=== PATIENT | male | born 1945 | race Caucasian/White ===

== ENCOUNTER 2017-01-13 21:48 | Inpatient (IN) | payer OTHER ==
[~2017-01-13] VITALS: Ht 165.1 cm; Wt 82.0 kg
[~2017-01-13 21:48] MED LIST: ACET325T33 PO; ATOR10TA65 PO; DOCU-144 PO; ERTA1VIA IV; HYDR-3671 PO; LORA1TAB PO; METO-429 PO; SERT100T PO; TAMS0.4C2 PO; TRAZ100T15 PO; UDMOM PO; ZOLP10TA5 PO
[2017-01-13] MEDS ORDERED: LEVOFLOXACIN 500MG/D5W (PMX) 100 ML IVPB STA (22:25)
[2017-01-13] MEDS ORDERED: metroNIDAZOLE 500 MG/NS (PMX) 100 ML IVPB STA (22:25)
[2017-01-13] MEDS ORDERED: SODIUM CHLORIDE 0.9% 1L BAG IV* STA (22:25)
[2017-01-13] MEDS ORDERED: ONDANSETRON 4 MG INJ IV STA (22:33)
[2017-01-13] MEDS ORDERED: HYDROmorphONE 0.5 MG/0.5 ML SYG IV STA (22:33)
[2017-01-13 22:57] LABS: BASOPHILS % 0.2 % (0.0-2.0); EOSINOPHILS # 0.1 10^3/ul (0.0-0.5); EOSINOPHILS % 1.2 % (0.0-7.0); HEMATOCRIT 43.4 % (42.0-52.0); HEMOGLOBIN 14.6 g/dl (14.0-18.0); LYMPHOCYTES # 0.9 10^3/ul (0.8-2.9); LYMPHOCYTES % 8.2 % (15.0-51.0); MEAN CORPUSCULAR HEMOGLOBIN 29.4 pg (29.0-33.0); MEAN CORPUSCULAR HGB CONC 33.6 g/dl (32.0-37.0); MEAN CORPUSCULAR VOLUME 87.3 fl (82.0-101.0); MEAN PLATELET VOLUME 10.5 fl (7.4-10.4); MONOCYTE # 0.4 10^3/ul (0.3-0.9); MONOCYTES % 3.4 % (0.0-11.0); NEUTROPHIL # 9.3 10^3/ul (1.6-7.5); NEUTROPHILS % 86.6 % (39.0-77.0); PLATELET COUNT 197 10^3/UL (140-415); RED BLOOD COUNT 4.97 10^6/ul (4.70-6.10); RED CELL DISTRIBUTION WIDTH 15.1 % (11.5-14.5); WHITE BLOOD COUNT 10.7 10^3/ul (4.8-10.8)
[2017-01-13 23:12] LABS: INR 0.96; PROTIME 12.8 Sec (12.2-14.2)
[2017-01-13 23:13] LABS: PARTIAL THROMBOPLASTIN TIME 26.9 Sec (25.0-35.0)
[2017-01-13 23:16] LABS: ALANINE AMINOTRANSFERASE 26 IU/L (13-69); ALBUMIN 4.1 g/dl (3.3-4.9); ALBUMIN/GLOBULIN RATIO 1.32; ALKALINE PHOSPHATASE 149 IU/L (42-121); ANION GAP 13 (8-16); ASPARTATE AMINO TRANSFERASE 23 IU/L (15-46); BILIRUBIN,INDIRECT 0.3 mg/dl (0-1.1); BILIRUBIN,TOTAL 0.3 mg/dl (0.2-1.3); BLOOD UREA NITROGEN 24 mg/dl (7-20); CALCIUM 8.9 mg/dl (8.4-10.2); CARBON DIOXIDE 33 mmol/L (21-31); CHLORIDE 98 mmol/L (97-110); CREATININE 1.33 mg/dl (0.61-1.24); GLUCOSE 115 mg/dl (70-220); SODIUM 141 mmol/L (135-144); TOTAL PROTEIN 7.2 g/dl (6.1-8.1)
--- NOTE | 2017-01-13 23:35 | RADRPT ---
PROCEDURE: CT abdomen and pelvis without intravenous contrast. CLINICAL INDICATION: Pain. TECHNIQUE: CT of the abdomen/pelvis was performed utilizing axial images with reconstructions in s agittal and coronal planes. The administered radiation dose is CTDI 12.4 mGy, DLP 734 mGy-cm. One or more of the following dose reduction techniques were used: automated exposure control, adjustment o f the mA and/or kV according to patient size and/or use of iterative reconstruction technique. COMPARISON: No pertinent prior examinations were submitted for comparison. FINDINGS: Visualized Chest: There is mild atelectasis at the lung bases. There is mild cardiomegaly. Abdomen: The liver, spleen, pancreas, gallbladder,and adrenal glands are unremarkable. The kidneys are without hydronephrosis. No definite urinary calculi are seen. A cyst is noted along the anterior aspect of the left kidney. There is no evidence of bowel obstruction. The appendix is normal. No intra-abdominal free air is seen. There is no evidence of intra-abdominal adenopathy or free fluid. Pelvis: The prostate is enlarged and lobulated with some nodularity protruding into the bladder. The prostat e measures up to 6.2 cm in transverse dimension. There is concentric thickening of the bladder nava along with a small diverticulum of the bladder on the right. There is no pelvic adenopathy or free fluid. Small bilateral fat containing inguinal hernias are noted. Osseous structures: Unremarkable. IMPRESSION: Enlarged and nodular prostate. Urologic follow-up is recommended. Thickened bladder nava presumably due to chronic urinary outlet obstruction. Please correlate with urinalysis to exclude infection. Small bilateral fat containing inguinal hernias. RPTAT: HIKT .Chuy Fontanez MD, Date Time Electronically viewed and signed by .Chuy Fontanez MD, on 01/13/2017 23:35 .T/
[2017-01-13 23:42] LABS: POTASSIUM 2.9 mmol/L (3.5-5.1); TROPONIN-I < 0.012 ng/ml (0.00-0.12)
[2017-01-14] VITALS (13 sets, daily range): BP systolic 132–173; BP diastolic 62–80; PULSE 59–90; RESP 18–20; TEMP 99.3; Ht 165.1 cm; Wt 82.0 kg
[2017-01-14] MEDS ORDERED: POTASSIUM CHLORIDE (SR) 20 MEQ TAB PO STA (00:05)
--- NOTE | 2017-01-14 00:29 | ERD ---
ER Documentation Chief Complaint Chief Complaint fever/chills x 5 days. also c/o vomiting/abd/chest pain HPI 71-year-old male with a history of CAD, hypertension, BPH presenting with complaints of abdominal pain for about 1 week that is diffuse, constant, aching , 10 out of 10. He is also had about 4-5 days of fevers and chills. He has associated nausea, nonbloody and nonbilious vomiting, and constipation for the past week as well. He denies any dysuria or hematuria. He also complains of constant left-sided chest pain radiating to his left arm. He denies any associated shortness of breath. The pain is constant, not exacerbated or alleviated by anything. ROS All systems reviewed and are negative except as per history of present illness. Medications Home Meds Active Scripts Ertapenem Sodium (Invanz) 1 Gm Vial.port, 1 GM IV DAILY for 14 Days Prov:JARROD CHUNG 12/04/15 Magnesium Hydroxide* (Rojo' MOM*) 30 Ml Susp, 30 ML PO DAILY Y for CONSTIPATION for 30 Days Prov:JARROD CHUNG 12/04/15 Docusate Sodium* (Colace*) 100 Mg Capsule, 100 MG PO Q12H Y for CONSTIPATION for 30 Days, CAP Prov:JARROD CHUNG 12/04/15 Acetaminophen* (Tylenol*) 325 Mg Tablet, 650 MG PO Q6H Y for PAIN LEVEL 1-3 OR FEVER for 30 Days, TAB Prov:JARROD CHUNG 12/04/15 Reported Medications Tamsulosin Hcl* (Tamsulosin Hcl*) 0.4 Mg Cap.er.24h, 0.4 MG PO BID, CAP 11/30/15 Hydralazine Hcl* (Hydralazine Hcl*) 25 Mg Tab, 25 MG PO TID Y for ANXIETY, #60 TAB 11/30/15 Trazodone Hcl* (Trazodone Hcl*) 100 Mg Tablet, 100 MG PO BID, #60 TAB 11/30/15 Sertraline Hcl* (Zoloft*) 100 Mg Tablet, 200 MG PO DAILY, #60 TAB 11/30/15 Zolpidem Tartrate* (Zolpidem Tartrate*) 10 Mg Tablet, 10 MG PO QHS Y for INSOMNIA, #30 TAB 11/30/15 Lorazepam* (Lorazepam*) 1 Mg Tablet, 1 MG PO BID Y for ANXIETY, #30 TAB 11/30/15 Atorvastatin Calcium (Atorvastatin Calcium) 10 Mg Tablet, 10 MG PO QHS, #30 TAB 11/30/15 Metoprolol Tartrate* (Lopressor*) 50 Mg Tab, 50 MG PO BID, #60 TAB 11/30/15 Allergies Allergies: Coded Allergies: Penicillins (Verified Allergy, Unknown, rash, 01/13/17) PMhx/Soc Medical and Surgical Hx: pt denies Surgical Hx History of Surgery: No Anesthesia Reaction: No Hx Neurological Disorder: No Hx Respiratory Disorders: No Hx Cardiac Disorders: Yes (HYPERTENSION) Hx Psychiatric Problems: Yes (ANXIETY) Hx Miscellaneous Medical Probl: No Hx Alcohol Use: No Hx Substance Use: No Hx Tobacco Use: No Smoking Status: Never smoker FmHx Family History: No coronary disease Physical Exam Vitals Vital Signs Date Time Temp Pulse Resp B/P Pulse Ox O2 Delivery O2 Flow Rate FiO2 01/14/17 01:37 99.3 90 18 130/82 95 Room Air 01/14/17 01:08 99.3 01/13/17 22:10 101.1 105 21 171/94 96 Room Air 01/13/17 22:10 Nasal Cannula 3 01/13/17 21:51 101.1 103 20 212/130 97 Physical Exam Const: Well-appearing, nontoxic, no apparent distress Head: Atraumatic Eyes: Normal Conjunctiva ENT: Dry mucous membranes, posterior oropharynx normal Neck: Full range of motion..~ No meningismus. No JVD Resp: Clear to auscultation bilaterally Cardio: Regular rate and rhythm, no murmurs. 2+ distal pulses. Abd: Soft, mildly distended, diffuse mild tenderness, no rebound or guarding. Hypoactive bowel sounds Skin: No petechiae or rashes Back: No midline or flank tenderness Ext: No cyanosis, or edema Neur: Awake and alert Psych: Normal Mood and Affect Result Diagram: 01/13/17222901/13/172229 Results 24 hrs Laboratory Tests Test 01/13/17 22:30 01/14/17 00:30 White Blood Count 10.710^3/ul Red Blood Count 4.9710^6/ul Hemoglobin 14.6g/dl Hematocrit 43.4% Mean Corpuscular Volume 87.3fl Mean Corpuscular Hemoglobin 29.4pg Mean Corpuscular Hemoglobin Concent 33.6g/dl Red Cell Distribution Width 15.1% Platelet Count 71998^3/UL Mean Platelet Volume 10.5fl Neutrophils % 86.6% Lymphocytes % 8.2% Monocytes % 3.4% Eosinophils % 1.2% Basophils % 0.2% Nucleated Red Blood Cells % 0.0/100WBC Neutrophils # 9.310^3/ul Lymphocytes # 0.910^3/ul Monocytes # 0.410^3/ul Eosinophils # 0.110^3/ul Basophils # 0.010^3/ul Nucleated Red Blood Cells # 0.010^3/ul Prothrombin Time 12.8Sec Prothrombin Time Ratio 1.0 INR International Normalized Ratio 0.96 Activated Partial Thromboplast Time 26.9Sec Sodium Level 141mmol/L Potassium Level 2.9mmol/L Chloride Level 98mmol/L Carbon Dioxide Level 33mmol/L Anion Gap 13 Blood Urea Nitrogen 24mg/dl Creatinine 1.33mg/dl Glucose Level 115mg/dl Lactic Acid Level 2.4mmol/L Calcium Level 8.9mg/dl Total Bilirubin 0.3mg/dl Direct Bilirubin 0.00mg/dl Indirect Bilirubin 0.3mg/dl Aspartate Amino Transf (AST/SGOT) 23IU/L Alanine Aminotransferase (ALT/SGPT) 26IU/L Alkaline Phosphatase 149IU/L Troponin I < 0.012ng/ml Total Protein 7.2g/dl Albumin 4.1g/dl Globulin 3.10g/dl Albumin/Globulin Ratio 1.32 Lipase 97U/L Urine Color COLORLESS Urine Clarity CLEAR Urine pH 8.0 Urine Specific [place] 1.006 Urine Ketones NEGATIVEmg/dL Urine Nitrite NEGATIVEmg/dL Urine Bilirubin NEGATIVEmg/dL Urine Urobilinogen NEGATIVEmg/dL Urine Leukocyte Esterase NEGATIVELeu/ul Urine Hemoglobin NEGATIVEmg/dL Urine Glucose NEGATIVEmg/dL Urine Total Protein NEGATIVEmg/dl Current Medications Medications (Trade) Dose Ordered Sig/Sandi Route PRN Reason Start Time Stop Time Status Last Admin Dose Admin Sodium Chloride 2540 ml 2,540 ml BOLUS OVER 2 HOURS STAT IV* 01/13/17 22:25 01/13/17 22:34 DC 01/13/17 23:17 Metronidazole 100 ml @ 100 mls/hr ONCE STAT IVPB 01/13/17 22:25 01/13/17 23:24 DC 01/13/17 22:25 Levofloxacin/ Dextrose (Levaquin 500mg/ D5W 100 ml (Pmx)) 100 ml @ 100 mls/hr ONCE STAT IVPB 01/13/17 22:25 01/13/17 23:24 DC 01/13/17 23:17 Hydromorphone HCl (Dilaudid) 0.5 mg ONCE STAT IV 01/13/17 22:33 01/13/17 22:34 DC 01/13/17 23:18 Ondansetron HCl (Zofran Inj) 4 mg ONCE STAT IV 01/13/17 22:33 01/13/17 22:34 DC 01/13/17 23:17 Potassium Chloride 40 meq 40 meq ONCE STAT PO 01/14/17 00:05 01/14/17 00:07 DC 01/14/17 00:05 Magnesium Sulfate (Magnesium Sulfate 2 Gm/50 ml) 50 ml @ 25 mls/hr ONCE ONCE IVPB 01/14/17 00:30 01/14/17 02:29 DC 01/14/17 01:30 Ondansetron HCl (Zofran Inj) 4 mg BRIDGE ORDER PRN IV NAUSEA AND/OR VOMITING 01/14/17 01:30 01/15/17 01:29 Acetaminophen 650 mg 650 mg ER BRIDGE PRN PO MILD PAIN/FEVER 01/14/17 01:30 01/15/17 01:29 Potassium Chloride/Dextrose/ Sod Cl (D5-1/2ns + KCl 20 Meq) 1,000 ml @ 125 mls/hr Q8H ONCE IV 01/14/17 02:25 01/14/17 10:24 Procedures/MDM EMERGENT LABS AND DIAGNOSTIC STUDIES: Lab Results above were reviewed and interpreted by me. CBC: No leukocytosis, increased neutrophil % CMP: Hypokalemia Lipase: no evidence of pancreatitis Troponin within normal limits Lactate elevated UA: no evidence of infection 12-lead EKG #1 was interpreted by Angela Guallpa MD: Sinus tachycardia at 104 beats per minute Normal axis Normal intervals Nonspecific ST and T-wave abnormalities No evidence of STEMI. 12-lead EKG #2 was interpreted by Angela Guallpa MD: SR at 97 beats per minute with first-degree AV block Normal axis Normal intervals Nonspecific ST and T-wave abnormalities No evidence of STEMI. Radiology Results as interpreted by Radiology below were reviewed by Ramonita Guallpa MD: Chest x-ray FINDINGS: There is mild cardiomegaly. The lungs are clear. The osseous structures are unremarkable. IMPRESSION: No acute findings. .Chuy Fontanez MD, Date Time Electronically viewed and signed by .Chuy Fontanez MD, on 01/14/2017 00:44 CT abdomen and pelvis without contrast: IMPRESSION: Enlarged and nodular prostate. Urologic follow-up is recommended. Thickened bladder nava presumably due to chronic urinary outlet obstruction. Please correlate with urinalysis to exclude infection. Small bilateral fat containing inguinal hernias. .Chuy Fontanez MD, Date Time Electronically viewed and signed by .Chuy Fontanez MD, on 01/13/2017 23:35 Initial Nursing notes reviewed. Previous Medical Records requested via the Electronic Health Record. EMERGENCY DEPARTMENT COURSE / MEDICAL DECISION MAKING: Patient is presenting with fever, tachycardia, hypertension, and abdominal pain. His presentation is consistent with sepsis with unclear source at this time. Urinalysis did not show evidence of infection but his CT scan showed evidence of bladder wall thickening, concerning for cystitis and also showed an enlarged prostate. Otherwise the CT was normal. Labs were notable for hypokalemia and acute renal failure. He received 40 M EQ potassium orally and started on IV fluids with potassium supplementation. Magnesium was also given IV. Patient's vitals have improved but patient's infectious symptoms have not stabilized and the patient is at risk of rapid decompensation. The etiology of his abdominal pain is unclear at this time, however I do not suspect ischemic bowel,per viscus or aortic dissection. The patient will be admitted for careful hydration, antibiotic therapy, and infectious source control. Severe Sepsis Assessment: Infectious Source: Intra-abdominal End organ damage indicated by: Lactate > 2.0 mmol/L Severe Sepsis Managment: Blood Cultures X 2 before broad spectrum antibiotics initiated within 3 hours of recognition. 30 ml/kg NS bolus Completed Initial Lactate: 2.4 Repeat Lactate pending Critical Care: Time: 35 minutes Treatments/Evaluations: Emergent fluid management, while maintaining close respiratory support. Immediate broad spectrum antibiotic therapy. Simultaneous assessment for possible sources in order to direct therapy. Consideration for invasive and chemical support to prevent respiratory or cardiac collapse. Septic Shock Assessment (1 hour post 30 ml/kg fluid bolus): Hypotension (SBP < 90 or 40 mmHg drop, MAP < 65): No Lactic acid > 4.0 No Accepting Care Team: Current data and ongoing care discussed. Time: Time of admission Primary Provider: Tho Walsh Diagnosis: Primary Impression: Sepsis Sepsis type: sepsis due to unspecified organism Qualified Code: A41.9 - Sepsis, due to unspecified organism Additional Impressions: Acute kidney injury Hypokalemia Abdominal pain Abdominal location: generalized Qualified Code: R10.84 - Generalized abdominal pain Condition: Serious MAURY GUALLPA MD Jan 14, 2017 00:29
[2017-01-14] MEDS ORDERED: MAGNESIUM SULFATE 2 GM/50 ML 50 ML IVPB ONE (00:30)
--- NOTE | 2017-01-14 00:45 | RADRPT ---
PROCEDURE: XR Chest. CLINICAL INDICATION: Shortness of breath. TECHNIQUE: AP Portable chest. COMPARISON: 12/04/2015 FINDINGS: There is mild cardiomegaly. The lungs are clear. The osseous structures are unremarkable. IMPRESSION: No acute findings. RPTAT: HIKT .Chuy Fontanez MD, Date Time Electronically viewed and signed by .Chuy Fontanez MD, on 01/14/2017 00:44 .T/
[2017-01-14 01:00] LABS: ADD UMIC NO; UR ASCORBIC ACID NEGATIVE (NEGATIVE); UR BILIRUBIN (Dip) NEGATIVE (NEGATIVE); UR BLOOD (Dip) NEGATIVE (NEGATIVE); UR CLARITY CLEAR (CLEAR); UR COLOR COLORLESS (YELLOW); UR GLUCOSE (Dip) NEGATIVE (NEGATIVE); UR KETONES (Dip) NEGATIVE (NEGATIVE); UR LEUKOCYTE ESTERASE (Dip) NEGATIVE Leu/ul (NEGATIVE); UR NITRITE (Dip) NEGATIVE (NEGATIVE); UR SPECIFIC GRAVITY (Dip) 1.006 (1.003-1.030); UR TOTAL PROTEIN (Dip) NEGATIVE (NEGATIVE); UR UROBILINOGEN (Dip) NEGATIVE (NEGATIVE)
[2017-01-14] MEDS ORDERED: ACETAMINOPHEN 325 MG TAB PO PRN ×2 (01:30→06:30)
[2017-01-14] MEDS ORDERED: ONDANSETRON 4 MG INJ IV PRN (01:30)
[2017-01-14] MEDS ORDERED: D5W-0.45 NACL + KCL 20 MEQ 1,000 ML IV ONE (02:25)
[2017-01-14] MEDS ORDERED: SOD CHLORIDE 0.9% 1,000 ML IV SCH (06:09)
[2017-01-14] MEDS: LORAZEPAM 1 MG TAB PO PRN ×2 (06:28→15:48)
[2017-01-14] MEDS ORDERED: LEVOFLOXACIN 500MG/D5W (PMX) 100 ML IVPB SCH (06:30)
[2017-01-14] MEDS ORDERED: NACL 0.9% 3 ML SYG IV SCH (06:30)
[2017-01-14] MEDS ORDERED: DOCUSATE SODIUM 100 MG CAP PO PRN (06:30)
[2017-01-14 07:11] LABS: ABNORMAL IP MESSAGE 1; BASOPHIL # 0.1 10^3/ul (0.0-0.1); BASOPHILS % 0.3 % (0.0-2.0); EOSINOPHILS % 0.1 % (0.0-7.0); HEMATOCRIT 38.8 % (42.0-52.0); HEMOGLOBIN 12.7 g/dl (14.0-18.0); LYMPHOCYTES # 1.4 10^3/ul (0.8-2.9); MEAN CORPUSCULAR HEMOGLOBIN 29.3 pg (29.0-33.0); MEAN CORPUSCULAR HGB CONC 32.7 g/dl (32.0-37.0); MEAN CORPUSCULAR VOLUME 89.4 fl (82.0-101.0); MEAN PLATELET VOLUME 11.2 fl (7.4-10.4); MONOCYTE # 1.6 10^3/ul (0.3-0.9); MONOCYTES % 6.9 % (0.0-11.0); NEUTROPHIL # 19.5 10^3/ul (1.6-7.5); NEUTROPHILS % 86.1 % (39.0-77.0); PLATELET COUNT 202 10^3/UL (140-415); POSITIVE DIFF @See below; RED BLOOD COUNT 4.34 10^6/ul (4.70-6.10); RED CELL DISTRIBUTION WIDTH 15.4 % (11.5-14.5); WHITE BLOOD COUNT 22.6 10^3/ul (4.8-10.8)
[2017-01-14 07:19] LABS: ALBUMIN 3.1 g/dl (3.3-4.9); ALBUMIN/GLOBULIN RATIO 1.1; BILIRUBIN,INDIRECT 0.3 mg/dl (0-1.1); BILIRUBIN,TOTAL 0.3 mg/dl (0.2-1.3); CALCIUM 8.2 mg/dl (8.4-10.2); CHOL/HDL RATIO 4.3 RATIO; CREATININE 1.37 mg/dl (0.61-1.24); MAGNESIUM 2.4 mg/dl (1.7-2.5); POTASSIUM 3.3 mmol/L (3.5-5.1); TOTAL PROTEIN 5.9 g/dl (6.1-8.1)
[2017-01-14] MEDS: ACETAMINOPHEN 325 MG TAB PO PRN ×2 (07:48→21:38)
[2017-01-14 07:50] LABS: PROSTATE SPECIFIC ANTIGEN 2.3 ng/ml (0.0-4.0); THYROID STIMULATING HORMONE 1.01 MIU/L (0.465-4.680)
[2017-01-14] MEDS: TAMSULOSIN (SR) 0.4 MG CAP PO SCH ×2 (09:21→21:30)
[2017-01-14] MEDS: traZODone 100 MG TAB PO SCH ×2 (09:21→21:30)
[2017-01-14] MEDS: SERTRALINE 100 MG TAB PO SCH (09:21)
--- NOTE | 2017-01-14 10:00 | HP ---
Date/Time of Note Date/Time of Note DATE: 01/14/17 TIME: 10:00 Assessment/Plan VTE Prophylaxis VTE Prophylaxis Intervention: heparin Lines/Catheters IV [facility]from [facility] Assessment/Plan Chief Complaint/Hosp Course 1. Systemic inflammatory response syndrome with febrile illness, leukocytosis, and tachycardia. Etiology unclear. The patient's urinalysis is negative. The patient's CT scan of the abdomen and pelvis negative for any acute intra- abdominal findings other than the enlarged prostate gland and concentric thickening of the urinary bladder wall. The patient will be maintained on empiric antibiotics. Pancultures will be obtained. The patient has no evidence of any septic shock. Infectious diseases will be involved in the patient's case since the patient has prior history of E. coli ESBL bacteremia and E. coli ESBL UTI. 2. Nonspecific left chest wall pain with associated left arm pain. Etiology unclear. The patient will be ruled out for any underlying acute coronary syndrome, for the patient's risk factors for ACS include dyslipidemia and essential hypertension. Serial troponins will be obtained. A 2D echocardiogram will be obtained. Cardiology consult will be obtained. 3. Acute kidney injury. Etiology unclear. The patient was noticed to have evidence of chronic urinary outlet obstruction. This could be the reason for the patient's worsening renal failure. The patient's renal function was within normal limits on his previous visit to [facility] in November 2015. Nephrology consult will be obtained. 4. Prostatomegaly with CT evidence of enlarged prostate measuring up to 6.2 cm in transverse diameter. The patient will be continued on tamsulosin. The patient's PSA is not elevated. Urology consult will be obtained. 5. Abdominal pain with associated nausea and vomiting. Etiology unclear. Not CT evidence of any acute intra-abdominal findings. Will obtain a gastroenterology consult. The patient will be started on a bowel regimen. 6. Essential hypertension. The patient will be maintained on antihypertensives. 7. Dyslipidemia. The patient will be continued on statins. The patient's fasting lipid panel is satisfactory. Plan: The patient will be admitted to inpatient telemetry floor. The patient will be started on a low-cholesterol diet. The patient will be started on DVT prophylaxis. The patient will remain a full code. Activities will be as tolerated. The rest of the patient's management will be based on the clinical course, inputs from consultants, and the results of diagnostic studies. Based on the patient's clinical presentation, he most probably requires at least 2 midnights' stay for further management and evaluation of his clinical presentation. The case and management of this patient was fully discussed with Dr. Prakash. Problems: HPI/ROS Admit Date/Time Admit Date/Time Jan 14, 2017 at 01:22 Hx of Present Illness Reason for admission: Fevers, chills 5 days. Abdominal pain, left sided chest wall pain, and left arm pain. Consultants 1. Yovany Daniel MD, Cardiology. 2. Jasiel Mosher MD, Infectious Diseases. 3. Dustin Conley MD, Urology. 4. Sav Keen DO, Nephrology. 5. Aniyah Chan, Gastroenterology. This is a 71-year-old male with past medical history essential hypertension, dyslipidemia, and benign prostatic hypertrophy who came to the emergency room with chief complaint of abdominal pain with episodes of nausea and vomiting that has been going on for the past 5 days. The patient also verbalized fevers and chills. He has been complaining of some throat pain. He has been complaining of constipation for the past few days. The patient denied any dysuria or hematuria, but did complain of urinary frequency. The patient was complaining of headache as well as left arm pain with left chest wall pain. The patient's complaints were very nonspecific. The patient denied any recent travels. Of note, the patient has history of E. coli ESBL bacteremia and E. coli ESBL urinary tract infection in November 2015. In the emergency room, the patient was noticed to have acute kidney injury along with the hypokalemia. Although the patient's initial WBC was within normal limits, the patient's repeat WBC was 22.6. The patient's urinalysis was negative. The patient was also febrile. The patient's CT scan of the abdomen and pelvis showed enlarged nodular prostate with thickened bladder nava presumably due to chronic urinary outlet obstruction. The CT also revealed small bilateral fat-containing inguinal hernias. The patient was treated with IV Levaquin and IV Flagyl in the emergency room along with potassium supplements and IV analgesics. ROS Constitutional: chills, febrile, poor po Eyes: no complaints ENT: no complaints Respiratory: no complaints Cardiovascular: chest pain Gastrointestinal: constipation, decreased appetite, nausea, vomiting Genitourinary: no complaints Musculoskeletal: bone/joint pain (Left shoulder) Skin: no complaints Neurologic: headache Endocrine: polyuria Lymphatic: no complaints Psychological: no complaints Immunologic: no complaints PMH/Family/Social Past Medical History Medical History: high cholesterol, hypertension, other (Benign prostatic hypertrophy) Past Surgical History Past Surgical Hx: no surgical history Social History Alcohol Use: none Smoking Status: Never smoker Drug Use: none Exam/Review of Systems Vital Signs Vitals Vital Signs Date Time Temp Pulse Resp B/P Pulse Ox O2 Delivery O2 Flow Rate FiO2 01/14/17 08:53 98.0 73 18 154/72 98 01/14/17 01:37 Room Air 01/13/17 22:10 3 Intake and Output 01/13/17 01/13/17 01/14/17 15:00 23:00 07:00 Intake Total 575 ml Balance 575 ml Exam Exam General: Obese 71 year-old male lying in bed in no apparent distress. HEENT: Normocephalic, atraumatic. Eyes: Anicteric sclerae, conjunctivae clear. ENT: Nasal septum midline, oral mucosa moist. Neck supple, no JVD noticed. Oropharynx clear without any exudate. Respiratory: Bilaterally diminished breath sounds. No use of accessory muscles of respiration. No adventitious breath sounds. Cardiovascular: S1, S2 heard. Regular rate and rhythm. Abdomen: Soft and nondistended. Bowel sounds positive in all 4 quadrants. Suprapubic tenderness. Genitourinary: Deferred. Extremities: No cyanosis, no clubbing, no edema. Peripheral pulses palpable. Neurologic: Cranial nerves II through XII grossly intact. The patient is awake, alert, and oriented. Skin: Normal skin turgor. No skin rashes. Labs Result Diagram: 01/14/1754101/14/17541 Medications Medications Current Medications Potassium Chloride/Dextrose/ Sod Cl (D5-1/2ns + KCl 20 Meq) 1,000 ml @ 125 mls/ hr Q8H ONCE IV Last administered on 01/14/17 03:29; Admin Dose 125 MLS/HR; Start 01/14/17 at 02:25; Stop 01/14/17 at 10:24 Acetaminophen (Tylenol Tab) 650 mg Q6H PRN PO PAIN LEVEL 1-3 OR FEVER Last administered on 01/14/17 07:48; Admin Dose 650 MG; Start 01/14/17 at 06:30 Atorvastatin Calcium (Lipitor) 10 mg QHS PO ; Start 01/14/17 at 21:00 Docusate Sodium (Colace) 100 mg Q12H PRN PO CONSTIPATION; Start 01/14/17 at 06: 30 Lorazepam (Ativan) 1 mg BID PRN PO ANXIETY Last administered on 01/14/17 06:28 ; Admin Dose 1 MG; Start 01/14/17 at 06:30 Sertraline HCl (Zoloft) 200 mg DAILY PO Last administered on 01/14/17 09:21; Admin Dose 200 MG; Start 01/14/17 at 09:00 Trazodone HCl (Desyrel) 100 mg BID PO Last administered on 01/14/17 09:21; Admin Dose 100 MG; Start 01/14/17 at 09:00 Ondansetron HCl (Zofran Inj) 4 mg Q6H PRN IV NAUSEA AND/OR VOMITING; Start 01/14/17 at 06:30 Acetaminophen 650 mg 650 mg Q6H PRN PO PAIN LEVEL 1-3 OR FEVER; Start 01/14/17 at 06:30 Levofloxacin/ Dextrose (Levaquin 500mg/ D5W 100 ml (Pmx)) 100 ml @ 100 mls/hr Q24H IVPB Last administered on 01/14/17 06:28; Admin Dose 100 MLS/HR; Start 01/14/17 at 06:30 Hydralazine HCl (Apresoline) 25 mg TID PRN PO ELEVATED BLOOD PRESSURE; Start 01/14/17 at 06:30 Tamsulosin HCl (Flomax) 0.4 mg BID PO Last administered on 01/14/17 09:21; Admin Dose 0.4 MG; Start 01/14/17 at 09:00 Procedures Procedures Twelve-Lead EKG First-degree AV block. CT Abdomen and Pelvis IMPRESSION: Enlarged and nodular prostate. Urologic follow-up is recommended. Thickened bladder nava presumably due to chronic urinary outlet obstruction. Please correlate with urinalysis to exclude infection. Small bilateral fat containing inguinal hernias. CXR IMPRESSION: No acute findings. RICHARDSON GODOY VICE PROVOST Jan 14, 2017 10:00
[2017-01-14] MEDS: SOD CHLORIDE 0.9% 1,000 ML IV SCH (11:14)
[2017-01-14 11:37] LABS: TROPONIN-I 0.018 ng/ml (0.00-0.12)
[2017-01-14 11:40] LABS: CK-MB 0.64 ng/ml (0.0-2.4)
[2017-01-14 14:37] LABS: ADD UMIC YES; UR ASCORBIC ACID NEGATIVE (NEGATIVE); UR BACTERIA FEW /HPF (NONE SEEN); UR BILIRUBIN (Dip) NEGATIVE (NEGATIVE); UR BLOOD (Dip) 1+ mg/dL (NEGATIVE); UR CLARITY CLEAR (CLEAR); UR COLOR STRAW (YELLOW); UR GLUCOSE (Dip) NEGATIVE (NEGATIVE); UR KETONES (Dip) NEGATIVE (NEGATIVE); UR LEUKOCYTE ESTERASE (Dip) NEGATIVE Leu/ul (NEGATIVE); UR NITRITE (Dip) NEGATIVE (NEGATIVE); UR RBC 0 /HPF (0-5); UR SPECIFIC GRAVITY (Dip) 1.004 (1.003-1.030); UR TOTAL PROTEIN (Dip) NEGATIVE (NEGATIVE); UR UROBILINOGEN (Dip) NEGATIVE (NEGATIVE)
--- NOTE | 2017-01-14 14:37 | RADRPT ---
PROCEDURE: CT Brain without contrast. CLINICAL INDICATION: Headache 1 week TECHNIQUE: A CT of the brain without contrast was performed utilizing axial sections from the skul l base through the vertex. The patient was scanned without intravenous contrast enhancement. [place] l and coronal reformatted images were obtained using the data from the axial images. Total exam DLP is 720.23 mGy-cm. CTDIvol is 43.68 mGy. One or more of the following dose reduction techniques we re used: Automated exposure control, adjustment of the mA and/or kV according to patient size, use o f iterative reconstruction technique. COMPARISON: None available FINDINGS: There is normal mcgowan-white matter differentiation. There is mild enlargement of the ventricles and subarachnoid spaces consistent with atrophy. There is no intracranial hemorrhage or space-occupying lesion. There is no skull fracture or lytic lesion. IMPRESSION: 1. Mild atrophy. 2. No intracranial hemorrhage. 3. Otherwise normal noncontrast CT scan of the brain. RPTAT: QQ .Tee Hill MD, MD Date Time Electronically viewed and signed by .Tee Hill MD, on 01/14/2017 14:37 .R/
--- NOTE | 2017-01-14 14:47 | CONS ---
DATE OF ADMISSION: 01/14/2017 DATE OF CONSULTATION: 01/14/2017 TYPE OF CONSULTATION: Nephrology. REASON FOR CONSULTATION: Acute kidney injury. PHYSICIAN REQUESTING CONSULTATION: Dr. Gong. HISTORY OF PRESENT ILLNESS: This is a 71-year-old male with a past medical history of coronary roly ry disease, hypertension, BPH, who presents to [facility] with complaints of abdom inal pain for 1 week. The patient states his pain was 10/10, associated with fevers. No nausea, no vomiting. The patient denied also any hemoptysis, hematemesis, hematochezia. Upon arrival to the emergency room, the patient had a CT scan of the abdomen and pelvis which showed findings of enlarge d prostate, thickened bladder and inguinal hernia, kidneys did not show any hydronephrosis. The [facility] ie also had a chest x-ray that shows no acute findings. In the emergency room, the patient was gi preet IV antibiotics. He had laboratory data drawn as well which showed findings of a sodium 141, pot assium 2.9, BUN 24, creatinine 1.33. The patient was also given potassium chloride supplementation. In terms of the patient's renal history, the patient had previous normal baseline creatinines of 0.8 to 0.9 mg/dL. These were from laboratory data from 2016. The patient himself denies any hemoptysi s, hematemesis, hematochezia. Denies any frothy urine. Denies any previous history of renal failur e or chronic kidney disease. PAST MEDICAL HISTORY: History of depression, history of BPH, history of anxiety disorder, history o f dyslipidemia, history of hypertension. PAST SURGICAL HISTORY: None. ALLERGIES: PATIENT IS ALLERGIC TO PENICILLIN. FAMILY HISTORY: Noncontributory. SOCIAL HISTORY: Does not drink, smoke or do drugs. MEDICATIONS: The patient's medications have been reviewed. REVIEW OF SYSTEMS: A 14-point review of systems was conducted. Pertinent positives as stated in HP I, otherwise negative. PHYSICAL EXAMINATION: VITAL SIGNS: Blood pressure is 154/72, respirations 18, pulse 73, temperature 98.0. HEENT: Head is normocephalic. NECK: Supple. HEART: Regular rate. LUNGS: Show diminished breath sounds at base. ABDOMEN: Soft, nontender to palpation. No rebound or guarding. EXTREMITIES: Negative for clubbing, cyanosis, no edema. DERMATOLOGIC: No rashes. MUSCULOSKELETAL: No joint effusions. NEUROLOGIC: No focal deficits. LABORATORY DATA: Shows sodium 144, potassium 3.3, BUN 21, creatinine 1.37. White count 22.6, hemog lobin 12.7, hematocrit 38.8, platelet count is 202. Imaging studies as stated in HPI. ASSESSMENT AND PLAN: This is a 71-year-old male who presents with problem: 1. Nonoliguric acute kidney injury with a previous creatinine of 0.8 mg/dL in 2016. Etiology of cu rrent acute kidney injury may be unclear, possibly due to sepsis, hemodynamics. The patient's urina lysis is bland, no evidence of proteinuria. Plan at this point is to repeat UA with microanalysis. Will calculate a FENa, fractional excretion of urea. Will check a renal ultrasound to evaluate juan c al parenchyma. Would recommend to continue current treatment plan. Continue IV hydration. Continu e IV antibiotics, continue supportive care, renally dose all meds, avoid nephrotoxins. 2. Hyperkalemia. Etiology may be secondary to gastrointestinal loss. The patient is receiving pot assium chloride supplementation. Potassium levels have been improving. Continue to monitor. 3. Mineral bone disorder. Will monitor calcium and phosphorus levels. Check a PTH, vitamin D25 le driss. 4. Anemia. Monitor hemoglobin and hematocrit levels. 5. Systemic inflammatory response syndrome (SIRS), possible sepsis. The patient has an elevated wh ite count, elevated lactic acid. Underlying source may be urinary, abdominal. Continue IV fluids, IV antibiotic, monitor closely and follow up cultures. 6. History of benign prostatic hypertrophy. Continue medical management. 7. Hypertension. Continue current blood pressure regimen. 8. Depression. Continue Zoloft. Thank you, Dr. Gong, for this interesting consult. It will be a pleasure to follow the patient w aníbal wells throughout the hospital course. Dictated By: CAMDEN JOSÉ/JORDAN Conf#: [id number] DID#: [id number]
--- NOTE | 2017-01-14 15:25 | RADRPT ---
PROCEDURE: Renal US. CLINICAL INDICATION: Acute kidney injury. TECHNIQUE: Multiple sonographic images of the kidneys and urinary bladder were obtained. The imag es were reviewed on a PACS workstation. COMPARISON: No prior studies are available for comparison. FINDINGS: The right kidney measures 11.7 cm. The left kidney measures 11.2 cm. There is no renal mass. There is no hydronephrosis. There is no renal calculus. Renal parenchymal thickness is normal bilaterally. Both kidneys are hyperechoic consistent with medical renal disease. The perirenal regions are normal with no fluid collection or mass. The prostate is enlarged measuring approximately 99 cc in volume. There is a possible hyperechoic ma ss posteriorly in the bladder measuring 4.3 x 3.3 x 2.4 cm. The urinary bladder is unremarkable. IMPRESSION: 1. Enlarged prostate. 2. Possible bladder mass or prostate invagination into the bladder base. 3. Bilateral hyperechoic kidneys consistent with medical renal disease. 4. No hydronephrosis. 5. Otherwise unremarkable renal ultrasound. RPTAT: QQ .Tee Hill MD, Date Time Electronically viewed and signed by .Tee Hill MD, on 01/14/2017 15:24 .R/
[2017-01-14] MEDS: HEPARIN 5,000 UNIT/0.5 ML VIAL SC SCH ×2 (15:28→21:31)
[2017-01-14 16:54] LABS: TROPONIN-I 0.064 ng/ml (0.00-0.12)
[2017-01-14 17:05] LABS: CK-MB 1.76 ng/ml (0.0-2.4)
[2017-01-14] MEDS: MEROPENEM 500MG/50 ML (PMX) 50 ML IVPB SCH ×2 (17:12→21:30)
[2017-01-14] MEDS ORDERED: BISACODYL (EC) 5 MG TAB PO PRN (17:30)
--- NOTE | 2017-01-14 17:50 | CONS ---
DATE OF ADMISSION: 01/14/2017 DATE OF CONSULTATION: 01/14/2017 HISTORY OF PRESENT ILLNESS: The patient is a 71-year-old gentleman who comes in with abdominal pain and chest pain localized to substernal area, located left side of the chest and radiating to the left upper extremity and the left side of the neck, associated with mild shortness of breath and dizziness. No syncope or palpitation, no orthopnea, PND. He does complain of headache and blurry vision and also complains of nausea and vomiting. No fever, chills or rigors. PAST MEDICAL HISTORY: Significant for: 1. Anxiety. 2. Depression. 3. Hypertension. 4. Obesity 5. Dyslipidemia SOCIAL HISTORY: No smoking, alcohol, or recreational drugs. ALLERGIES: PENICILLIN. CURRENT MEDICATIONS: 1. Trazodone: 2. Zoloft. 3. Levofloxacin. 4. Heparin. 5. Lipitor. REVIEW OF SYSTEMS: Unremarkable except that mentioned in the HPI. PHYSICAL EXAMINATION: VITAL SIGNS: Temperature is 98, heart rate of 73, blood pressure 154/72 mmHg, breathing at 18 and saturating 98% on room air. GENERAL: Patient awake, alert and oriented, in no apparent distress. NECK: No JVD or carotid bruit. CARDIOVASCULAR: Regular rate and rhythm. No murmur, rub or gallop. CHEST: Clear to auscultation. ABDOMEN: Soft. Bowel sounds are present. There is no organomegaly. EXTREMITIES: No pedal edema. Review of 12-lead EKG shows sinus rhythm with a ventricular rate of 97 beats per minute with prolonged VT interval with ____ milliseconds with normal QRS and normal QT intervals with nonspecific ST-T wave changes. Chest x-ray shows cardiomegaly with no congestion. Abdominal x-ray shows enlarged prostate. LABORATORY DATA: WBC 22.6, hemoglobin 12.7, hematocrit 38.8, platelets 202. Sodium 144, potassium 3.3, chloride 102, CO2 of 33, BUN 21, creatinine 1.37, magnesium 2.4, total cholesterol 160, LDL 104, HDL 37, triglycerides 94. TSH 1.01. Troponin x2 is negative. ASSESSMENT AND PLAN: A 71-year-old gentleman with: 1. Atypical chest pain. 2. Hypertension. 3. Dyslipidemia. 4. Obesity. 5. Anxiety. 6. Depression. Review of 12-lead EKG shows normal sinus rhythm with first degree AV block with nonspecific ST-T wave changes. He has been ruled out for acute coronary syndrome with serial negative troponins. Clinically not in heart failure. RECOMMENDATIONS: 1. Started on metoprolol 25 mg p.o. b.i.d. 2. Continue Lipitor. 3. Echocardiogram to assess for systolic function and to rule out for pulmonary hypertension and pericardial disease. 4. Continue empiric antibiotics. 5. Recommend a urology consultation. Dictated By: GHASSAN LIN MD SR/JORDAN Conf#: [id number] DID#: [id number] MTDD
[2017-01-14] MEDS: DOCUSATE SODIUM 100 MG CAP PO SCH (17:57)
--- NOTE | 2017-01-14 18:22 | CONS ---
Date/Time of Note Date/Time of Note DATE: 01/14/17 TIME: 18:04 Assessment/Plan Assessment/Plan Chief Complaint/Hosp Course 71-year-old male admitted with chills abdominal pain left shoulder pain chest pain nausea vomiting and had a CT scan of the abdomen and pelvis which showed enlarged and nodular prostate protruding into the bladder base. The patient does have history of recurrent urinary tract infections and obstructive lower urinary tract symptoms. At the present he is covered was antibiotic and he is on tamsulosin. He is not in urinary retention. Will continue the tamsulosin and antibiotic and in the future he may need a transurethral resection of the prostate. Also we will check his PSA when the infection has cleared as it may be elevated now because of the infection Problems: Consultation Date/Type/Reason Admit Date/Time Jan 14, 2017 at 01:22 Date of Consultation: Jan 14, 2017 Type of Consultation: Urology Reason for Consultation Nodular prostate and recurrent urinary tract infections Referring Provider: MARTHA SOLIS of Present Illness This is a 71-year-old male with past medical history of hypertension, dyslipidemia, benign prostatic hypertrophy and urinary tract infection came to the emergency room with the chief complaint of abdominal pain, episodes of nausea and vomiting for the past 5 days. The patient also had fevers and chills. He has been complaining of some throat pain and constipation for the past 5 days. The patient is complaining of headache as well as left arm pain with left chest wall pain. Prior to his admission usually he does have nocturia about 5-6 times a night and during the day he voids every 10-15 minutes and he has had this problem for over 3 years. he states he has not been taking any medication for his prostate, he complains also of terminal dysuria, he denies any gross hematuria, he has a slow urinary stream, postvoid dribbling and he feels he does not empty his bladder well. He also complains of urgency and urgency incontinence. He states he has been having recurrent urinary tract infection and he was admitted to the hospital here 1 year ago for the same Constitutional: chills (On admission) Eyes: no complaints ENT: no complaints Respiratory: no complaints Cardiovascular: chest pain, No palpitations Gastrointestinal: constipation, decreased appetite, nausea, pain (Abdominal), vomiting Genitourinary: no complaints, other (Terminal dysuria, slow urinary stream, postvoid dribbling ,urgency, urgency incontinence, frequency and nocturia) Musculoskeletal: bone/joint pain (Left shoulder) Skin: no complaints Neurologic: headache Endocrine: polyuria Lymphatic: no complaints Psychological: no complaints Immunologic: no complaints Past Medical History Medical History: high cholesterol, hypertension, other (Benign prostatic hypertrophy) Past Surgical History Past Surgical Hx: other (Right hydrocelectomy) Family History Significant Family History: no pertinent family hx Social History Alcohol Use: none Smoking Status: Former smoker (He used to smoke 5-6 cigarettes per day for about 10 years and he quit 1 year ago) Drug Use: none Exam/Review of Systems Vital Signs Vitals Vital Signs Date Time Temp Pulse Resp B/P Pulse Ox O2 Delivery O2 Flow Rate FiO2 01/14/17 17:11 98.0 65 18 173/80 98 01/14/17 01:37 Room Air 01/13/17 22:10 3 Intake and Output 01/13/17 01/13/17 01/14/17 15:00 23:00 07:00 Intake Total 575 ml Balance 575 ml Exam Constitutional: alert, oriented Psych: no complaints Head: normocephalic Eyes: nl conjunctiva ENMT: nl external ears & nose Neck: supple Cardiovascular: No edema Gastrointestinal: mass (Below the umbilicus and a little bit toward the right) , non-tender, soft Genitourinary - Male: nl penis, nl scrotum, other (Prostate is large and soft) Extremities: No calf tenderness, No edema Skin: nl turgor Lymph: nl lymph nodes Results Result Diagram: 01/14/17 0542 01/14/17 0542 Results 24 hrs Laboratory Tests Test 01/13/17 22:30 01/14/17 00:30 01/14/17 02:40 01/14/17 05:42 White Blood Count 10.7 # 22.6 #H Red Blood Count 4.97 4.34 L Hemoglobin 14.6 # 12.7 L Hematocrit 43.4 38.8 L Mean Corpuscular Volume 87.3 89.4 Mean Corpuscular Hemoglobin 29.4 29.3 Mean Corpuscular Hemoglobin Concent 33.6 32.7 Red Cell Distribution Width 15.1 H 15.4 H Platelet Count 197 202 Mean Platelet Volume 10.5 H 11.2 H Neutrophils % 86.6 H 86.1 H Lymphocytes % 8.2 L 6.0 L Monocytes % 3.4 6.9 Eosinophils % 1.2 0.1 Basophils % 0.2 0.3 Nucleated Red Blood Cells % 0.0 0.0 Neutrophils # 9.3 H 19.5 H Lymphocytes # 0.9 1.4 Monocytes # 0.4 1.6 H Eosinophils # 0.1 0.0 Basophils # 0.0 0.1 Nucleated Red Blood Cells # 0.0 0.0 Prothrombin Time 12.8 Prothrombin Time Ratio 1.0 INR International Normalized Ratio 0.96 Activated Partial Thromboplast Time 26.9 Sodium Level 141 144 Potassium Level 2.9 *L 3.3 L Chloride Level 98 102 Carbon Dioxide Level 33 H 33 H Anion Gap 13 12 Blood Urea Nitrogen 24 H 21 H Creatinine 1.33 H 1.37 H Glucose Level 115 106 Lactic Acid Level 2.4 *H 0.8 1.8 Calcium Level 8.9 8.2 L Total Bilirubin 0.3 0.3 Direct Bilirubin 0.00 0.00 Indirect Bilirubin 0.3 0.3 Aspartate Amino Transf (AST/SGOT) 23 17 Alanine Aminotransferase (ALT/SGPT) 26 25 Alkaline Phosphatase 149 H 97 Troponin I < 0.012 0.018 Total Protein 7.2 5.9 #L Albumin 4.1 3.1 #L Globulin 3.10 2.80 Albumin/Globulin Ratio 1.32 1.10 Lipase 97 Urine Color COLORLESS Urine Clarity CLEAR Urine pH 8.0 Urine Specific [place] 1.006 Urine Ketones NEGATIVE Urine Nitrite NEGATIVE Urine Bilirubin NEGATIVE Urine Urobilinogen NEGATIVE Urine Leukocyte Esterase NEGATIVE Urine Hemoglobin NEGATIVE Urine Glucose NEGATIVE Urine Total Protein NEGATIVE Hemoglobin A1c 5.6 Magnesium Level 2.4 Creatine Kinase 67 Creatine Kinase Index 1.0 Creatinine Kinase MB (Mass) 0.64 Triglycerides Level 94 Cholesterol Level 160 LDL Cholesterol, Calculated 104 HDL Cholesterol 37 Cholesterol/HDL Ratio 4.3 Prostate Specific Antigen 2.3 Thyroid Stimulating Hormone (TSH) 1.010 Test 01/14/17 14:00 01/14/17 16:02 Urine Color STRAW Urine Clarity CLEAR Urine pH 7.0 Urine Specific [place] 1.004 Urine Ketones NEGATIVE Urine Nitrite NEGATIVE Urine Bilirubin NEGATIVE Urine Urobilinogen NEGATIVE Urine Leukocyte Esterase NEGATIVE Urine Microscopic RBC 0 Urine Microscopic WBC 1 Urine Bacteria FEW A Urine Hemoglobin 1+ H Urine Random Creatinine 35.90 Urine Random Sodium < 13 L Urine Glucose NEGATIVE Urine Total Protein 31.0 H Creatine Kinase 81 Creatine Kinase Index 2.2 Creatinine Kinase MB (Mass) 1.76 Troponin I 0.064 Imaging Free Text/Dictation CT scan of the abdomen and pelvis: The prostate is enlarged and lobulated with some nodularity protruding into the bladder. The prostate measures up to 6.2 cm in transverse dimension. There is concentric thickening of the bladder nava along with a small diverticulum of the bladder on the right. There is no pelvic adenopathy or free fluid. Small bilateral fat containing inguinal hernias are noted. Osseous structures: Unremarkable. Enlarged and nodular prostate. Thickened bladder nava presumably due to chronic urinary outlet obstruction. Please correlate with urinalysis to exclude infection. Small bilateral fat containing inguinal hernia Medications Medications Current Medications Acetaminophen (Tylenol Tab) 650 mg Q6H PRN PO PAIN LEVEL 1-3 OR FEVER Last administered on 01/14/17 07:48; Admin Dose 650 MG; Start 01/14/17 at 06:30 Atorvastatin Calcium (Lipitor) 10 mg QHS PO ; Start 01/14/17 at 21:00 Lorazepam (Ativan) 1 mg BID PRN PO ANXIETY Last administered on 01/14/17 15:48 ; Admin Dose 1 MG; Start 01/14/17 at 06:30 Sertraline HCl (Zoloft) 200 mg DAILY PO Last administered on 01/14/17 09:21; Admin Dose 200 MG; Start 01/14/17 at 09:00 Trazodone HCl (Desyrel) 100 mg BID PO Last administered on 01/14/17 09:21; Admin Dose 100 MG; Start 01/14/17 at 09:00 Ondansetron HCl (Zofran Inj) 4 mg Q6H PRN IV NAUSEA AND/OR VOMITING; Start 01/14/17 at 06:30 Acetaminophen (Tylenol Tab) 650 mg Q6H PRN PO PAIN LEVEL 1-3 OR FEVER; Start 01/14/17 at 06:30 Hydralazine HCl (Apresoline) 25 mg TID PRN PO ELEVATED BLOOD PRESSURE; Start 01/14/17 at 06:30 Tamsulosin HCl 0.4 mg 0.4 mg BID PO Last administered on 01/14/17 09:21; Admin Dose 0.4 MG; Start 01/14/17 at 09:00 Sodium Chloride (NS) 1,000 ml @ 75 mls/hr [id number] IV Last administered on 01/14 11:14; Admin Dose 75 MLS/HR; Start 01/14/17 at 11:00 Heparin Sodium (Porcine) 5000 unit 5,000 unit Q8 SC Last administered on 15:28; Admin Dose 5,000 UNIT; Start 01/14/17 at 14:00 Meropenem/Sodium Chloride (Merrem 500mg/50 ml(Pmx)) 50 ml @ 200 mls/hr Q8 IVPB Last administered on 01/14/17 17:12; Admin Dose 200 MLS/HR; Start 01/14/17 at 16:00 Docusate Sodium (Colace) 100 mg Q12H PO Last administered on 01/14/17 17:57; Admin Dose 100 MG; Start 01/14/17 at 18:30 Bisacodyl (Dulcolax) 10 mg DAILY PRN PO CONSTIPATION Last administered on 17:17; Admin Dose 10 MG; Start 01/14/17 at 17:30 Polyethylene Glycol (Miralax) 17 gm BID PO ; Start 01/14/17 at 21:00 Morphine Sulfate (morphine) 2 mg Q4H PRN IV PAIN; Start 01/14/17 at 17:30 DUC SMITH MD Jan 14, 2017 18:14
[2017-01-14] MEDS: ATORVASTATIN 10 MG TAB PO SCH (21:30)
[2017-01-14] MEDS: POLYETHYLENE GLYCOL 17 GM PACKET PO SCH (21:30)
[2017-01-15] VITALS (13 sets, daily range): BP systolic 148–221; BP diastolic 79–101; PULSE 63–95; RESP 14–21
[2017-01-15] MEDS: SOD CHLORIDE 0.9% 1,000 ML IV SCH ×3 (00:20→19:30)
[2017-01-15] MEDS: DOCUSATE SODIUM 100 MG CAP PO SCH ×2 (05:43→22:00)
[2017-01-15] MEDS: HEPARIN 5,000 UNIT/0.5 ML VIAL SC SCH ×3 (05:44→22:00)
[2017-01-15] MEDS: LORAZEPAM 1 MG TAB PO PRN ×2 (05:48→16:22)
[2017-01-15] MEDS: MEROPENEM 500MG/50 ML (PMX) 50 ML IVPB SCH (05:48)
[2017-01-15] MEDS: ACETAMINOPHEN 325 MG TAB PO PRN ×2 (05:55→14:08)
[2017-01-15] MEDS ORDERED: hydrALAzine 20 MG INJ IV ONE (07:00)
--- NOTE | 2017-01-15 07:52 | CONS ---
DATE OF ADMISSION: 01/14/2017 DATE OF CONSULTATION: 01/14/2017 TYPE OF CONSULTATION: Infectious Disease. REASON FOR CONSULTATION: Antibiotic management. HISTORY OF PRESENT ILLNESS: Kris Saleem is a 71-year-old male with numerous problems wh o comes in with sepsis and is being seen for antibiotic management. His past problems include: 1. Essential hypertension. 2. Dyslipidemia. 3. Benign prostatic hypertrophy. Acutely he comes in the emergency room with a chief complaint of abdominal pain with nausea and vomi ting over the last 5 days. He also had fever and chills. The patient has some throat pain in addit ion. The patient has a history of Escherichia coli extended-spectrum beta-lactamase bacteremia and Escherichia coli extended-spectrum beta-lactamase urinary tract infection in 11/2015. In the emerge ncy room, his white count was 22.6, H and H 12.7 and 38.8, platelet count 202,000. BUN and creatini ne 21/1.37 and his random glucose is 106. A CT scan of the abdomen and pelvis showed enlarged nodul ar prostate with thickened bladder nava, presumably due to chronic urinary outlet obstruction. It also showed small bilateral fat containing inguinal hernias. The patient was started on Levaquin an d Flagyl in the emergency room. HOSPITAL COURSE: He was also seen in consultation by Dr. Keen who noted that the patient is VLAD RGIC TO PENICILLIN, and also has a history of depression and anxiety disorder in addition to the oth er aforementioned problems. His BUN and creatinine are 24/1.33. His previous creatinine was 0.8 in 2016. Today, his white count is 22.6. His urine is negative for leukocyte esterase and for nitrit es. A chest x-ray was also negative. A CT scan of the brain shows mild atrophy. No intracranial h emorrhage, otherwise normal. PAST MEDICAL HISTORY: Operations as outlined. FAMILY HISTORY: Noncontributory. SOCIAL HISTORY: He does not smoke, drink or abuse drugs. ALLERGIES: NONE TO (04:53), SULFA OR FOODS. MEDICATIONS: Per chart. REVIEW OF SYSTEMS: Noncontributory. PHYSICAL EXAMINATION: GENERAL: The patient is a 71-year-old male who is obese, lying in bed in no acute distress. VITAL SIGNS: Stable. He is afebrile. SKIN: Without generalized rash. HEENT: Within normal limits. NECK: Supple. LYMPH NODES: None palpable. CHEST: Decreased breath sounds at the bases. HEART: Without murmur or gallop. ABDOMEN: Soft, nontender, without organosplenomegaly or masses. EXTREMITIES: He has some suprapubic tenderness. Extremities without clubbing, cyanosis, or edema. RECTAL AND GENITAL: Exams deferred. NEUROLOGIC: No focal neurological abnormalities. IMPRESSION AND PLAN: The patient has white count of 22.6, the etiology of which is not clear. He i s currently on Levaquin. His chest x-ray is benign. His CT scan of the abdomen does not show any f ocus of infection. He has blood cultures pending and urine cultures pending. Influenza A and B pen ding, MRSA screen. At this point it is quite unclear as to what is going on with him. He is ALLERG IC TO PENICILLIN, I think he develops a rash. I am going to switch him to imipenem or ertapenem. I will dictate my findings to the hospitalist. Dictated By: LAKEISHA CAIN MD, JD/JORDAN Conf#: [id number] DID#: [id number]
[2017-01-15] MEDS: traZODone 100 MG TAB PO SCH ×2 (08:31→21:58)
[2017-01-15] MEDS: TAMSULOSIN (SR) 0.4 MG CAP PO SCH ×2 (08:31→21:58)
[2017-01-15] MEDS: SERTRALINE 100 MG TAB PO SCH (08:31)
[2017-01-15] MEDS: POLYETHYLENE GLYCOL 17 GM PACKET PO SCH ×2 (08:32→21:00)
--- NOTE | 2017-01-15 08:36 | PN ---
DATE: 01/15/2017 SUBJECTIVE: The patient is stable, no acute events overnight. No hemoptysis, hematemesis or hemato chezia. OBJECTIVE: VITAL SIGNS: Blood pressure 170/85, respiration 18, pulse 64, temperature 97.6. HEENT: Head is normocephalic. NECK: Supple. HEART: Regular rate. LUNGS: Show diminished breath sounds at the base. ABDOMEN: Soft, mild tenderness to palpation. EXTREMITIES: Negative for clubbing, cyanosis. No edema. DERMATOLOGIC: No rashes. MUSCULOSKELETAL: No joint effusions. NEUROLOGIC: No change in exam. MEDICATIONS: The patient's medications have been reviewed. LABORATORY DATA: For 01/15/2017 is pending. Urinalysis from 01/14/2017 shows less than 1%. ASSESSMENT AND PLAN: 1. Nonoliguric acute kidney injury with previous baseline creatinine 0.8 mg/dL. Etiology is likely multifactorial secondary to decreased effective arterial volume from volume depletion and possible sepsis. The patient's less than 1% consistent with hyperperfusion of kidneys. The patient is currently on IV fluids and IV antibiotics, tolerating well. We will follow up a renal panel. Othe rwise, continue current treatment plan, supportive care, renally dose all medicines. 2. Hyperkalemia. Etiology was secondary to gastrointestinal losses. The patient is status post po tassium chloride. Follow up renal panel. 3. Mineral bone disorder. Monitor calcium and phosphorus levels. 4. Anemia. Monitor hemoglobin and hematocrit levels. 5. SIRS. Possible sepsis. Continue current treatment plan. Continue antibiotic therapy. Patient 's cultures have been negative to date. Continue gentle hydration. 6. Hypertension, etiology may be secondary to pain, possible IV fluids and monitor closely. Consid er deescalating fluids if blood pressures do not improve. 7. Benign prostatic hypertrophy. Continue medical management and follow up with urology. 8. Depression. Continue Zoloft. Dictated By: CAMDEN JOSÉ/JORDAN Conf#: [id number] DID#: [id number]
[2017-01-15 08:46] LABS: BASOPHILS % 0.3 % (0.0-2.0); EOSINOPHILS # 0.1 10^3/ul (0.0-0.5); EOSINOPHILS % 0.9 % (0.0-7.0); HEMATOCRIT 39.8 % (42.0-52.0); HEMOGLOBIN 13.1 g/dl (14.0-18.0); LYMPHOCYTES # 1.5 10^3/ul (0.8-2.9); LYMPHOCYTES % 12.8 % (15.0-51.0); MEAN CORPUSCULAR HEMOGLOBIN 29.2 pg (29.0-33.0); MEAN CORPUSCULAR HGB CONC 32.9 g/dl (32.0-37.0); MEAN CORPUSCULAR VOLUME 88.6 fl (82.0-101.0); MEAN PLATELET VOLUME 11.1 fl (7.4-10.4); NEUTROPHIL # 9.1 10^3/ul (1.6-7.5); NEUTROPHILS % 77.2 % (39.0-77.0); PLATELET COUNT 188 10^3/UL (140-415); RED BLOOD COUNT 4.49 10^6/ul (4.70-6.10); RED CELL DISTRIBUTION WIDTH 15.6 % (11.5-14.5); WHITE BLOOD COUNT 11.8 10^3/ul (4.8-10.8)
[2017-01-15 09:17] LABS: CALCIUM 8.1 mg/dl (8.4-10.2); CREATININE 1.07 mg/dl (0.61-1.24); POTASSIUM 3.2 mmol/L (3.5-5.1)
[2017-01-15 09:27] LABS: MAGNESIUM 2.2 mg/dl (1.7-2.5); PHOSPHORUS 2.3 mg/dl (2.5-4.9)
[2017-01-15 09:39] LABS: TROPONIN-I 0.058 ng/ml (0.00-0.12)
[2017-01-15 09:41] LABS: CK-MB 1.64 ng/ml (0.0-2.4)
[2017-01-15] MEDS: morphine 2 MG INJ IV PRN (12:20)
[2017-01-15] MEDS ORDERED: POTASSIUM CHLORIDE (SR) 20 MEQ TAB PO STA (12:29)
[2017-01-15] MEDS: NITROGLYCERIN (SL) 0.4 MG TAB SL PRN (12:40)
[2017-01-15] MEDS: hydrALAzine 20 MG INJ IV PRN (12:41)
[2017-01-15] MEDS: ONDANSETRON 4 MG INJ IV PRN (14:06)
[2017-01-15] MEDS: ERTAPENEM SODIUM 1 GM in SOD CHLORIDE 0.9% 100 ML IVPB SCH (14:48)
--- NOTE | 2017-01-15 15:22 | PN ---
DATE: 01/15/2017 SUBJECTIVE: No acute changes. Patient is alert, looks comfortable, no fevers overnight. WBC today 11.8, H and H 13.1 and 39.8, platelets 188, neutrophils 77.2, no bands. BUN 12, creatinin e 1.07. MICROBIOLOGY: Blood cultures negative. Urine culture consistent with contaminant. Nares swab posi tive for MRSA. Urinalysis negative. DIAGNOSTICS: CT of the abdomen on admission revealed enlarged nodular prostate, thickened bladder w all, presumably due to chronic urine outlet obstruction. Renal ultrasound revealed enlarged prostat e, possible bladder mass or prostate invagination into the bladder bases bilaterally hyperechoic kid neys consistent with medical renal disease, no hydronephrosis. Brain CT revealed no intracranial he morrhage, mild atrophy. ANTIMICROBIALS: The patient is on meropenem. PHYSICAL EXAMINATION: GENERAL: An obese, well-developed, elderly man who is awake, in no distress. HEENT: Head atraumatic, normocephalic. Sclerae anicteric. Buccal mucosa dry. NECK: Supple. CHEST: Rise symmetrical. Breath sounds diminished to bases. HEART: S1, S2. ABDOMEN: Soft. Some tenderness with palpation over suprapubic region. Bowel tones present. EXTREMITIES: Without cyanosis. ASSESSMENT: 1. Systemic inflammatory response syndrome with fevers, chills and leukocytosis, likely secondary t o urinary tract infection. 2. Enlarged prostate, possible bladder outlet obstruction. 3. Recurrent bouts of urinary tract infection. 4. Acute kidney injury. 5. Hypertension. PLAN: We are going to repeat urine culture as the specimen apparently is contaminated. Change bertrand marrufo to Invanz. Follow urology recommendations. Dictated By: DIANA FUNK STRING TOP SEALER for LAKEISHA GARZA/JORDAN Conf#: [id number] DID#: [id number]
--- NOTE | 2017-01-15 15:36 | RADRPT ---
Echocardiogram Report Patient Name: IMELDA BOOTHE Gender: Male Date: 1945 Study Date: 15-Jan-2017 General Maintenance Mechanic: Rory Gaitan [facility] Location: [id number] Ref. Physician: RICHARDSON GODOY Quality: Good Procedures: Transthoracic echocardiogram with complete 2D, M-Mode, and doppler examination. Indications: Chest Pain. 2D/M Mode Doppler Measurement Value Normal Ranges Measurement Value Normal Ranges LVIDd 2D 5.4 3.5 - 5.6 cm AV Peak Sebastián 1.3 m/sec LVIDs 2D 3.2 2.1 - 4.1 cm AV Peak PG 6.8 mmHg LVPWd 2D 1.2 0.6 - 1.1 cm LVOT Peak Sebastián 0.9 m/sec IVSd 2D 1.0 0.6 - 1.1 cm LVOT Peak PG 2.9 mmHg AoR Diam 2D 3.0 2.0 - 3.7 cm MV E Peak Sebastián 0.5 m/sec EDV 2D 142.8 cm3 MV A Peak Sebastián 0.8 m/sec ESV 2D 31.8 cm3 MV E/A 0.6 LA Dimen 2D 3.6 2.3 - 4.0 cm MV Decel Time 220 msec MV Decel Jasper 2 MV E/A 0.6 Findings Left Ventricle: Normal left ventricular systolic function. Normal left ventricular cavity size. Mild concentric left ventricular hypertrophy. Ejection fraction is visually estimated at 55 %. Tissue Doppler/Mitral Doppler indices are consistent with impaired relaxation (Stage I diastolic dysfunction). Right Ventricle: Normal right ventricular size. Normal right ventricular systolic function. Left Atrium: The left atrium is normal in size. Right Atrium: The right atrium is normal in size. Mitral Valve: Normal appearance of the mitral valve. Mild mitral annular calcification. Trace mitral regurgitation. Aortic Valve: Normal appearance of the aortic valve. No significant aortic stenosis or insufficiency. Tricuspid Valve: Normal appearance of the tricuspid valve. Unable to obtain RVSP due to minimal presence of tricuspid regurgitation. Pulmonic Valve: Pulmonic valve not well visualized. Pericardium: Normal pericardium with no significant pericardial effusion. Aorta: Normal aortic root. IVC: Normal size and normal respiratory collapse consistent with normal right atrial pressure. Conclusions 1.Normal left ventricular systolic function. Normal left ventricular cavity size. Mild concentric left ventricular hypertrophy. Ejection fraction is visually estimated at 55 %. Tissue Doppler/Mitral Doppler indices are consistent with impaired relaxation (Stage I diastolic dysfunction). 2.Normal right ventricular size. Normal right ventricular systolic function. 3.Normal appearance of the mitral valve. Mild mitral annular calcification. Trace mitral regurgitation. 4.Normal appearance of the aortic valve. No significant aortic stenosis or insufficiency. 5.Normal appearance of the tricuspid valve. Unable to obtain RVSP due to minimal presence of tricuspid regurgitation. 6.Normal pericardium with no significant pericardial effusion. Electronically Signed By: Yovany Daniel 15-Jan-2017 15:36:00 -0800 Patient Name: IMELDA BOOTHE Study Date: 15-Jan-2017 [id number]
--- NOTE | 2017-01-15 16:38 | PN ---
Date/Time of Note Date/Time of Note DATE: 01/15/17 TIME: 16:29 Assessment/Plan VTE Prophylaxis VTE Prophylaxis Intervention: SCD's Lines/Catheters IV [facility]ter Type (from [facility] Peripheral IV Urinary Cath still in place: No Assessment/Plan Chief Complaint/Hosp Course Assessment and plan 1. SIRS. Etiology unknown. Urinalysis inconclusive. Leukocytosis downward trending. ID consult following. cotninue on abx. 2. Chest pain. Etiology unknown. Echocardiogram pending. Cattle Knocker to follow. Troponins negative so far. Follow-up with optical glass inspector or conditions. 3. Acute kidney injury. Avoid nephrotoxic medications. Monitor renal panel. Continue IV hydration. 4. Prostatomegaly. Neurologist was consulted. Will follow up. 5. Essential hypertension. Continue antihypertensives and adjust as needed. 6. Dyspnea. Continue statin medication. Disposition plan: Still noted chest pain. Follow-up with optical glass inspector. Monitor on telemetry. Nitro added as needed for chest pain. Repeat EKG done today with no ST or T-wave abnormalities. We will follow-up Discussed plan of care with Dr. Velasco Problems: Subjective 24 Hr Interval Summary Free Text/Dictation Reports of chest pain still. Exam/Review of Systems Vital Signs Vitals Vital Signs Date Time Temp Pulse Resp B/P Pulse Ox O2 Delivery O2 Flow Rate FiO2 01/15/17 16:19 77 01/15/17 12:49 148/79 01/15/17 12:30 Nasal Cannula 2.0 01/15/17 12:03 98.0 20 98 Intake and Output 01/14/17 01/14/17 01/15/17 15:00 23:00 07:00 Intake Total 1000 ml 1980 ml 336 ml Output Total 1550 ml 600 ml Balance 1000 ml 430 ml -264 ml Exam Constitutional: alert, oriented Psych: anxiety Head: normocephalic Respiratory: diminished breath sounds Cardiovascular: other (REGULAR RATE) Gastrointestinal: non-tender, soft Musculoskeletal: nl extremities to inspection Neurological: APPLIANCE FIXER II-XII intact, nl mental status, nl speech Skin: nl turgor Results Result Diagram: 01/15/1718 01/15/17 0717 Results 24 hrs Laboratory Tests Test 01/15/17 07:17 01/15/17 07:18 01/15/17 12:46 Sodium Level 144 Potassium Level 3.2 L Chloride Level 107 Carbon Dioxide Level 29 Anion Gap 11 Blood Urea Nitrogen 12 # Creatinine 1.07 Glucose Level 84 Calcium Level 8.1 L Phosphorus Level 2.3 L Magnesium Level 2.2 Creatine Kinase 89 Creatine Kinase Index 1.8 Creatinine Kinase MB (Mass) 1.64 Troponin I 0.058 0.037 White Blood Count 11.8 #H Red Blood Count 4.49 L Hemoglobin 13.1 L Hematocrit 39.8 L Mean Corpuscular Volume 88.6 Mean Corpuscular Hemoglobin 29.2 Mean Corpuscular Hemoglobin Concent 32.9 Red Cell Distribution Width 15.6 H Platelet Count 188 Mean Platelet Volume 11.1 H Neutrophils % 77.2 H Lymphocytes % 12.8 L Monocytes % 8.0 Eosinophils % 0.9 Basophils % 0.3 Nucleated Red Blood Cells % 0.0 Neutrophils # 9.1 H Lymphocytes # 1.5 Monocytes # 1.0 H Eosinophils # 0.1 Basophils # 0.0 Nucleated Red Blood Cells # 0.0 Medications Medications Current Medications Acetaminophen (Tylenol Tab) 650 mg Q6H PRN PO PAIN LEVEL 1-3 OR FEVER Last administered on 01/15/17 14:08; Admin Dose 650 MG; Start 01/14/17 at 06:30 Atorvastatin Calcium (Lipitor) 10 mg QHS PO Last administered on 01/14/17 21: 30; Admin Dose 10 MG; Start 01/14/17 at 21:00 Lorazepam (Ativan) 1 mg BID PRN PO ANXIETY Last administered on 01/15/17 16:22 ; Admin Dose 1 MG; Start 01/14/17 at 06:30 Sertraline HCl (Zoloft) 200 mg DAILY PO Last administered on 01/15/17 08:31; Admin Dose 200 MG; Start 01/14/17 at 09:00 Trazodone HCl (Desyrel) 100 mg BID PO Last administered on 01/15/17 08:31; Admin Dose 100 MG; Start 01/14/17 at 09:00 Ondansetron HCl (Zofran Inj) 4 mg Q6H PRN IV NAUSEA AND/OR VOMITING Last administered on 01/15/17 14:06; Admin Dose 4 MG; Start 01/14/17 at 06:30 Acetaminophen (Tylenol Tab) 650 mg Q6H PRN PO PAIN LEVEL 1-3 OR FEVER; Start 01/14/17 at 06:30 Hydralazine HCl (Apresoline) 25 mg TID PRN PO ELEVATED BLOOD PRESSURE Last administered on 01/15/17 16:23; Admin Dose 25 MG; Start 01/14/17 at 06:30 Tamsulosin HCl 0.4 mg 0.4 mg BID PO Last administered on 01/15/17 08:31; Admin Dose 0.4 MG; Start 01/14/17 at 09:00 Sodium Chloride (NS) 1,000 ml @ 40 mls/hr Q24H IV Last administered on 03:26; Admin Dose 75 MLS/HR; Start 01/14/17 at 11:00 Heparin Sodium (Porcine) (Heparin (5000 Units/0.5 ml)) 5,000 unit Q8 SC Last administered on 01/15/17 14:45; Admin Dose 5,000 UNIT; Start 01/14/17 at 14:00 Docusate Sodium (Colace) 100 mg Q12H PO Last administered on 01/15/17 05:43; Admin Dose 100 MG; Start 01/14/17 at 18:30 Bisacodyl (Dulcolax) 10 mg DAILY PRN PO CONSTIPATION Last administered on 17:17; Admin Dose 10 MG; Start 01/14/17 at 17:30 Polyethylene Glycol (Miralax) 17 gm BID PO Last administered on 01/15/17 08:32 ; Admin Dose 17 GM; Start 01/14/17 at 21:00 Morphine Sulfate (morphine) 2 mg Q4H PRN IV PAIN Last administered on 12:20; Admin Dose 2 MG; Start 01/14/17 at 17:30 Nitroglycerin (Nitroglycerin (Sl Tab) 0.4 Mg) 1 tab Q5M PRN SL CHEST PAIN Last administered on 01/15/17 12:40; Admin Dose 1 TAB; Start 01/15/17 at 12:30 Hydralazine HCl 10 mg 10 mg Q4H PRN IV sbp>160 Last administered on 01/15/17 12:41; Admin Dose 10 MG; Start 01/15/17 at 12:30 Ertapenem/Sodium Chloride (Invanz/NS) 100 ml @ 200 mls/hr Q24H IVPB Last administered on 01/15/17t 14:48; Admin Dose 200 MLS/HR; Start 01/15/17 at 14:30 Mupirocin (Bactroban) 1 applic BID TOP ; Start 01/15/17 at 21:00 REJI STOCK Jan 15, 2017 16:38
[2017-01-15] MEDS ORDERED: AMLODIPINE 10 MG TAB PO ONE (17:00)
[2017-01-15] MEDS ORDERED: METOCLOPRAMIDE 10 MG INJ IV SCH (19:30)
[2017-01-15] MEDS: AMLODIPINE 5 MG TAB PO SCH (21:59)
[2017-01-15] MEDS: ATORVASTATIN 10 MG TAB PO SCH (21:59)
[2017-01-15] MEDS: MUPIROCIN 2% 22 GM OINT TOP SCH (21:59)
--- NOTE | 2017-01-15 23:37 | CONS ---
Date/Time of Note Date/Time of Note DATE: 01/15/17 TIME: 23:30 Assessment/Plan Assessment/Plan Chief Complaint/Hosp Course ASSESSMENT AND PLAN: A 71-year-old gentleman with: 1. Chest pain-negative trop x 3/NL EF by echo 2. Hypertension-uncontrolled 3. Dyslipidemia. 4. Obesity. 5. Anxiety. 6. Depression. 7. UTI/prostatitis Recc: -Continue norvasc and add additional anti-hypertensives to improve BP control and thus start BB/nitrates given chest pain -am lexiscan -Continue statin -Continue abx's and f/u cx data Problems: Consultation Date/Type/Reason Admit Date/Time Jan 14, 2017 at 09:38 Initial Consult Date 01/14/17 Type of Consultation: cardiology Reason for Consultation chest pain Referring Provider: MARTHA SOLIS Exam/Review of Systems Vital Signs Vitals Vital Signs Date Time Temp Pulse Resp B/P Pulse Ox O2 Delivery O2 Flow Rate FiO2 01/15/17 23:14 98.6 93 21 174/93 96 01/15/17 12:30 Nasal Cannula 2.0 Intake and Output 01/14/17 01/14/17 01/15/17 15:00 23:00 07:00 Intake Total 1000 ml 1980 ml 336 ml Output Total 1550 ml 600 ml Balance 1000 ml 430 ml -264 ml Exam Review of Systems: CONSTITUTIONAL: No fevers, chills. PULMONARY: No sob CARDIOVASCULAR: No chest pain/palpitations GASTROINTESTINAL: No nausea/vomiting. GENITOURINARY: No hematuria/dysuria. MUSCULOSKELETAL: No myagias/arthalgias. PSYCHIATRIC: The patient denies depression. NEUROLOGIC: No weakness Constitutional: alert Psych: no complaints Head: normocephalic ENMT: mucosa pink and moist Neck: jvd (8 cm water), supple Respiratory: clear to auscultation Cardiovascular: regular rate and rhythm Gastrointestinal: non-tender, soft Musculoskeletal: muscle tone (normal) Extremities: edema (none) Neurological: other (No focal deficits) Results Result Diagram: 01/15/1718 01/15/1717 Results 24 hrs Laboratory Tests Test 01/15/17 07:17 01/15/17 07:18 01/15/17 12:46 Sodium Level 144 Potassium Level 3.2 L Chloride Level 107 Carbon Dioxide Level 29 Anion Gap 11 Blood Urea Nitrogen 12 # Creatinine 1.07 Glucose Level 84 Calcium Level 8.1 L Phosphorus Level 2.3 L Magnesium Level 2.2 Creatine Kinase 89 Creatine Kinase Index 1.8 Creatinine Kinase MB (Mass) 1.64 Troponin I 0.058 0.037 White Blood Count 11.8 #H Red Blood Count 4.49 L Hemoglobin 13.1 L Hematocrit 39.8 L Mean Corpuscular Volume 88.6 Mean Corpuscular Hemoglobin 29.2 Mean Corpuscular Hemoglobin Concent 32.9 Red Cell Distribution Width 15.6 H Platelet Count 188 Mean Platelet Volume 11.1 H Neutrophils % 77.2 H Lymphocytes % 12.8 L Monocytes % 8.0 Eosinophils % 0.9 Basophils % 0.3 Nucleated Red Blood Cells % 0.0 Neutrophils # 9.1 H Lymphocytes # 1.5 Monocytes # 1.0 H Eosinophils # 0.1 Basophils # 0.0 Nucleated Red Blood Cells # 0.0 Medications Medications Current Medications Acetaminophen (Tylenol Tab) 650 mg Q6H PRN PO PAIN LEVEL 1-3 OR FEVER Last administered on 01/15/17 14:08; Admin Dose 650 MG; Start 01/14/17 at 06:30 Atorvastatin Calcium (Lipitor) 10 mg QHS PO Last administered on 01/15/17 21: 59; Admin Dose 10 MG; Start 01/14/17 at 21:00 Lorazepam (Ativan) 1 mg BID PRN PO ANXIETY Last administered on 01/15/17 16:22 ; Admin Dose 1 MG; Start 01/14/17 at 06:30 Sertraline HCl (Zoloft) 200 mg DAILY PO Last administered on 01/15/17 08:31; Admin Dose 200 MG; Start 01/14/17 at 09:00 Trazodone HCl (Desyrel) 100 mg BID PO Last administered on 01/15/17 21:58; Admin Dose 100 MG; Start 01/14/17 at 09:00 Ondansetron HCl (Zofran Inj) 4 mg Q6H PRN IV NAUSEA AND/OR VOMITING Last administered on 01/15/17 14:06; Admin Dose 4 MG; Start 01/14/17 at 06:30 Acetaminophen (Tylenol Tab) 650 mg Q6H PRN PO PAIN LEVEL 1-3 OR FEVER; Start 01/14/17 at 06:30 Hydralazine HCl (Apresoline) 25 mg TID PRN PO ELEVATED BLOOD PRESSURE Last administered on 01/15/17 16:23; Admin Dose 25 MG; Start 01/14/17 at 06:30 Tamsulosin HCl 0.4 mg 0.4 mg BID PO Last administered on 01/15/17 21:58; Admin Dose 0.4 MG; Start 01/14/17 at 09:00 Sodium Chloride (NS) 1,000 ml @ 40 mls/hr Q24H IV Last administered on 19:30; Admin Dose 40 MLS/HR; Start 01/14/17 at 11:00 Heparin Sodium (Porcine) (Heparin (5000 Units/0.5 ml)) 5,000 unit Q8 SC Last administered on 01/15/17 14:45; Admin Dose 5,000 UNIT; Start 01/14/17 at 14:00 Docusate Sodium (Colace) 100 mg Q12H PO Last administered on 01/15/17 05:43; Admin Dose 100 MG; Start 01/14/17 at 18:30 Bisacodyl (Dulcolax) 10 mg DAILY PRN PO CONSTIPATION Last administered on 17:17; Admin Dose 10 MG; Start 01/14/17 at 17:30 Polyethylene Glycol (Miralax) 17 gm BID PO Last administered on 01/15/17 08:32 ; Admin Dose 17 GM; Start 01/14/17 at 21:00 Morphine Sulfate (morphine) 2 mg Q4H PRN IV PAIN Last administered on 12:20; Admin Dose 2 MG; Start 01/14/17 at 17:30 Nitroglycerin (Nitroglycerin (Sl Tab) 0.4 Mg) 1 tab Q5M PRN SL CHEST PAIN Last administered on 01/15/17 12:40; Admin Dose 1 TAB; Start 01/15/17 at 12:30 Hydralazine HCl 10 mg 10 mg Q4H PRN IV sbp>160 Last administered on 01/15/17 12:41; Admin Dose 10 MG; Start 01/15/17 at 12:30 Ertapenem/Sodium Chloride (Invanz/NS) 100 ml @ 200 mls/hr Q24H IVPB Last administered on 11/6/17at 14:48; Admin Dose 200 MLS/HR; Start 01/15/17 at 14:30 Mupirocin (Bactroban) 1 applic BID TOP Last administered on 01/15/17 21:59; Admin Dose 1 APPLIC; Start 01/15/17 at 21:00 Amlodipine Besylate (Norvasc) 5 mg BID PO Last administered on 01/15/17 21:59 ; Admin Dose 5 MG; Start 01/15/17 at 21:00 Clonidine (Catapres) 0.1 mg Q4H PRN PO SBP>160; Start 01/15/17 at 17:00 YESSY CANALES Jan 15, 2017 23:37
[2017-01-16] VITALS (12 sets, daily range): BP systolic 129–179; BP diastolic 63–84; PULSE 60–80; RESP 18–20
[2017-01-16] MEDS: hydrALAzine 20 MG INJ IV PRN (00:16)
[2017-01-16] MEDS: DOCUSATE SODIUM 100 MG CAP PO SCH ×2 (05:31→17:37)
[2017-01-16] MEDS: HEPARIN 5,000 UNIT/0.5 ML VIAL SC SCH ×3 (05:45→21:02)
[2017-01-16] MEDS ORDERED: LEVOFLOXACIN 500MG/D5W (PMX) 100 ML IVPB SCH (06:00)
[2017-01-16 08:22] LABS: BASOPHILS % 0.3 % (0.0-2.0); EOSINOPHILS % 0.2 % (0.0-7.0); HEMATOCRIT 40.6 % (42.0-52.0); HEMOGLOBIN 13.5 g/dl (14.0-18.0); LYMPHOCYTES # 1.5 10^3/ul (0.8-2.9); LYMPHOCYTES % 15.7 % (15.0-51.0); MEAN CORPUSCULAR HGB CONC 33.3 g/dl (32.0-37.0); MEAN CORPUSCULAR VOLUME 87.3 fl (82.0-101.0); MEAN PLATELET VOLUME 11.3 fl (7.4-10.4); MONOCYTE # 0.8 10^3/ul (0.3-0.9); MONOCYTES % 8.6 % (0.0-11.0); NEUTROPHIL # 7.1 10^3/ul (1.6-7.5); NEUTROPHILS % 74.4 % (39.0-77.0); PLATELET COUNT 196 10^3/UL (140-415); RED BLOOD COUNT 4.65 10^6/ul (4.70-6.10); RED CELL DISTRIBUTION WIDTH 15.6 % (11.5-14.5); WHITE BLOOD COUNT 9.6 10^3/ul (4.8-10.8)
--- NOTE | 2017-01-16 08:38 | PN ---
DATE: 01/16/2017 SUBJECTIVE: The patient is scheduled for a stress test this morning. No other events noted. OBJECTIVE: VITAL SIGNS: Blood pressure 129/63, temperature 98, pulse 94, respirations 20. HEENT: Head is normocephalic. NECK: Supple. HEART: Regular rate. LUNGS: Show diminished breath sounds at base. ABDOMEN: Soft, nontender to palpation. No rebound or guarding. EXTREMITIES: Negative for clubbing, cyanosis, no edema. DERMATOLOGIC: No rashes. MUSCULOSKELETAL: No joint effusions. NEUROLOGIC: No change in exam. MEDICATIONS: The patient's medications have been reviewed. LABORATORY DATA: From 01/15/2017 was reviewed. Laboratory data from 01/16/2017 is pending. ASSESSMENT AND PLAN: 1. Nonoliguric acute kidney injury with previous baseline creatinine 0.8 mg/dL. Etiology of acute kidney injury is secondary to hemodynamics. Renal function has improved with IV fluids. Plan at th is point is to discontinue IV hydration, but otherwise continue current treatment plan, supportive c are, renally dose all meds. 2. Hypokalemia, resolved. Continue to monitor. 3. Mineral bone disorder, monitor calcium and phosphorus levels. 4. Anemia. Monitor hemoglobin and hematocrit levels. 5. SIRS, possible sepsis. The patient is on antibiotics, will continue. 6. Hypertension. Continue current blood pressure regimen. 7. Benign prostatic hypertrophy Follow up with urology. 8. Depression. Continue Zoloft. 9. Chest pain. The patient is undergoing medical management, pending stress test. Follow up with cardiology. Dictated By: CAMDEN JOSÉ/JORDAN Conf#: [id number] DID#: [id number]
[2017-01-16] MEDS: SERTRALINE 100 MG TAB PO SCH (08:45)
[2017-01-16] MEDS: ISOSORBIDE MONONITRATE(SR)30 MG TAB PO SCH (08:45)
[2017-01-16 08:46] LABS: CALCIUM 8.1 mg/dl (8.4-10.2); CREATININE 0.96 mg/dl (0.61-1.24)
[2017-01-16] MEDS: TAMSULOSIN (SR) 0.4 MG CAP PO SCH ×2 (08:46→20:52)
[2017-01-16] MEDS: METOPROLOL 50 MG TAB PO SCH ×2 (08:46→20:53)
[2017-01-16] MEDS: traZODone 100 MG TAB PO SCH ×2 (08:46→20:52)
[2017-01-16] MEDS: POLYETHYLENE GLYCOL 17 GM PACKET PO SCH ×2 (08:47→20:52)
[2017-01-16] MEDS: AMLODIPINE 5 MG TAB PO SCH ×2 (08:47→20:52)
[2017-01-16] MEDS: ONDANSETRON 4 MG INJ IV PRN (08:47)
[2017-01-16] MEDS: MUPIROCIN 2% 22 GM OINT TOP SCH ×2 (08:47→20:52)
[2017-01-16 08:55] LABS: POTASSIUM 2.8 mmol/L (3.5-5.1)
[2017-01-16] MEDS: LORAZEPAM 1 MG TAB PO PRN ×2 (09:00→18:06)
[2017-01-16] MEDS: ACETAMINOPHEN 325 MG TAB PO PRN (09:05)
[2017-01-16] MEDS ORDERED: POTASSIUM CHLORIDE (SR) 20 MEQ TAB PO STA (09:09)
[2017-01-16] MEDS: POTASSIUM CHLORIDE 250 ML IVPB SCH ×2 (09:22→15:40)
--- NOTE | 2017-01-16 09:35 | CONS ---
Date/Time of Note Date/Time of Note DATE: 01/16/17 TIME: 09:32 Assessment/Plan Assessment/Plan Additional Assessment/Plan 1. Chest pain-negative trop x 3/NL EF by echo - now with significant nausea and vomiting, low K + - will replace K+/Rx Nausea and vomiting - will reschedule stress test to tomorrow (hope pt feels better and K+ replaced) 2. Hypertension- beter now, not able to tolerate all meds with N & V 3. Dyslipidemia. 4. Obesity. 5. Anxiety. 6. Depression. 7. UTI/prostatitis - on anti_bx now 8. Low K+ - replace aggressively now Consultation Date/Type/Reason Admit Date/Time Jan 14, 2017 at 09:38 Initial Consult Date 01/14/17 Type of Consultation: cardiology Referring Provider: MARTHA SOLIS 24 HR Interval Summary Free Text/Dictation now with significant nausea and vomiting, low K + - will replace K+/Rx Nausea and vomiting - will reschedule stress test to tomorrow (hope pt feels better and K+ replaced) ROS: No fever, no chills, + nausea, + vomiting, no diarrhea/constipation No recent weight changes No chest pain, no PND, no orthopnea No dizziness, blurred vision No thirst, no heat or cold intolerance Exam/Review of Systems Vital Signs Vitals Vital Signs Date Time Temp Pulse Resp B/P Pulse Ox O2 Delivery O2 Flow Rate FiO2 01/16/17 08:00 79 01/16/17 07:37 98.0 20 129/63 97 01/15/17 20:00 Nasal Cannula 2.0 Intake and Output 01/15/17 01/15/17 01/16/17 15:00 23:00 07:00 Intake Total 480 ml 120 ml Output Total 575 ml 1380 ml 650 ml Balance -575 ml -900 ml -530 ml Exam General: WN/WD/NAD, AOx 3 HEENT: Unicetric/atraumatic/EOMI ( follow commands) NECK: JVD elevated, no thyromegaly Lymph: no lymphadenopathy HEART: regular with no S3, II/ systolic murmur at apex LUNGS: Coarse sounds ABD: soft, NT, ND, +BS : Intact Neuro: non focal SKIN: chronic changes EXT: trace edema Results Result Diagram: 01/16/17 0710 01/16/17 0710 Results 24 hrs Laboratory Tests Test 01/15/17 12:46 01/16/17 07:10 Troponin I 0.037 White Blood Count 9.6 Red Blood Count 4.65 L Hemoglobin 13.5 L Hematocrit 40.6 L Mean Corpuscular Volume 87.3 Mean Corpuscular Hemoglobin 29.0 Mean Corpuscular Hemoglobin Concent 33.3 Red Cell Distribution Width 15.6 H Platelet Count 196 Mean Platelet Volume 11.3 H Neutrophils % 74.4 Lymphocytes % 15.7 Monocytes % 8.6 Eosinophils % 0.2 Basophils % 0.3 Nucleated Red Blood Cells % 0.0 Neutrophils # 7.1 Lymphocytes # 1.5 Monocytes # 0.8 Eosinophils # 0.0 Basophils # 0.0 Nucleated Red Blood Cells # 0.0 Sodium Level 143 Potassium Level 2.8 *L Chloride Level 106 Carbon Dioxide Level 27 Anion Gap 13 Blood Urea Nitrogen 10 Creatinine 0.96 Glucose Level 97 Calcium Level 8.1 L Medications Medications Current Medications Acetaminophen (Tylenol Tab) 650 mg Q6H PRN PO PAIN LEVEL 1-3 OR FEVER Last administered on 01/16/17 09:05; Admin Dose 650 MG; Start 01/14/17 at 06:30 Atorvastatin Calcium (Lipitor) 10 mg QHS PO Last administered on 01/15/17 21: 59; Admin Dose 10 MG; Start 01/14/17 at 21:00 Lorazepam (Ativan) 1 mg BID PRN PO ANXIETY Last administered on 01/16/17 09:00 ; Admin Dose 1 MG; Start 01/14/17 at 06:30 Sertraline HCl (Zoloft) 200 mg DAILY PO Last administered on 01/16/17 08:45; Admin Dose 200 MG; Start 01/14/17 at 09:00 Trazodone HCl (Desyrel) 100 mg BID PO Last administered on 01/16/17 08:46; Admin Dose 100 MG; Start 01/14/17 at 09:00 Ondansetron HCl (Zofran Inj) 4 mg Q6H PRN IV NAUSEA AND/OR VOMITING Last administered on 01/16/17 08:47; Admin Dose 4 MG; Start 01/14/17 at 06:30 Acetaminophen (Tylenol Tab) 650 mg Q6H PRN PO PAIN LEVEL 1-3 OR FEVER; Start 01/14/17 at 06:30 Hydralazine HCl (Apresoline) 25 mg TID PRN PO ELEVATED BLOOD PRESSURE Last administered on 01/15/17 16:23; Admin Dose 25 MG; Start 01/14/17 at 06:30 Tamsulosin HCl (Flomax) 0.4 mg BID PO Last administered on 01/16/17 08:46; Admin Dose 0.4 MG; Start 01/14/17 at 09:00 Heparin Sodium (Porcine) (Heparin (5000 Units/0.5 ml)) 5,000 unit Q8 SC Last administered on 01/16/17 05:45; Admin Dose 5,000 UNIT; Start 01/14/17 at 14:00 Docusate Sodium (Colace) 100 mg Q12H PO Last administered on 01/15/17 05:43; Admin Dose 100 MG; Start 01/14/17 at 18:30 Bisacodyl (Dulcolax) 10 mg DAILY PRN PO CONSTIPATION Last administered on 17:17; Admin Dose 10 MG; Start 01/14/17 at 17:30 Polyethylene Glycol (Miralax) 17 gm BID PO Last administered on 01/16/17 08:47 ; Admin Dose 17 GM; Start 01/14/17 at 21:00 Morphine Sulfate (morphine) 2 mg Q4H PRN IV PAIN Last administered on 12:20; Admin Dose 2 MG; Start 01/14/17 at 17:30 Nitroglycerin (Nitroglycerin (Sl Tab) 0.4 Mg) 1 tab Q5M PRN SL CHEST PAIN Last administered on 01/15/17 12:40; Admin Dose 1 TAB; Start 01/15/17 at 12:30 Hydralazine HCl 10 mg 10 mg Q4H PRN IV sbp>160 Last administered on 01/16/17 00:16; Admin Dose 10 MG; Start 01/15/17 at 12:30 Ertapenem/Sodium Chloride (Invanz/NS) 100 ml @ 200 mls/hr Q24H IVPB Last administered on 01/15/17 14:48; Admin Dose 200 MLS/HR; Start 01/15/17 at 14:30 Mupirocin (Bactroban) 1 applic BID TOP Last administered on 01/16/17 08:47; Admin Dose 1 APPLIC; Start 01/15/17 at 21:00 Amlodipine Besylate (Norvasc) 5 mg BID PO Last administered on 01/16/17 08:47 ; Admin Dose 5 MG; Start 01/15/17 at 21:00 Clonidine (Catapres) 0.1 mg Q4H PRN PO SBP>160; Start 01/15/17 at 17:00 Metoprolol Tartrate (Lopressor) 50 mg BID PO Last administered on 01/16/17 08: 46; Admin Dose 50 MG; Start 01/16/17 at 09:00 Isosorbide Mononitrate 30 mg 30 mg DAILY PO Last administered on 01/16/17 08: 45; Admin Dose 30 MG; Start 01/16/17 at 09:00 Potassium Chloride (KCl 40 MEQ/250 ML NS) 250 ml @ 62.5 mls/hr Q6H IVPB Last administered on 01/16/17 09:22; Admin Dose 62.5 MLS/HR; Start 01/16/17 at 09:30 ; Stop 01/16/17 at 19:29 LISA RAMÍREZ MD Jan 16, 2017 09:35
--- NOTE | 2017-01-16 11:20 | PN ---
Date/Time of Note Date/Time of Note DATE: 01/16/17 TIME: :17 Assessment/Plan VTE Prophylaxis VTE Prophylaxis Intervention: SCD's Lines/Catheters IV C[facility]ter Type (from [facility] Peripheral IV Urinary Cath still in place: No Assessment/Plan Chief Complaint/Hosp Course Assessment and plan 1. SIRS. Etiology unknown. Urinalysis inconclusive. Leukocytosis downward trending. ID consult following. cotninue on abx. 2. Chest pain. Etiology unknown. Echocardiogram with EF at 55% with stage 1 diastolic dysfunction. tentative plan for stress test. Troponins negative so far. 3. Acute kidney injury. Avoid nephrotoxic medications. Monitor renal panel. Continue IV hydration. 4. Prostatomegaly. urologist was consulted. Will follow up. 5. Essential hypertension. Continue antihypertensives and adjust as needed. 6. Dyspnea. Continue statin medication. 7. intractable nausea/vomiting. GI following. continue with antiemetics around the clock Disposition plan: with intractable nausea/vomiting. will start antiemetics around the clock. follow up for possible stress test Discussed plan of care with Dr. Velasco Problems: Subjective 24 Hr Interval Summary Free Text/Dictation noted with plenty nausea/vomiting Exam/Review of Systems Vital Signs Vitals Vital Signs Date Time Temp Pulse Resp B/P Pulse Ox O2 Delivery O2 Flow Rate FiO2 01/16/17 08:00 79 01/16/17 07:37 98.0 20 129/63 97 01/15/17 20:00 Nasal Cannula 2.0 Intake and Output 01/15/17 01/15/17 01/16/17 15:00 23:00 07:00 Intake Total 480 ml 120 ml Output Total 575 ml 1380 ml 650 ml Balance -575 ml -900 ml -530 ml Exam Constitutional: alert, oriented, nauseous Psych: anxiety Head: normocephalic Respiratory: diminished breath sounds Cardiovascular: other (REGULAR RATE) Gastrointestinal: non-tender, soft Musculoskeletal: nl extremities to inspection Neurological: CLOTHING MAN II-XII intact, nl mental status, nl speech Skin: nl turgor Results Result Diagram: 01/16/17 0710 01/16/17 0710 Results 24 hrs Laboratory Tests Test 01/15/17 12:46 01/16/17 07:10 Troponin I 0.037 White Blood Count 9.6 Red Blood Count 4.65 L Hemoglobin 13.5 L Hematocrit 40.6 L Mean Corpuscular Volume 87.3 Mean Corpuscular Hemoglobin 29.0 Mean Corpuscular Hemoglobin Concent 33.3 Red Cell Distribution Width 15.6 H Platelet Count 196 Mean Platelet Volume 11.3 H Neutrophils % 74.4 Lymphocytes % 15.7 Monocytes % 8.6 Eosinophils % 0.2 Basophils % 0.3 Nucleated Red Blood Cells % 0.0 Neutrophils # 7.1 Lymphocytes # 1.5 Monocytes # 0.8 Eosinophils # 0.0 Basophils # 0.0 Nucleated Red Blood Cells # 0.0 Sodium Level 143 Potassium Level 2.8 *L Chloride Level 106 Carbon Dioxide Level 27 Anion Gap 13 Blood Urea Nitrogen 10 Creatinine 0.96 Glucose Level 97 Calcium Level 8.1 L Medications Medications Current Medications Acetaminophen (Tylenol Tab) 650 mg Q6H PRN PO PAIN LEVEL 1-3 OR FEVER Last administered on 01/16/17 09:05; Admin Dose 650 MG; Start 01/14/17 at 06:30 Atorvastatin Calcium (Lipitor) 10 mg QHS PO Last administered on 01/15/17 21: 59; Admin Dose 10 MG; Start 01/14/17 at 21:00 Lorazepam (Ativan) 1 mg BID PRN PO ANXIETY Last administered on 01/16/17 09:00 ; Admin Dose 1 MG; Start 01/14/17 at 06:30 Sertraline HCl (Zoloft) 200 mg DAILY PO Last administered on 01/16/17 08:45; Admin Dose 200 MG; Start 01/14/17 at 09:00 Trazodone HCl (Desyrel) 100 mg BID PO Last administered on 01/16/17 08:46; Admin Dose 100 MG; Start 01/14/17 at 09:00 Ondansetron HCl (Zofran Inj) 4 mg Q6H PRN IV NAUSEA AND/OR VOMITING Last administered on 01/16/17 08:47; Admin Dose 4 MG; Start 01/14/17 at 06:30 Acetaminophen (Tylenol Tab) 650 mg Q6H PRN PO PAIN LEVEL 1-3 OR FEVER; Start 01/14/17 at 06:30 Hydralazine HCl (Apresoline) 25 mg TID PRN PO ELEVATED BLOOD PRESSURE Last administered on 01/15/17 16:23; Admin Dose 25 MG; Start 01/14/17 at 06:30 Tamsulosin HCl (Flomax) 0.4 mg BID PO Last administered on 01/16/17 08:46; Admin Dose 0.4 MG; Start 01/14/17 at 09:00 Heparin Sodium (Porcine) (Heparin (5000 Units/0.5 ml)) 5,000 unit Q8 SC Last administered on 01/16/17 05:45; Admin Dose 5,000 UNIT; Start 01/14/17 at 14:00 Docusate Sodium (Colace) 100 mg Q12H PO Last administered on 01/15/17 05:43; Admin Dose 100 MG; Start 01/14/17 at 18:30 Bisacodyl (Dulcolax) 10 mg DAILY PRN PO CONSTIPATION Last administered on 17:17; Admin Dose 10 MG; Start 01/14/17 at 17:30 Polyethylene Glycol (Miralax) 17 gm BID PO Last administered on 01/16/17 08:47 ; Admin Dose 17 GM; Start 01/14/17 at 21:00 Morphine Sulfate (morphine) 2 mg Q4H PRN IV PAIN Last administered on 12:20; Admin Dose 2 MG; Start 01/14/17 at 17:30 Nitroglycerin (Nitroglycerin (Sl Tab) 0.4 Mg) 1 tab Q5M PRN SL CHEST PAIN Last administered on 01/15/17 12:40; Admin Dose 1 TAB; Start 01/15/17 at 12:30 Hydralazine HCl 10 mg 10 mg Q4H PRN IV sbp>160 Last administered on 01/16/17 00:16; Admin Dose 10 MG; Start 01/15/17 at 12:30 Ertapenem/Sodium Chloride (Invanz/NS) 100 ml @ 200 mls/hr Q24H IVPB Last administered on 01/15/17 14:48; Admin Dose 200 MLS/HR; Start 01/15/17 at 14:30 Mupirocin (Bactroban) 1 applic BID TOP Last administered on 01/16/17 08:47; Admin Dose 1 APPLIC; Start 01/15/17 at 21:00 Amlodipine Besylate (Norvasc) 5 mg BID PO Last administered on 01/16/17 08:47 ; Admin Dose 5 MG; Start 01/15/17 at 21:00 Clonidine (Catapres) 0.1 mg Q4H PRN PO SBP>160; Start 01/15/17 at 17:00 Metoprolol Tartrate (Lopressor) 50 mg BID PO Last administered on 01/16/17 08: 46; Admin Dose 50 MG; Start 01/16/17 at 09:00 Isosorbide Mononitrate 30 mg 30 mg DAILY PO Last administered on 01/16/17 08: 45; Admin Dose 30 MG; Start 01/16/17 at 09:00 Potassium Chloride (KCl 40 MEQ/250 ML NS) 250 ml @ 62.5 mls/hr Q6H IVPB Last administered on 01/16/17 09:22; Admin Dose 62.5 MLS/HR; Start 01/16/17 at 09:30 ; Stop 01/16/17 at 19:29 REJI STOCK Jan 16, 2017 11:20
[2017-01-16] MEDS: ONDANSETRON 4 MG INJ IV SCH ×3 (12:17→20:52)
--- NOTE | 2017-01-16 13:34 | CONS ---
Date/Time of Note Date/Time of Note DATE: 01/16/17 TIME: 13:10 Assessment/Plan Assessment/Plan Chief Complaint/Hosp Course Summary Assessment and Plan: Assessment: CP with associated left arm pain Lower abdominal pain- unclear underlying etiology Epigastric pain with associated nausea/vomiting R/o PUD vs anxiety vs gastritis vs cardiac related HARSH-possibly related to chronic urinary outlet obstruction BPH Dyslipidemia HTN Plan: Stress test tomorrow-will provide further recommendations based on results of stress test Patient may need EGD/colonoscopy in near future Stool for OB Start PPI therapy Patient seen in collaboration with Chief Complaint/Reason for Visit: Lower abdominal pain Epigastric pain Nausea/vomiting Chest pain with associated left arm pain History of Present Illness: This is a 71-year-old [place]vian-speaking male (an management trainer was used) with multiple comorbidities who came to the ER for abdominal pain with episodes of nausea and vomiting. His abd pain more specifically localized to the epigastric area as well as lower abdominal during examination, pain has been nonprogressive for the past 15-20 days described as sharp and cramping, he denies any aggravating or relieving factors. Patient states bowel movements have been normal, although he did have one episode of black stool about 1 week ago no further episodes noted. Hemoglobin and hematocrit are stable, lipase is within normal limits, and transaminases are also within normal limits. Noncontrast CT of abdomen pelvis shows enlarged and nodular prostate, thickened bladder nava presumably due to chronic urinary outlet obstruction, and small bilateral fat containing inguinal hernias. He denies hematemesis, hematochezia , unintentional weight loss, constipation, diarrhea. He does complain of acid reflux and a poor appetite since admission. He has never had an EGD or colonoscopy, he denies family history of colon cancer. He additionally c/o chest pain with associated left arm pain. Cardiac evaluation is in progress, troponin's have been negative thus far and is scheduled to have a stress test tomorrow. Will order stool for OB rule out GI bleed, continue antiemetic therapy, new PPI therapy. Cardiac evaluation must be completed before possible GI intervention can occur. Past Medical History: Hypertension BPH Dyslipidemia Panic attacks with associated vomiting Bacteremia E. coli ESBL UTI Allergies: Penicillin PHYSICAL EXAMINATION: GENERAL: Well developed, well nourished, alert & oriented x 3, in no acute distress SKIN: No lesions, no stigmata chronic liver disease, no evidence of bleeding diathesis LYMPHATIC: No palpable lymphadenopathy. HEAD: Normocephalic, atraumatic, no tenderness. EYES: Pupils equal reactive to light and accommodation, full extraocular movements, sclera clear, non-icteric, no discharge. EARS/NOSE AND THROAT: Ears normal, nose normal, oropharynx normal, oral membranes well hydrated without lesions. NECK: Supple, no masses, thyroid normal, JVP within normal limits, carotids normal without bruits. CHEST: Inspection within normal limits. CARDIOVASCULAR: Heart: Regular rate and rhythm, no murmurs, gallops or rubs. RESPIRATORY: Lungs clear to auscultation and percussion, no wheezing, no rubs GASTROINTESTINAL AND LIVER: Abdomen: Soft, tenderness lower abd and epigastric, non-distended, no hernias, no masses, no organomegaly, no ascites, no guarding, no rebound tenderness, normoactive bowel sounds. Rectal: Deferred. GENITOURINARY: Male genitalia within normal limits. EXTREMITIES: No cyanosis, clubbing or edema. Problems: Consultation Date/Type/Reason Admit Date/Time Jan 14, 2017 at 09:38 Date of Consultation: Jan 16, 2017 Type of Consultation: GI Reason for Consultation Abdominal pain Nausea/vomiting Constitutional: chills (On admission) Eyes: no complaints ENT: no complaints Respiratory: no complaints Cardiovascular: chest pain Gastrointestinal: constipation, decreased appetite, nausea, vomiting Genitourinary: no complaints Musculoskeletal: bone/joint pain (Left shoulder) Skin: no complaints Neurologic: headache Endocrine: polyuria Lymphatic: no complaints Psychological: no complaints Immunologic: no complaints Past Medical History Medical History: high cholesterol, hypertension, other (Benign prostatic hypertrophy) Past Surgical History Past Surgical Hx: other (Right hydrocelectomy) Family History Significant Family History: no pertinent family hx Social History Alcohol Use: none Smoking Status: Former smoker (He used to smoke 5-6 cigarettes per day for about 10 years and he quit 1 year ago) Drug Use: none Exam/Review of Systems Vital Signs Vitals Vital Signs Date Time Temp Pulse Resp B/P Pulse Ox O2 Delivery O2 Flow Rate FiO2 01/16/17 12:05 97.9 63 20 150/73 97 01/15/17 20:00 Nasal Cannula 2.0 Intake and Output 01/15/17 01/15/17 01/16/17 15:00 23:00 07:00 Intake Total 480 ml 120 ml Output Total 575 ml 1380 ml 650 ml Balance -575 ml -900 ml -530 ml Results Result Diagram: 01/16/1770901/16/1710 Results 24 hrs Laboratory Tests Test 01/16/17 07:10 White Blood Count 9.6 Red Blood Count 4.65 L Hemoglobin 13.5 L Hematocrit 40.6 L Mean Corpuscular Volume 87.3 Mean Corpuscular Hemoglobin 29.0 Mean Corpuscular Hemoglobin Concent 33.3 Red Cell Distribution Width 15.6 H Platelet Count 196 Mean Platelet Volume 11.3 H Neutrophils % 74.4 Lymphocytes % 15.7 Monocytes % 8.6 Eosinophils % 0.2 Basophils % 0.3 Nucleated Red Blood Cells % 0.0 Neutrophils # 7.1 Lymphocytes # 1.5 Monocytes # 0.8 Eosinophils # 0.0 Basophils # 0.0 Nucleated Red Blood Cells # 0.0 Sodium Level 143 Potassium Level 2.8 *L Chloride Level 106 Carbon Dioxide Level 27 Anion Gap 13 Blood Urea Nitrogen 10 Creatinine 0.96 Glucose Level 97 Calcium Level 8.1 L Magnesium Level 2.0 Medications Medications Current Medications Acetaminophen (Tylenol Tab) 650 mg Q6H PRN PO PAIN LEVEL 1-3 OR FEVER Last administered on 01/16/17 09:05; Admin Dose 650 MG; Start 01/14/17 at 06:30 Atorvastatin Calcium (Lipitor) 10 mg QHS PO Last administered on 01/15/17 21: 59; Admin Dose 10 MG; Start 01/14/17 at 21:00 Lorazepam (Ativan) 1 mg BID PRN PO ANXIETY Last administered on 01/16/17 09:00 ; Admin Dose 1 MG; Start 01/14/17 at 06:30 Sertraline HCl (Zoloft) 200 mg DAILY PO Last administered on 01/16/17 08:45; Admin Dose 200 MG; Start 01/14/17 at 09:00 Trazodone HCl (Desyrel) 100 mg BID PO Last administered on 01/16/17 08:46; Admin Dose 100 MG; Start 01/14/17 at 09:00 Acetaminophen (Tylenol Tab) 650 mg Q6H PRN PO PAIN LEVEL 1-3 OR FEVER; Start 01/14/17 at 06:30 Hydralazine HCl (Apresoline) 25 mg TID PRN PO ELEVATED BLOOD PRESSURE Last administered on 01/15/17 16:23; Admin Dose 25 MG; Start 01/14/17 at 06:30 Tamsulosin HCl (Flomax) 0.4 mg BID PO Last administered on 01/16/17 08:46; Admin Dose 0.4 MG; Start 01/14/17 at 09:00 Heparin Sodium (Porcine) (Heparin (5000 Units/0.5 ml)) 5,000 unit Q8 SC Last administered on 01/16/17 05:45; Admin Dose 5,000 UNIT; Start 01/14/17 at 14:00 Docusate Sodium (Colace) 100 mg Q12H PO Last administered on 01/15/17 05:43; Admin Dose 100 MG; Start 01/14/17 at 18:30 Bisacodyl (Dulcolax) 10 mg DAILY PRN PO CONSTIPATION Last administered on 17:17; Admin Dose 10 MG; Start 01/14/17 at 17:30 Polyethylene Glycol (Miralax) 17 gm BID PO Last administered on 01/16/17 08:47 ; Admin Dose 17 GM; Start 01/14/17 at 21:00 Morphine Sulfate (morphine) 2 mg Q4H PRN IV PAIN Last administered on 12:20; Admin Dose 2 MG; Start 01/14/17 at 17:30 Nitroglycerin (Nitroglycerin (Sl Tab) 0.4 Mg) 1 tab Q5M PRN SL CHEST PAIN Last administered on 01/15/17 12:40; Admin Dose 1 TAB; Start 01/15/17 at 12:30 Hydralazine HCl 10 mg 10 mg Q4H PRN IV sbp>160 Last administered on 01/16/17 00:16; Admin Dose 10 MG; Start 01/15/17 at 12:30 Ertapenem/Sodium Chloride (Invanz/NS) 100 ml @ 200 mls/hr Q24H IVPB Last administered on 01/15/17 14:48; Admin Dose 200 MLS/HR; Start 01/15/17 at 14:30 Mupirocin (Bactroban) 1 applic BID TOP Last administered on 01/16/17 08:47; Admin Dose 1 APPLIC; Start 01/15/17 at 21:00 Amlodipine Besylate (Norvasc) 5 mg BID PO Last administered on 01/16/17 08:47 ; Admin Dose 5 MG; Start 01/15/17 at 21:00 Clonidine (Catapres) 0.1 mg Q4H PRN PO SBP>160; Start 01/15/17 at 17:00 Metoprolol Tartrate (Lopressor) 50 mg BID PO Last administered on 01/16/17 08: 46; Admin Dose 50 MG; Start 01/16/17 at 09:00 Isosorbide Mononitrate 30 mg 30 mg DAILY PO Last administered on 01/16/17 08: 45; Admin Dose 30 MG; Start 01/16/17 at 09:00 Potassium Chloride (KCl 40 MEQ/250 ML NS) 250 ml @ 62.5 mls/hr Q6H IVPB Last administered on 01/16/17 09:22; Admin Dose 62.5 MLS/HR; Start 01/16/17 at 09:30 ; Stop 01/16/17 at 19:29 Ondansetron HCl (Zofran Inj) 4 mg Q4 IV Last administered on 01/16/17 12:17; Admin Dose 4 MG; Start 01/16/17 at 13:00 PACO LAI Jan 16, 2017 13:23
--- NOTE | 2017-01-16 13:37 | PN ---
DATE: 01/16/2017 INFECTIOUS DISEASE PROGRESS NOTE SUBJECTIVE: No events overnight. The patient is alert, complaining of left shoulder, chest and arm pain. No fevers. LABORATORY: WBC today 9.6, no shift, no bands. BUN 10, creatinine 0.96. MICROBIOLOGY: Blood culture had been negative since admission. Nares swab positive for MRSA. Urin e culture revealed mixed gram-negative and positive organisms consistent with contaminant. ANTIMICROBIALS: The patient remains on Invanz. PHYSICAL EXAMINATION: GENERAL: Obese, well-developed elderly man who is awake, in no distress. HEENT: Head atraumatic, normocephalic. Sclerae anicteric. Buccal mucosa dry. NECK: Supple. CHEST: Rise symmetrical. Breath sounds clear. HEART: S1, S2. ABDOMEN: Soft, bowel tones present. EXTREMITIES: Without cyanosis. ASSESSMENT: 1. Systemic inflammatory response syndrome with fevers, chills and leukocytosis on admission, likel y secondary to urinary tract infection. 2. Prostatomegaly, possible bladder outlet obstruction. 3. History of recurrent bouts of urinary tract infection. 4. Hypertension. 5. Acute kidney injury. 6. Chest pain and left shoulder pain with negative troponins, cardiology on case. PLAN: The patient remains stable. We are going to x-ray his left shoulder, continue him on current antibiotics for now. Await for repeat urine cultures. Dictated By: DIANA FUNK DRAW FIRE OPERATOR for LAKEISHA GARZA/JORDAN Conf#: [id number] DID#: [id number]
[2017-01-16] MEDS: ERTAPENEM SODIUM 1 GM in SOD CHLORIDE 0.9% 100 ML IVPB SCH (13:52)
[2017-01-16 15:31] LABS: MICROALBUMIN 3.1 mg/dL
--- NOTE | 2017-01-16 15:53 | RADRPT ---
PROCEDURE: XR Left Shoulder. CLINICAL INDICATION: Left shoulder pain TECHNIQUE: 4 views of the left shoulder are available for review. COMPARISON: None available FINDINGS: There is no acute fracture. Alignment is normal. There is moderate acromioclavicular osteoarthrosis with inferior osteophyte formation and there are mild enthesopathic changes at the greater tuberosity. The visualized left lung is clear. IMPRESSION: 1. No radiographic evidence of acute osseous abnormality. 2. Moderate acromioclavicular osteoarthrosis and enthesopathic changes at the greater tuberosity. RPTAT: [facility]U .John Alegre MD, MD Date Time Electronically viewed and signed by .John Alegre MD, MD on 01/16/2017 15:52 .K/
[2017-01-16] MEDS: ATORVASTATIN 10 MG TAB PO SCH (20:52)
[2017-01-17] VITALS (13 sets, daily range): BP systolic 141–190; BP diastolic 71–95; PULSE 52–74; RESP 18–20
[2017-01-17] MEDS: ONDANSETRON 4 MG INJ IV SCH ×6 (00:34→21:50)
[2017-01-17] MEDS: PANTOPRAZOLE (EC) 40 MG TAB PO SCH (05:57)
[2017-01-17] MEDS: HEPARIN 5,000 UNIT/0.5 ML VIAL SC SCH ×3 (06:01→22:11)
[2017-01-17] MEDS: DOCUSATE SODIUM 100 MG CAP PO SCH ×2 (06:01→17:19)
[2017-01-17] MEDS: LORAZEPAM 1 MG TAB PO PRN ×3 (06:07→21:50)
[2017-01-17 08:21] LABS: RED BLOOD COUNT 4.48 10^6/ul (4.70-6.10); WHITE BLOOD COUNT 8.8 10^3/ul (4.8-10.8)
[2017-01-17 08:22] LABS: BASOPHILS % 0.3 % (0.0-2.0); EOSINOPHILS # 0.1 10^3/ul (0.0-0.5); EOSINOPHILS % 1.4 % (0.0-7.0); HEMATOCRIT 39.5 % (42.0-52.0); HEMOGLOBIN 12.6 g/dl (14.0-18.0); LYMPHOCYTES # 1.9 10^3/ul (0.8-2.9); LYMPHOCYTES % 21.8 % (15.0-51.0); MEAN CORPUSCULAR HEMOGLOBIN 28.1 pg (29.0-33.0); MEAN CORPUSCULAR HGB CONC 31.9 g/dl (32.0-37.0); MEAN CORPUSCULAR VOLUME 88.2 fl (82.0-101.0); MEAN PLATELET VOLUME 10.9 fl (7.4-10.4); MONOCYTE # 0.8 10^3/ul (0.3-0.9); MONOCYTES % 9.4 % (0.0-11.0); NEUTROPHIL # 5.8 10^3/ul (1.6-7.5); NEUTROPHILS % 66.4 % (39.0-77.0); PLATELET COUNT 200 10^3/UL (140-415); RED CELL DISTRIBUTION WIDTH 16.3 % (11.5-14.5)
--- NOTE | 2017-01-17 08:45 | PN ---
DATE: 01/17/2017 SUBJECTIVE: The patient is stable. No events overnight. No fevers, chills, nausea, vomiting. The patient is pending stress test today, patient is having multiple bowel movements. OBJECTIVE: VITAL SIGNS: Blood pressure is 160/85, temperature 98.6, pulse 74, respirations 20. HEENT: Head is normocephalic. NECK: Supple. HEART: Regular rate. LUNGS: Show diminished breath sounds at base. ABDOMEN: Soft, nontender to palpation. No rebound or guarding. EXTREMITIES: Negative for clubbing, cyanosis, no edema. DERMATOLOGIC: No rashes. MUSCULOSKELETAL: No joint effusions. NEUROLOGIC: No change in exam. MEDICATIONS: The patient's medications have been reviewed. LABORATORY DATA: From 01/16/2017 showed a potassium of 2.8, BUN and creatinine within normal limits . ASSESSMENT AND PLAN: 1. Nonoliguric acute kidney injury with previous baseline creatinine of 0.8 mg/dL. Etiology of acu te kidney injury is secondary to hemodynamics. Renal functions improved. Continue to monitor. 2. Hypokalemia secondary to gastrointestinal losses. Continue to monitor and replete. 3. Mineral bone disorder, monitor calcium and phosphorus levels. 4. Anemia. Monitor hemoglobin and hematocrit. 5. Chest pain. The patient is pending stress test. 6. Constipation, improved. Continue current bowel regimen. 7. Hypertension. Continue current blood pressure regimen. 8. Benign prostatic hypertrophy. Continue current medical management. 9. Systemic inflammatory response syndrome, possible sepsis. Patient is completing antibiotic cour se. Dictated By: CAMDEN JOSÉ/JORDAN Conf#: [id number] DID#: [id number]
[2017-01-17 08:53] LABS: ALBUMIN/GLOBULIN RATIO 1.06
[2017-01-17 08:54] LABS: ALBUMIN 3.5 g/dl (3.3-4.9); BILIRUBIN,INDIRECT 0.3 mg/dl (0-1.1); BILIRUBIN,TOTAL 0.3 mg/dl (0.2-1.3); CALCIUM 8.9 mg/dl (8.4-10.2); CREATININE 1.07 mg/dl (0.61-1.24); TOTAL PROTEIN 6.8 g/dl (6.1-8.1)
[2017-01-17] MEDS: TAMSULOSIN (SR) 0.4 MG CAP PO SCH ×2 (08:57→21:45)
[2017-01-17] MEDS: ISOSORBIDE MONONITRATE(SR)30 MG TAB PO SCH (08:57)
[2017-01-17] MEDS: AMLODIPINE 5 MG TAB PO SCH ×2 (08:58→21:49)
[2017-01-17] MEDS: traZODone 100 MG TAB PO SCH ×2 (08:58→21:46)
[2017-01-17] MEDS: METOPROLOL 50 MG TAB PO SCH ×2 (08:59→21:49)
[2017-01-17] MEDS: SERTRALINE 100 MG TAB PO SCH (08:59)
[2017-01-17] MEDS: POLYETHYLENE GLYCOL 17 GM PACKET PO SCH ×2 (09:00→21:00)
[2017-01-17] MEDS: MUPIROCIN 2% 22 GM OINT TOP SCH ×2 (09:01→21:56)
[2017-01-17] MEDS ORDERED: REGADENOSON 0.4 MG/5 ML SYG ONE (10:26)
--- NOTE | 2017-01-17 10:33 | PN ---
Date/Time of Note Date/Time of Note DATE: 01/17/17 TIME: 10:29 Assessment/Plan VTE Prophylaxis VTE Prophylaxis Intervention: SCD's Lines/Catheters [facility] Peripheral IV Urinary Cath still in place: No Assessment/Plan Chief Complaint/Hosp Course Summary Assessment and Plan: Assessment: CP with associated left arm pain Lower abdominal pain- unclear underlying etiology Epigastric pain with associated nausea/vomiting R/o PUD vs anxiety vs gastritis vs cardiac related HARSH-possibly related to chronic urinary outlet obstruction BPH Dyslipidemia HTN Plan: Stress test today Patient may need EGD/colonoscopy in near future Stool for OB-negative Continue PPI therapy Patient seen in collaboration with Subjective: Course reviewed with nursing staff Patient interviewed and examined All labs, imaging and other results reviewed The patient is currently in nuclear medicine for stress test will assess patient tomorrow. Stool for OB is negative, minimal decrease in H/H, however remained stable 12.6/ 39.5 PHYSICAL EXAMINATION: GENERAL: Well developed, well nourished, alert & oriented x 3, in no acute distress SKIN: No lesions, no stigmata chronic liver disease, no evidence of bleeding diathesis LYMPHATIC: No palpable lymphadenopathy. HEAD: Normocephalic, atraumatic, no tenderness. EYES: Pupils equal reactive to light and accommodation, full extraocular movements, sclera clear, non-icteric, no discharge. EARS/NOSE AND THROAT: Ears normal, nose normal, oropharynx normal, oral membranes well hydrated without lesions. NECK: Supple, no masses, thyroid normal, JVP within normal limits, carotids normal without bruits. CHEST: Inspection within normal limits. CARDIOVASCULAR: Heart: Regular rate and rhythm, no murmurs, gallops or rubs. RESPIRATORY: Lungs clear to auscultation and percussion, no wheezing, no rubs GASTROINTESTINAL AND LIVER: Abdomen: Soft, tenderness lower abd and epigastric, non-distended, no hernias, no masses, no organomegaly, no ascites, no guarding, no rebound tenderness, normoactive bowel sounds. Rectal: Deferred. GENITOURINARY: Male genitalia within normal limits. EXTREMITIES: No cyanosis, clubbing or edema. Problems: Exam/Review of Systems Vital Signs Vitals Vital Signs Date Time Temp Pulse Resp B/P Pulse Ox O2 Delivery O2 Flow Rate FiO2 01/17/17 08:58 52 01/17/17 07:24 98.6 20 164/85 96 01/16/17 20:00 Room Air 01/15/17 20:00 2.0 Intake and Output 01/16/17 01/16/17 01/17/17 14:59 22:59 06:59 Intake Total 350 ml 1000 ml 120 ml Output Total 450 ml Balance 350 ml 1000 ml -330 ml Results Result Diagram: 01/17/17 0748 01/17/17 0748 Results 24 hrs Laboratory Tests Test 01/17/17 06:10 01/17/17 07:48 Stool Occult Blood NEGATIVE White Blood Count 8.8 Red Blood Count 4.48 L Hemoglobin 12.6 L Hematocrit 39.5 L Mean Corpuscular Volume 88.2 Mean Corpuscular Hemoglobin 28.1 L Mean Corpuscular Hemoglobin Concent 31.9 L Red Cell Distribution Width 16.3 H Platelet Count 200 Mean Platelet Volume 10.9 H Neutrophils % 66.4 Lymphocytes % 21.8 Monocytes % 9.4 Eosinophils % 1.4 Basophils % 0.3 Nucleated Red Blood Cells % 0.0 Neutrophils # 5.8 Lymphocytes # 1.9 Monocytes # 0.8 Eosinophils # 0.1 Basophils # 0.0 Nucleated Red Blood Cells # 0.0 Sodium Level 143 Potassium Level 4.0 Chloride Level 109 Carbon Dioxide Level 27 Anion Gap 11 Blood Urea Nitrogen 15 Creatinine 1.07 Glucose Level 93 Calcium Level 8.9 Total Bilirubin 0.3 Direct Bilirubin 0.00 Indirect Bilirubin 0.3 Aspartate Amino Transf (AST/SGOT) 29 Alanine Aminotransferase (ALT/SGPT) 29 Alkaline Phosphatase 107 Total Protein 6.8 Albumin 3.5 Globulin 3.30 H Albumin/Globulin Ratio 1.06 Medications Medications Current Medications Acetaminophen (Tylenol Tab) 650 mg Q6H PRN PO PAIN LEVEL 1-3 OR FEVER Last administered on 01/16/17 09:05; Admin Dose 650 MG; Start 01/14/17 at 06:30 Atorvastatin Calcium (Lipitor) 10 mg QHS PO Last administered on 01/16/17 20: 52; Admin Dose 10 MG; Start 01/14/17 at 21:00 Lorazepam (Ativan) 1 mg BID PRN PO ANXIETY Last administered on 01/17/17 06:07 ; Admin Dose 1 MG; Start 01/14/17 at 06:30 Sertraline HCl (Zoloft) 200 mg DAILY PO Last administered on 01/17/17 08:59; Admin Dose 200 MG; Start 01/14/17 at 09:00 Trazodone HCl (Desyrel) 100 mg BID PO Last administered on 01/17/17 08:58; Admin Dose 100 MG; Start 01/14/17 at 09:00 Acetaminophen (Tylenol Tab) 650 mg Q6H PRN PO PAIN LEVEL 1-3 OR FEVER; Start 01/14/17 at 06:30 Hydralazine HCl (Apresoline) 25 mg TID PRN PO ELEVATED BLOOD PRESSURE Last administered on 01/15/17 16:23; Admin Dose 25 MG; Start 01/14/17 at 06:30 Tamsulosin HCl (Flomax) 0.4 mg BID PO Last administered on 01/17/17 08:57; Admin Dose 0.4 MG; Start 01/14/17 at 09:00 Heparin Sodium (Porcine) (Heparin (5000 Units/0.5 ml)) 5,000 unit Q8 SC Last administered on 01/17/17 06:01; Admin Dose 5,000 UNIT; Start 01/14/17 at 14:00 Docusate Sodium (Colace) 100 mg Q12H PO Last administered on 01/16/17 17:37; Admin Dose 100 MG; Start 01/14/17 at 18:30 Bisacodyl (Dulcolax) 10 mg DAILY PRN PO CONSTIPATION Last administered on 17:17; Admin Dose 10 MG; Start 01/14/17 at 17:30 Polyethylene Glycol (Miralax) 17 gm BID PO Last administered on 01/16/17 20:52 ; Admin Dose 17 GM; Start 01/14/17 at 21:00 Morphine Sulfate (morphine) 2 mg Q4H PRN IV PAIN Last administered on 12:20; Admin Dose 2 MG; Start 01/14/17 at 17:30 Nitroglycerin (Nitroglycerin (Sl Tab) 0.4 Mg) 1 tab Q5M PRN SL CHEST PAIN Last administered on 01/15/17 12:40; Admin Dose 1 TAB; Start 01/15/17 at 12:30 Hydralazine HCl 10 mg 10 mg Q4H PRN IV sbp>160 Last administered on 01/16/17 00:16; Admin Dose 10 MG; Start 01/15/17 at 12:30 Ertapenem/Sodium Chloride (Invanz/NS) 100 ml @ 200 mls/hr Q24H IVPB Last administered on 01/16/17 13:52; Admin Dose 200 MLS/HR; Start 01/15/17 at 14:30 Mupirocin (Bactroban) 1 applic BID TOP Last administered on 01/17/17 09:01; Admin Dose 1 APPLIC; Start 01/15/17 at 21:00 Amlodipine Besylate (Norvasc) 5 mg BID PO Last administered on 01/17/17 08:58 ; Admin Dose 5 MG; Start 01/15/17 at 21:00 Clonidine (Catapres) 0.1 mg Q4H PRN PO SBP>160 Last administered on 01/16/17 21:11; Admin Dose 0.1 MG; Start 01/15/17 at 17:00 Metoprolol Tartrate (Lopressor) 50 mg BID PO Last administered on 01/17/17 08: 59; Admin Dose 50 MG; Start 01/16/17 at 09:00 Isosorbide Mononitrate (Imdur) 30 mg DAILY PO Last administered on 01/17/17 08 :57; Admin Dose 30 MG; Start 01/16/17 at 09:00 Ondansetron HCl (Zofran Inj) 4 mg Q4 IV Last administered on 01/17/17 05:57; Admin Dose 4 MG; Start 01/16/17 at 13:00 Pantoprazole (Protonix Tab) 40 mg DAILY@06 PO Last administered on 01/17/17 05 :57; Admin Dose 40 MG; Start 01/17/17 at 06:00 PACO LAI Jan 17, 2017 10:33
--- NOTE | 2017-01-17 11:57 | CONS ---
Date/Time of Note Date/Time of Note DATE: 01/17/17 TIME: 11:54 Assessment/Plan Assessment/Plan Chief Complaint/Hosp Course ASSESSMENT AND PLAN: A 71-year-old gentleman with: 1. Chest pain-negative trop x 3/NL EF by echo 2. Hypertension-uncontrolled 3. Dyslipidemia. 4. Obesity. 5. Anxiety. 6. Depression. 7. UTI/prostatitis Recc: -Continue norvasc/oral nitrates/BB and f/u BP after receiving -Continue statin -Continue abx's and f/u cx data -Lexiscan rescheduled to today due to patient condition yesterday Problems: Consultation Date/Type/Reason Admit Date/Time Jan 14, 2017 at 09:38 Initial Consult Date 01/14/17 Type of Consultation: cardiology Reason for Consultation chest pain Referring Provider: MARTHA SOLIS Exam/Review of Systems Vital Signs Vitals Vital Signs Date Time Temp Pulse Resp B/P Pulse Ox O2 Delivery O2 Flow Rate FiO2 01/17/17 08:58 52 01/17/17 07:24 98.6 20 164/85 96 01/16/17 20:00 Room Air 01/15/17 20:00 2.0 Intake and Output 01/16/17 01/16/17 01/17/17 15:00 23:00 07:00 Intake Total 350 ml 1000 ml 120 ml Output Total 450 ml Balance 350 ml 1000 ml -330 ml Exam Review of Systems: CONSTITUTIONAL: No fevers, chills. PULMONARY: No sob CARDIOVASCULAR: No chest pain/palpitations GASTROINTESTINAL: No nausea/vomiting. GENITOURINARY: No hematuria/dysuria. MUSCULOSKELETAL: No myagias/arthalgias. PSYCHIATRIC: The patient denies depression. NEUROLOGIC: No weakness Constitutional: alert Psych: no complaints Head: normocephalic ENMT: mucosa pink and moist Respiratory: diminished breath sounds (at bases/B) Cardiovascular: regular rate and rhythm Gastrointestinal: non-tender, soft Musculoskeletal: muscle tone (normal) Extremities: other (No focal deficits) Results Result Diagram: 01/17/17 0748 01/17/17 0748 Results 24 hrs Laboratory Tests Test 01/17/17 06:10 01/17/17 07:48 Stool Occult Blood NEGATIVE White Blood Count 8.8 Red Blood Count 4.48 L Hemoglobin 12.6 L Hematocrit 39.5 L Mean Corpuscular Volume 88.2 Mean Corpuscular Hemoglobin 28.1 L Mean Corpuscular Hemoglobin Concent 31.9 L Red Cell Distribution Width 16.3 H Platelet Count 200 Mean Platelet Volume 10.9 H Neutrophils % 66.4 Lymphocytes % 21.8 Monocytes % 9.4 Eosinophils % 1.4 Basophils % 0.3 Nucleated Red Blood Cells % 0.0 Neutrophils # 5.8 Lymphocytes # 1.9 Monocytes # 0.8 Eosinophils # 0.1 Basophils # 0.0 Nucleated Red Blood Cells # 0.0 Sodium Level 143 Potassium Level 4.0 Chloride Level 109 Carbon Dioxide Level 27 Anion Gap 11 Blood Urea Nitrogen 15 Creatinine 1.07 Glucose Level 93 Calcium Level 8.9 Total Bilirubin 0.3 Direct Bilirubin 0.00 Indirect Bilirubin 0.3 Aspartate Amino Transf (AST/SGOT) 29 Alanine Aminotransferase (ALT/SGPT) 29 Alkaline Phosphatase 107 Total Protein 6.8 Albumin 3.5 Globulin 3.30 H Albumin/Globulin Ratio 1.06 Medications Medications Current Medications Acetaminophen (Tylenol Tab) 650 mg Q6H PRN PO PAIN LEVEL 1-3 OR FEVER Last administered on 01/16/17 09:05; Admin Dose 650 MG; Start 01/14/17 at 06:30 Atorvastatin Calcium (Lipitor) 10 mg QHS PO Last administered on 01/16/17 20: 52; Admin Dose 10 MG; Start 01/14/17 at 21:00 Lorazepam (Ativan) 1 mg BID PRN PO ANXIETY Last administered on 01/17/17 06:07 ; Admin Dose 1 MG; Start 01/14/17 at 06:30 Sertraline HCl (Zoloft) 200 mg DAILY PO Last administered on 01/17/17 08:59; Admin Dose 200 MG; Start 01/14/17 at 09:00 Trazodone HCl (Desyrel) 100 mg BID PO Last administered on 01/17/17 08:58; Admin Dose 100 MG; Start 01/14/17 at 09:00 Acetaminophen (Tylenol Tab) 650 mg Q6H PRN PO PAIN LEVEL 1-3 OR FEVER; Start 01/14/17 at 06:30 Hydralazine HCl (Apresoline) 25 mg TID PRN PO ELEVATED BLOOD PRESSURE Last administered on 01/15/17 16:23; Admin Dose 25 MG; Start 01/14/17 at 06:30 Tamsulosin HCl (Flomax) 0.4 mg BID PO Last administered on 01/17/17 08:57; Admin Dose 0.4 MG; Start 01/14/17 at 09:00 Heparin Sodium (Porcine) (Heparin (5000 Units/0.5 ml)) 5,000 unit Q8 SC Last administered on 01/17/17 06:01; Admin Dose 5,000 UNIT; Start 01/14/17 at 14:00 Docusate Sodium (Colace) 100 mg Q12H PO Last administered on 01/16/17 17:37; Admin Dose 100 MG; Start 01/14/17 at 18:30 Bisacodyl (Dulcolax) 10 mg DAILY PRN PO CONSTIPATION Last administered on 17:17; Admin Dose 10 MG; Start 01/14/17 at 17:30 Polyethylene Glycol (Miralax) 17 gm BID PO Last administered on 01/16/17 20:52 ; Admin Dose 17 GM; Start 01/14/17 at 21:00 Morphine Sulfate (morphine) 2 mg Q4H PRN IV PAIN Last administered on 12:20; Admin Dose 2 MG; Start 01/14/17 at 17:30 Nitroglycerin (Nitroglycerin (Sl Tab) 0.4 Mg) 1 tab Q5M PRN SL CHEST PAIN Last administered on 01/15/17 12:40; Admin Dose 1 TAB; Start 01/15/17 at 12:30 Hydralazine HCl 10 mg 10 mg Q4H PRN IV sbp>160 Last administered on 01/16/17 00:16; Admin Dose 10 MG; Start 01/15/17 at 12:30 Ertapenem/Sodium Chloride (Invanz/NS) 100 ml @ 200 mls/hr Q24H IVPB Last administered on 01/16/17 13:52; Admin Dose 200 MLS/HR; Start 01/15/17 at 14:30 Mupirocin (Bactroban) 1 applic BID TOP Last administered on 01/17/17 09:01; Admin Dose 1 APPLIC; Start 01/15/17 at 21:00 Amlodipine Besylate (Norvasc) 5 mg BID PO Last administered on 01/17/17 08:58 ; Admin Dose 5 MG; Start 01/15/17 at 21:00 Clonidine (Catapres) 0.1 mg Q4H PRN PO SBP>160 Last administered on 01/16/17 21:11; Admin Dose 0.1 MG; Start 01/15/17 at 17:00 Metoprolol Tartrate (Lopressor) 50 mg BID PO Last administered on 01/17/17 08: 59; Admin Dose 50 MG; Start 01/16/17 at 09:00 Isosorbide Mononitrate (Imdur) 30 mg DAILY PO Last administered on 01/17/17 08 :57; Admin Dose 30 MG; Start 01/16/17 at 09:00 Ondansetron HCl (Zofran Inj) 4 mg Q4 IV Last administered on 01/17/17 05:57; Admin Dose 4 MG; Start 01/16/17 at 13:00 Pantoprazole (Protonix Tab) 40 mg DAILY@06 PO Last administered on 01/17/17 05 :57; Admin Dose 40 MG; Start 01/17/17 at 06:00 YESSY CANALES Jan 17, 2017 11:57
--- NOTE | 2017-01-17 13:04 | RADRPT ---
PROCEDURE: Lexiscan myocardial perfusion study CLINICAL INDICATION: 71 -year-old patient complaining of chest pain. TECHNIQUE: Lexiscan 0.4 mg intravenously separate acquisition gated myocardial perfusion SPECT usi ng Tc 99m Myoview 29.0 mCi intravenously at stress and Tc-99m Myoview, 10.0 mCi intravenously at res t was performed using the rest/stress sequence. Poststress Myoview SPECT images were obtained in th e supine position. COMPARISON: No prior studies. FINDINGS: Perfusion images reveal no evidence of perfusion defects. Lexiscan post stress gated SPECT images demonstrate no wall motion abnormalities. IMPRESSION: 1. No evidence of perfusion defects. 2. No wall motion abnormalities. 3. The left ventricle ejection fraction at stress is 52%. Call report was made to Dr. Meyer at 01:00 p.m. on January 17, 2017. RPTAT: HH .Stefania Canales MD, Date Time Electronically viewed and signed by .Stefania Canales MD, on 01/17/2017 13:04 .L/
--- NOTE | 2017-01-17 14:21 | PN ---
Date/Time of Note Date/Time of Note DATE: 01/17/17 TIME: 14:19 Assessment/Plan VTE Prophylaxis VTE Prophylaxis Intervention: SCD's Lines/Catheters IV [facility]ter Type (from [email or web address] Peripheral IV Urinary Cath still in place: No Assessment/Plan Chief Complaint/Hosp Course Assessment and plan 1. SIRS. Etiology unknown. Urinalysis inconclusive. Leukocytosis downward trending. ID consult following. cotninue on abx. 2. Chest pain. Etiology unknown. Echocardiogram with EF at 55% with stage 1 diastolic dysfunction. tentative plan for stress test. Troponins negative so far. 3. Acute kidney injury. Avoid nephrotoxic medications. Monitor renal panel. Continue IV hydration. 4. Prostatomegaly. urologist was consulted. Will follow up. 5. Essential hypertension. Continue antihypertensives and adjust as needed. 6. Dyspnea. Continue statin medication. 7. intractable nausea/vomiting. GI following. continue with antiemetics around the clock Disposition plan: continue with antiemetics a needed. plan for stress test today. will follow up results Discussed plan of care with Dr. Velasco Problems: Subjective 24 Hr Interval Summary Free Text/Dictation with some nausea Exam/Review of Systems Vital Signs Vitals Vital Signs Date Time Temp Pulse Resp B/P Pulse Ox O2 Delivery O2 Flow Rate FiO2 01/17/17 13:36 57 01/17/17 13:18 97.8 20 173/81 96 01/16/17 20:00 Room Air 01/15/17 20:00 2.0 Intake and Output 01/16/17 01/16/17 01/17/17 15:00 23:00 07:00 Intake Total 350 ml 1000 ml 120 ml Output Total 450 ml Balance 350 ml 1000 ml -330 ml Exam Constitutional: alert, oriented Psych: no anxiety today Head: normocephalic Respiratory: diminished breath sounds Cardiovascular: other (REGULAR RATE) Gastrointestinal: non-tender, soft Musculoskeletal: nl extremities to inspection Neurological: ASSORTER LAUNDRY II-XII intact, nl mental status, nl speech Skin: nl turgor Results Result Diagram: 01/17/1748 01/17/17 0748 Results 24 hrs Laboratory Tests Test 01/17/17 06:10 01/17/17 07:48 Stool Occult Blood NEGATIVE White Blood Count 8.8 Red Blood Count 4.48 L Hemoglobin 12.6 L Hematocrit 39.5 L Mean Corpuscular Volume 88.2 Mean Corpuscular Hemoglobin 28.1 L Mean Corpuscular Hemoglobin Concent 31.9 L Red Cell Distribution Width 16.3 H Platelet Count 200 Mean Platelet Volume 10.9 H Neutrophils % 66.4 Lymphocytes % 21.8 Monocytes % 9.4 Eosinophils % 1.4 Basophils % 0.3 Nucleated Red Blood Cells % 0.0 Neutrophils # 5.8 Lymphocytes # 1.9 Monocytes # 0.8 Eosinophils # 0.1 Basophils # 0.0 Nucleated Red Blood Cells # 0.0 Sodium Level 143 Potassium Level 4.0 Chloride Level 109 Carbon Dioxide Level 27 Anion Gap 11 Blood Urea Nitrogen 15 Creatinine 1.07 Glucose Level 93 Calcium Level 8.9 Total Bilirubin 0.3 Direct Bilirubin 0.00 Indirect Bilirubin 0.3 Aspartate Amino Transf (AST/SGOT) 29 Alanine Aminotransferase (ALT/SGPT) 29 Alkaline Phosphatase 107 Total Protein 6.8 Albumin 3.5 Globulin 3.30 H Albumin/Globulin Ratio 1.06 Medications Medications Current Medications Acetaminophen (Tylenol Tab) 650 mg Q6H PRN PO PAIN LEVEL 1-3 OR FEVER Last administered on 01/16/17 09:05; Admin Dose 650 MG; Start 01/14/17 at 06:30 Atorvastatin Calcium (Lipitor) 10 mg QHS PO Last administered on 01/16/17 20: 52; Admin Dose 10 MG; Start 01/14/17 at 21:00 Lorazepam (Ativan) 1 mg BID PRN PO ANXIETY Last administered on 01/17/17 06:07 ; Admin Dose 1 MG; Start 01/14/17 at 06:30 Sertraline HCl (Zoloft) 200 mg DAILY PO Last administered on 01/17/17 08:59; Admin Dose 200 MG; Start 01/14/17 at 09:00 Trazodone HCl (Desyrel) 100 mg BID PO Last administered on 01/17/17 08:58; Admin Dose 100 MG; Start 01/14/17 at 09:00 Acetaminophen (Tylenol Tab) 650 mg Q6H PRN PO PAIN LEVEL 1-3 OR FEVER; Start 01/14/17 at 06:30 Hydralazine HCl (Apresoline) 25 mg TID PRN PO ELEVATED BLOOD PRESSURE Last administered on 01/15/17 16:23; Admin Dose 25 MG; Start 01/14/17 at 06:30 Tamsulosin HCl (Flomax) 0.4 mg BID PO Last administered on 01/17/17 08:57; Admin Dose 0.4 MG; Start 01/14/17 at 09:00 Heparin Sodium (Porcine) (Heparin (5000 Units/0.5 ml)) 5,000 unit Q8 SC Last administered on 01/17/17 13:19; Admin Dose 5,000 UNIT; Start 01/14/17 at 14:00 Docusate Sodium (Colace) 100 mg Q12H PO Last administered on 01/16/17 17:37; Admin Dose 100 MG; Start 01/14/17 at 18:30 Bisacodyl (Dulcolax) 10 mg DAILY PRN PO CONSTIPATION Last administered on 17:17; Admin Dose 10 MG; Start 01/14/17 at 17:30 Polyethylene Glycol (Miralax) 17 gm BID PO Last administered on 01/16/17 20:52 ; Admin Dose 17 GM; Start 01/14/17 at 21:00 Morphine Sulfate (morphine) 2 mg Q4H PRN IV PAIN Last administered on 12:20; Admin Dose 2 MG; Start 01/14/17 at 17:30 Nitroglycerin (Nitroglycerin (Sl Tab) 0.4 Mg) 1 tab Q5M PRN SL CHEST PAIN Last administered on 01/15/17 12:40; Admin Dose 1 TAB; Start 01/15/17 at 12:30 Hydralazine HCl 10 mg 10 mg Q4H PRN IV sbp>160 Last administered on 01/16/17 00:16; Admin Dose 10 MG; Start 01/15/17 at 12:30 Ertapenem/Sodium Chloride (Invanz/NS) 100 ml @ 200 mls/hr Q24H IVPB Last administered on 01/16/17 13:52; Admin Dose 200 MLS/HR; Start 01/15/17 at 14:30 Mupirocin (Bactroban) 1 applic BID TOP Last administered on 01/17/17 09:01; Admin Dose 1 APPLIC; Start 01/15/17 at 21:00 Amlodipine Besylate (Norvasc) 5 mg BID PO Last administered on 01/17/17 08:58 ; Admin Dose 5 MG; Start 01/15/17 at 21:00 Clonidine (Catapres) 0.1 mg Q4H PRN PO SBP>160 Last administered on 01/16/17 21:11; Admin Dose 0.1 MG; Start 01/15/17 at 17:00 Metoprolol Tartrate (Lopressor) 50 mg BID PO Last administered on 01/17/17 08: 59; Admin Dose 50 MG; Start 01/16/17 at 09:00 Isosorbide Mononitrate (Imdur) 30 mg DAILY PO Last administered on 01/17/17 08 :57; Admin Dose 30 MG; Start 01/16/17 at 09:00 Ondansetron HCl (Zofran Inj) 4 mg Q4 IV Last administered on 01/17/17 12:59; Admin Dose 4 MG; Start 01/16/17 at 13:00 Pantoprazole (Protonix Tab) 40 mg DAILY@06 PO Last administered on 01/17/17 05 :57; Admin Dose 40 MG; Start 01/17/17 at 06:00 REJI STOCK Jan 17, 2017 14:21
--- NOTE | 2017-01-17 14:28 | CARRPT ---
DATE OF PROCEDURE: 01/17/2017 TYPE OF PROCEDURE: Lexiscan Cardiolite stress test, electrocardiogram portion. INDICATION: Chest pain, assess for ischemia. BASELINE VITAL SIGNS AND ELECTROCARDIOGRAM: Pulse 56, blood pressure 177/90. Electrocardiogram reveals sinus bradycardia, rate 56, normal axis, normal intervals, with inferior T-wave inversions. PROCEDURE: The patient underwent standard Lexiscan infusion protocol over 10 seconds followed by radiolabeled tracer. The patient's test was stopped due to completion of protocol. Maximal achieved blood pressure during the test 140/ 65. Maximum heart rate during the test 82. ELECTROCARDIOGRAM FINDINGS: During Lexiscan infusion, the patient developed biphasic T-wave abnormalities. Throughout his leads which returned to normal during recovery. SYMPTOMS: The patient had no complaints of chest pain, mild stomach ache and flushing and hot feeling which dissipates in recovery. IMPRESSION: 1. Lexiscan induced changes suggestive but nondiagnostic cardiac ischemia. 2. No complaints of chest pain or shortness of breath during stress testing. 3. No documented premature ventricular contractions during stress test. 4. Report of nuclear images to follow in separate dictation. Dictated By: YESSY SCHULER/JORDAN Conf#: [id number] DID#: [id number] CC: MARTHA SOLIS MD;*JanCC* MTDNathaniel
[2017-01-17] MEDS: ERTAPENEM SODIUM 1 GM in SOD CHLORIDE 0.9% 100 ML IVPB SCH (15:04)
--- NOTE | 2017-01-17 15:40 | RADRPT ---
Vent Rate: 74 bpm RR Interval: 0 msec MI Interval: 190 msec QRS Duration: 106 msec QT Interval: 460 msec QTC Interval: 510 msec P-R-T [place]: 41 - -2 - 6 degrees Normal sinus rhythm Septal infarct , age undetermined Prolonged QT Abnormal ECG Electronically Signed By: Ramsey Lobo [id number]
--- NOTE | 2017-01-17 19:03 | CONS ---
Date/Time of Note Date/Time of Note DATE: 01/17/17 TIME: 18:58 Consult Date/Type/Reason Admit Date/Time Jan 14, 2017 at 09:38 Initial Consult Date 01/16/17 Type of Consultation: ID Ordering Provider: MARTHA SOLIS Objective Vital Signs Date Time Temp Pulse Resp B/P Pulse Ox O2 Delivery O2 Flow Rate FiO2 01/17/17 16:28 74 01/17/17 16:01 98.4 20 141/71 98 01/16/17 20:00 Room Air 01/15/17 20:00 2.0 Intake and Output 01/16/17 01/16/17 01/17/17 15:00 23:00 07:00 Intake Total 350 ml 1000 ml 120 ml Output Total 450 ml Balance 350 ml 1000 ml -330 ml Results/Medications Result Diagram: 01/17/17 0748 01/17/1748 Results 24 hrs Laboratory Tests Test 01/17/17 06:10 01/17/17 07:48 Stool Occult Blood NEGATIVE White Blood Count 8.8 Red Blood Count 4.48 L Hemoglobin 12.6 L Hematocrit 39.5 L Mean Corpuscular Volume 88.2 Mean Corpuscular Hemoglobin 28.1 L Mean Corpuscular Hemoglobin Concent 31.9 L Red Cell Distribution Width 16.3 H Platelet Count 200 Mean Platelet Volume 10.9 H Neutrophils % 66.4 Lymphocytes % 21.8 Monocytes % 9.4 Eosinophils % 1.4 Basophils % 0.3 Nucleated Red Blood Cells % 0.0 Neutrophils # 5.8 Lymphocytes # 1.9 Monocytes # 0.8 Eosinophils # 0.1 Basophils # 0.0 Nucleated Red Blood Cells # 0.0 Sodium Level 143 Potassium Level 4.0 Chloride Level 109 Carbon Dioxide Level 27 Anion Gap 11 Blood Urea Nitrogen 15 Creatinine 1.07 Glucose Level 93 Calcium Level 8.9 Total Bilirubin 0.3 Direct Bilirubin 0.00 Indirect Bilirubin 0.3 Aspartate Amino Transf (AST/SGOT) 29 Alanine Aminotransferase (ALT/SGPT) 29 Alkaline Phosphatase 107 Total Protein 6.8 Albumin 3.5 Globulin 3.30 H Albumin/Globulin Ratio 1.06 Medications Current Medications Acetaminophen (Tylenol Tab) 650 mg Q6H PRN PO PAIN LEVEL 1-3 OR FEVER Last administered on 01/16/17t 09:05; Admin Dose 650 MG; Start 01/14/17 at 06:30 Atorvastatin Calcium (Lipitor) 10 mg QHS PO Last administered on 01/16/17 20: 52; Admin Dose 10 MG; Start 01/14/17 at 21:00 Lorazepam (Ativan) 1 mg BID PRN PO ANXIETY Last administered on 01/17/17 17:20 ; Admin Dose 1 MG; Start 01/14/17 at 06:30 Sertraline HCl (Zoloft) 200 mg DAILY PO Last administered on 01/17/17 08:59; Admin Dose 200 MG; Start 01/14/17 at 09:00 Trazodone HCl (Desyrel) 100 mg BID PO Last administered on 01/17/17 08:58; Admin Dose 100 MG; Start 01/14/17 at 09:00 Acetaminophen (Tylenol Tab) 650 mg Q6H PRN PO PAIN LEVEL 1-3 OR FEVER; Start 01/14/17 at 06:30 Hydralazine HCl (Apresoline) 25 mg TID PRN PO ELEVATED BLOOD PRESSURE Last administered on 01/15/17 16:23; Admin Dose 25 MG; Start 01/14/17 at 06:30 Tamsulosin HCl (Flomax) 0.4 mg BID PO Last administered on 01/17/17 08:57; Admin Dose 0.4 MG; Start 01/14/17 at 09:00 Heparin Sodium (Porcine) (Heparin (5000 Units/0.5 ml)) 5,000 unit Q8 SC Last administered on 01/17/17 13:19; Admin Dose 5,000 UNIT; Start 01/14/17 at 14:00 Docusate Sodium (Colace) 100 mg Q12H PO Last administered on 01/17/17 17:19; Admin Dose 100 MG; Start 01/14/17 at 18:30 Bisacodyl (Dulcolax) 10 mg DAILY PRN PO CONSTIPATION Last administered on 17:17; Admin Dose 10 MG; Start 01/14/17 at 17:30 Polyethylene Glycol (Miralax) 17 gm BID PO Last administered on 01/16/17 20:52 ; Admin Dose 17 GM; Start 01/14/17 at 21:00 Morphine Sulfate (morphine) 2 mg Q4H PRN IV PAIN Last administered on 12:20; Admin Dose 2 MG; Start 01/14/17 at 17:30 Nitroglycerin (Nitroglycerin (Sl Tab) 0.4 Mg) 1 tab Q5M PRN SL CHEST PAIN Last administered on 01/15/17 12:40; Admin Dose 1 TAB; Start 01/15/17 at 12:30 Hydralazine HCl 10 mg 10 mg Q4H PRN IV sbp>160 Last administered on 01/16/17 00:16; Admin Dose 10 MG; Start 01/15/17 at 12:30 Ertapenem/Sodium Chloride (Invanz/NS) 100 ml @ 200 mls/hr Q24H IVPB Last administered on 01/17/17 15:04; Admin Dose 200 MLS/HR; Start 01/15/17 at 14:30 Mupirocin (Bactroban) 1 applic BID TOP Last administered on 01/17/17 09:01; Admin Dose 1 APPLIC; Start 01/15/17 at 21:00 Amlodipine Besylate (Norvasc) 5 mg BID PO Last administered on 01/17/17 08:58 ; Admin Dose 5 MG; Start 01/15/17 at 21:00 Clonidine (Catapres) 0.1 mg Q4H PRN PO SBP>160 Last administered on 01/16/17 21:11; Admin Dose 0.1 MG; Start 01/15/17 at 17:00 Metoprolol Tartrate (Lopressor) 50 mg BID PO Last administered on 01/17/17 08: 59; Admin Dose 50 MG; Start 01/16/17 at 09:00 Isosorbide Mononitrate (Imdur) 30 mg DAILY PO Last administered on 01/17/17 08 :57; Admin Dose 30 MG; Start 01/16/17 at 09:00 Ondansetron HCl (Zofran Inj) 4 mg Q4 IV Last administered on 01/17/17 17:20; Admin Dose 4 MG; Start 01/16/17 at 13:00 Pantoprazole (Protonix Tab) 40 mg DAILY@06 PO Last administered on 01/17/17 05 :57; Admin Dose 40 MG; Start 01/17/17 at 06:00 Assessment/Plan Chief Complaint/Hosp Course SUBJECTIVE: No events overnight. Looks comfortable. No fevers. MICROBIOLOGY: Blood culture + GPR. Nares swab positive for MRSA. Urine culture revealed mixed gram-negative and positive organisms consistent with contaminant. ANTIMICROBIALS: Invanz. PHYSICAL EXAMINATION: GENERAL: Obese, well-developed elderly man who is awake, in no distress. HEENT: Head atraumatic, normocephalic. Sclerae anicteric. Buccal mucosa dry. NECK: Supple. CHEST: Rise symmetrical. Breath sounds clear. HEART: S1, S2. ABDOMEN: Soft, bowel tones present. EXTREMITIES: Without cyanosis. ASSESSMENT: 1. Systemic inflammatory response syndrome with fevers, chills and leukocytosis on admission, likely secondary to urinary tract infection. 2. Prostatomegaly, possible bladder outlet obstruction. 3. History of recurrent bouts of urinary tract infection. 4. Hypertension. 5. Acute kidney injury. 6. Chest pain and left shoulder pain with negative troponin==> Xray neg 7. GPR bacteremia==> cw contaminant PLAN: The patient remains stable. Will dc abx in am, and reculture prn, f/u cardiology rec-s/Laura BLACK staff Problems: DIANA FUNK NP Jan 17, 2017 19:03
[2017-01-17] MEDS: ATORVASTATIN 10 MG TAB PO SCH (21:45)
[2017-01-18] VITALS (10 sets, daily range): BP systolic 123–170; BP diastolic 62–93; PULSE 54–66; RESP 17–22
[2017-01-18] MEDS: ONDANSETRON 4 MG INJ IV SCH ×6 (01:00→21:35)
[2017-01-18] MEDS: PANTOPRAZOLE (EC) 40 MG TAB PO SCH (05:20)
[2017-01-18] MEDS: HEPARIN 5,000 UNIT/0.5 ML VIAL SC SCH ×3 (06:03→21:44)
[2017-01-18] MEDS: DOCUSATE SODIUM 100 MG CAP PO SCH ×2 (06:30→18:30)
[2017-01-18 08:25] LABS: BASOPHILS % 0.5 % (0.0-2.0); EOSINOPHILS # 0.3 10^3/ul (0.0-0.5); EOSINOPHILS % 3.4 % (0.0-7.0); HEMATOCRIT 39.2 % (42.0-52.0); LYMPHOCYTES % 24.8 % (15.0-51.0); MEAN CORPUSCULAR HGB CONC 33.2 g/dl (32.0-37.0); MEAN CORPUSCULAR VOLUME 87.5 fl (82.0-101.0); MONOCYTE # 0.8 10^3/ul (0.3-0.9); MONOCYTES % 9.8 % (0.0-11.0); NEUTROPHIL # 4.8 10^3/ul (1.6-7.5); NEUTROPHILS % 60.9 % (39.0-77.0); PLATELET COUNT 214 10^3/UL (140-415); RED BLOOD COUNT 4.48 10^6/ul (4.70-6.10); RED CELL DISTRIBUTION WIDTH 15.8 % (11.5-14.5); WHITE BLOOD COUNT 7.9 10^3/ul (4.8-10.8)
[2017-01-18 08:42] LABS: PHOSPHORUS 3.2 mg/dl (2.5-4.9)
[2017-01-18] MEDS: ISOSORBIDE MONONITRATE(SR)30 MG TAB PO SCH (08:42)
[2017-01-18] MEDS: LORAZEPAM 1 MG TAB PO PRN ×2 (08:42→21:47)
[2017-01-18] MEDS: SERTRALINE 100 MG TAB PO SCH (08:43)
[2017-01-18] MEDS: METOPROLOL 50 MG TAB PO SCH ×2 (08:43→21:34)
[2017-01-18] MEDS: traZODone 100 MG TAB PO SCH ×2 (08:44→21:32)
[2017-01-18] MEDS: TAMSULOSIN (SR) 0.4 MG CAP PO SCH ×2 (08:44→21:33)
[2017-01-18] MEDS: AMLODIPINE 5 MG TAB PO SCH ×2 (08:44→21:33)
[2017-01-18] MEDS: POLYETHYLENE GLYCOL 17 GM PACKET PO SCH ×2 (08:44→21:34)
[2017-01-18] MEDS: MUPIROCIN 2% 22 GM OINT TOP SCH ×2 (08:48→21:35)
[2017-01-18 08:50] LABS: CALCIUM 8.5 mg/dl (8.4-10.2); CREATININE 1.11 mg/dl (0.61-1.24); POTASSIUM 3.4 mmol/L (3.5-5.1)
--- NOTE | 2017-01-18 10:54 | PN ---
Date/Time of Note Date/Time of Note DATE: 01/18/17 TIME: 10:52 Assessment/Plan VTE Prophylaxis VTE Prophylaxis Intervention: SCD's Lines/Catheters [facility] Peripheral IV Urinary Cath still in place: No Assessment/Plan Chief Complaint/Hosp Course Summary Assessment and Plan: Assessment: CP with associated left arm pain Lower abdominal pain- unclear underlying etiology Epigastric pain with associated nausea/vomiting R/o PUD vs anxiety vs gastritis vs cardiac related HARSH-possibly related to chronic urinary outlet obstruction BPH Dyslipidemia HTN Plan: Stress test- negative Stool for OB-negative Continue PPI therapy Ct abd/pelvis with Iv contrast Patient seen in collaboration with Subjective: Course reviewed with nursing staff Patient interviewed and examined All labs, imaging and other results reviewed Patient is feeling much better, has any further episodes of nausea or vomiting, stool for OB negative. Movements are normal, abdominal pain has improved by at least 80% since admission. Colonoscopy is clinically not warranted at this time, however, patient continues to c/o abnormal sensation in abd for the last [address] abdomen pelvis with IV and p.o. contrast PHYSICAL EXAMINATION: GENERAL: Well developed, well nourished, alert & oriented x 3, in no acute distress SKIN: No lesions, no stigmata chronic liver disease, no evidence of bleeding diathesis LYMPHATIC: No palpable lymphadenopathy. HEAD: Normocephalic, atraumatic, no tenderness. EYES: Pupils equal reactive to light and accommodation, full extraocular movements, sclera clear, non-icteric, no discharge. EARS/NOSE AND THROAT: Ears normal, nose normal, oropharynx normal, oral membranes well hydrated without lesions. NECK: Supple, no masses, thyroid normal, JVP within normal limits, carotids normal without bruits. CHEST: Inspection within normal limits. CARDIOVASCULAR: Heart: Regular rate and rhythm, no murmurs, gallops or rubs. RESPIRATORY: Lungs clear to auscultation and percussion, no wheezing, no rubs GASTROINTESTINAL AND LIVER: Abdomen: Soft, tenderness lower abd and epigastric, non-distended, no hernias, no masses, no organomegaly, no ascites, no guarding, no rebound tenderness, normoactive bowel sounds. Rectal: Deferred. GENITOURINARY: Male genitalia within normal limits. EXTREMITIES: No cyanosis, clubbing or edema. Problems: Exam/Review of Systems Vital Signs Vitals Vital Signs Date Time Temp Pulse Resp B/P Pulse Ox O2 Delivery O2 Flow Rate FiO2 01/18/17 08:15 66 01/18/17 07:29 97.9 20 161/88 95 01/17/17 21:30 Room Air 01/15/17 20:00 2.0 Intake and Output 01/17/17 01/17/17 01/18/17 15:00 23:00 07:00 Intake Total 700 ml 500 ml Output Total 800 ml 900 ml Balance -100 ml -400 ml Results Result Diagram: 01/18/1773701/18/17737 Results 24 hrs Laboratory Tests Test 01/18/17 07:38 White Blood Count 7.9 Red Blood Count 4.48 L Hemoglobin 13.0 L Hematocrit 39.2 L Mean Corpuscular Volume 87.5 Mean Corpuscular Hemoglobin 29.0 Mean Corpuscular Hemoglobin Concent 33.2 Red Cell Distribution Width 15.8 H Platelet Count 214 Mean Platelet Volume 11.0 H Neutrophils % 60.9 Lymphocytes % 24.8 Monocytes % 9.8 Eosinophils % 3.4 Basophils % 0.5 Nucleated Red Blood Cells % 0.0 Neutrophils # 4.8 Lymphocytes # 2.0 Monocytes # 0.8 Eosinophils # 0.3 Basophils # 0.0 Nucleated Red Blood Cells # 0.0 Sodium Level 143 Potassium Level 3.4 L Chloride Level 107 Carbon Dioxide Level 29 Anion Gap 10 Blood Urea Nitrogen 17 Creatinine 1.11 Glucose Level 97 Calcium Level 8.5 Phosphorus Level 3.2 Magnesium Level 2.0 Medications Medications Current Medications Acetaminophen (Tylenol Tab) 650 mg Q6H PRN PO PAIN LEVEL 1-3 OR FEVER Last administered on 01/16/17 09:05; Admin Dose 650 MG; Start 01/14/17 at 06:30 Atorvastatin Calcium (Lipitor) 10 mg QHS PO Last administered on 01/17/17 21: 45; Admin Dose 10 MG; Start 01/14/17 at 21:00 Lorazepam (Ativan) 1 mg BID PRN PO ANXIETY Last administered on 01/18/17 08:42 ; Admin Dose 1 MG; Start 01/14/17 at 06:30 Sertraline HCl (Zoloft) 200 mg DAILY PO Last administered on 01/18/17 08:43; Admin Dose 200 MG; Start 01/14/17 at 09:00 Trazodone HCl (Desyrel) 100 mg BID PO Last administered on 01/18/17 08:44; Admin Dose 100 MG; Start 01/14/17 at 09:00 Acetaminophen (Tylenol Tab) 650 mg Q6H PRN PO PAIN LEVEL 1-3 OR FEVER; Start 01/14/17 at 06:30 Hydralazine HCl (Apresoline) 25 mg TID PRN PO ELEVATED BLOOD PRESSURE Last administered on 01/15/17 16:23; Admin Dose 25 MG; Start 01/14/17 at 06:30 Tamsulosin HCl (Flomax) 0.4 mg BID PO Last administered on 01/18/17 08:44; Admin Dose 0.4 MG; Start 01/14/17 at 09:00 Heparin Sodium (Porcine) (Heparin (5000 Units/0.5 ml)) 5,000 unit Q8 SC Last administered on 01/18/17 06:03; Admin Dose 5,000 UNIT; Start 01/14/17 at 14:00 Docusate Sodium (Colace) 100 mg Q12H PO Last administered on 01/17/17 17:19; Admin Dose 100 MG; Start 01/14/17 at 18:30 Bisacodyl (Dulcolax) 10 mg DAILY PRN PO CONSTIPATION Last administered on 17:17; Admin Dose 10 MG; Start 01/14/17 at 17:30 Polyethylene Glycol (Miralax) 17 gm BID PO Last administered on 01/18/17 08:44 ; Admin Dose 17 GM; Start 01/14/17 at 21:00 Morphine Sulfate (morphine) 2 mg Q4H PRN IV PAIN Last administered on 12:20; Admin Dose 2 MG; Start 01/14/17 at 17:30 Nitroglycerin (Nitroglycerin (Sl Tab) 0.4 Mg) 1 tab Q5M PRN SL CHEST PAIN Last administered on 01/15/17 12:40; Admin Dose 1 TAB; Start 01/15/17 at 12:30 Hydralazine HCl (Apresoline) 10 mg Q4H PRN IV sbp>160 Last administered on 01/16 00:16; Admin Dose 10 MG; Start 01/15/17 at 12:30 Mupirocin (Bactroban) 1 applic BID TOP Last administered on 01/18/17 08:48; Admin Dose 1 APPLIC; Start 01/15/17 at 21:00 Amlodipine Besylate (Norvasc) 5 mg BID PO Last administered on 01/18/17 08:44 ; Admin Dose 5 MG; Start 01/15/17 at 21:00 Clonidine (Catapres) 0.1 mg Q4H PRN PO SBP>160 Last administered on 01/16/17 21:11; Admin Dose 0.1 MG; Start 01/15/17 at 17:00 Metoprolol Tartrate (Lopressor) 50 mg BID PO Last administered on 01/18/17 08: 43; Admin Dose 50 MG; Start 01/16/17 at 09:00 Isosorbide Mononitrate (Imdur) 30 mg DAILY PO Last administered on 01/18/17 08 :42; Admin Dose 30 MG; Start 01/16/17 at 09:00 Ondansetron HCl (Zofran Inj) 4 mg Q4 IV Last administered on 01/18/17 08:42; Admin Dose 4 MG; Start 01/16/17 at 13:00 Pantoprazole (Protonix Tab) 40 mg DAILY@06 PO Last administered on 01/18/17 05 :20; Admin Dose 40 MG; Start 01/17/17 at 06:00 PACO LAI Jan 18, 2017 10:54
[2017-01-18] MEDS ORDERED: BARIUM SULF 2% 450 ML BTL (BERRY SMOOTHIE) PO ONE (11:00)
--- NOTE | 2017-01-18 12:10 | PN ---
Date/Time of Note Date/Time of Note DATE: 01/18/17 TIME: 12:08 Assessment/Plan VTE Prophylaxis VTE Prophylaxis Intervention: SCD's Lines/Catheters [facility] Peripheral IV Urinary Cath still in place: No Assessment/Plan Chief Complaint/Hosp Course Assessment and plan 1. SIRS. Etiology unknown. Urinalysis inconclusive. Leukocytosis downward trending. ID consult following. cotninue on abx. 2. Chest pain. Etiology unknown. Echocardiogram with EF at 55% with stage 1 diastolic dysfunction. Stress test noted with no evidence of perfusion defect and EF at stress at 52%.. Troponins negative so far. 3. Acute kidney injury. Avoid nephrotoxic medications. Monitor renal panel. Continue IV hydration. 4. Prostatomegaly. urologist was consulted. Will follow up. 5. Essential hypertension. Continue antihypertensives and adjust as needed. 6. Dyspnea. Continue statin medication. 7. intractable nausea/vomiting. GI following. Improving continue with antiemetic Disposition plan: Plan for follow-up imaging of abdomen. Follow up with GI if need for possible EGD/colonoscopy. Discussed plan of care with Dr. Velasco Problems: Subjective 24 Hr Interval Summary Free Text/Dictation No reported nausea at this time. Denies any chest pain currently Exam/Review of Systems Vital Signs Vitals Vital Signs Date Time Temp Pulse Resp B/P Pulse Ox O2 Delivery O2 Flow Rate FiO2 01/18/17 11:13 98.1 64 17 123/62 94 01/17/17 21:30 Room Air 01/15/17 20:00 2.0 Intake and Output 01/17/17 01/17/17 01/18/17 15:00 23:00 07:00 Intake Total 700 ml 500 ml Output Total 800 ml 900 ml Balance -100 ml -400 ml Exam Constitutional: alert, oriented Psych: no anxiety today Head: normocephalic Respiratory: diminished breath sounds Cardiovascular: other (REGULAR RATE) Gastrointestinal: non-tender, soft Musculoskeletal: nl extremities to inspection 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, nl mental status, nl speech Skin: nl turgor Results Result Diagram: 01/18/17 0738 01/18/17 0738 Results 24 hrs Laboratory Tests Test 01/18/17 07:38 White Blood Count 7.9 Red Blood Count 4.48 L Hemoglobin 13.0 L Hematocrit 39.2 L Mean Corpuscular Volume 87.5 Mean Corpuscular Hemoglobin 29.0 Mean Corpuscular Hemoglobin Concent 33.2 Red Cell Distribution Width 15.8 H Platelet Count 214 Mean Platelet Volume 11.0 H Neutrophils % 60.9 Lymphocytes % 24.8 Monocytes % 9.8 Eosinophils % 3.4 Basophils % 0.5 Nucleated Red Blood Cells % 0.0 Neutrophils # 4.8 Lymphocytes # 2.0 Monocytes # 0.8 Eosinophils # 0.3 Basophils # 0.0 Nucleated Red Blood Cells # 0.0 Sodium Level 143 Potassium Level 3.4 L Chloride Level 107 Carbon Dioxide Level 29 Anion Gap 10 Blood Urea Nitrogen 17 Creatinine 1.11 Glucose Level 97 Calcium Level 8.5 Phosphorus Level 3.2 Magnesium Level 2.0 Medications Medications Current Medications Acetaminophen (Tylenol Tab) 650 mg Q6H PRN PO PAIN LEVEL 1-3 OR FEVER Last administered on 01/16/17 09:05; Admin Dose 650 MG; Start 01/14/17 at 06:30 Atorvastatin Calcium (Lipitor) 10 mg QHS PO Last administered on 01/17/17 21: 45; Admin Dose 10 MG; Start 01/14/17 at 21:00 Lorazepam (Ativan) 1 mg BID PRN PO ANXIETY Last administered on 01/18/17 08:42 ; Admin Dose 1 MG; Start 01/14/17 at 06:30 Sertraline HCl (Zoloft) 200 mg DAILY PO Last administered on 01/18/17 08:43; Admin Dose 200 MG; Start 01/14/17 at 09:00 Trazodone HCl (Desyrel) 100 mg BID PO Last administered on 01/18/17 08:44; Admin Dose 100 MG; Start 01/14/17 at 09:00 Acetaminophen (Tylenol Tab) 650 mg Q6H PRN PO PAIN LEVEL 1-3 OR FEVER; Start 01/14/17 at 06:30 Hydralazine HCl (Apresoline) 25 mg TID PRN PO ELEVATED BLOOD PRESSURE Last administered on 01/15/17 16:23; Admin Dose 25 MG; Start 01/14/17 at 06:30 Tamsulosin HCl (Flomax) 0.4 mg BID PO Last administered on 01/18/17 08:44; Admin Dose 0.4 MG; Start 01/14/17 at 09:00 Heparin Sodium (Porcine) (Heparin (5000 Units/0.5 ml)) 5,000 unit Q8 SC Last administered on 01/18/17 06:03; Admin Dose 5,000 UNIT; Start 01/14/17 at 14:00 Docusate Sodium (Colace) 100 mg Q12H PO Last administered on 01/17/17 17:19; Admin Dose 100 MG; Start 01/14/17 at 18:30 Bisacodyl (Dulcolax) 10 mg DAILY PRN PO CONSTIPATION Last administered on 17:17; Admin Dose 10 MG; Start 01/14/17 at 17:30 Polyethylene Glycol (Miralax) 17 gm BID PO Last administered on 01/18/17 08:44 ; Admin Dose 17 GM; Start 01/14/17 at 21:00 Morphine Sulfate (morphine) 2 mg Q4H PRN IV PAIN Last administered on 12:20; Admin Dose 2 MG; Start 01/14/17 at 17:30 Nitroglycerin (Nitroglycerin (Sl Tab) 0.4 Mg) 1 tab Q5M PRN SL CHEST PAIN Last administered on 01/15/17 12:40; Admin Dose 1 TAB; Start 01/15/17 at 12:30 Hydralazine HCl (Apresoline) 10 mg Q4H PRN IV sbp>160 Last administered on 01/16 00:16; Admin Dose 10 MG; Start 01/15/17 at 12:30 Mupirocin (Bactroban) 1 applic BID TOP Last administered on 01/18/17 08:48; Admin Dose 1 APPLIC; Start 01/15/17 at 21:00 Amlodipine Besylate (Norvasc) 5 mg BID PO Last administered on 01/18/17 08:44 ; Admin Dose 5 MG; Start 01/15/17 at 21:00 Clonidine (Catapres) 0.1 mg Q4H PRN PO SBP>160 Last administered on 01/16/17 21:11; Admin Dose 0.1 MG; Start 01/15/17 at 17:00 Metoprolol Tartrate (Lopressor) 50 mg BID PO Last administered on 01/18/17 08: 43; Admin Dose 50 MG; Start 01/16/17 at 09:00 Isosorbide Mononitrate (Imdur) 30 mg DAILY PO Last administered on 01/18/17 08 :42; Admin Dose 30 MG; Start 01/16/17 at 09:00 Ondansetron HCl (Zofran Inj) 4 mg Q4 IV Last administered on 01/18/17 08:42; Admin Dose 4 MG; Start 01/16/17 at 13:00 Pantoprazole (Protonix Tab) 40 mg DAILY@06 PO Last administered on 01/18/17 05 :20; Admin Dose 40 MG; Start 01/17/17 at 06:00 REJI STOCK Jan 18, 2017 12:10
--- NOTE | 2017-01-18 14:09 | PN ---
DATE: 01/18/2017 SUBJECTIVE: No acute changes. No fevers. The patient is lying comfortably in bed. LABORATORIES: WBC today 7.9, no shift, no bands. BUN 17, creatinine 1.11. MICROBIOLOGY: Blood cultures since admission grew Propionibacterium acnes. Nares swab came back po sitive for MRSA. ANTIMICROBIALS: The patient is off antibiotics. DIAGNOSTICS: 2D echo on admission revealed no vegetation, ejection fraction of 55%, normal right ve ntricular systolic function. PHYSICAL EXAMINATION: GENERAL: Obese, well-developed elderly man who is awake, in no distress. HEENT: Head atraumatic, normocephalic. Sclerae anicteric. Buccal mucosa pink. NECK: Supple. CHEST: Rise symmetrical. Breath sounds diminished to bases. HEART: S1, S2. ABDOMEN: Soft, bowel tones present. EXTREMITIES: Without cyanosis. ASSESSMENT: 1. Systemic inflammatory response syndrome on admission with fevers, chills and leukocytosis. 2. Propionibacterium acnes bacteremia. 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 4. Prostatomegaly. 5. Hypertension. 6. Chest pain with left ____ pain, troponins have been negative and a Lexiscan revealed no evidence of acute abnormalities of ischemia. PLAN: We are going to treat patient for bacteremia with Invanz. We are going to repeat blood cultu res today. We will continue him on Bactroban to nares and follow recommendations of specialists. Dictated By: DIANA FUNK HEALTH EDUCATION DIRECTOR for LAKEISHA GARZA/JORDAN Conf#: [id number] DID#: [id number]
[2017-01-18] MEDS: ERTAPENEM SODIUM 1 GM in SOD CHLORIDE 0.9% 100 ML IVPB SCH (15:55)
--- NOTE | 2017-01-18 18:42 | CONS ---
Date/Time of Note Date/Time of Note DATE: 01/18/17 TIME: 18:38 Assessment/Plan Assessment/Plan Chief Complaint/Hosp Course ASSESSMENT AND PLAN: A 71-year-old gentleman with: 1. Chest pain-negative trop x 3/NL EF by echo. No ischemia by lexiscan with NL EF 2. Hypertension-uncontrolled 3. Dyslipidemia. 4. Obesity. 5. Anxiety. 6. Depression. 7. UTI/prostatitis Recc: -Continue norvasc/oral nitrates/BB with currently well controlled BP -Continue statin -Continue abx's and f/u cx data Problems: Consultation Date/Type/Reason Admit Date/Time Jan 14, 2017 at 09:38 Initial Consult Date 01/14/17 Type of Consultation: cardiology Reason for Consultation chest pain Referring Provider: MARTHA SOLIS Exam/Review of Systems Vital Signs Vitals Vital Signs Date Time Temp Pulse Resp B/P Pulse Ox O2 Delivery O2 Flow Rate FiO2 01/18/17 16:34 61 01/18/17 11:13 98.1 17 123/62 94 01/17/17 21:30 Room Air 01/15/17 20:00 2.0 Intake and Output 01/17/17 01/17/17 01/18/17 14:59 22:59 06:59 Intake Total 700 ml 500 ml Output Total 800 ml 900 ml Balance -100 ml -400 ml Exam Review of Systems: CONSTITUTIONAL: No fevers, chills. PULMONARY: No sob CARDIOVASCULAR: No chest pain/palpitations GASTROINTESTINAL: No nausea/vomiting. GENITOURINARY: No hematuria/dysuria. MUSCULOSKELETAL: No myagias/arthalgias. PSYCHIATRIC: The patient denies depression. NEUROLOGIC: No weakness Constitutional: alert Psych: no complaints Head: normocephalic ENMT: mucosa pink and moist Neck: jvd (9 cm water), supple Respiratory: diminished breath sounds (at bases/B) Cardiovascular: regular rate and rhythm Gastrointestinal: non-tender, soft Musculoskeletal: muscle tone (normal) Extremities: edema (none) Neurological: other (No focal deficits) Results Result Diagram: 01/18/17 0738 01/18/17 0738 Results 24 hrs Laboratory Tests Test 01/18/17 07:38 White Blood Count 7.9 Red Blood Count 4.48 L Hemoglobin 13.0 L Hematocrit 39.2 L Mean Corpuscular Volume 87.5 Mean Corpuscular Hemoglobin 29.0 Mean Corpuscular Hemoglobin Concent 33.2 Red Cell Distribution Width 15.8 H Platelet Count 214 Mean Platelet Volume 11.0 H Neutrophils % 60.9 Lymphocytes % 24.8 Monocytes % 9.8 Eosinophils % 3.4 Basophils % 0.5 Nucleated Red Blood Cells % 0.0 Neutrophils # 4.8 Lymphocytes # 2.0 Monocytes # 0.8 Eosinophils # 0.3 Basophils # 0.0 Nucleated Red Blood Cells # 0.0 Sodium Level 143 Potassium Level 3.4 L Chloride Level 107 Carbon Dioxide Level 29 Anion Gap 10 Blood Urea Nitrogen 17 Creatinine 1.11 Glucose Level 97 Calcium Level 8.5 Phosphorus Level 3.2 Magnesium Level 2.0 Medications Medications Current Medications Acetaminophen (Tylenol Tab) 650 mg Q6H PRN PO PAIN LEVEL 1-3 OR FEVER Last administered on 01/16/17 09:05; Admin Dose 650 MG; Start 01/14/17 at 06:30 Atorvastatin Calcium (Lipitor) 10 mg QHS PO Last administered on 01/17/17 21: 45; Admin Dose 10 MG; Start 01/14/17 at 21:00 Lorazepam (Ativan) 1 mg BID PRN PO ANXIETY Last administered on 01/18/17 08:42 ; Admin Dose 1 MG; Start 01/14/17 at 06:30 Sertraline HCl (Zoloft) 200 mg DAILY PO Last administered on 01/18/17 08:43; Admin Dose 200 MG; Start 01/14/17 at 09:00 Trazodone HCl (Desyrel) 100 mg BID PO Last administered on 01/18/17 08:44; Admin Dose 100 MG; Start 01/14/17 at 09:00 Acetaminophen (Tylenol Tab) 650 mg Q6H PRN PO PAIN LEVEL 1-3 OR FEVER; Start 01/14/17 at 06:30 Hydralazine HCl (Apresoline) 25 mg TID PRN PO ELEVATED BLOOD PRESSURE Last administered on 01/15/17 16:23; Admin Dose 25 MG; Start 01/14/17 at 06:30 Tamsulosin HCl (Flomax) 0.4 mg BID PO Last administered on 01/18/17 08:44; Admin Dose 0.4 MG; Start 01/14/17 at 09:00 Heparin Sodium (Porcine) (Heparin (5000 Units/0.5 ml)) 5,000 unit Q8 SC Last administered on 01/18/17 14:38; Admin Dose 5,000 UNIT; Start 01/14/17 at 14:00 Docusate Sodium (Colace) 100 mg Q12H PO Last administered on 01/17/17 17:19; Admin Dose 100 MG; Start 01/14/17 at 18:30 Bisacodyl (Dulcolax) 10 mg DAILY PRN PO CONSTIPATION Last administered on 17:17; Admin Dose 10 MG; Start 01/14/17 at 17:30 Polyethylene Glycol (Miralax) 17 gm BID PO Last administered on 01/18/17 08:44 ; Admin Dose 17 GM; Start 01/14/17 at 21:00 Morphine Sulfate (morphine) 2 mg Q4H PRN IV PAIN Last administered on 12:20; Admin Dose 2 MG; Start 01/14/17 at 17:30 Nitroglycerin (Nitroglycerin (Sl Tab) 0.4 Mg) 1 tab Q5M PRN SL CHEST PAIN Last administered on 01/15/17 12:40; Admin Dose 1 TAB; Start 01/15/17 at 12:30 Hydralazine HCl (Apresoline) 10 mg Q4H PRN IV sbp>160 Last administered on 01/16 00:16; Admin Dose 10 MG; Start 01/15/17 at 12:30 Mupirocin (Bactroban) 1 applic BID TOP Last administered on 01/18/17 08:48; Admin Dose 1 APPLIC; Start 01/15/17 at 21:00 Amlodipine Besylate (Norvasc) 5 mg BID PO Last administered on 01/18/17 08:44 ; Admin Dose 5 MG; Start 01/15/17 at 21:00 Clonidine (Catapres) 0.1 mg Q4H PRN PO SBP>160 Last administered on 01/16/17 21:11; Admin Dose 0.1 MG; Start 01/15/17 at 17:00 Metoprolol Tartrate (Lopressor) 50 mg BID PO Last administered on 01/18/17 08: 43; Admin Dose 50 MG; Start 01/16/17 at 09:00 Isosorbide Mononitrate (Imdur) 30 mg DAILY PO Last administered on 01/18/17 08 :42; Admin Dose 30 MG; Start 01/16/17 at 09:00 Ondansetron HCl (Zofran Inj) 4 mg Q4 IV Last administered on 01/18/17 08:42; Admin Dose 4 MG; Start 01/16/17 at 13:00 Pantoprazole 40 mg 40 mg DAILY@06 PO Last administered on 01/18/17 05:20; Admin Dose 40 MG; Start 01/17/17 at 06:00 Ertapenem/Sodium Chloride (Invanz/NS) 100 ml @ 200 mls/hr Q24H IVPB Last administered on 01/18/17 15:55; Admin Dose 200 MLS/HR; Start 01/18/17 at 14:30 YESSY CANALES Jan 18, 2017 18:42
[2017-01-18] MEDS: ACETAMINOPHEN 325 MG TAB PO PRN (19:29)
[2017-01-18] MEDS: ATORVASTATIN 10 MG TAB PO SCH (21:32)
[2017-01-19] VITALS (13 sets, daily range): BP systolic 137–170; BP diastolic 65–88; PULSE 44–81; RESP 18–19
[2017-01-19] MEDS: ONDANSETRON 4 MG INJ IV SCH ×6 (00:50→21:37)
[2017-01-19] MEDS: PANTOPRAZOLE (EC) 40 MG TAB PO SCH (06:00)
[2017-01-19] MEDS: DOCUSATE SODIUM 100 MG CAP PO SCH ×2 (06:30→18:30)
[2017-01-19] MEDS: HEPARIN 5,000 UNIT/0.5 ML VIAL SC SCH ×3 (06:43→21:49)
[2017-01-19 07:40] LABS: BASOPHILS % 0.6 % (0.0-2.0); EOSINOPHILS # 0.4 10^3/ul (0.0-0.5); EOSINOPHILS % 5.2 % (0.0-7.0); HEMOGLOBIN 12.6 g/dl (14.0-18.0); LYMPHOCYTES # 1.8 10^3/ul (0.8-2.9); LYMPHOCYTES % 25.9 % (15.0-51.0); MEAN CORPUSCULAR HEMOGLOBIN 29.2 pg (29.0-33.0); MEAN CORPUSCULAR HGB CONC 33.2 g/dl (32.0-37.0); MEAN CORPUSCULAR VOLUME 88.2 fl (82.0-101.0); MEAN PLATELET VOLUME 10.7 fl (7.4-10.4); MONOCYTE # 0.7 10^3/ul (0.3-0.9); MONOCYTES % 10.3 % (0.0-11.0); NEUTROPHILS % 56.9 % (39.0-77.0); PLATELET COUNT 198 10^3/UL (140-415); RED BLOOD COUNT 4.31 10^6/ul (4.70-6.10); RED CELL DISTRIBUTION WIDTH 15.8 % (11.5-14.5); WHITE BLOOD COUNT 7.1 10^3/ul (4.8-10.8)
[2017-01-19 08:09] LABS: CALCIUM 8.2 mg/dl (8.4-10.2); CREATININE 1.08 mg/dl (0.61-1.24)
[2017-01-19] MEDS: POLYETHYLENE GLYCOL 17 GM PACKET PO SCH ×2 (08:16→21:38)
[2017-01-19] MEDS: SERTRALINE 100 MG TAB PO SCH (08:16)
[2017-01-19] MEDS: METOPROLOL 50 MG TAB PO SCH (08:17)
[2017-01-19] MEDS: TAMSULOSIN (SR) 0.4 MG CAP PO SCH ×2 (08:17→21:37)
[2017-01-19] MEDS: ISOSORBIDE MONONITRATE(SR)30 MG TAB PO SCH (08:17)
[2017-01-19] MEDS: traZODone 100 MG TAB PO SCH (08:17)
[2017-01-19] MEDS: MUPIROCIN 2% 22 GM OINT TOP SCH ×2 (08:18→21:39)
[2017-01-19] MEDS: AMLODIPINE 5 MG TAB PO SCH ×2 (08:18→21:38)
[2017-01-19] MEDS: LORAZEPAM 1 MG TAB PO PRN ×2 (08:38→20:07)
--- NOTE | 2017-01-19 08:50 | PN ---
DATE: 01/19/2017 SUBJECTIVE: The patient is stable, no acute events overnight. The patient is complaining about francisco e mild shoulder pain. OBJECTIVE: VITAL SIGNS: Blood pressure 170/88, temperature 98.2, pulse 68, respiration 18. HEENT: Head is normocephalic. NECK: Supple. HEART: Regular rate. LUNGS: Show diminished breath sounds at base. ABDOMEN: Soft, nontender to palpation. No rebound or guarding. EXTREMITIES: Negative for clubbing, cyanosis, no edema. DERMATOLOGIC: No rashes. MUSCULOSKELETAL: No joint effusions. NEUROLOGIC: No change in exam. MEDICATIONS: The patient's medications have been reviewed. LABORATORY DATA: Has been reviewed. ASSESSMENT AND PLAN: 1. Nonoliguric acute kidney injury with previous baseline creatinine 0.8 mg/dL. Etiology of acute kidney injury is secondary to hemodynamics. Renal functions improved. Continue to monitor. 2. Hypokalemia. Continue to monitor and replete. 3. Mineral bone disorder, monitor calcium and phosphorus levels. 4. Anemia. Monitor hemoglobin and hematocrit levels. 5. Constipation, improved. 6. Hypertension, continue current blood pressure regimen. 7. Benign prostatic hypertrophy. Continue medical management. Dictated By: CAMDEN JOSÉ/JORDAN Conf#: [id number] DID#: [id number]
--- NOTE | 2017-01-19 10:15 | PN ---
DATE: 01/18/2017 SUBJECTIVE: The patient is stable. No events overnight. No fevers, chills, nausea, vomiting. The patient had a CT scan yesterday which showed no evidence of wall motion abnormalities. OBJECTIVE: VITAL SIGNS: Blood pressure is 161/88, respiratory rate 20, pulse 76, temperature 97.9. HEENT: Head is normocephalic. NECK: Supple. HEART: Regular rate. LUNGS: Show diminished breath sounds at the base. ABDOMEN: Soft, nontender to palpation without rebound or guarding. EXTREMITIES: Negative for clubbing, cyanosis, no edema. DERMATOLOGIC: No rashes. MUSCULOSKELETAL: No joint effusions. NEUROLOGIC: No change in exam. MEDICATIONS: The patient's medications have been reviewed. LABORATORY DATA: From 01/17/2017 was reviewed. Laboratory data from 01/18/2017 is pending. ASSESSMENT AND PLAN: 1. Nonoliguric acute kidney injury with previously baseline creatinine 0.8 mg/dL. Etiology of acut e kidney injury is secondary to hemodynamics. Renal function is improving. Continue current treatm ent plan, supportive care, renally dose all medications. 2. Hypokalemia, improved. Continue to monitor. 3. Mineral bone disorder. Monitor calcium and phosphorus levels. 4. Anemia. Monitor hemoglobin and hematocrit levels. 5. Chest pain, improved. The patient's stress test was negative. 6. Hypertension. Continue current blood pressure regimen. 7. Benign prostatic hypertrophy. Continue current medical management. 8. SIRS. The patient is completing antibiotic course. Dictated By: CAMDEN JOSÉ/JORDAN Conf#: [id number] DID#: [id number]
[2017-01-19] MEDS ORDERED: SOD CHLORIDE 0.9% 100 ML ONE (10:57)
[2017-01-19] MEDS ORDERED: IOHEXOL 300MG/ML 150 ML BTL ONE (10:57)
--- NOTE | 2017-01-19 11:47 | RADRPT ---
PROCEDURE: CT Abdomen and Pelvis with contrast. CLINICAL INDICATION: Abdominal pain TECHNIQUE: CT scan of the abdomen and pelvis with contrast was performed on a multidetector high-r esolution CT scanner. Coronal and sagittal reformatted images were obtained from the axial source im ages. Images were reviewed on a high-resolution PACS workstation. 80 cc of Isovue 300 iodinated cont rast was administered intravenously without reported complication. The total exam CTDI equals 13 mG y and the total exam DLP equals 834 mGy-cm. One or more of the following dose reduction techniques were used: Automated exposure control, Adjustment of the mA and/or kV according to patient size, and /or use of iterative reconstruction technique. COMPARISON: Abdominal CT 01/13/2017 FINDINGS: The lung bases are clear. No suspicious hepatic mass. Portal vein is patent. No pancreatic ductal dilatation. Spleen and adren als are unremarkable. No focal pericholecystic inflammatory changes. No hydronephrosis. No obstructing renal stone. Left renal cyst. Smaller renal hypodensities are too small to characterize. No bowel obstruction. Normal-caliber appendix. No significant retroperitoneal lymphadenopathy, ascites or evidence of pneumoperitoneum. Aortoiliac atherosclerosis. Round cystic structure along the right lateral wall of the bladder measu ring 13 mm. Enlarged prostate bulging into the bladder with circumferential wall thickening of the bladder, dillon lar to prior. Bilateral fat containing inguinal hernias. Transitional lumbosacral anatomy. Classifying the last rib bearing vertebrae as T12, there is severe disc height loss of L5-S1. Moderate to severe spinal canal stenosis L4-5. No drainable intra-abdominal rim-enhancing fluid collection. IMPRESSION: No significant change identified since 01/13/2017. Enlarged prostate bulging into the bladder with circumferential wall thickening of the bladder. Jamie mmend correlation for chronic bladder outlet obstruction. Round cystic structure along the right lateral wall of the bladder measuring 13 mm is unchanged and could represent a bladder diverticulum. No evidence of bowel obstruction or appendicitis. No drainable intra-abdominal abscess identified. RPTAT: AA .Jesus Alberto Westbrook MD, MD Date Time Electronically viewed and signed by .Jesus Alberto Westbrook MDMD on 01/19/2017 11:47 .T/
--- NOTE | 2017-01-19 13:20 | CONS ---
Date/Time of Note Date/Time of Note DATE: 01/19/17 TIME: 13:18 Assessment/Plan Assessment/Plan Additional Assessment/Plan 1. Chest pain-negative trop x 3/NL EF by echo. No ischemia by lexiscan with NL EF - no CP now 2. Hypertension-uncontrolled - on hgh side, add Rx now 3. Dyslipidemia- Rx as needed 4. Obesity. 5. Anxiety. 6. Depression. 7. UTI/prostatitis - on anto-bx 8, Douglass - stable HR, occasional jxnal noted with good BP - wi monitor for now - decrease BB dose Consultation Date/Type/Reason Admit Date/Time Jan 14, 2017 at 09:38 Initial Consult Date 01/14/17 Type of Consultation: cardiology Referring Provider: MARTHA SOLIS 24 HR Interval Summary Free Text/Dictation HR, occasional jxnal noted with good BP - wi monitor for now - decrease BB dos ROS: No fever, no chills, no nausea, no vomiting, no diarrhea/constipation No recent weight changes No chest pain, no PND, no orthopnea No dizziness, blurred vision No thirst, no heat or cold intolerance Exam/Review of Systems Vital Signs Vitals Vital Signs Date Time Temp Pulse Resp B/P Pulse Ox O2 Delivery O2 Flow Rate FiO2 01/19/17 12:00 54 01/19/17 07:29 98.2 18 170/88 96 01/17/17 21:30 Room Air 01/15/17 20:00 2.0 Intake and Output 01/18/17 01/18/17 01/19/17 14:59 22:59 06:59 Intake Total 100 ml 480 ml Output Total 600 ml Balance 100 ml -120 ml Exam General: WN/WD/NAD, AOx 1-2 HEENT: Unicetric/atraumatic/EOMI ( follow commands) NECK: JVD elevated, no thyromegaly Lymph: no lymphadenopathy HEART: regular with no S3, II/ systolic murmur at apex LUNGS: Coarse sounds ABD: soft, NT, ND, +BS : Intact Neuro: non focal SKIN: chronic changes EXT: trace edema Results Result Diagram: 01/19/17 0704 01/19/17 0704 Results 24 hrs Laboratory Tests Test 01/19/17 07:04 White Blood Count 7.1 Red Blood Count 4.31 L Hemoglobin 12.6 L Hematocrit 38.0 L Mean Corpuscular Volume 88.2 Mean Corpuscular Hemoglobin 29.2 Mean Corpuscular Hemoglobin Concent 33.2 Red Cell Distribution Width 15.8 H Platelet Count 198 Mean Platelet Volume 10.7 H Neutrophils % 56.9 Lymphocytes % 25.9 Monocytes % 10.3 Eosinophils % 5.2 Basophils % 0.6 Nucleated Red Blood Cells % 0.0 Neutrophils # 4.0 Lymphocytes # 1.8 Monocytes # 0.7 Eosinophils # 0.4 Basophils # 0.0 Nucleated Red Blood Cells # 0.0 Sodium Level 144 Potassium Level 3.0 L Chloride Level 107 Carbon Dioxide Level 28 Anion Gap 12 Blood Urea Nitrogen 17 Creatinine 1.08 Glucose Level 101 Calcium Level 8.2 L Medications Medications Current Medications Acetaminophen (Tylenol Tab) 650 mg Q6H PRN PO PAIN LEVEL 1-3 OR FEVER Last administered on 01/18/17 19:29; Admin Dose 650 MG; Start 01/14/17 at 06:30 Atorvastatin Calcium (Lipitor) 10 mg QHS PO Last administered on 01/18/17 21: 32; Admin Dose 10 MG; Start 01/14/17 at 21:00 Lorazepam (Ativan) 1 mg BID PRN PO ANXIETY Last administered on 01/19/17 08: 38; Admin Dose 1 MG; Start 01/14/17 at 06:30 Sertraline HCl (Zoloft) 200 mg DAILY PO Last administered on 01/19/17 08:16; Admin Dose 200 MG; Start 01/14/17 at 09:00 Trazodone HCl (Desyrel) 100 mg BID PO Last administered on 01/19/17 08:17; Admin Dose 100 MG; Start 01/14/17 at 09:00 Acetaminophen (Tylenol Tab) 650 mg Q6H PRN PO PAIN LEVEL 1-3 OR FEVER; Start 01/14/17 at 06:30 Hydralazine HCl (Apresoline) 25 mg TID PRN PO ELEVATED BLOOD PRESSURE Last administered on 01/15/17 16:23; Admin Dose 25 MG; Start 01/14/17 at 06:30 Tamsulosin HCl (Flomax) 0.4 mg BID PO Last administered on 01/19/17 08:17; Admin Dose 0.4 MG; Start 01/14/17 at 09:00 Heparin Sodium (Porcine) (Heparin (5000 Units/0.5 ml)) 5,000 unit Q8 SC Last administered on 01/19/17 06:43; Admin Dose 5,000 UNIT; Start 01/14/17 at 14:00 Docusate Sodium (Colace) 100 mg Q12H PO Last administered on 01/17/17 17:19; Admin Dose 100 MG; Start 01/14/17 at 18:30 Bisacodyl (Dulcolax) 10 mg DAILY PRN PO CONSTIPATION Last administered on 17:17; Admin Dose 10 MG; Start 01/14/17 at 17:30 Polyethylene Glycol (Miralax) 17 gm BID PO Last administered on 01/19/17 08: 16; Admin Dose 17 GM; Start 01/14/17 at 21:00 Morphine Sulfate (morphine) 2 mg Q4H PRN IV PAIN Last administered on 12:20; Admin Dose 2 MG; Start 01/14/17 at 17:30 Nitroglycerin (Nitroglycerin (Sl Tab) 0.4 Mg) 1 tab Q5M PRN SL CHEST PAIN Last administered on 01/15/17 12:40; Admin Dose 1 TAB; Start 01/15/17 at 12:30 Hydralazine HCl (Apresoline) 10 mg Q4H PRN IV sbp>160 Last administered on 01/16 00:16; Admin Dose 10 MG; Start 01/15/17 at 12:30 Mupirocin (Bactroban) 1 applic BID TOP Last administered on 01/19/17 08:18; Admin Dose 1 APPLIC; Start 01/15/17 at 21:00 Amlodipine Besylate (Norvasc) 5 mg BID PO Last administered on 01/19/17 08:18 ; Admin Dose 5 MG; Start 01/15/17 at 21:00 Clonidine (Catapres) 0.1 mg Q4H PRN PO SBP>160 Last administered on 01/16/17 21:11; Admin Dose 0.1 MG; Start 01/15/17 at 17:00 Metoprolol Tartrate (Lopressor) 50 mg BID PO Last administered on 01/19/17 08 :17; Admin Dose 50 MG; Start 01/16/17 at 09:00 Isosorbide Mononitrate (Imdur) 30 mg DAILY PO Last administered on 01/19/17 08:17; Admin Dose 30 MG; Start 01/16/17 at 09:00 Ondansetron HCl (Zofran Inj) 4 mg Q4 IV Last administered on 01/19/17 06:31; Admin Dose 4 MG; Start 01/16/17 at 13:00 Pantoprazole 40 mg 40 mg DAILY@06 PO Last administered on 01/18/17 05:20; Admin Dose 40 MG; Start 01/17/17 at 06:00 Ertapenem/Sodium Chloride (Invanz/NS) 100 ml @ 200 mls/hr Q24H IVPB Last administered on 01/18/17 15:55; Admin Dose 200 MLS/HR; Start 01/18/17 at 14:30 LISA RAMÍREZ MD Jan 19, 2017 13:20
--- NOTE | 2017-01-19 13:26 | CONS ---
Date/Time of Note Date/Time of Note DATE: 01/19/17 TIME: 13:23 Assessment/Plan Assessment/Plan Chief Complaint/Hosp Course SUBJECTIVE: No acute changes. No fevers. The patient is lying comfortably in bed. MICROBIOLOGY: Blood cultures since admission grew Propionibacterium acnes. Nares swab came back positive for MRSA. ANTIMICROBIALS: Invanz DIAGNOSTICS: 2D echo on admission revealed no vegetation, ejection fraction of 55%, normal right ventricular systolic function. PHYSICAL EXAMINATION: GENERAL: Obese, well-developed elderly man who is awake, in no distress. HEENT: Head atraumatic, normocephalic. Sclerae anicteric. Buccal mucosa pink. NECK: Supple. CHEST: Rise symmetrical. Breath sounds diminished to bases. HEART: S1, S2. ABDOMEN: Soft, bowel tones present. EXTREMITIES: Without cyanosis. ASSESSMENT: 1. Systemic inflammatory response syndrome on admission with fevers, chills and leukocytosis. 2. Propionibacterium acnes bacteremia. 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 4. Prostatomegaly. 5. Hypertension. 6. Chest pain==> troponin have been negative ==> card on case, s/p Lexiscan. PLAN: Stable, continue abx, f/u repeat bld cx, cardiology rec-s. DW staff Problems: Consultation Date/Type/Reason Admit Date/Time Jan 14, 2017 at 09:38 Initial Consult Date 01/16/17 Type of Consultation: ID Referring Provider: MARTHA SOLIS Exam/Review of Systems Vital Signs Vitals Vital Signs Date Time Temp Pulse Resp B/P Pulse Ox O2 Delivery O2 Flow Rate FiO2 01/19/17 12:00 54 01/19/17 07:29 98.2 18 170/88 96 01/17/17 21:30 Room Air 01/15/17 20:00 2.0 Intake and Output 01/18/17 01/18/17 01/19/17 15:00 23:00 07:00 Intake Total 100 ml 480 ml Output Total 600 ml Balance 100 ml -120 ml Results Result Diagram: 01/19/17 0704 01/19/17 0704 Results 24 hrs Laboratory Tests Test 01/19/17 07:04 White Blood Count 7.1 Red Blood Count 4.31 L Hemoglobin 12.6 L Hematocrit 38.0 L Mean Corpuscular Volume 88.2 Mean Corpuscular Hemoglobin 29.2 Mean Corpuscular Hemoglobin Concent 33.2 Red Cell Distribution Width 15.8 H Platelet Count 198 Mean Platelet Volume 10.7 H Neutrophils % 56.9 Lymphocytes % 25.9 Monocytes % 10.3 Eosinophils % 5.2 Basophils % 0.6 Nucleated Red Blood Cells % 0.0 Neutrophils # 4.0 Lymphocytes # 1.8 Monocytes # 0.7 Eosinophils # 0.4 Basophils # 0.0 Nucleated Red Blood Cells # 0.0 Sodium Level 144 Potassium Level 3.0 L Chloride Level 107 Carbon Dioxide Level 28 Anion Gap 12 Blood Urea Nitrogen 17 Creatinine 1.08 Glucose Level 101 Calcium Level 8.2 L Medications Medications Current Medications Acetaminophen (Tylenol Tab) 650 mg Q6H PRN PO PAIN LEVEL 1-3 OR FEVER Last administered on 01/18/17 19:29; Admin Dose 650 MG; Start 01/14/17 at 06:30 Atorvastatin Calcium (Lipitor) 10 mg QHS PO Last administered on 01/18/17 21: 32; Admin Dose 10 MG; Start 01/14/17 at 21:00 Lorazepam (Ativan) 1 mg BID PRN PO ANXIETY Last administered on 01/19/17 08: 38; Admin Dose 1 MG; Start 01/14/17 at 06:30 Sertraline HCl (Zoloft) 200 mg DAILY PO Last administered on 01/19/17 08:16; Admin Dose 200 MG; Start 01/14/17 at 09:00 Trazodone HCl (Desyrel) 100 mg BID PO Last administered on 01/19/17 08:17; Admin Dose 100 MG; Start 01/14/17 at 09:00 Acetaminophen (Tylenol Tab) 650 mg Q6H PRN PO PAIN LEVEL 1-3 OR FEVER; Start 01/14/17 at 06:30 Tamsulosin HCl (Flomax) 0.4 mg BID PO Last administered on 01/19/17 08:17; Admin Dose 0.4 MG; Start 01/14/17 at 09:00 Heparin Sodium (Porcine) (Heparin (5000 Units/0.5 ml)) 5,000 unit Q8 SC Last administered on 01/19/17 06:43; Admin Dose 5,000 UNIT; Start 01/14/17 at 14:00 Docusate Sodium (Colace) 100 mg Q12H PO Last administered on 01/17/17 17:19; Admin Dose 100 MG; Start 01/14/17 at 18:30 Bisacodyl (Dulcolax) 10 mg DAILY PRN PO CONSTIPATION Last administered on 17:17; Admin Dose 10 MG; Start 01/14/17 at 17:30 Polyethylene Glycol (Miralax) 17 gm BID PO Last administered on 01/19/17 08: 16; Admin Dose 17 GM; Start 01/14/17 at 21:00 Morphine Sulfate (morphine) 2 mg Q4H PRN IV PAIN Last administered on 12:20; Admin Dose 2 MG; Start 01/14/17 at 17:30 Nitroglycerin (Nitroglycerin (Sl Tab) 0.4 Mg) 1 tab Q5M PRN SL CHEST PAIN Last administered on 01/15/17 12:40; Admin Dose 1 TAB; Start 01/15/17 at 12:30 Hydralazine HCl (Apresoline) 10 mg Q4H PRN IV sbp>160 Last administered on 01/16 00:16; Admin Dose 10 MG; Start 01/15/17 at 12:30 Mupirocin (Bactroban) 1 applic BID TOP Last administered on 01/19/17 08:18; Admin Dose 1 APPLIC; Start 01/15/17 at 21:00 Amlodipine Besylate (Norvasc) 5 mg BID PO Last administered on 01/19/17 08:18 ; Admin Dose 5 MG; Start 01/15/17 at 21:00 Clonidine (Catapres) 0.1 mg Q4H PRN PO SBP>160 Last administered on 01/16/17 21:11; Admin Dose 0.1 MG; Start 01/15/17 at 17:00 Isosorbide Mononitrate (Imdur) 30 mg DAILY PO Last administered on 01/19/17 08:17; Admin Dose 30 MG; Start 01/16/17 at 09:00 Ondansetron HCl (Zofran Inj) 4 mg Q4 IV Last administered on 01/19/17 06:31; Admin Dose 4 MG; Start 01/16/17 at 13:00 Pantoprazole 40 mg 40 mg DAILY@06 PO Last administered on 01/18/17 05:20; Admin Dose 40 MG; Start 01/17/17 at 06:00 Ertapenem/Sodium Chloride (Invanz/NS) 100 ml @ 200 mls/hr Q24H IVPB Last administered on 01/18/17 15:55; Admin Dose 200 MLS/HR; Start 01/18/17 at 14:30 Hydralazine HCl (Apresoline) 100 mg TID PRN PO ELEVATED BLOOD PRESSURE; Start 01/19/17 at 13:30; Status UNV Metoprolol Tartrate (Lopressor) 25 mg BID PO ; Start 01/19/17 at 21:00 DIANA FUNK NP Jan 19, 2017 13:26
--- NOTE | 2017-01-19 13:35 | PN ---
Date/Time of Note Date/Time of Note DATE: 01/19/17 TIME: 13:32 Assessment/Plan VTE Prophylaxis VTE Prophylaxis Intervention: LMWH Lines/Catheters IV [facility]from [facility] Urinary Cath still in place: No Assessment/Plan Chief Complaint/Hosp Course Subjective: Left shoulder/neck discomfort. Known aggravating no known relieving factors. No diaphoresis syncope. No abdominal pain nausea vomiting fever. Junctional arrhythmia/sinus bradycardia noted on the monitor. Objective: Vital signs stable except for arrhythmia Physical exam No pallor icterus Regular, no murmur rub gallop Clear bilaterally Bs+ nt nd; no r/r/g No edema Assessment and plan 1. Sirs, likely prostatitis/bacterial in origin sepsis. Stable check with ID. Finish antibiotics. 2. Prostatitis? Appears improved. Urology has outpatient or as needed 3. Chronic BPH 4. 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 Atypical chest pain. Stress test negative. 8. Junctional arrhythmia. Appreciate cardiology assistance. Review prostate medicines as well. 9. Bladder outlet obstruction? Chronic reflux? Outpatient urology 10. Bladder diverticulum Problems: Exam/Review of Systems Vital Signs Vitals Vital Signs Date Time Temp Pulse Resp B/P Pulse Ox O2 Delivery O2 Flow Rate FiO2 01/19/17 12:00 54 01/19/17 07:29 98.2 18 170/88 96 01/17/17 21:30 Room Air 01/15/17 20:00 2.0 Intake and Output 01/18/17 01/18/17 01/19/17 14:59 22:59 06:59 Intake Total 100 ml 480 ml Output Total 600 ml Balance 100 ml -120 ml Results Result Diagram: 01/19/17 0704 01/19/17 0704 Results 24 hrs Laboratory Tests Test 01/19/17 07:04 White Blood Count 7.1 Red Blood Count 4.31 L Hemoglobin 12.6 L Hematocrit 38.0 L Mean Corpuscular Volume 88.2 Mean Corpuscular Hemoglobin 29.2 Mean Corpuscular Hemoglobin Concent 33.2 Red Cell Distribution Width 15.8 H Platelet Count 198 Mean Platelet Volume 10.7 H Neutrophils % 56.9 Lymphocytes % 25.9 Monocytes % 10.3 Eosinophils % 5.2 Basophils % 0.6 Nucleated Red Blood Cells % 0.0 Neutrophils # 4.0 Lymphocytes # 1.8 Monocytes # 0.7 Eosinophils # 0.4 Basophils # 0.0 Nucleated Red Blood Cells # 0.0 Sodium Level 144 Potassium Level 3.0 L Chloride Level 107 Carbon Dioxide Level 28 Anion Gap 12 Blood Urea Nitrogen 17 Creatinine 1.08 Glucose Level 101 Calcium Level 8.2 L Medications Medications Current Medications Acetaminophen (Tylenol Tab) 650 mg Q6H PRN PO PAIN LEVEL 1-3 OR FEVER Last administered on 01/18/17 19:29; Admin Dose 650 MG; Start 01/14/17 at 06:30 Atorvastatin Calcium (Lipitor) 10 mg QHS PO Last administered on 01/18/17 21: 32; Admin Dose 10 MG; Start 01/14/17 at 21:00 Lorazepam (Ativan) 1 mg BID PRN PO ANXIETY Last administered on 01/19/17 08: 38; Admin Dose 1 MG; Start 01/14/17 at 06:30 Sertraline HCl (Zoloft) 200 mg DAILY PO Last administered on 01/19/17 08:16; Admin Dose 200 MG; Start 01/14/17 at 09:00 Trazodone HCl (Desyrel) 100 mg BID PO Last administered on 01/19/17 08:17; Admin Dose 100 MG; Start 01/14/17 at 09:00 Acetaminophen (Tylenol Tab) 650 mg Q6H PRN PO PAIN LEVEL 1-3 OR FEVER; Start 01/14/17 at 06:30 Tamsulosin HCl (Flomax) 0.4 mg BID PO Last administered on 01/19/17 08:17; Admin Dose 0.4 MG; Start 01/14/17 at 09:00 Heparin Sodium (Porcine) (Heparin (5000 Units/0.5 ml)) 5,000 unit Q8 SC Last administered on 01/19/17 06:43; Admin Dose 5,000 UNIT; Start 01/14/17 at 14:00 Docusate Sodium (Colace) 100 mg Q12H PO Last administered on 01/17/17 17:19; Admin Dose 100 MG; Start 01/14/17 at 18:30 Bisacodyl (Dulcolax) 10 mg DAILY PRN PO CONSTIPATION Last administered on 17:17; Admin Dose 10 MG; Start 01/14/17 at 17:30 Polyethylene Glycol (Miralax) 17 gm BID PO Last administered on 01/19/17 08: 16; Admin Dose 17 GM; Start 01/14/17 at 21:00 Morphine Sulfate (morphine) 2 mg Q4H PRN IV PAIN Last administered on 12:20; Admin Dose 2 MG; Start 01/14/17 at 17:30 Nitroglycerin (Nitroglycerin (Sl Tab) 0.4 Mg) 1 tab Q5M PRN SL CHEST PAIN Last administered on 01/15/17 12:40; Admin Dose 1 TAB; Start 01/15/17 at 12:30 Hydralazine HCl (Apresoline) 10 mg Q4H PRN IV sbp>160 Last administered on 01/16 00:16; Admin Dose 10 MG; Start 01/15/17 at 12:30 Mupirocin (Bactroban) 1 applic BID TOP Last administered on 01/19/17 08:18; Admin Dose 1 APPLIC; Start 01/15/17 at 21:00 Amlodipine Besylate (Norvasc) 5 mg BID PO Last administered on 01/19/17 08:18 ; Admin Dose 5 MG; Start 01/15/17 at 21:00 Clonidine (Catapres) 0.1 mg Q4H PRN PO SBP>160 Last administered on 01/16/17 21:11; Admin Dose 0.1 MG; Start 01/15/17 at 17:00 Isosorbide Mononitrate (Imdur) 30 mg DAILY PO Last administered on 01/19/17 08:17; Admin Dose 30 MG; Start 01/16/17 at 09:00 Ondansetron HCl (Zofran Inj) 4 mg Q4 IV Last administered on 01/19/17 06:31; Admin Dose 4 MG; Start 01/16/17 at 13:00 Pantoprazole 40 mg 40 mg DAILY@06 PO Last administered on 01/18/17 05:20; Admin Dose 40 MG; Start 01/17/17 at 06:00 Ertapenem/Sodium Chloride (Invanz/NS) 100 ml @ 200 mls/hr Q24H IVPB Last administered on 01/18/17 15:55; Admin Dose 200 MLS/HR; Start 01/18/17 at 14:30 Hydralazine HCl (Apresoline) 100 mg TID PRN PO SBP GREATER THAN 160; Start 12/26 at 13:30 Metoprolol Tartrate (Lopressor) 25 mg BID PO ; Start 01/19/17 at 21:00 IQRA BINGHAM MD Jan 19, 2017 13:35
[2017-01-19] MEDS: ERTAPENEM SODIUM 1 GM in SOD CHLORIDE 0.9% 100 ML IVPB SCH (15:25)
[2017-01-19] MEDS: POTASSIUM CHLORIDE 20 MEQ POWDER FOR ORAL SOLN PO SCH (15:26)
[2017-01-19] MEDS: ATORVASTATIN 10 MG TAB PO SCH (21:37)
[2017-01-19] MEDS: METOPROLOL 25 MG TAB PO SCH (21:38)
[2017-01-19] MEDS: ACETAMINOPHEN 325 MG TAB PO PRN (21:39)
--- NOTE | 2017-01-19 21:53 | CONS ---
Date/Time of Note Date/Time of Note DATE: 01/19/17 TIME: 21:49 Assessment/Plan Assessment/Plan Chief Complaint/Hosp Course Assessment: CP with associated left arm pain Lower abdominal pain- unclear underlying etiology Epigastric pain with associated nausea/vomiting R/o PUD vs anxiety vs gastritis vs cardiac related HARSH-possibly related to chronic urinary outlet obstruction BPH Dyslipidemia HTN Plan: Stress test- negative Stool for OB-negative Continue PPI therapy f/u Ct abd/pelvis with Iv contrast Problems: Consultation Date/Type/Reason Admit Date/Time Jan 14, 2017 at 09:38 Initial Consult Date 01/16/17 Type of Consultation: GI Referring Provider: MARTHA SOLIS 24 HR Interval Summary Free Text/Dictation complains of urinary pain, dysuria Exam/Review of Systems Vital Signs Vitals Vital Signs Date Time Temp Pulse Resp B/P Pulse Ox O2 Delivery O2 Flow Rate FiO2 01/19/17 20:19 63 01/19/17 20:12 98.0 18 147/77 97 01/17/17 21:30 Room Air 01/15/17 20:00 2.0 Intake and Output 01/18/17 01/18/17 01/19/17 14:59 22:59 06:59 Intake Total 100 ml 480 ml Output Total 600 ml Balance 100 ml -120 ml Exam Constitutional: alert, oriented, well developed Psych: nl mood/affect, no complaints Head: atraumatic, normocephalic Eyes: EOMI, nl conjunctiva, nl lids ENMT: nl external ears & nose, nl lips & teeth, nl nasal mucosa & septum Neck: non-tender, supple Respiratory: clear to auscultation, normal air movement Cardiovascular: nl pulses, regular rate and rhythm Gastrointestinal: bowel sounds, non-tender, soft Results Result Diagram: 01/19/17 0704 01/19/17 0704 Results 24 hrs Laboratory Tests Test 01/19/17 07:04 White Blood Count 7.1 Red Blood Count 4.31 L Hemoglobin 12.6 L Hematocrit 38.0 L Mean Corpuscular Volume 88.2 Mean Corpuscular Hemoglobin 29.2 Mean Corpuscular Hemoglobin Concent 33.2 Red Cell Distribution Width 15.8 H Platelet Count 198 Mean Platelet Volume 10.7 H Neutrophils % 56.9 Lymphocytes % 25.9 Monocytes % 10.3 Eosinophils % 5.2 Basophils % 0.6 Nucleated Red Blood Cells % 0.0 Neutrophils # 4.0 Lymphocytes # 1.8 Monocytes # 0.7 Eosinophils # 0.4 Basophils # 0.0 Nucleated Red Blood Cells # 0.0 Sodium Level 144 Potassium Level 3.0 L Chloride Level 107 Carbon Dioxide Level 28 Anion Gap 12 Blood Urea Nitrogen 17 Creatinine 1.08 Glucose Level 101 Calcium Level 8.2 L Medications Medications Current Medications Acetaminophen (Tylenol Tab) 650 mg Q6H PRN PO PAIN LEVEL 1-3 OR FEVER Last administered on 01/18/17 19:29; Admin Dose 650 MG; Start 01/14/17 at 06:30 Atorvastatin Calcium (Lipitor) 10 mg QHS PO Last administered on 01/18/17 21: 32; Admin Dose 10 MG; Start 01/14/17 at 21:00 Lorazepam (Ativan) 1 mg BID PRN PO ANXIETY Last administered on 01/19/17 20: 07; Admin Dose 1 MG; Start 01/14/17 at 06:30 Sertraline HCl (Zoloft) 200 mg DAILY PO Last administered on 01/19/17 08:16; Admin Dose 200 MG; Start 01/14/17 at 09:00 Acetaminophen (Tylenol Tab) 650 mg Q6H PRN PO PAIN LEVEL 1-3 OR FEVER; Start 01/14/17 at 06:30 Tamsulosin HCl (Flomax) 0.4 mg BID PO Last administered on 01/19/17 08:17; Admin Dose 0.4 MG; Start 01/14/17 at 09:00 Heparin Sodium (Porcine) (Heparin (5000 Units/0.5 ml)) 5,000 unit Q8 SC Last administered on 01/19/17 15:08; Admin Dose 5,000 UNIT; Start 01/14/17 at 14:00 Docusate Sodium (Colace) 100 mg Q12H PO Last administered on 01/17/17 17:19; Admin Dose 100 MG; Start 01/14/17 at 18:30 Bisacodyl (Dulcolax) 10 mg DAILY PRN PO CONSTIPATION Last administered on 17:17; Admin Dose 10 MG; Start 01/14/17 at 17:30 Polyethylene Glycol (Miralax) 17 gm BID PO Last administered on 01/19/17 08: 16; Admin Dose 17 GM; Start 01/14/17 at 21:00 Morphine Sulfate (morphine) 2 mg Q4H PRN IV PAIN Last administered on 12:20; Admin Dose 2 MG; Start 01/14/17 at 17:30 Nitroglycerin (Nitroglycerin (Sl Tab) 0.4 Mg) 1 tab Q5M PRN SL CHEST PAIN Last administered on 01/15/17 12:40; Admin Dose 1 TAB; Start 01/15/17 at 12:30 Hydralazine HCl (Apresoline) 10 mg Q4H PRN IV sbp>160 Last administered on 01/16 00:16; Admin Dose 10 MG; Start 01/15/17 at 12:30 Mupirocin (Bactroban) 1 applic BID TOP Last administered on 01/19/17 08:18; Admin Dose 1 APPLIC; Start 01/15/17 at 21:00 Amlodipine Besylate (Norvasc) 5 mg BID PO Last administered on 01/19/17 08:18 ; Admin Dose 5 MG; Start 01/15/17 at 21:00 Isosorbide Mononitrate (Imdur) 30 mg DAILY PO Last administered on 01/19/17 08:17; Admin Dose 30 MG; Start 01/16/17 at 09:00 Ondansetron HCl (Zofran Inj) 4 mg Q4 IV Last administered on 01/19/17 06:31; Admin Dose 4 MG; Start 01/16/17 at 13:00 Pantoprazole 40 mg 40 mg DAILY@06 PO Last administered on 01/18/17 05:20; Admin Dose 40 MG; Start 01/17/17 at 06:00 Ertapenem/Sodium Chloride (Invanz/NS) 100 ml @ 200 mls/hr Q24H IVPB Last administered on 01/19/17 15:25; Admin Dose 200 MLS/HR; Start 01/18/17 at 14:30 Hydralazine HCl (Apresoline) 100 mg TID PRN PO SBP GREATER THAN 160; Start 12/26 at 13:30 Metoprolol Tartrate (Lopressor) 25 mg BID PO ; Start 01/19/17 at 21:00 Potassium Chloride (Potassium Chloride Pwd/Soln) 40 meq DAILY PO Last administered on 11/10/17at 15:26; Admin Dose 40 MEQ; Start 01/19/17 at 14:00 ILYA VELEZ MD Jan 19, 2017 21:53
[2017-01-20] VITALS (13 sets, daily range): BP systolic 132–184; BP diastolic 67–88; PULSE 54–68; RESP 18–20
[2017-01-20] MEDS: ONDANSETRON 4 MG INJ IV SCH ×6 (01:54→20:01)
[2017-01-20] MEDS: morphine 2 MG INJ IV PRN (01:55)
[2017-01-20] MEDS: PANTOPRAZOLE (EC) 40 MG TAB PO SCH (05:39)
[2017-01-20] MEDS: DOCUSATE SODIUM 100 MG CAP PO SCH ×2 (05:39→18:02)
[2017-01-20] MEDS: hydrALAzine 20 MG INJ IV PRN (05:44)
[2017-01-20] MEDS: HEPARIN 5,000 UNIT/0.5 ML VIAL SC SCH ×3 (05:44→20:22)
[2017-01-20] MEDS: POLYETHYLENE GLYCOL 17 GM PACKET PO SCH ×2 (08:20→20:07)
[2017-01-20] MEDS: POTASSIUM CHLORIDE 20 MEQ POWDER FOR ORAL SOLN PO SCH (08:20)
[2017-01-20] MEDS: TAMSULOSIN (SR) 0.4 MG CAP PO SCH ×2 (08:21→20:00)
[2017-01-20] MEDS: METOPROLOL 25 MG TAB PO SCH ×2 (08:21→20:01)
[2017-01-20] MEDS: ISOSORBIDE MONONITRATE(SR)30 MG TAB PO SCH (08:22)
[2017-01-20] MEDS: AMLODIPINE 5 MG TAB PO SCH ×2 (08:22→20:00)
[2017-01-20] MEDS: LORAZEPAM 1 MG TAB PO PRN ×2 (08:30→20:00)
[2017-01-20] MEDS: MUPIROCIN 2% 22 GM OINT TOP SCH ×2 (08:30→20:04)
[2017-01-20 08:31] LABS: BASOPHIL # 0.1 10^3/ul (0.0-0.1); BASOPHILS % 0.8 % (0.0-2.0); EOSINOPHILS # 0.4 10^3/ul (0.0-0.5); HEMATOCRIT 39.4 % (42.0-52.0); HEMOGLOBIN 12.9 g/dl (14.0-18.0); LYMPHOCYTES # 2.4 10^3/ul (0.8-2.9); LYMPHOCYTES % 32.2 % (15.0-51.0); MEAN CORPUSCULAR HEMOGLOBIN 28.6 pg (29.0-33.0); MEAN CORPUSCULAR HGB CONC 32.7 g/dl (32.0-37.0); MEAN CORPUSCULAR VOLUME 87.4 fl (82.0-101.0); MEAN PLATELET VOLUME 11.3 fl (7.4-10.4); MONOCYTE # 0.7 10^3/ul (0.3-0.9); MONOCYTES % 9.9 % (0.0-11.0); NEUTROPHIL # 3.6 10^3/ul (1.6-7.5); NEUTROPHILS % 49.3 % (39.0-77.0); PLATELET COUNT 220 10^3/UL (140-415); RED BLOOD COUNT 4.51 10^6/ul (4.70-6.10); RED CELL DISTRIBUTION WIDTH 15.8 % (11.5-14.5); WHITE BLOOD COUNT 7.3 10^3/ul (4.8-10.8)
[2017-01-20 08:46] LABS: CALCIUM 8.3 mg/dl (8.4-10.2); CREATININE 1.01 mg/dl (0.61-1.24); POTASSIUM 3.2 mmol/L (3.5-5.1)
--- NOTE | 2017-01-20 10:06 | CONS ---
Date/Time of Note Date/Time of Note DATE: 01/20/17 TIME: 10:04 Consult Date/Type/Reason Admit Date/Time Jan 14, 2017 at 09:38 Initial Consult Date 01/16/17 Type of Consultation: neph Ordering Provider: MARTHA SOLIS The patient is stable. No events overnight. No fevers, chills, nausea, vomiting. The patient had a CT scan [facility] showed no evidence of wall motion abnormalities. OBJECTIVE: HEENT: Head is normocephalic. NECK: Supple. HEART: Regular rate. LUNGS: Show diminished breath sounds at the base. ABDOMEN: Soft, nontender to palpation without rebound or guarding. EXTREMITIES: Negative for clubbing, cyanosis, no edema. DERMATOLOGIC: No rashes. MUSCULOSKELETAL: No joint effusions. NEUROLOGIC: No change in exam. MEDICATIONS: The patient's medications have been reviewed. Objective Vital Signs Date Time Temp Pulse Resp B/P Pulse Ox O2 Delivery O2 Flow Rate FiO2 01/20/17 08:33 65 01/20/17 07:11 97.6 20 154/86 94 01/17/17 21:30 Room Air Intake and Output 01/19/17 01/19/17 01/20/17 15:00 23:00 07:00 Intake Total 520 ml 400 ml Output Total 750 ml Balance 520 ml -350 ml Results/Medications Result Diagram: 01/20/1771201/20/1713 Results 24 hrs Laboratory Tests Test 01/20/17 07:13 White Blood Count 7.3 Red Blood Count 4.51 L Hemoglobin 12.9 L Hematocrit 39.4 L Mean Corpuscular Volume 87.4 Mean Corpuscular Hemoglobin 28.6 L Mean Corpuscular Hemoglobin Concent 32.7 Red Cell Distribution Width 15.8 H Platelet Count 220 Mean Platelet Volume 11.3 H Neutrophils % 49.3 Lymphocytes % 32.2 Monocytes % 9.9 Eosinophils % 6.0 Basophils % 0.8 Nucleated Red Blood Cells % 0.0 Neutrophils # 3.6 Lymphocytes # 2.4 Monocytes # 0.7 Eosinophils # 0.4 Basophils # 0.1 Nucleated Red Blood Cells # 0.0 Sodium Level 141 Potassium Level 3.2 L Chloride Level 106 Carbon Dioxide Level 26 Anion Gap 12 Blood Urea Nitrogen 15 Creatinine 1.01 Glucose Level 93 Calcium Level 8.3 L Medications Current Medications Acetaminophen (Tylenol Tab) 650 mg Q6H PRN PO PAIN LEVEL 1-3 OR FEVER Last administered on 01/19/17 21:39; Admin Dose 650 MG; Start 01/14/17 at 06:30 Atorvastatin Calcium (Lipitor) 10 mg QHS PO Last administered on 01/19/17 21: 37; Admin Dose 10 MG; Start 01/14/17 at 21:00 Lorazepam (Ativan) 1 mg BID PRN PO ANXIETY Last administered on 01/20/17 08: 30; Admin Dose 1 MG; Start 01/14/17 at 06:30 Sertraline HCl (Zoloft) 200 mg DAILY PO Last administered on 01/19/17 08:16; Admin Dose 200 MG; Start 01/14/17 at 09:00 Acetaminophen (Tylenol Tab) 650 mg Q6H PRN PO PAIN LEVEL 1-3 OR FEVER; Start 01/14/17 at 06:30 Tamsulosin HCl (Flomax) 0.4 mg BID PO Last administered on 01/20/17 08:21; Admin Dose 0.4 MG; Start 01/14/17 at 09:00 Heparin Sodium (Porcine) (Heparin (5000 Units/0.5 ml)) 5,000 unit Q8 SC Last administered on 01/20/17 05:44; Admin Dose 5,000 UNIT; Start 01/14/17 at 14:00 Docusate Sodium (Colace) 100 mg Q12H PO Last administered on 01/20/17 05:39; Admin Dose 100 MG; Start 01/14/17 at 18:30 Bisacodyl (Dulcolax) 10 mg DAILY PRN PO CONSTIPATION Last administered on 17:17; Admin Dose 10 MG; Start 01/14/17 at 17:30 Polyethylene Glycol (Miralax) 17 gm BID PO Last administered on 01/20/17 08: 20; Admin Dose 17 GM; Start 01/14/17 at 21:00 Morphine Sulfate (morphine) 2 mg Q4H PRN IV PAIN Last administered on 01:55; Admin Dose 2 MG; Start 01/14/17 at 17:30 Nitroglycerin (Nitroglycerin (Sl Tab) 0.4 Mg) 1 tab Q5M PRN SL CHEST PAIN Last administered on 01/15/17 12:40; Admin Dose 1 TAB; Start 01/15/17 at 12:30 Hydralazine HCl (Apresoline) 10 mg Q4H PRN IV sbp>160 Last administered on 05:44; Admin Dose 10 MG; Start 01/15/17 at 12:30 Mupirocin (Bactroban) 1 applic BID TOP Last administered on 01/20/17 08:30; Admin Dose 1 APPLIC; Start 01/15/17 at 21:00 Amlodipine Besylate (Norvasc) 5 mg BID PO Last administered on 01/20/17 08:22 ; Admin Dose 5 MG; Start 01/15/17 at 21:00 Isosorbide Mononitrate (Imdur) 30 mg DAILY PO Last administered on 01/20/17 08:22; Admin Dose 30 MG; Start 01/16/17 at 09:00 Ondansetron HCl (Zofran Inj) 4 mg Q4 IV Last administered on 01/20/17 08:30; Admin Dose 4 MG; Start 01/16/17 at 13:00 Pantoprazole 40 mg 40 mg DAILY@06 PO Last administered on 01/20/17 05:39; Admin Dose 40 MG; Start 01/17/17 at 06:00 Ertapenem/Sodium Chloride (Invanz/NS) 100 ml @ 200 mls/hr Q24H IVPB Last administered on 01/19/17 15:25; Admin Dose 200 MLS/HR; Start 01/18/17 at 14:30 Hydralazine HCl (Apresoline) 100 mg TID PRN PO SBP GREATER THAN 160; Start 12/26 at 13:30 Metoprolol Tartrate (Lopressor) 25 mg BID PO Last administered on 01/20/17 08 :21; Admin Dose 25 MG; Start 01/19/17 at 21:00 Potassium Chloride (Potassium Chloride Pwd/Soln) 40 meq DAILY PO Last administered on 01/20/17 08:20; Admin Dose 40 MEQ; Start 01/19/17 at 14:00 Assessment/Plan Chief Complaint/Hosp Course 1. Nonoliguric acute kidney injury with previously baseline creatinine 0.8 mg/ dL. Etiology of acute kidney injury is secondary to hemodynamics. Renal function is improving. Continue current treatment plan, supportive care, renally dose all medications. watch for diuretic phase of imani with electrolyte wasting. 2. Hypokalemia, improved. Continue to monitor. 3. Mineral bone disorder. Monitor calcium and phosphorus levels. 4. Anemia. Monitor hemoglobin and hematocrit levels. 5. Chest pain, improved. The patient's stress test was negative. 6. Hypertension. Continue current blood pressure regimen. 7. Benign prostatic hypertrophy. Continue current medical management. noted evidence of chronic bladder outlet obstruction on ct. will need fu going forward. 8. SIRS. The patient is completing antibiotic course. Problems: BLANCA CUTLER MD Jan 20, 2017 10:06
[2017-01-20] MEDS: SERTRALINE 100 MG TAB PO SCH (11:25)
--- NOTE | 2017-01-20 12:53 | CONS ---
Date/Time of Note Date/Time of Note DATE: 01/20/17 TIME: 12:48 Consult Date/Type/Reason Admit Date/Time Jan 14, 2017 at 09:38 Initial Consult Date 01/14/17 Type of Consultation: Urology Reason for Consultation Benign prostatic hypertrophy Ordering Provider: MARTHA SOLIS Subjective Patient has difficulty voiding, slow urinary stream, urinary frequency and nocturia. He denies any hematuria, no urgency or urgency incontinence at the present Objective Vital Signs Date Time Temp Pulse Resp B/P Pulse Ox O2 Delivery O2 Flow Rate FiO2 01/20/17 12:19 65 01/20/17 11:00 97.8 19 133/83 99 01/17/17 21:30 Room Air Intake and Output 01/19/17 01/19/17 01/20/17 15:00 23:00 07:00 Intake Total 520 ml 400 ml Output Total 750 ml Balance 520 ml -350 ml Results/Medications Result Diagram: 01/20/17 0713 01/20/17 0713 Results 24 hrs Laboratory Tests Test 01/20/17 07:13 White Blood Count 7.3 Red Blood Count 4.51 L Hemoglobin 12.9 L Hematocrit 39.4 L Mean Corpuscular Volume 87.4 Mean Corpuscular Hemoglobin 28.6 L Mean Corpuscular Hemoglobin Concent 32.7 Red Cell Distribution Width 15.8 H Platelet Count 220 Mean Platelet Volume 11.3 H Neutrophils % 49.3 Lymphocytes % 32.2 Monocytes % 9.9 Eosinophils % 6.0 Basophils % 0.8 Nucleated Red Blood Cells % 0.0 Neutrophils # 3.6 Lymphocytes # 2.4 Monocytes # 0.7 Eosinophils # 0.4 Basophils # 0.1 Nucleated Red Blood Cells # 0.0 Sodium Level 141 Potassium Level 3.2 L Chloride Level 106 Carbon Dioxide Level 26 Anion Gap 12 Blood Urea Nitrogen 15 Creatinine 1.01 Glucose Level 93 Calcium Level 8.3 L Medications Current Medications Acetaminophen (Tylenol Tab) 650 mg Q6H PRN PO PAIN LEVEL 1-3 OR FEVER Last administered on 01/19/17 21:39; Admin Dose 650 MG; Start 01/14/17 at 06:30 Atorvastatin Calcium (Lipitor) 10 mg QHS PO Last administered on 01/19/17 21: 37; Admin Dose 10 MG; Start 01/14/17 at 21:00 Lorazepam (Ativan) 1 mg BID PRN PO ANXIETY Last administered on 01/20/17 08: 30; Admin Dose 1 MG; Start 01/14/17 at 06:30 Sertraline HCl (Zoloft) 200 mg DAILY PO Last administered on 01/20/17 11:25; Admin Dose 200 MG; Start 01/14/17 at 09:00 Acetaminophen (Tylenol Tab) 650 mg Q6H PRN PO PAIN LEVEL 1-3 OR FEVER; Start 01/14/17 at 06:30 Tamsulosin HCl (Flomax) 0.4 mg BID PO Last administered on 01/20/17 08:21; Admin Dose 0.4 MG; Start 01/14/17 at 09:00 Heparin Sodium (Porcine) (Heparin (5000 Units/0.5 ml)) 5,000 unit Q8 SC Last administered on 01/20/17 05:44; Admin Dose 5,000 UNIT; Start 01/14/17 at 14:00 Docusate Sodium (Colace) 100 mg Q12H PO Last administered on 01/20/17 05:39; Admin Dose 100 MG; Start 01/14/17 at 18:30 Bisacodyl (Dulcolax) 10 mg DAILY PRN PO CONSTIPATION Last administered on 17:17; Admin Dose 10 MG; Start 01/14/17 at 17:30 Polyethylene Glycol (Miralax) 17 gm BID PO Last administered on 01/20/17 08: 20; Admin Dose 17 GM; Start 01/14/17 at 21:00 Morphine Sulfate (morphine) 2 mg Q4H PRN IV PAIN Last administered on 01:55; Admin Dose 2 MG; Start 01/14/17 at 17:30 Nitroglycerin (Nitroglycerin (Sl Tab) 0.4 Mg) 1 tab Q5M PRN SL CHEST PAIN Last administered on 01/15/17 12:40; Admin Dose 1 TAB; Start 01/15/17 at 12:30 Hydralazine HCl (Apresoline) 10 mg Q4H PRN IV sbp>160 Last administered on 05:44; Admin Dose 10 MG; Start 01/15/17 at 12:30 Mupirocin (Bactroban) 1 applic BID TOP Last administered on 01/20/17 08:30; Admin Dose 1 APPLIC; Start 01/15/17 at 21:00 Amlodipine Besylate (Norvasc) 5 mg BID PO Last administered on 01/20/17 08:22 ; Admin Dose 5 MG; Start 01/15/17 at 21:00 Isosorbide Mononitrate (Imdur) 30 mg DAILY PO Last administered on 01/20/17 08:22; Admin Dose 30 MG; Start 01/16/17 at 09:00 Ondansetron HCl (Zofran Inj) 4 mg Q4 IV Last administered on 01/20/17 08:30; Admin Dose 4 MG; Start 01/16/17 at 13:00 Pantoprazole 40 mg 40 mg DAILY@06 PO Last administered on 01/20/17 05:39; Admin Dose 40 MG; Start 01/17/17 at 06:00 Ertapenem/Sodium Chloride (Invanz/NS) 100 ml @ 200 mls/hr Q24H IVPB Last administered on 01/19/17 15:25; Admin Dose 200 MLS/HR; Start 01/18/17 at 14:30 Hydralazine HCl (Apresoline) 100 mg TID PRN PO SBP GREATER THAN 160; Start 12/26 at 13:30 Metoprolol Tartrate (Lopressor) 25 mg BID PO Last administered on 01/20/17 08 :21; Admin Dose 25 MG; Start 01/19/17 at 21:00 Potassium Chloride (Potassium Chloride Pwd/Soln) 40 meq DAILY PO Last administered on 01/20/17 08:20; Admin Dose 40 MEQ; Start 01/19/17 at 14:00 Assessment/Plan Chief Complaint/Hosp Course 71-year-old male admitted with chills abdominal pain left shoulder pain chest pain nausea vomiting and had a CT scan of the abdomen and pelvis which showed enlarged and nodular prostate protruding into the bladder base. The patient does have history of recurrent urinary tract infections and obstructive lower urinary tract symptoms. His urinary tract infection has been treated and his PSA has been normal. He is on tamsulosin. He will need follow-up in the office later on and may end up needing a transurethral resection of the prostate. The prostate is very large and measured about 6 cm and the anterior- posterior measurement and 6 cm and a transverse measurement as well Problems: DUC SMITH MD Jan 20, 2017 12:53
--- NOTE | 2017-01-20 13:40 | CONS ---
Date/Time of Note Date/Time of Note DATE: 01/20/17 TIME: 13:39 Assessment/Plan Assessment/Plan Additional Assessment/Plan 1. Chest pain-negative trop x 3/NL EF by echo. No ischemia by lexiscan with NL EF - no CP now 2. Hypertension-uncontrolled - on hgh side, add Rx now - BETTER WITHTHERAPY CHANGE DAY PRIOR. 3. Dyslipidemia- Rx as needed 4. Obesity. 5. Anxiety. 6. Depression. 7. UTI/prostatitis - on anto-bx- BPH per urology team 8, Deejay - HR better with reduced BB dose now. Consultation Date/Type/Reason Admit Date/Time Jan 14, 2017 at 09:38 Initial Consult Date 01/14/17 Type of Consultation: Urology Referring Provider: MARTHA SOLIS 24 HR Interval Summary Free Text/Dictation Deejay - HR better with reduced BB dose now. ROS: No fever, no chills, no nausea, no vomiting, no diarrhea/constipation No recent weight changes No chest pain, no PND, no orthopnea No dizziness, blurred vision No thirst, no heat or cold intolerance Exam/Review of Systems Vital Signs Vitals Vital Signs Date Time Temp Pulse Resp B/P Pulse Ox O2 Delivery O2 Flow Rate FiO2 01/20/17 12:19 65 01/20/17 11:00 97.8 19 133/83 99 01/17/17 21:30 Room Air Intake and Output 01/19/17 01/19/17 01/20/17 15:00 23:00 07:00 Intake Total 520 ml 400 ml Output Total 750 ml Balance 520 ml -350 ml Exam General: WN/WD/NAD, AOx 2-3 HEENT: Unicetric/atraumatic/EOMI (follow commands) NECK: JVD elevated, no thyromegaly Lymph: no lymphadenopathy HEART: regular with no S3, II/ systolic murmur at apex LUNGS: Coarse sounds ABD: soft, NT, ND, +BS : Intact Neuro: non focal SKIN: chronic changes EXT: trace edema Results Result Diagram: 01/20/1771201/20/17712 Results 24 hrs Laboratory Tests Test 01/20/17 07:13 White Blood Count 7.3 Red Blood Count 4.51 L Hemoglobin 12.9 L Hematocrit 39.4 L Mean Corpuscular Volume 87.4 Mean Corpuscular Hemoglobin 28.6 L Mean Corpuscular Hemoglobin Concent 32.7 Red Cell Distribution Width 15.8 H Platelet Count 220 Mean Platelet Volume 11.3 H Neutrophils % 49.3 Lymphocytes % 32.2 Monocytes % 9.9 Eosinophils % 6.0 Basophils % 0.8 Nucleated Red Blood Cells % 0.0 Neutrophils # 3.6 Lymphocytes # 2.4 Monocytes # 0.7 Eosinophils # 0.4 Basophils # 0.1 Nucleated Red Blood Cells # 0.0 Sodium Level 141 Potassium Level 3.2 L Chloride Level 106 Carbon Dioxide Level 26 Anion Gap 12 Blood Urea Nitrogen 15 Creatinine 1.01 Glucose Level 93 Calcium Level 8.3 L Medications Medications Current Medications Acetaminophen (Tylenol Tab) 650 mg Q6H PRN PO PAIN LEVEL 1-3 OR FEVER Last administered on 01/19/17 21:39; Admin Dose 650 MG; Start 01/14/17 at 06:30 Atorvastatin Calcium (Lipitor) 10 mg QHS PO Last administered on 01/19/17 21: 37; Admin Dose 10 MG; Start 01/14/17 at 21:00 Lorazepam (Ativan) 1 mg BID PRN PO ANXIETY Last administered on 01/20/17 08: 30; Admin Dose 1 MG; Start 01/14/17 at 06:30 Sertraline HCl (Zoloft) 200 mg DAILY PO Last administered on 01/20/17 11:25; Admin Dose 200 MG; Start 01/14/17 at 09:00 Acetaminophen (Tylenol Tab) 650 mg Q6H PRN PO PAIN LEVEL 1-3 OR FEVER; Start 01/14/17 at 06:30 Tamsulosin HCl (Flomax) 0.4 mg BID PO Last administered on 01/20/17 08:21; Admin Dose 0.4 MG; Start 01/14/17 at 09:00 Heparin Sodium (Porcine) (Heparin (5000 Units/0.5 ml)) 5,000 unit Q8 SC Last administered on 01/20/17 05:44; Admin Dose 5,000 UNIT; Start 01/14/17 at 14:00 Docusate Sodium (Colace) 100 mg Q12H PO Last administered on 01/20/17 05:39; Admin Dose 100 MG; Start 01/14/17 at 18:30 Bisacodyl (Dulcolax) 10 mg DAILY PRN PO CONSTIPATION Last administered on 17:17; Admin Dose 10 MG; Start 01/14/17 at 17:30 Polyethylene Glycol (Miralax) 17 gm BID PO Last administered on 01/20/17 08: 20; Admin Dose 17 GM; Start 01/14/17 at 21:00 Morphine Sulfate (morphine) 2 mg Q4H PRN IV PAIN Last administered on 01:55; Admin Dose 2 MG; Start 01/14/17 at 17:30 Nitroglycerin (Nitroglycerin (Sl Tab) 0.4 Mg) 1 tab Q5M PRN SL CHEST PAIN Last administered on 01/15/17 12:40; Admin Dose 1 TAB; Start 01/15/17 at 12:30 Hydralazine HCl (Apresoline) 10 mg Q4H PRN IV sbp>160 Last administered on 05:44; Admin Dose 10 MG; Start 01/15/17 at 12:30 Mupirocin (Bactroban) 1 applic BID TOP Last administered on 01/20/17 08:30; Admin Dose 1 APPLIC; Start 01/15/17 at 21:00 Amlodipine Besylate (Norvasc) 5 mg BID PO Last administered on 01/20/17 08:22 ; Admin Dose 5 MG; Start 01/15/17 at 21:00 Isosorbide Mononitrate (Imdur) 30 mg DAILY PO Last administered on 01/20/17 08:22; Admin Dose 30 MG; Start 01/16/17 at 09:00 Ondansetron HCl (Zofran Inj) 4 mg Q4 IV Last administered on 01/20/17 08:30; Admin Dose 4 MG; Start 01/16/17 at 13:00 Pantoprazole 40 mg 40 mg DAILY@06 PO Last administered on 01/20/17 05:39; Admin Dose 40 MG; Start 01/17/17 at 06:00 Ertapenem/Sodium Chloride (Invanz/NS) 100 ml @ 200 mls/hr Q24H IVPB Last administered on 01/19/17 15:25; Admin Dose 200 MLS/HR; Start 01/18/17 at 14:30 Hydralazine HCl (Apresoline) 100 mg TID PRN PO SBP GREATER THAN 160; Start 12/26 at 13:30 Metoprolol Tartrate (Lopressor) 25 mg BID PO Last administered on 01/20/17 08 :21; Admin Dose 25 MG; Start 01/19/17 at 21:00 Potassium Chloride (Potassium Chloride Pwd/Soln) 40 meq DAILY PO Last administered on 01/20/17 08:20; Admin Dose 40 MEQ; Start 01/19/17 at 14:00 LISA RAMÍREZ MD Jan 20, 2017 13:40
[2017-01-20] MEDS: ERTAPENEM SODIUM 1 GM in SOD CHLORIDE 0.9% 100 ML IVPB SCH (14:16)
--- NOTE | 2017-01-20 16:09 | PN ---
Date/Time of Note Date/Time of Note DATE: 01/20/17 TIME: 16:08 Assessment/Plan VTE Prophylaxis VTE Prophylaxis Intervention: heparin Lines/Catheters IV [facility] Type [facility]from [facility] Urinary Cath still in place: No Assessment/Plan Chief Complaint/Hosp Course 1. Systemic inflammatory response syndrome with febrile illness, leukocytosis, and tachycardia. Urine culture inconclusive. Blood cultures showing Propionibacterium acnes. On antibiotics as per infectious diseases. 2. Nonspecific left chest wall pain with associated left arm pain. Nuclear medicine cardiac stress test negative for any perfusion defects. 3. Acute kidney injury. Etiology unclear. Resolved. Being followed by nephrology. 4. Prostatomegaly with CT evidence of enlarged prostate measuring up to 6.2 cm in transverse diameter. The patient will be continued on tamsulosin. Urology following. 5. Abdominal pain with associated nausea and vomiting. Etiology unclear. No CT evidence of any acute intra-abdominal findings. Gastroenterology following. Continue PPI. 6. Essential hypertension. The patient will be maintained on antihypertensives. 7. Dyslipidemia. The patient will be continued on statins. The patient's fasting lipid panel is satisfactory. 8. Fluids, electrolytes, and nutrition. Low-cholesterol diet. 9. DVT prophylaxis. Subcutaneous heparin. 10. Plan. Continue antimicrobials as per infectious diseases. Await further recommendations from consultants. Case discussed with Dr. Ny. Problems: Subjective 24 Hr Interval Summary Free Text/Dictation Complains of left neck and shoulder pain. Exam/Review of Systems Vital Signs Vitals Vital Signs Date Time Temp Pulse Resp B/P Pulse Ox O2 Delivery O2 Flow Rate FiO2 01/20/17 12:19 65 01/20/17 11:00 97.8 19 133/83 99 01/17/17 21:30 Room Air Intake and Output 01/19/17 01/19/17 01/20/17 15:00 23:00 07:00 Intake Total 520 ml 400 ml Output Total 750 ml Balance 520 ml -350 ml Exam General: Obese 71 year-old male lying in bed in no apparent distress. HEENT: Normocephalic, atraumatic. Eyes: Anicteric sclerae, conjunctivae clear. ENT: Nasal septum midline, oral mucosa moist. Neck supple, no JVD noticed. Oropharynx clear without any exudate. Respiratory: Bilaterally diminished breath sounds. No use of accessory muscles of respiration. No adventitious breath sounds. Cardiovascular: S1, S2 heard. Regular rate and rhythm. Abdomen: Soft and nondistended. Bowel sounds positive in all 4 quadrants. Suprapubic tenderness. Genitourinary: Deferred. Extremities: No cyanosis, no clubbing, no edema. Peripheral pulses palpable. Neurologic: Cranial nerves II through XII grossly intact. The patient is awake, alert, and oriented. Skin: Normal skin turgor. No skin rashes. Results Result Diagram: 01/20/1771201/20/17712 Results 24 hrs Laboratory Tests Test 01/20/17 07:13 White Blood Count 7.3 Red Blood Count 4.51 L Hemoglobin 12.9 L Hematocrit 39.4 L Mean Corpuscular Volume 87.4 Mean Corpuscular Hemoglobin 28.6 L Mean Corpuscular Hemoglobin Concent 32.7 Red Cell Distribution Width 15.8 H Platelet Count 220 Mean Platelet Volume 11.3 H Neutrophils % 49.3 Lymphocytes % 32.2 Monocytes % 9.9 Eosinophils % 6.0 Basophils % 0.8 Nucleated Red Blood Cells % 0.0 Neutrophils # 3.6 Lymphocytes # 2.4 Monocytes # 0.7 Eosinophils # 0.4 Basophils # 0.1 Nucleated Red Blood Cells # 0.0 Sodium Level 141 Potassium Level 3.2 L Chloride Level 106 Carbon Dioxide Level 26 Anion Gap 12 Blood Urea Nitrogen 15 Creatinine 1.01 Glucose Level 93 Calcium Level 8.3 L Medications Medications Current Medications Acetaminophen (Tylenol Tab) 650 mg Q6H PRN PO PAIN LEVEL 1-3 OR FEVER Last administered on 01/19/17 21:39; Admin Dose 650 MG; Start 01/14/17 at 06:30 Atorvastatin Calcium (Lipitor) 10 mg QHS PO Last administered on 01/19/17 21: 37; Admin Dose 10 MG; Start 01/14/17 at 21:00 Lorazepam (Ativan) 1 mg BID PRN PO ANXIETY Last administered on 01/20/17 08: 30; Admin Dose 1 MG; Start 01/14/17 at 06:30 Sertraline HCl (Zoloft) 200 mg DAILY PO Last administered on 01/20/17 11:25; Admin Dose 200 MG; Start 01/14/17 at 09:00 Acetaminophen (Tylenol Tab) 650 mg Q6H PRN PO PAIN LEVEL 1-3 OR FEVER; Start 01/14/17 at 06:30 Tamsulosin HCl (Flomax) 0.4 mg BID PO Last administered on 01/20/17 08:21; Admin Dose 0.4 MG; Start 01/14/17 at 09:00 Heparin Sodium (Porcine) (Heparin (5000 Units/0.5 ml)) 5,000 unit Q8 SC Last administered on 01/20/17 14:39; Admin Dose 5,000 UNIT; Start 01/14/17 at 14:00 Docusate Sodium (Colace) 100 mg Q12H PO Last administered on 01/20/17 05:39; Admin Dose 100 MG; Start 01/14/17 at 18:30 Bisacodyl (Dulcolax) 10 mg DAILY PRN PO CONSTIPATION Last administered on 17:17; Admin Dose 10 MG; Start 01/14/17 at 17:30 Polyethylene Glycol (Miralax) 17 gm BID PO Last administered on 01/20/17 08: 20; Admin Dose 17 GM; Start 01/14/17 at 21:00 Morphine Sulfate (morphine) 2 mg Q4H PRN IV PAIN Last administered on 01:55; Admin Dose 2 MG; Start 01/14/17 at 17:30 Nitroglycerin (Nitroglycerin (Sl Tab) 0.4 Mg) 1 tab Q5M PRN SL CHEST PAIN Last administered on 01/15/17 12:40; Admin Dose 1 TAB; Start 01/15/17 at 12:30 Hydralazine HCl (Apresoline) 10 mg Q4H PRN IV sbp>160 Last administered on 05:44; Admin Dose 10 MG; Start 01/15/17 at 12:30 Mupirocin (Bactroban) 1 applic BID TOP Last administered on 01/20/17 08:30; Admin Dose 1 APPLIC; Start 01/15/17 at 21:00 Amlodipine Besylate (Norvasc) 5 mg BID PO Last administered on 01/20/17 08:22 ; Admin Dose 5 MG; Start 01/15/17 at 21:00 Isosorbide Mononitrate (Imdur) 30 mg DAILY PO Last administered on 01/20/17 08:22; Admin Dose 30 MG; Start 01/16/17 at 09:00 Ondansetron HCl (Zofran Inj) 4 mg Q4 IV Last administered on 01/20/17 08:30; Admin Dose 4 MG; Start 01/16/17 at 13:00 Pantoprazole 40 mg 40 mg DAILY@06 PO Last administered on 01/20/17 05:39; Admin Dose 40 MG; Start 01/17/17 at 06:00 Ertapenem/Sodium Chloride (Invanz/NS) 100 ml @ 200 mls/hr Q24H IVPB Last administered on 01/20/17 14:16; Admin Dose 200 MLS/HR; Start 01/18/17 at 14:30 Hydralazine HCl (Apresoline) 100 mg TID PRN PO SBP GREATER THAN 160; Start 12/26 at 13:30 Metoprolol Tartrate (Lopressor) 25 mg BID PO Last administered on 01/20/17 08 :21; Admin Dose 25 MG; Start 01/19/17 at 21:00 Potassium Chloride (Potassium Chloride Pwd/Soln) 40 meq DAILY PO Last administered on 01/20/17 08:20; Admin Dose 40 MEQ; Start 01/19/17 at 14:00 RICHARDSON GODOY NP Jan 20, 2017 16:09 RICHARDSON GODOY NP Jan 20, 2017 16:09
--- NOTE | 2017-01-20 17:31 | CONS ---
Date/Time of Note Date/Time of Note DATE: 01/20/17 TIME: 17:29 Assessment/Plan Assessment/Plan Chief Complaint/Hosp Course SUBJECTIVE: No acute changes. No fevers. The patient is lying comfortably in bed. MICROBIOLOGY: Blood cultures since admission grew Propionibacterium acnes. Nares swab came back positive for MRSA. ANTIMICROBIALS: Invanz DIAGNOSTICS: 2D echo on admission revealed no vegetation, ejection fraction of 55%, normal right ventricular systolic function. PHYSICAL EXAMINATION: GENERAL: Obese, well-developed elderly man who is awake, in no distress. HEENT: Head atraumatic, normocephalic. Sclerae anicteric. Buccal mucosa pink. NECK: Supple. CHEST: Rise symmetrical. Breath sounds diminished to bases. HEART: S1, S2. ABDOMEN: Soft, bowel tones present. EXTREMITIES: Without cyanosis. ASSESSMENT: 1. Systemic inflammatory response syndrome on admission with fevers, chills and leukocytosis. 2. Propionibacterium acnes bacteremia. 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 4. Prostatomegaly. 5. Hypertension. 6. Chest pain==> troponin have been negative ==> card on case, s/p Lexiscan. PLAN: Remains stable, recommend completing 10 days abx for bacteremia, urology rec-s noted. [facility] staff Problems: Consultation Date/Type/Reason Admit Date/Time Jan 14, 2017 at 09:38 Initial Consult Date 01/16/17 Type of Consultation: id Referring Provider: MARTHA SOLIS Exam/Review of Systems Vital Signs Vitals Vital Signs Date Time Temp Pulse Resp B/P Pulse Ox O2 Delivery O2 Flow Rate FiO2 01/20/17 16:20 59 01/20/17 11:00 97.8 19 133/83 99 01/17/17 21:30 Room Air Intake and Output 01/19/17 01/19/17 01/20/17 15:00 23:00 07:00 Intake Total 520 ml 400 ml Output Total 750 ml Balance 520 ml -350 ml Results Result Diagram: 01/20/17 0713 01/20/17 0713 Results 24 hrs Laboratory Tests Test 01/20/17 07:13 White Blood Count 7.3 Red Blood Count 4.51 L Hemoglobin 12.9 L Hematocrit 39.4 L Mean Corpuscular Volume 87.4 Mean Corpuscular Hemoglobin 28.6 L Mean Corpuscular Hemoglobin Concent 32.7 Red Cell Distribution Width 15.8 H Platelet Count 220 Mean Platelet Volume 11.3 H Neutrophils % 49.3 Lymphocytes % 32.2 Monocytes % 9.9 Eosinophils % 6.0 Basophils % 0.8 Nucleated Red Blood Cells % 0.0 Neutrophils # 3.6 Lymphocytes # 2.4 Monocytes # 0.7 Eosinophils # 0.4 Basophils # 0.1 Nucleated Red Blood Cells # 0.0 Sodium Level 141 Potassium Level 3.2 L Chloride Level 106 Carbon Dioxide Level 26 Anion Gap 12 Blood Urea Nitrogen 15 Creatinine 1.01 Glucose Level 93 Calcium Level 8.3 L Medications Medications Current Medications Acetaminophen (Tylenol Tab) 650 mg Q6H PRN PO PAIN LEVEL 1-3 OR FEVER Last administered on 01/19/17 21:39; Admin Dose 650 MG; Start 01/14/17 at 06:30 Atorvastatin Calcium (Lipitor) 10 mg QHS PO Last administered on 01/19/17 21: 37; Admin Dose 10 MG; Start 01/14/17 at 21:00 Lorazepam (Ativan) 1 mg BID PRN PO ANXIETY Last administered on 01/20/17 08: 30; Admin Dose 1 MG; Start 01/14/17 at 06:30 Sertraline HCl (Zoloft) 200 mg DAILY PO Last administered on 01/20/17 11:25; Admin Dose 200 MG; Start 01/14/17 at 09:00 Acetaminophen (Tylenol Tab) 650 mg Q6H PRN PO PAIN LEVEL 1-3 OR FEVER; Start 01/14/17 at 06:30 Tamsulosin HCl (Flomax) 0.4 mg BID PO Last administered on 01/20/17 08:21; Admin Dose 0.4 MG; Start 01/14/17 at 09:00 Heparin Sodium (Porcine) (Heparin (5000 Units/0.5 ml)) 5,000 unit Q8 SC Last administered on 01/20/17 14:39; Admin Dose 5,000 UNIT; Start 01/14/17 at 14:00 Docusate Sodium (Colace) 100 mg Q12H PO Last administered on 01/20/17 05:39; Admin Dose 100 MG; Start 01/14/17 at 18:30 Bisacodyl (Dulcolax) 10 mg DAILY PRN PO CONSTIPATION Last administered on 17:17; Admin Dose 10 MG; Start 01/14/17 at 17:30 Polyethylene Glycol (Miralax) 17 gm BID PO Last administered on 01/20/17 08: 20; Admin Dose 17 GM; Start 01/14/17 at 21:00 Morphine Sulfate (morphine) 2 mg Q4H PRN IV PAIN Last administered on 01:55; Admin Dose 2 MG; Start 01/14/17 at 17:30 Nitroglycerin (Nitroglycerin (Sl Tab) 0.4 Mg) 1 tab Q5M PRN SL CHEST PAIN Last administered on 01/15/17 12:40; Admin Dose 1 TAB; Start 01/15/17 at 12:30 Hydralazine HCl (Apresoline) 10 mg Q4H PRN IV sbp>160 Last administered on 05:44; Admin Dose 10 MG; Start 01/15/17 at 12:30 Mupirocin (Bactroban) 1 applic BID TOP Last administered on 01/20/17 08:30; Admin Dose 1 APPLIC; Start 01/15/17 at 21:00 Amlodipine Besylate (Norvasc) 5 mg BID PO Last administered on 01/20/17 08:22 ; Admin Dose 5 MG; Start 01/15/17 at 21:00 Isosorbide Mononitrate (Imdur) 30 mg DAILY PO Last administered on 01/20/17 08:22; Admin Dose 30 MG; Start 01/16/17 at 09:00 Ondansetron HCl (Zofran Inj) 4 mg Q4 IV Last administered on 01/20/17 08:30; Admin Dose 4 MG; Start 01/16/17 at 13:00 Pantoprazole 40 mg 40 mg DAILY@06 PO Last administered on 01/20/17 05:39; Admin Dose 40 MG; Start 01/17/17 at 06:00 Ertapenem/Sodium Chloride (Invanz/NS) 100 ml @ 200 mls/hr Q24H IVPB Last administered on 01/20/17 14:16; Admin Dose 200 MLS/HR; Start 01/18/17 at 14:30 Hydralazine HCl (Apresoline) 100 mg TID PRN PO SBP GREATER THAN 160; Start 12/26 at 13:30 Metoprolol Tartrate (Lopressor) 25 mg BID PO Last administered on 01/20/17 08 :21; Admin Dose 25 MG; Start 01/19/17 at 21:00 Potassium Chloride (Potassium Chloride Pwd/Soln) 40 meq DAILY PO Last administered on 01/20/17 08:20; Admin Dose 40 MEQ; Start 01/19/17 at 14:00 DIANA FUNK NP Jan 20, 2017 17:31
[2017-01-20] MEDS: ACETAMINOPHEN 325 MG TAB PO PRN (18:02)
[2017-01-20] MEDS: ATORVASTATIN 10 MG TAB PO SCH (20:01)
--- NOTE | 2017-01-20 21:40 | CONS ---
Date/Time of Note Date/Time of Note DATE: 01/20/17 TIME: 21:39 Assessment/Plan Assessment/Plan Chief Complaint/Hosp Course Assessment: CP with associated left arm pain Lower abdominal pain- unclear underlying etiology Epigastric pain with associated nausea/vomiting R/o PUD vs anxiety vs gastritis vs cardiac related HARSH-possibly related to chronic urinary outlet obstruction BPH Dyslipidemia HTN Plan: Stress test- negative Stool for OB-negative Continue PPI therapy f/u Ct abd/pelvis with Iv contrast supportive care Problems: Consultation Date/Type/Reason Admit Date/Time Jan 14, 2017 at 09:38 Initial Consult Date 01/16/17 Type of Consultation: GI Referring Provider: MARTHA SOLIS 24 HR Interval Summary Free Text/Dictation no n/v, tolerates po Exam/Review of Systems Vital Signs Vitals Vital Signs Date Time Temp Pulse Resp B/P Pulse Ox O2 Delivery O2 Flow Rate FiO2 01/20/17 19:43 98.0 70 18 184/88 98 01/17/17 21:30 Room Air Intake and Output 01/19/17 01/19/17 01/20/17 14:59 22:59 06:59 Intake Total 520 ml 400 ml Output Total 750 ml Balance 520 ml -350 ml Exam Head: atraumatic, normocephalic Eyes: EOMI, nl conjunctiva, nl lids ENMT: nl external ears & nose, nl lips & teeth, nl nasal mucosa & septum Neck: non-tender, supple Respiratory: clear to auscultation, normal air movement Cardiovascular: nl pulses, regular rate and rhythm Gastrointestinal: bowel sounds, soft, tender (lower abdomen) Results Result Diagram: 01/20/1713 01/20/17 0713 Results 24 hrs Laboratory Tests Test 01/20/17 07:13 White Blood Count 7.3 Red Blood Count 4.51 L Hemoglobin 12.9 L Hematocrit 39.4 L Mean Corpuscular Volume 87.4 Mean Corpuscular Hemoglobin 28.6 L Mean Corpuscular Hemoglobin Concent 32.7 Red Cell Distribution Width 15.8 H Platelet Count 220 Mean Platelet Volume 11.3 H Neutrophils % 49.3 Lymphocytes % 32.2 Monocytes % 9.9 Eosinophils % 6.0 Basophils % 0.8 Nucleated Red Blood Cells % 0.0 Neutrophils # 3.6 Lymphocytes # 2.4 Monocytes # 0.7 Eosinophils # 0.4 Basophils # 0.1 Nucleated Red Blood Cells # 0.0 Sodium Level 141 Potassium Level 3.2 L Chloride Level 106 Carbon Dioxide Level 26 Anion Gap 12 Blood Urea Nitrogen 15 Creatinine 1.01 Glucose Level 93 Calcium Level 8.3 L Medications Medications Current Medications Acetaminophen (Tylenol Tab) 650 mg Q6H PRN PO PAIN LEVEL 1-3 OR FEVER Last administered on 01/20/17 18:02; Admin Dose 650 MG; Start 01/14/17 at 06:30 Atorvastatin Calcium (Lipitor) 10 mg QHS PO Last administered on 01/20/17 20: 01; Admin Dose 10 MG; Start 01/14/17 at 21:00 Lorazepam (Ativan) 1 mg BID PRN PO ANXIETY Last administered on 01/20/17 20: 00; Admin Dose 1 MG; Start 01/14/17 at 06:30 Sertraline HCl (Zoloft) 200 mg DAILY PO Last administered on 01/20/17 11:25; Admin Dose 200 MG; Start 01/14/17 at 09:00 Acetaminophen (Tylenol Tab) 650 mg Q6H PRN PO PAIN LEVEL 1-3 OR FEVER; Start 01/14/17 at 06:30 Tamsulosin HCl (Flomax) 0.4 mg BID PO Last administered on 01/20/17 20:00; Admin Dose 0.4 MG; Start 01/14/17 at 09:00 Heparin Sodium (Porcine) (Heparin (5000 Units/0.5 ml)) 5,000 unit Q8 SC Last administered on 01/20/17 20:22; Admin Dose 5,000 UNIT; Start 01/14/17 at 14:00 Docusate Sodium (Colace) 100 mg Q12H PO Last administered on 01/20/17 18:02; Admin Dose 100 MG; Start 01/14/17 at 18:30 Bisacodyl (Dulcolax) 10 mg DAILY PRN PO CONSTIPATION Last administered on 17:17; Admin Dose 10 MG; Start 01/14/17 at 17:30 Polyethylene Glycol (Miralax) 17 gm BID PO Last administered on 01/20/17 08: 20; Admin Dose 17 GM; Start 01/14/17 at 21:00 Morphine Sulfate (morphine) 2 mg Q4H PRN IV PAIN Last administered on 01:55; Admin Dose 2 MG; Start 01/14/17 at 17:30 Nitroglycerin (Nitroglycerin (Sl Tab) 0.4 Mg) 1 tab Q5M PRN SL CHEST PAIN Last administered on 01/15/17 12:40; Admin Dose 1 TAB; Start 01/15/17 at 12:30 Hydralazine HCl (Apresoline) 10 mg Q4H PRN IV sbp>160 Last administered on 05:44; Admin Dose 10 MG; Start 01/15/17 at 12:30 Mupirocin (Bactroban) 1 applic BID TOP Last administered on 01/20/17 20:04; Admin Dose 1 APPLIC; Start 01/15/17 at 21:00 Amlodipine Besylate (Norvasc) 5 mg BID PO Last administered on 01/20/17 20:00 ; Admin Dose 5 MG; Start 01/15/17 at 21:00 Isosorbide Mononitrate (Imdur) 30 mg DAILY PO Last administered on 01/20/17 08:22; Admin Dose 30 MG; Start 01/16/17 at 09:00 Ondansetron HCl (Zofran Inj) 4 mg Q4 IV Last administered on 01/20/17 20:01; Admin Dose 4 MG; Start 01/16/17 at 13:00 Pantoprazole 40 mg 40 mg DAILY@06 PO Last administered on 01/20/17 05:39; Admin Dose 40 MG; Start 01/17/17 at 06:00 Ertapenem/Sodium Chloride (Invanz/NS) 100 ml @ 200 mls/hr Q24H IVPB Last administered on 01/20/17 14:16; Admin Dose 200 MLS/HR; Start 01/18/17 at 14:30 Hydralazine HCl (Apresoline) 100 mg TID PRN PO SBP GREATER THAN 160; Start 12/26 at 13:30 Metoprolol Tartrate (Lopressor) 25 mg BID PO Last administered on 01/20/17 20 :01; Admin Dose 25 MG; Start 01/19/17 at 21:00 Potassium Chloride (Potassium Chloride Pwd/Soln) 40 meq DAILY PO Last administered on 01/20/17 08:20; Admin Dose 40 MEQ; Start 01/19/17 at 14:00 ILYA VELEZ MD Jan 20, 2017 21:40
[2017-01-21] VITALS (11 sets, daily range): BP systolic 134–183; BP diastolic 73–91; PULSE 50–78; RESP 17–18
[2017-01-21] MEDS: ONDANSETRON 4 MG INJ IV SCH ×6 (01:06→21:06)
[2017-01-21] MEDS: PANTOPRAZOLE (EC) 40 MG TAB PO SCH (05:28)
[2017-01-21] MEDS: HEPARIN 5,000 UNIT/0.5 ML VIAL SC SCH ×3 (05:43→21:21)
[2017-01-21] MEDS: DOCUSATE SODIUM 100 MG CAP PO SCH ×2 (05:45→18:30)
[2017-01-21 07:11] LABS: BASOPHIL # 0.1 10^3/ul (0.0-0.1); BASOPHILS % 0.7 % (0.0-2.0); EOSINOPHILS # 0.5 10^3/ul (0.0-0.5); HEMATOCRIT 41.2 % (42.0-52.0); HEMOGLOBIN 13.4 g/dl (14.0-18.0); LYMPHOCYTES # 2.1 10^3/ul (0.8-2.9); LYMPHOCYTES % 21.7 % (15.0-51.0); MEAN CORPUSCULAR HEMOGLOBIN 28.6 pg (29.0-33.0); MEAN CORPUSCULAR HGB CONC 32.5 g/dl (32.0-37.0); MEAN CORPUSCULAR VOLUME 87.8 fl (82.0-101.0); MEAN PLATELET VOLUME 10.8 fl (7.4-10.4); MONOCYTE # 0.7 10^3/ul (0.3-0.9); MONOCYTES % 7.5 % (0.0-11.0); NEUTROPHIL # 6.2 10^3/ul (1.6-7.5); NEUTROPHILS % 63.7 % (39.0-77.0); PLATELET COUNT 253 10^3/UL (140-415); RED BLOOD COUNT 4.69 10^6/ul (4.70-6.10); RED CELL DISTRIBUTION WIDTH 15.9 % (11.5-14.5); WHITE BLOOD COUNT 9.8 10^3/ul (4.8-10.8)
[2017-01-21 07:55] LABS: CALCIUM 8.8 mg/dl (8.4-10.2); CREATININE 1.01 mg/dl (0.61-1.24); POTASSIUM 3.7 mmol/L (3.5-5.1)
[2017-01-21 07:56] LABS: MAGNESIUM 1.9 mg/dl (1.7-2.5); PHOSPHORUS 3.1 mg/dl (2.5-4.9)
[2017-01-21] MEDS: POTASSIUM CHLORIDE 20 MEQ POWDER FOR ORAL SOLN PO SCH (08:06)
[2017-01-21] MEDS: AMLODIPINE 5 MG TAB PO SCH ×2 (08:07→21:07)
[2017-01-21] MEDS: METOPROLOL 25 MG TAB PO SCH ×2 (08:07→21:07)
[2017-01-21] MEDS: ISOSORBIDE MONONITRATE(SR)30 MG TAB PO SCH (08:07)
[2017-01-21] MEDS: TAMSULOSIN (SR) 0.4 MG CAP PO SCH ×2 (08:08→21:06)
[2017-01-21] MEDS: SERTRALINE 100 MG TAB PO SCH (08:08)
[2017-01-21] MEDS: POLYETHYLENE GLYCOL 17 GM PACKET PO SCH ×2 (08:10→21:07)
[2017-01-21] MEDS: LORAZEPAM 1 MG TAB PO PRN ×2 (08:12→21:06)
[2017-01-21] MEDS: MUPIROCIN 2% 22 GM OINT TOP SCH ×2 (09:40→21:08)
--- NOTE | 2017-01-21 10:05 | CONS ---
Date/Time of Note Date/Time of Note DATE: 01/21/17 TIME: 10:04 Consult Date/Type/Reason Admit Date/Time Jan 14, 2017 at 09:38 Initial Consult Date 01/16/17 Type of Consultation: nephr Ordering Provider: MARTHA SOLIS The patient is stable. No events overnight. No fevers, chills, nausea, vomiting. The patient had a CT scan which showed no evidence of wall motion abnormalities. noted some elevated bps this am. OBJECTIVE: HEENT: Head is normocephalic. NECK: Supple. HEART: Regular rate. LUNGS: Show diminished breath sounds at the base. ABDOMEN: Soft, nontender to palpation without rebound or guarding. EXTREMITIES: Negative for clubbing, cyanosis, no edema. DERMATOLOGIC: No rashes. MUSCULOSKELETAL: No joint effusions. NEUROLOGIC: No change in exam. MEDICATIONS: The patient's medications have been reviewed. Objective Vital Signs Date Time Temp Pulse Resp B/P Pulse Ox O2 Delivery O2 Flow Rate FiO2 01/21/17 08:13 61 01/21/17 07:30 97.9 17 183/91 94 01/20/17 22:00 Room Air Intake and Output 01/20/17 01/20/17 01/21/17 14:59 22:59 06:59 Intake Total 1000 ml 500 ml Output Total 1000 ml 600 ml Balance 0 ml -100 ml Results/Medications Result Diagram: 01/21/1728 01/21/17627 Results 24 hrs Laboratory Tests Test 01/21/17 06:28 White Blood Count 9.8 # Red Blood Count 4.69 L Hemoglobin 13.4 L Hematocrit 41.2 L Mean Corpuscular Volume 87.8 Mean Corpuscular Hemoglobin 28.6 L Mean Corpuscular Hemoglobin Concent 32.5 Red Cell Distribution Width 15.9 H Platelet Count 253 Mean Platelet Volume 10.8 H Neutrophils % 63.7 Lymphocytes % 21.7 Monocytes % 7.5 Eosinophils % 5.0 Basophils % 0.7 Nucleated Red Blood Cells % 0.0 Neutrophils # 6.2 Lymphocytes # 2.1 Monocytes # 0.7 Eosinophils # 0.5 Basophils # 0.1 Nucleated Red Blood Cells # 0.0 Sodium Level 143 Potassium Level 3.7 Chloride Level 108 Carbon Dioxide Level 28 Anion Gap 11 Blood Urea Nitrogen 10 Creatinine 1.01 Glucose Level 93 Calcium Level 8.8 Phosphorus Level 3.1 Magnesium Level 1.9 Medications Current Medications Acetaminophen (Tylenol Tab) 650 mg Q6H PRN PO PAIN LEVEL 1-3 OR FEVER Last administered on 01/20/17 18:02; Admin Dose 650 MG; Start 01/14/17 at 06:30 Atorvastatin Calcium (Lipitor) 10 mg QHS PO Last administered on 01/20/17 20: 01; Admin Dose 10 MG; Start 01/14/17 at 21:00 Lorazepam (Ativan) 1 mg BID PRN PO ANXIETY Last administered on 01/21/17 08: 12; Admin Dose 1 MG; Start 01/14/17 at 06:30 Sertraline HCl (Zoloft) 200 mg DAILY PO Last administered on 01/21/17 08:08; Admin Dose 200 MG; Start 01/14/17 at 09:00 Acetaminophen (Tylenol Tab) 650 mg Q6H PRN PO PAIN LEVEL 1-3 OR FEVER; Start 01/14/17 at 06:30 Tamsulosin HCl (Flomax) 0.4 mg BID PO Last administered on 01/21/17 08:08; Admin Dose 0.4 MG; Start 01/14/17 at 09:00 Heparin Sodium (Porcine) (Heparin (5000 Units/0.5 ml)) 5,000 unit Q8 SC Last administered on 01/21/17 05:43; Admin Dose 5,000 UNIT; Start 01/14/17 at 14:00 Docusate Sodium (Colace) 100 mg Q12H PO Last administered on 01/21/17 05:45; Admin Dose 100 MG; Start 01/14/17 at 18:30 Bisacodyl (Dulcolax) 10 mg DAILY PRN PO CONSTIPATION Last administered on 17:17; Admin Dose 10 MG; Start 01/14/17 at 17:30 Polyethylene Glycol (Miralax) 17 gm BID PO Last administered on 01/20/17 08: 20; Admin Dose 17 GM; Start 01/14/17 at 21:00 Morphine Sulfate (morphine) 2 mg Q4H PRN IV PAIN Last administered on 01:55; Admin Dose 2 MG; Start 01/14/17 at 17:30 Nitroglycerin (Nitroglycerin (Sl Tab) 0.4 Mg) 1 tab Q5M PRN SL CHEST PAIN Last administered on 01/15/17 12:40; Admin Dose 1 TAB; Start 01/15/17 at 12:30 Hydralazine HCl (Apresoline) 10 mg Q4H PRN IV sbp>160 Last administered on 05:44; Admin Dose 10 MG; Start 01/15/17 at 12:30 Mupirocin (Bactroban) 1 applic BID TOP Last administered on 01/21/17 09:40; Admin Dose 1 APPLIC; Start 01/15/17 at 21:00 Amlodipine Besylate (Norvasc) 5 mg BID PO Last administered on 01/21/17 08:07 ; Admin Dose 5 MG; Start 01/15/17 at 21:00 Isosorbide Mononitrate (Imdur) 30 mg DAILY PO Last administered on 01/21/17 08:07; Admin Dose 30 MG; Start 01/16/17 at 09:00 Ondansetron HCl (Zofran Inj) 4 mg Q4 IV Last administered on 01/21/17 05:28; Admin Dose 4 MG; Start 01/16/17 at 13:00 Pantoprazole 40 mg 40 mg DAILY@06 PO Last administered on 01/21/17 05:28; Admin Dose 40 MG; Start 01/17/17 at 06:00 Ertapenem/Sodium Chloride (Invanz/NS) 100 ml @ 200 mls/hr Q24H IVPB Last administered on 01/20/17 14:16; Admin Dose 200 MLS/HR; Start 01/18/17 at 14:30 Hydralazine HCl (Apresoline) 100 mg TID PRN PO SBP GREATER THAN 160; Start 12/26 at 13:30 Metoprolol Tartrate (Lopressor) 25 mg BID PO Last administered on 01/21/17 08 :07; Admin Dose 25 MG; Start 01/19/17 at 21:00 Potassium Chloride (Potassium Chloride Pwd/Soln) 40 meq DAILY PO Last administered on 01/21/17 08:06; Admin Dose 40 MEQ; Start 01/19/17 at 14:00 Assessment/Plan Chief Complaint/Hosp Course 1. Nonoliguric acute kidney injury with previously baseline creatinine 0.8 mg/ dL. Etiology of acute kidney injury is secondary to hemodynamics. Renal function is stable/improving. Continue current treatment plan, supportive care , renally dose all medications. watch for diuretic phase of imani with electrolyte wasting. 2. Hypokalemia, improved. Continue to monitor. 3. Mineral bone disorder. Monitor calcium and phosphorus levels. 4. Anemia. Monitor hemoglobin and hematocrit levels. 5. Chest pain, improved. The patient's stress test was negative. 6. Hypertension. Continue current blood pressure regimen. 7. Benign prostatic hypertrophy. Continue current medical management. noted evidence of chronic bladder outlet obstruction on ct. will need fu going forward. 8. SIRS. Problems: LBANCA CUTLER MD Jan 21, 2017 10:05
--- NOTE | 2017-01-21 11:17 | CONS ---
Date/Time of Note Date/Time of Note DATE: 01/21/17 TIME: 11:13 Assessment/Plan Assessment/Plan Chief Complaint/Hosp Course Assessment: CP with associated left arm pain Lower abdominal pain- likely due to issue per CT results on 12-19-16 Epigastric pain with associated nausea/vomiting R/o PUD vs anxiety vs gastritis vs cardiac related HARSH-possibly related to chronic urinary outlet obstruction BPH Dyslipidemia HTN Plan: Stress test- negative Stool for OB-negative Continue PPI therapy primary to decide whether to call urology to evaluate CT showing "Enlarged prostate bulging into the bladder with circumferential wall thickening of the bladder. " supportive care Dr. Chan to resume care of this patient tomorrow Problems: Consultation Date/Type/Reason Admit Date/Time Jan 14, 2017 at 09:38 Initial Consult Date 01/16/17 Type of Consultation: GI Referring Provider: MARTHA SOLIS 24 HR Interval Summary Free Text/Dictation low abdominal pain improved, no n/v Exam/Review of Systems Vital Signs Vitals Vital Signs Date Time Temp Pulse Resp B/P Pulse Ox O2 Delivery O2 Flow Rate FiO2 01/21/17 08:13 61 01/21/17 07:30 97.9 17 183/91 94 01/20/17 22:00 Room Air Intake and Output 01/20/17 01/20/17 01/21/17 15:00 23:00 07:00 Intake Total 1000 ml 500 ml Output Total 1000 ml 600 ml Balance 0 ml -100 ml Exam Constitutional: alert, oriented, well developed Psych: nl mood/affect, no complaints Head: atraumatic, normocephalic Eyes: EOMI, nl conjunctiva, nl lids ENMT: nl external ears & nose, nl lips & teeth, nl nasal mucosa & septum Neck: non-tender, supple Respiratory: clear to auscultation, normal air movement Cardiovascular: nl pulses, regular rate and rhythm Gastrointestinal: bowel sounds, soft Results Result Diagram: 01/21/1728 01/21/17 0628 Results 24 hrs Laboratory Tests Test 01/21/17 06:28 White Blood Count 9.8 # Red Blood Count 4.69 L Hemoglobin 13.4 L Hematocrit 41.2 L Mean Corpuscular Volume 87.8 Mean Corpuscular Hemoglobin 28.6 L Mean Corpuscular Hemoglobin Concent 32.5 Red Cell Distribution Width 15.9 H Platelet Count 253 Mean Platelet Volume 10.8 H Neutrophils % 63.7 Lymphocytes % 21.7 Monocytes % 7.5 Eosinophils % 5.0 Basophils % 0.7 Nucleated Red Blood Cells % 0.0 Neutrophils # 6.2 Lymphocytes # 2.1 Monocytes # 0.7 Eosinophils # 0.5 Basophils # 0.1 Nucleated Red Blood Cells # 0.0 Sodium Level 143 Potassium Level 3.7 Chloride Level 108 Carbon Dioxide Level 28 Anion Gap 11 Blood Urea Nitrogen 10 Creatinine 1.01 Glucose Level 93 Calcium Level 8.8 Phosphorus Level 3.1 Magnesium Level 1.9 Medications Medications Current Medications Acetaminophen (Tylenol Tab) 650 mg Q6H PRN PO PAIN LEVEL 1-3 OR FEVER Last administered on 01/20/17 18:02; Admin Dose 650 MG; Start 01/14/17 at 06:30 Atorvastatin Calcium (Lipitor) 10 mg QHS PO Last administered on 01/20/17 20: 01; Admin Dose 10 MG; Start 01/14/17 at 21:00 Lorazepam (Ativan) 1 mg BID PRN PO ANXIETY Last administered on 01/21/17 08: 12; Admin Dose 1 MG; Start 01/14/17 at 06:30 Sertraline HCl (Zoloft) 200 mg DAILY PO Last administered on 01/21/17 08:08; Admin Dose 200 MG; Start 01/14/17 at 09:00 Acetaminophen (Tylenol Tab) 650 mg Q6H PRN PO PAIN LEVEL 1-3 OR FEVER; Start 01/14/17 at 06:30 Tamsulosin HCl (Flomax) 0.4 mg BID PO Last administered on 01/21/17 08:08; Admin Dose 0.4 MG; Start 01/14/17 at 09:00 Heparin Sodium (Porcine) (Heparin (5000 Units/0.5 ml)) 5,000 unit Q8 SC Last administered on 01/21/17 05:43; Admin Dose 5,000 UNIT; Start 01/14/17 at 14:00 Docusate Sodium (Colace) 100 mg Q12H PO Last administered on 01/21/17 05:45; Admin Dose 100 MG; Start 01/14/17 at 18:30 Bisacodyl (Dulcolax) 10 mg DAILY PRN PO CONSTIPATION Last administered on 17:17; Admin Dose 10 MG; Start 01/14/17 at 17:30 Polyethylene Glycol (Miralax) 17 gm BID PO Last administered on 01/20/17 08: 20; Admin Dose 17 GM; Start 01/14/17 at 21:00 Morphine Sulfate (morphine) 2 mg Q4H PRN IV PAIN Last administered on 01:55; Admin Dose 2 MG; Start 01/14/17 at 17:30 Nitroglycerin (Nitroglycerin (Sl Tab) 0.4 Mg) 1 tab Q5M PRN SL CHEST PAIN Last administered on 01/15/17 12:40; Admin Dose 1 TAB; Start 01/15/17 at 12:30 Hydralazine HCl (Apresoline) 10 mg Q4H PRN IV sbp>160 Last administered on 05:44; Admin Dose 10 MG; Start 01/15/17 at 12:30 Mupirocin (Bactroban) 1 applic BID TOP Last administered on 01/21/17 09:40; Admin Dose 1 APPLIC; Start 01/15/17 at 21:00 Amlodipine Besylate (Norvasc) 5 mg BID PO Last administered on 01/21/17 08:07 ; Admin Dose 5 MG; Start 01/15/17 at 21:00 Isosorbide Mononitrate (Imdur) 30 mg DAILY PO Last administered on 01/21/17 08:07; Admin Dose 30 MG; Start 01/16/17 at 09:00 Ondansetron HCl (Zofran Inj) 4 mg Q4 IV Last administered on 01/21/17 05:28; Admin Dose 4 MG; Start 01/16/17 at 13:00 Pantoprazole 40 mg 40 mg DAILY@06 PO Last administered on 01/21/17 05:28; Admin Dose 40 MG; Start 01/17/17 at 06:00 Ertapenem/Sodium Chloride (Invanz/NS) 100 ml @ 200 mls/hr Q24H IVPB Last administered on 01/20/17 14:16; Admin Dose 200 MLS/HR; Start 01/18/17 at 14:30 Hydralazine HCl (Apresoline) 100 mg TID PRN PO SBP GREATER THAN 160; Start 12/26 at 13:30 Metoprolol Tartrate (Lopressor) 25 mg BID PO Last administered on 01/21/17 08 :07; Admin Dose 25 MG; Start 01/19/17 at 21:00 Potassium Chloride (Potassium Chloride Pwd/Soln) 40 meq DAILY PO Last administered on 01/21/17 08:06; Admin Dose 40 MEQ; Start 01/19/17 at 14:00 ILYA VELEZ MD Jan 21, 2017 11:17
--- NOTE | 2017-01-21 12:59 | PN ---
Date/Time of Note Date/Time of Note DATE: 01/21/17 TIME: 12:54 Assessment/Plan VTE Prophylaxis VTE Prophylaxis Intervention: SCD's Lines/Catheters IV [facility] Sal[place] Lock Urinary Cath still in place: No Assessment/Plan Chief Complaint/Hosp Course Assessment and plan 1. SIRS. Blood cultures showing Propionibacterium acnes. Urinalysis inconclusive. ID consult following. cotninue on abx. 2. Chest pain. Echocardiogram with EF at 55% with stage 1 diastolic dysfunction. Stress test noted with no evidence of perfusion defect and EF at stress at 52%.. Troponins negative so far. 3. Acute kidney injury. Avoid nephrotoxic medications. Monitor renal panel. stable 4. Prostatomegaly. urologist was consulted. patient for outpatient follow up for possible turp. continue flomax 5. Essential hypertension. Continue antihypertensives and adjust as needed. 6. HLD. Continue statin medication. 7. intractable nausea/vomiting. GI following. Improving continue with antiemetic Disposition plan: Awaiting OT evaluation for left trapezius pain. f/u with ID if can transition or oral abx for d/c. d/c when cleared by consultants Discussed plan of care with Dr. Velasco Problems: Subjective 24 Hr Interval Summary Free Text/Dictation reports only minimal abd discomfort. no nausea/vomiting Exam/Review of Systems Vital Signs Vitals Vital Signs Date Time Temp Pulse Resp B/P Pulse Ox O2 Delivery O2 Flow Rate FiO2 01/21/17 12:17 68 01/21/17 11:08 98.0 17 134/87 95 01/20/17 22:00 Room Air Intake and Output 01/20/17 01/20/17 01/21/17 15:00 23:00 07:00 Intake Total 1000 ml 500 ml Output Total 1000 ml 600 ml Balance 0 ml -100 ml Exam Constitutional: alert, oriented, no n/v Psych: no anxiety Head: normocephalic Respiratory: diminished breath sounds Cardiovascular: other (REGULAR RATE) Gastrointestinal: non-tender, soft Musculoskeletal: nl extremities to inspection Neurological: HAND THERMAL CUTTER II-XII intact, nl mental status, nl speech Skin: nl turgor Results Result Diagram: 01/21/17 0628 01/21/17 0628 Results 24 hrs Laboratory Tests Test 01/21/17 06:28 White Blood Count 9.8 # Red Blood Count 4.69 L Hemoglobin 13.4 L Hematocrit 41.2 L Mean Corpuscular Volume 87.8 Mean Corpuscular Hemoglobin 28.6 L Mean Corpuscular Hemoglobin Concent 32.5 Red Cell Distribution Width 15.9 H Platelet Count 253 Mean Platelet Volume 10.8 H Neutrophils % 63.7 Lymphocytes % 21.7 Monocytes % 7.5 Eosinophils % 5.0 Basophils % 0.7 Nucleated Red Blood Cells % 0.0 Neutrophils # 6.2 Lymphocytes # 2.1 Monocytes # 0.7 Eosinophils # 0.5 Basophils # 0.1 Nucleated Red Blood Cells # 0.0 Sodium Level 143 Potassium Level 3.7 Chloride Level 108 Carbon Dioxide Level 28 Anion Gap 11 Blood Urea Nitrogen 10 Creatinine 1.01 Glucose Level 93 Calcium Level 8.8 Phosphorus Level 3.1 Magnesium Level 1.9 Medications Medications Current Medications Acetaminophen (Tylenol Tab) 650 mg Q6H PRN PO PAIN LEVEL 1-3 OR FEVER Last administered on 01/20/17 18:02; Admin Dose 650 MG; Start 01/14/17 at 06:30 Atorvastatin Calcium (Lipitor) 10 mg QHS PO Last administered on 01/20/17 20: 01; Admin Dose 10 MG; Start 01/14/17 at 21:00 Lorazepam (Ativan) 1 mg BID PRN PO ANXIETY Last administered on 01/21/17 08: 12; Admin Dose 1 MG; Start 01/14/17 at 06:30 Sertraline HCl (Zoloft) 200 mg DAILY PO Last administered on 01/21/17 08:08; Admin Dose 200 MG; Start 01/14/17 at 09:00 Acetaminophen (Tylenol Tab) 650 mg Q6H PRN PO PAIN LEVEL 1-3 OR FEVER; Start 01/14/17 at 06:30 Tamsulosin HCl (Flomax) 0.4 mg BID PO Last administered on 01/21/17 08:08; Admin Dose 0.4 MG; Start 01/14/17 at 09:00 Heparin Sodium (Porcine) (Heparin (5000 Units/0.5 ml)) 5,000 unit Q8 SC Last administered on 01/21/17 05:43; Admin Dose 5,000 UNIT; Start 01/14/17 at 14:00 Docusate Sodium (Colace) 100 mg Q12H PO Last administered on 01/21/17 05:45; Admin Dose 100 MG; Start 01/14/17 at 18:30 Bisacodyl (Dulcolax) 10 mg DAILY PRN PO CONSTIPATION Last administered on 17:17; Admin Dose 10 MG; Start 01/14/17 at 17:30 Polyethylene Glycol (Miralax) 17 gm BID PO Last administered on 01/20/17 08: 20; Admin Dose 17 GM; Start 01/14/17 at 21:00 Morphine Sulfate (morphine) 2 mg Q4H PRN IV PAIN Last administered on 01:55; Admin Dose 2 MG; Start 01/14/17 at 17:30 Nitroglycerin (Nitroglycerin (Sl Tab) 0.4 Mg) 1 tab Q5M PRN SL CHEST PAIN Last administered on 01/15/17 12:40; Admin Dose 1 TAB; Start 01/15/17 at 12:30 Hydralazine HCl (Apresoline) 10 mg Q4H PRN IV sbp>160 Last administered on 05:44; Admin Dose 10 MG; Start 01/15/17 at 12:30 Mupirocin (Bactroban) 1 applic BID TOP Last administered on 01/21/17 09:40; Admin Dose 1 APPLIC; Start 01/15/17 at 21:00 Amlodipine Besylate (Norvasc) 5 mg BID PO Last administered on 01/21/17 08:07 ; Admin Dose 5 MG; Start 01/15/17 at 21:00 Isosorbide Mononitrate (Imdur) 30 mg DAILY PO Last administered on 01/21/17 08:07; Admin Dose 30 MG; Start 01/16/17 at 09:00 Ondansetron HCl (Zofran Inj) 4 mg Q4 IV Last administered on 01/21/17 05:28; Admin Dose 4 MG; Start 01/16/17 at 13:00 Pantoprazole 40 mg 40 mg DAILY@06 PO Last administered on 01/21/17 05:28; Admin Dose 40 MG; Start 01/17/17 at 06:00 Ertapenem/Sodium Chloride (Invanz/NS) 100 ml @ 200 mls/hr Q24H IVPB Last administered on 01/20/17 14:16; Admin Dose 200 MLS/HR; Start 01/18/17 at 14:30 Hydralazine HCl (Apresoline) 100 mg TID PRN PO SBP GREATER THAN 160; Start 12/26 at 13:30 Metoprolol Tartrate (Lopressor) 25 mg BID PO Last administered on 01/21/17 08 :07; Admin Dose 25 MG; Start 01/19/17 at 21:00 Potassium Chloride (Potassium Chloride Pwd/Soln) 40 meq DAILY PO Last administered on 01/21/17 08:06; Admin Dose 40 MEQ; Start 01/19/17 at 14:00 REJI STOCK Jan 21, 2017 12:59
[2017-01-21] MEDS: ERTAPENEM SODIUM 1 GM in SOD CHLORIDE 0.9% 100 ML IVPB SCH (13:52)
--- NOTE | 2017-01-21 14:15 | CONS ---
Date/Time of Note Date/Time of Note DATE: 01/21/17 TIME: 13:53 Assessment/Plan Assessment/Plan Additional Assessment/Plan 1. Chest pain-negative trop x 3/NL EF by echo. No ischemia by lexiscan with NL EF - no CP now - better now. Rate better controled. 2. Hypertension-uncontrolled - on hgh side, add Rx now - BETTER WITH THERAPY CHANGE DAY PRIOR. WELL RX. 3. Dyslipidemia- Rx as needed 4. Obesity. 5. Anxiety. 6. Depression. 7. UTI/prostatitis - on anto-bx- BPH per urology team 8, Deejay - HR better with reduced BB dose now. Consultation Date/Type/Reason Admit Date/Time Jan 14, 2017 at 09:38 Initial Consult Date 01/14/17 Type of Consultation: GI Referring Provider: MARTHA SOLIS 24 HR Interval Summary Free Text/Dictation Much better now - BP and HR well controlled. ROS: No fever, no chills, no nausea, no vomiting, no diarrhea/constipation No recent weight changes No chest pain, no PND, no orthopnea No dizziness, blurred vision No thirst, no heat or cold intolerance Exam/Review of Systems Vital Signs Vitals Vital Signs Date Time Temp Pulse Resp B/P Pulse Ox O2 Delivery O2 Flow Rate FiO2 01/21/17 12:17 68 01/21/17 11:08 98.0 17 134/87 95 01/20/17 22:00 Room Air Intake and Output 01/20/17 01/20/17 01/21/17 15:00 23:00 07:00 Intake Total 1000 ml 500 ml Output Total 1000 ml 600 ml Balance 0 ml -100 ml Exam General: WN/WD/NAD, AO x 2-3 HEENT: Unicetric/atraumatic/EOMI (follow commands) NECK: JVD elevated, no thyromegaly Lymph: no lymphadenopathy HEART: regular with no S3, II/ systolic murmur at apex LUNGS: Coarse sounds ABD: soft, NT, ND, +BS : Intact Neuro: non focal SKIN: chronic changes EXT: trace edema Results Result Diagram: 01/21/1728 01/21/17 0628 Results 24 hrs Laboratory Tests Test 01/21/17 06:28 White Blood Count 9.8 # Red Blood Count 4.69 L Hemoglobin 13.4 L Hematocrit 41.2 L Mean Corpuscular Volume 87.8 Mean Corpuscular Hemoglobin 28.6 L Mean Corpuscular Hemoglobin Concent 32.5 Red Cell Distribution Width 15.9 H Platelet Count 253 Mean Platelet Volume 10.8 H Neutrophils % 63.7 Lymphocytes % 21.7 Monocytes % 7.5 Eosinophils % 5.0 Basophils % 0.7 Nucleated Red Blood Cells % 0.0 Neutrophils # 6.2 Lymphocytes # 2.1 Monocytes # 0.7 Eosinophils # 0.5 Basophils # 0.1 Nucleated Red Blood Cells # 0.0 Sodium Level 143 Potassium Level 3.7 Chloride Level 108 Carbon Dioxide Level 28 Anion Gap 11 Blood Urea Nitrogen 10 Creatinine 1.01 Glucose Level 93 Calcium Level 8.8 Phosphorus Level 3.1 Magnesium Level 1.9 Medications Medications Current Medications Acetaminophen (Tylenol Tab) 650 mg Q6H PRN PO PAIN LEVEL 1-3 OR FEVER Last administered on 01/20/17 18:02; Admin Dose 650 MG; Start 01/14/17 at 06:30 Atorvastatin Calcium (Lipitor) 10 mg QHS PO Last administered on 01/20/17 20: 01; Admin Dose 10 MG; Start 01/14/17 at 21:00 Lorazepam (Ativan) 1 mg BID PRN PO ANXIETY Last administered on 01/21/17 08: 12; Admin Dose 1 MG; Start 01/14/17 at 06:30 Sertraline HCl (Zoloft) 200 mg DAILY PO Last administered on 01/21/17 08:08; Admin Dose 200 MG; Start 01/14/17 at 09:00 Acetaminophen (Tylenol Tab) 650 mg Q6H PRN PO PAIN LEVEL 1-3 OR FEVER; Start 01/14/17 at 06:30 Tamsulosin HCl (Flomax) 0.4 mg BID PO Last administered on 01/21/17 08:08; Admin Dose 0.4 MG; Start 01/14/17 at 09:00 Heparin Sodium (Porcine) (Heparin (5000 Units/0.5 ml)) 5,000 unit Q8 SC Last administered on 01/21/17 05:43; Admin Dose 5,000 UNIT; Start 01/14/17 at 14:00 Docusate Sodium (Colace) 100 mg Q12H PO Last administered on 01/21/17 05:45; Admin Dose 100 MG; Start 01/14/17 at 18:30 Bisacodyl (Dulcolax) 10 mg DAILY PRN PO CONSTIPATION Last administered on 17:17; Admin Dose 10 MG; Start 01/14/17 at 17:30 Polyethylene Glycol (Miralax) 17 gm BID PO Last administered on 01/20/17 08: 20; Admin Dose 17 GM; Start 01/14/17 at 21:00 Morphine Sulfate (morphine) 2 mg Q4H PRN IV PAIN Last administered on 01:55; Admin Dose 2 MG; Start 01/14/17 at 17:30 Nitroglycerin (Nitroglycerin (Sl Tab) 0.4 Mg) 1 tab Q5M PRN SL CHEST PAIN Last administered on 01/15/17 12:40; Admin Dose 1 TAB; Start 01/15/17 at 12:30 Hydralazine HCl (Apresoline) 10 mg Q4H PRN IV sbp>160 Last administered on 05:44; Admin Dose 10 MG; Start 01/15/17 at 12:30 Mupirocin (Bactroban) 1 applic BID TOP Last administered on 01/21/17 09:40; Admin Dose 1 APPLIC; Start 01/15/17 at 21:00 Amlodipine Besylate (Norvasc) 5 mg BID PO Last administered on 01/21/17 08:07 ; Admin Dose 5 MG; Start 01/15/17 at 21:00 Isosorbide Mononitrate (Imdur) 30 mg DAILY PO Last administered on 01/21/17 08:07; Admin Dose 30 MG; Start 01/16/17 at 09:00 Ondansetron HCl (Zofran Inj) 4 mg Q4 IV Last administered on 01/21/17 05:28; Admin Dose 4 MG; Start 01/16/17 at 13:00 Pantoprazole 40 mg 40 mg DAILY@06 PO Last administered on 01/21/17 05:28; Admin Dose 40 MG; Start 01/17/17 at 06:00 Ertapenem/Sodium Chloride (Invanz/NS) 100 ml @ 200 mls/hr Q24H IVPB Last administered on 01/20/17 14:16; Admin Dose 200 MLS/HR; Start 11/9/17 at 14:30 Hydralazine HCl (Apresoline) 100 mg TID PRN PO SBP GREATER THAN 160; Start 12/26 at 13:30 Metoprolol Tartrate (Lopressor) 25 mg BID PO Last administered on 01/21/17 08 :07; Admin Dose 25 MG; Start 01/19/17 at 21:00 Potassium Chloride (Potassium Chloride Pwd/Soln) 40 meq DAILY PO Last administered on 01/21/17 08:06; Admin Dose 40 MEQ; Start 01/19/17 at 14:00 LISA RAMÍREZ MD Jan 21, 2017 14:13
--- NOTE | 2017-01-21 16:51 | CONS ---
Date/Time of Note Date/Time of Note DATE: 01/21/17 TIME: 16:45 Consultation Date/Type/Reason Admit Date/Time Jan 14, 2017 at 09:38 Initial Consult Date SUBJECTIVE: 71 y/o male being treated for SIRS and bacteremia. No acute changes. Denies fevers. The patient is lying comfortably in bed. VS: 165/89 P:70 R:17 SO2:96% T:97.8 LABS: WBC- 9.8 H&H: 13.4/41.2 BMP-WNL MICROBIOLOGY: Blood cultures since admission grew Propionibacterium acnes. Nares swab came back positive for MRSA. Repeat BC are neg x2. 01/18/17. ANTIMICROBIALS: Ertapenem DIAGNOSTICS: 2D echo on admission revealed no vegetation, ejection fraction of 55%, normal right ventricular systolic function. PHYSICAL EXAMINATION: GENERAL: Obese, well-developed elderly man who is awake, in no distress. HEENT: Head atraumatic, normocephalic. Sclerae anicteric. Buccal mucosa pink. NECK: Supple. CHEST: Rise symmetrical. Breath sounds diminished to bases. HEART: S1, S2. ABDOMEN: Soft, bowel tones present. EXTREMITIES: Without cyanosis. ASSESSMENT: 1. Systemic inflammatory response syndrome on admission with fevers, chills and leukocytosis. 2. Propionibacterium acnes bacteremia. 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 4. Prostatomegaly. 5. Hypertension. 6. Chest pain==> troponin have been negative ==> cardio following. PLAN: Remains stable, recommend completing 10 days abx for bacteremia, urology rec-s noted. Type of Consultation: ID Referring Provider: MARTHA SOLIS Exam/Review of Systems Vital Signs Vitals Vital Signs Date Time Temp Pulse Resp B/P Pulse Ox O2 Delivery O2 Flow Rate FiO2 01/21/17 16:22 78 01/21/17 15:16 97.8 17 165/89 96 01/20/17 22:00 Room Air Intake and Output 01/20/17 01/20/17 01/21/17 14:59 22:59 06:59 Intake Total 1000 ml 500 ml Output Total 1000 ml 600 ml Balance 0 ml -100 ml Results Result Diagram: 01/21/17 0628 01/21/17 0628 Results 24 hrs Laboratory Tests Test 01/21/17 06:28 White Blood Count 9.8 # Red Blood Count 4.69 L Hemoglobin 13.4 L Hematocrit 41.2 L Mean Corpuscular Volume 87.8 Mean Corpuscular Hemoglobin 28.6 L Mean Corpuscular Hemoglobin Concent 32.5 Red Cell Distribution Width 15.9 H Platelet Count 253 Mean Platelet Volume 10.8 H Neutrophils % 63.7 Lymphocytes % 21.7 Monocytes % 7.5 Eosinophils % 5.0 Basophils % 0.7 Nucleated Red Blood Cells % 0.0 Neutrophils # 6.2 Lymphocytes # 2.1 Monocytes # 0.7 Eosinophils # 0.5 Basophils # 0.1 Nucleated Red Blood Cells # 0.0 Sodium Level 143 Potassium Level 3.7 Chloride Level 108 Carbon Dioxide Level 28 Anion Gap 11 Blood Urea Nitrogen 10 Creatinine 1.01 Glucose Level 93 Calcium Level 8.8 Phosphorus Level 3.1 Magnesium Level 1.9 Medications Medications Current Medications Acetaminophen (Tylenol Tab) 650 mg Q6H PRN PO PAIN LEVEL 1-3 OR FEVER Last administered on 01/20/17 18:02; Admin Dose 650 MG; Start 01/14/17 at 06:30 Atorvastatin Calcium (Lipitor) 10 mg QHS PO Last administered on 01/20/17 20: 01; Admin Dose 10 MG; Start 01/14/17 at 21:00 Lorazepam (Ativan) 1 mg BID PRN PO ANXIETY Last administered on 01/21/17 08: 12; Admin Dose 1 MG; Start 01/14/17 at 06:30 Sertraline HCl (Zoloft) 200 mg DAILY PO Last administered on 01/21/17 08:08; Admin Dose 200 MG; Start 01/14/17 at 09:00 Acetaminophen (Tylenol Tab) 650 mg Q6H PRN PO PAIN LEVEL 1-3 OR FEVER; Start 01/14/17 at 06:30 Tamsulosin HCl (Flomax) 0.4 mg BID PO Last administered on 01/21/17 08:08; Admin Dose 0.4 MG; Start 01/14/17 at 09:00 Heparin Sodium (Porcine) (Heparin (5000 Units/0.5 ml)) 5,000 unit Q8 SC Last administered on 01/21/17 14:47; Admin Dose 5,000 UNIT; Start 01/14/17 at 14:00 Docusate Sodium (Colace) 100 mg Q12H PO Last administered on 01/21/17 05:45; Admin Dose 100 MG; Start 01/14/17 at 18:30 Bisacodyl (Dulcolax) 10 mg DAILY PRN PO CONSTIPATION Last administered on 17:17; Admin Dose 10 MG; Start 01/14/17 at 17:30 Polyethylene Glycol (Miralax) 17 gm BID PO Last administered on 01/20/17 08: 20; Admin Dose 17 GM; Start 01/14/17 at 21:00 Morphine Sulfate (morphine) 2 mg Q4H PRN IV PAIN Last administered on 01:55; Admin Dose 2 MG; Start 01/14/17 at 17:30 Nitroglycerin (Nitroglycerin (Sl Tab) 0.4 Mg) 1 tab Q5M PRN SL CHEST PAIN Last administered on 01/15/17 12:40; Admin Dose 1 TAB; Start 01/15/17 at 12:30 Hydralazine HCl (Apresoline) 10 mg Q4H PRN IV sbp>160 Last administered on 05:44; Admin Dose 10 MG; Start 01/15/17 at 12:30 Mupirocin (Bactroban) 1 applic BID TOP Last administered on 01/21/17 09:40; Admin Dose 1 APPLIC; Start 01/15/17 at 21:00 Amlodipine Besylate (Norvasc) 5 mg BID PO Last administered on 01/21/17 08:07 ; Admin Dose 5 MG; Start 01/15/17 at 21:00 Isosorbide Mononitrate (Imdur) 30 mg DAILY PO Last administered on 01/21/17 08:07; Admin Dose 30 MG; Start 01/16/17 at 09:00 Ondansetron HCl (Zofran Inj) 4 mg Q4 IV Last administered on 01/21/17 05:28; Admin Dose 4 MG; Start 01/16/17 at 13:00 Pantoprazole 40 mg 40 mg DAILY@06 PO Last administered on 01/21/17 05:28; Admin Dose 40 MG; Start 01/17/17 at 06:00 Ertapenem/Sodium Chloride (Invanz/NS) 100 ml @ 200 mls/hr Q24H IVPB Last administered on 01/21/17 13:52; Admin Dose 200 MLS/HR; Start 01/18/17 at 14:30 Hydralazine HCl (Apresoline) 100 mg TID PRN PO SBP GREATER THAN 160; Start 12/26 at 13:30 Metoprolol Tartrate (Lopressor) 25 mg BID PO Last administered on 01/21/17 08 :07; Admin Dose 25 MG; Start 01/19/17 at 21:00 Potassium Chloride (Potassium Chloride Pwd/Soln) 40 meq DAILY PO Last administered on 01/21/17 08:06; Admin Dose 40 MEQ; Start 01/19/17 at 14:00 SILVIA HOFFMAN Jan 21, 2017 16:51
[2017-01-21] MEDS: hydrALAzine 20 MG INJ IV PRN (18:51)
[2017-01-21] MEDS: ATORVASTATIN 10 MG TAB PO SCH (21:06)
[2017-01-22] VITALS (12 sets, daily range): BP systolic 129–184; BP diastolic 75–107; PULSE 65–78; RESP 17–18
[2017-01-22] MEDS: ONDANSETRON 4 MG INJ IV SCH ×6 (02:35→21:12)
[2017-01-22] MEDS: PANTOPRAZOLE (EC) 40 MG TAB PO SCH (07:15)
[2017-01-22] MEDS: DOCUSATE SODIUM 100 MG CAP PO SCH ×2 (07:15→17:27)
[2017-01-22] MEDS: morphine 2 MG INJ IV PRN ×3 (07:16→16:09)
[2017-01-22] MEDS: hydrALAzine 20 MG INJ IV PRN (07:16)
[2017-01-22] MEDS: HEPARIN 5,000 UNIT/0.5 ML VIAL SC SCH ×3 (07:17→21:33)
[2017-01-22] MEDS: POTASSIUM CHLORIDE 20 MEQ POWDER FOR ORAL SOLN PO SCH (08:08)
[2017-01-22] MEDS: TAMSULOSIN (SR) 0.4 MG CAP PO SCH ×2 (08:09→21:12)
[2017-01-22] MEDS: AMLODIPINE 5 MG TAB PO SCH ×2 (08:09→21:12)
[2017-01-22] MEDS: METOPROLOL 25 MG TAB PO SCH ×2 (08:09→21:13)
[2017-01-22] MEDS: SERTRALINE 100 MG TAB PO SCH (08:09)
[2017-01-22] MEDS: ISOSORBIDE MONONITRATE(SR)30 MG TAB PO SCH (08:10)
[2017-01-22] MEDS: POLYETHYLENE GLYCOL 17 GM PACKET PO SCH ×2 (08:10→21:00)
[2017-01-22] MEDS: MUPIROCIN 2% 22 GM OINT TOP SCH ×2 (08:10→21:00)
--- NOTE | 2017-01-22 09:19 | PN ---
DATE: 01/22/2017 SUBJECTIVE: The patient is complaining about pain, and is complaining of dysuria. No other events noted. OBJECTIVE: VITAL SIGNS: Blood pressure is 184/107, respirations 18, pulse 80, temperature 97.6. HEENT: Head is normocephalic. NECK: Supple. HEART: Regular rate. LUNGS: Show diminished breath sounds at the base. ABDOMEN: Soft, nontender to palpation. No rebound or guarding. EXTREMITIES: Negative for clubbing, cyanosis. No edema. DERMATOLOGIC: No rashes. MUSCULOSKELETAL: No joint effusions. NEUROLOGIC: No change in exam. MEDICATIONS: The patient's medications have been reviewed. LABORATORY DATA: Currently pending. ASSESSMENT AND PLAN: 1. Nonoliguric acute kidney injury with previous baseline creatinine 0.8 mg/dL. Etiology of acute kidney injury is secondary to hemodynamics. Renal function is stable, back to previous baseline. C ontinue current treatment plan, supportive care, renally dose all meds. 2. Hypokalemia, improved. 3. Mineral bone disorder. Monitor calcium and phosphorus levels. 4. Anemia. Monitor hemoglobin and hematocrit levels. 5. Chest pain, improved. 6. BPH. Continue current medical management. The patient will have outpatient urology evaluation. 7. Hypertension. Blood pressure elevated. Continue current blood pressure regimen. Adjust medica tions as needed. 8. Systemic inflammatory response syndrome. Dictated By: CAMDEN JOSÉ/JORDAN Conf#: [id number] DID#: [id number] CC: MARTHA SOLIS MD;*EndCC*
[2017-01-22] MEDS: LORAZEPAM 1 MG TAB PO PRN ×2 (10:15→21:12)
[2017-01-22] MEDS: ACETAMINOPHEN 325 MG TAB PO PRN ×2 (11:33→19:34)
--- NOTE | 2017-01-22 12:23 | CONS ---
Date/Time of Note Date/Time of Note DATE: 01/22/17 TIME: 12:19 Assessment/Plan Assessment/Plan Chief Complaint/Hosp Course ASSESSMENT AND PLAN: A 71-year-old gentleman with: 1. Chest pain-negative trop x 3/NL EF by echo. No ischemia by lexiscan with NL EF 2. Hypertension-uncontrolled 3. Dyslipidemia. 4. Obesity. 5. Anxiety. 6. Depression. 7. UTI/prostatitis Recc: -Continue norvasc/oral nitrates/BB with currently well controlled BP -Continue statin -Continue abx's and f/u cx data Problems: Consultation Date/Type/Reason Admit Date/Time Jan 14, 2017 at 09:38 Initial Consult Date 01/14/17 Type of Consultation: cardiology Reason for Consultation chest pain Referring Provider: MARTHA SOLIS Exam/Review of Systems Vital Signs Vitals Vital Signs Date Time Temp Pulse Resp B/P Pulse Ox O2 Delivery O2 Flow Rate FiO2 01/22/17 11:29 97.8 75 17 129/75 94 01/20/17 22:00 Room Air Intake and Output 01/21/17 01/21/17 01/22/17 14:59 22:59 06:59 Intake Total 950 ml 580 ml Balance 950 ml 580 ml Exam Review of Systems: CONSTITUTIONAL: No fevers, chills. PULMONARY: No sob CARDIOVASCULAR: No chest pain/palpitations GASTROINTESTINAL: No nausea/vomiting. GENITOURINARY: No hematuria/dysuria. MUSCULOSKELETAL: No myagias/arthalgias. PSYCHIATRIC: The patient denies depression. NEUROLOGIC: No weakness Constitutional: alert, oriented Psych: no complaints Head: normocephalic ENMT: mucosa pink and moist Neck: jvd, supple Respiratory: diminished breath sounds (at bases/B) Cardiovascular: regular rate and rhythm Gastrointestinal: non-tender, soft Musculoskeletal: muscle tone Extremities: edema (none) Neurological: other (No focal deficits) Results Result Diagram: 01/21/1762701/21/17627 Medications Medications Current Medications Acetaminophen (Tylenol Tab) 650 mg Q6H PRN PO PAIN LEVEL 1-3 OR FEVER Last administered on 01/22/17 11:33; Admin Dose 650 MG; Start 01/14/17 at 06:30 Atorvastatin Calcium (Lipitor) 10 mg QHS PO Last administered on 01/21/17 21: 06; Admin Dose 10 MG; Start 01/14/17 at 21:00 Lorazepam (Ativan) 1 mg BID PRN PO ANXIETY Last administered on 01/22/17 10: 15; Admin Dose 1 MG; Start 01/14/17 at 06:30 Sertraline HCl (Zoloft) 200 mg DAILY PO Last administered on 01/22/17 08:09; Admin Dose 200 MG; Start 01/14/17 at 09:00 Acetaminophen (Tylenol Tab) 650 mg Q6H PRN PO PAIN LEVEL 1-3 OR FEVER; Start 01/14/17 at 06:30 Tamsulosin HCl (Flomax) 0.4 mg BID PO Last administered on 01/22/17 08:09; Admin Dose 0.4 MG; Start 01/14/17 at 09:00 Heparin Sodium (Porcine) (Heparin (5000 Units/0.5 ml)) 5,000 unit Q8 SC Last administered on 01/22/17 07:17; Admin Dose 5,000 UNIT; Start 01/14/17 at 14:00 Docusate Sodium (Colace) 100 mg Q12H PO Last administered on 01/22/17 07:15; Admin Dose 100 MG; Start 01/14/17 at 18:30 Bisacodyl (Dulcolax) 10 mg DAILY PRN PO CONSTIPATION Last administered on 17:17; Admin Dose 10 MG; Start 01/14/17 at 17:30 Polyethylene Glycol (Miralax) 17 gm BID PO Last administered on 01/22/17 08: 10; Admin Dose 17 GM; Start 01/14/17 at 21:00 Morphine Sulfate (morphine) 2 mg Q4H PRN IV PAIN Last administered on 11:34; Admin Dose 2 MG; Start 01/14/17 at 17:30 Nitroglycerin (Nitroglycerin (Sl Tab) 0.4 Mg) 1 tab Q5M PRN SL CHEST PAIN Last administered on 01/15/17 12:40; Admin Dose 1 TAB; Start 01/15/17 at 12:30 Hydralazine HCl (Apresoline) 10 mg Q4H PRN IV sbp>160 Last administered on 07:16; Admin Dose 10 MG; Start 01/15/17 at 12:30 Mupirocin (Bactroban) 1 applic BID TOP Last administered on 01/22/17 08:10; Admin Dose 1 APPLIC; Start 01/15/17 at 21:00 Amlodipine Besylate (Norvasc) 5 mg BID PO Last administered on 01/22/17 08:09 ; Admin Dose 5 MG; Start 01/15/17 at 21:00 Isosorbide Mononitrate (Imdur) 30 mg DAILY PO Last administered on 01/22/17 08:10; Admin Dose 30 MG; Start 01/16/17 at 09:00 Ondansetron HCl (Zofran Inj) 4 mg Q4 IV Last administered on 01/22/17 08:10; Admin Dose 4 MG; Start 01/16/17 at 13:00 Pantoprazole 40 mg 40 mg DAILY@06 PO Last administered on 01/22/17 07:15; Admin Dose 40 MG; Start 01/17/17 at 06:00 Ertapenem/Sodium Chloride (Invanz/NS) 100 ml @ 200 mls/hr Q24H IVPB Last administered on 01/21/17 13:52; Admin Dose 200 MLS/HR; Start 01/18/17 at 14:30 Hydralazine HCl (Apresoline) 100 mg TID PRN PO SBP GREATER THAN 160 Last administered on 01/22/17 08:08; Admin Dose 100 MG; Start 01/19/17 at 13:30 Metoprolol Tartrate (Lopressor) 25 mg BID PO Last administered on 01/22/17 08 :09; Admin Dose 25 MG; Start 01/19/17 at 21:00 Potassium Chloride (Potassium Chloride Pwd/Soln) 40 meq DAILY PO Last administered on 01/22/17 08:08; Admin Dose 40 MEQ; Start 01/19/17 at 14:00 YESSY CANALES 13, 2017 12:23
--- NOTE | 2017-01-22 13:05 | CONS ---
Date/Time of Note Date/Time of Note DATE: 01/22/17 TIME: 13:04 Assessment/Plan Assessment/Plan Chief Complaint/Hosp Course SUBJECTIVE: No acute changes. No fevers. The patient is lying comfortably in bed. MICROBIOLOGY: Blood cultures since admission grew Propionibacterium acnes. Nares swab came back positive for MRSA. ANTIMICROBIALS: Invanz DIAGNOSTICS: 2D echo on admission revealed no vegetation, ejection fraction of 55%, normal right ventricular systolic function. PHYSICAL EXAMINATION: GENERAL: Obese, well-developed elderly man who is awake, in no distress. HEENT: Head atraumatic, normocephalic. Sclerae anicteric. Buccal mucosa pink. NECK: Supple. CHEST: Rise symmetrical. Breath sounds diminished to bases. HEART: S1, S2. ABDOMEN: Soft, bowel tones present. EXTREMITIES: Without cyanosis. ASSESSMENT: 1. Systemic inflammatory response syndrome on admission with fevers, chills and leukocytosis. 2. Propionibacterium acnes bacteremia. 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 4. Prostatomegaly. 5. Hypertension. 6. Chest pain==> troponin have been negative ==> card on case, s/p Lexiscan. PLAN: Remains stable, continue abx for 5 more days for bacteremia, card/ urology rec-s. [facility] staff Problems: Consultation Date/Type/Reason Admit Date/Time Jan 14, 2017 at 09:38 Initial Consult Date 01/16/17 Type of Consultation: ID Referring Provider: MARTHA SOLIS Exam/Review of Systems Vital Signs Vitals Vital Signs Date Time Temp Pulse Resp B/P Pulse Ox O2 Delivery O2 Flow Rate FiO2 01/22/17 12:20 70 01/22/17 11:29 97.8 17 129/75 94 01/20/17 22:00 Room Air Intake and Output 01/21/17 01/21/17 01/22/17 15:00 23:00 07:00 Intake Total 950 ml 580 ml Balance 950 ml 580 ml Results Result Diagram: 01/21/1762701/21/17627 Medications Medications Current Medications Acetaminophen (Tylenol Tab) 650 mg Q6H PRN PO PAIN LEVEL 1-3 OR FEVER Last administered on 01/22/17t 11:33; Admin Dose 650 MG; Start 01/14/17 at 06:30 Atorvastatin Calcium (Lipitor) 10 mg QHS PO Last administered on 01/21/17 21: 06; Admin Dose 10 MG; Start 01/14/17 at 21:00 Lorazepam (Ativan) 1 mg BID PRN PO ANXIETY Last administered on 01/22/17 10: 15; Admin Dose 1 MG; Start 01/14/17 at 06:30 Sertraline HCl (Zoloft) 200 mg DAILY PO Last administered on 01/22/17 08:09; Admin Dose 200 MG; Start 01/14/17 at 09:00 Acetaminophen (Tylenol Tab) 650 mg Q6H PRN PO PAIN LEVEL 1-3 OR FEVER; Start 01/14/17 at 06:30 Tamsulosin HCl (Flomax) 0.4 mg BID PO Last administered on 01/22/17 08:09; Admin Dose 0.4 MG; Start 01/14/17 at 09:00 Heparin Sodium (Porcine) (Heparin (5000 Units/0.5 ml)) 5,000 unit Q8 SC Last administered on 01/22/17 07:17; Admin Dose 5,000 UNIT; Start 01/14/17 at 14:00 Docusate Sodium (Colace) 100 mg Q12H PO Last administered on 01/22/17 07:15; Admin Dose 100 MG; Start 01/14/17 at 18:30 Bisacodyl (Dulcolax) 10 mg DAILY PRN PO CONSTIPATION Last administered on 17:17; Admin Dose 10 MG; Start 01/14/17 at 17:30 Polyethylene Glycol (Miralax) 17 gm BID PO Last administered on 01/22/17 08: 10; Admin Dose 17 GM; Start 01/14/17 at 21:00 Morphine Sulfate (morphine) 2 mg Q4H PRN IV PAIN Last administered on 11:34; Admin Dose 2 MG; Start 01/14/17 at 17:30 Nitroglycerin (Nitroglycerin (Sl Tab) 0.4 Mg) 1 tab Q5M PRN SL CHEST PAIN Last administered on 01/15/17 12:40; Admin Dose 1 TAB; Start 01/15/17 at 12:30 Hydralazine HCl (Apresoline) 10 mg Q4H PRN IV sbp>160 Last administered on 07:16; Admin Dose 10 MG; Start 01/15/17 at 12:30 Mupirocin (Bactroban) 1 applic BID TOP Last administered on 01/22/17 08:10; Admin Dose 1 APPLIC; Start 01/15/17 at 21:00 Amlodipine Besylate (Norvasc) 5 mg BID PO Last administered on 01/22/17 08:09 ; Admin Dose 5 MG; Start 01/15/17 at 21:00 Isosorbide Mononitrate (Imdur) 30 mg DAILY PO Last administered on 01/22/17 08:10; Admin Dose 30 MG; Start 01/16/17 at 09:00 Ondansetron HCl (Zofran Inj) 4 mg Q4 IV Last administered on 01/22/17 08:10; Admin Dose 4 MG; Start 01/16/17 at 13:00 Pantoprazole 40 mg 40 mg DAILY@06 PO Last administered on 01/22/17 07:15; Admin Dose 40 MG; Start 01/17/17 at 06:00 Ertapenem/Sodium Chloride (Invanz/NS) 100 ml @ 200 mls/hr Q24H IVPB Last administered on 01/21/17 13:52; Admin Dose 200 MLS/HR; Start 01/18/17 at 14:30 Hydralazine HCl (Apresoline) 100 mg TID PRN PO SBP GREATER THAN 160 Last administered on 01/22/17 08:08; Admin Dose 100 MG; Start 01/19/17 at 13:30 Metoprolol Tartrate (Lopressor) 25 mg BID PO Last administered on 01/22/17 08 :09; Admin Dose 25 MG; Start 01/19/17 at 21:00 Potassium Chloride (Potassium Chloride Pwd/Soln) 40 meq DAILY PO Last administered on 01/22/17 08:08; Admin Dose 40 MEQ; Start 01/19/17 at 14:00 DIANA FUNK NP Jan 22, 2017 13:05
--- NOTE | 2017-01-22 13:33 | CONS ---
Date/Time of Note Date/Time of Note DATE: 01/22/17 TIME: 13:30 Consult Date/Type/Reason Admit Date/Time Jan 14, 2017 at 09:38 Initial Consult Date 01/14/17 Type of Consultation: Urology Reason for Consultation Benign prostatic hypertrophy and dysuria Ordering Provider: MARTHA SOLIS Subjective Patient complains of pain in the rectal area and voids frequently and has dysuria Objective Vital Signs Date Time Temp Pulse Resp B/P Pulse Ox O2 Delivery O2 Flow Rate FiO2 01/22/17 12:20 70 01/22/17 11:29 97.8 17 129/75 94 01/20/17 22:00 Room Air Intake and Output 01/21/17 01/21/17 01/22/17 15:00 23:00 07:00 Intake Total 950 ml 580 ml Balance 950 ml 580 ml Exam Abdomen is soft, there is no tenderness. The bladder is not distended. External genitalia are normal Results/Medications Result Diagram: 01/21/1762701/21/17627 Medications Current Medications Acetaminophen (Tylenol Tab) 650 mg Q6H PRN PO PAIN LEVEL 1-3 OR FEVER Last administered on 01/22/17 11:33; Admin Dose 650 MG; Start 01/14/17 at 06:30 Atorvastatin Calcium (Lipitor) 10 mg QHS PO Last administered on 01/21/17 21: 06; Admin Dose 10 MG; Start 01/14/17 at 21:00 Lorazepam (Ativan) 1 mg BID PRN PO ANXIETY Last administered on 01/22/17 10: 15; Admin Dose 1 MG; Start 01/14/17 at 06:30 Sertraline HCl (Zoloft) 200 mg DAILY PO Last administered on 01/22/17 08:09; Admin Dose 200 MG; Start 01/14/17 at 09:00 Acetaminophen (Tylenol Tab) 650 mg Q6H PRN PO PAIN LEVEL 1-3 OR FEVER; Start 01/14/17 at 06:30 Tamsulosin HCl (Flomax) 0.4 mg BID PO Last administered on 01/22/17 08:09; Admin Dose 0.4 MG; Start 01/14/17 at 09:00 Heparin Sodium (Porcine) (Heparin (5000 Units/0.5 ml)) 5,000 unit Q8 SC Last administered on 01/22/17 13:13; Admin Dose 5,000 UNIT; Start 01/14/17 at 14:00 Docusate Sodium (Colace) 100 mg Q12H PO Last administered on 01/22/17 07:15; Admin Dose 100 MG; Start 01/14/17 at 18:30 Bisacodyl (Dulcolax) 10 mg DAILY PRN PO CONSTIPATION Last administered on 17:17; Admin Dose 10 MG; Start 01/14/17 at 17:30 Polyethylene Glycol (Miralax) 17 gm BID PO Last administered on 01/22/17 08: 10; Admin Dose 17 GM; Start 01/14/17 at 21:00 Morphine Sulfate (morphine) 2 mg Q4H PRN IV PAIN Last administered on 11:34; Admin Dose 2 MG; Start 01/14/17 at 17:30 Nitroglycerin (Nitroglycerin (Sl Tab) 0.4 Mg) 1 tab Q5M PRN SL CHEST PAIN Last administered on 01/15/17 12:40; Admin Dose 1 TAB; Start 01/15/17 at 12:30 Hydralazine HCl (Apresoline) 10 mg Q4H PRN IV sbp>160 Last administered on 07:16; Admin Dose 10 MG; Start 01/15/17 at 12:30 Mupirocin (Bactroban) 1 applic BID TOP Last administered on 01/22/17 08:10; Admin Dose 1 APPLIC; Start 01/15/17 at 21:00 Amlodipine Besylate (Norvasc) 5 mg BID PO Last administered on 01/22/17 08:09 ; Admin Dose 5 MG; Start 01/15/17 at 21:00 Isosorbide Mononitrate (Imdur) 30 mg DAILY PO Last administered on 01/22/17 08:10; Admin Dose 30 MG; Start 01/16/17 at 09:00 Ondansetron HCl (Zofran Inj) 4 mg Q4 IV Last administered on 01/22/17 13:12; Admin Dose 4 MG; Start 01/16/17 at 13:00 Pantoprazole 40 mg 40 mg DAILY@06 PO Last administered on 01/22/17 07:15; Admin Dose 40 MG; Start 01/17/17 at 06:00 Ertapenem/Sodium Chloride (Invanz/NS) 100 ml @ 200 mls/hr Q24H IVPB Last administered on 01/21/17 13:52; Admin Dose 200 MLS/HR; Start 01/18/17 at 14:30 Hydralazine HCl (Apresoline) 100 mg TID PRN PO SBP GREATER THAN 160 Last administered on 01/22/17 08:08; Admin Dose 100 MG; Start 01/19/17 at 13:30 Metoprolol Tartrate (Lopressor) 25 mg BID PO Last administered on 01/22/17 08 :09; Admin Dose 25 MG; Start 01/19/17 at 21:00 Potassium Chloride (Potassium Chloride Pwd/Soln) 40 meq DAILY PO Last administered on 01/22/17 08:08; Admin Dose 40 MEQ; Start 01/19/17 at 14:00 Assessment/Plan Chief Complaint/Hosp Course 71-year-old male admitted with chills abdominal pain left shoulder pain chest pain nausea vomiting and had a CT scan of the abdomen and pelvis which showed enlarged and nodular prostate protruding into the bladder base. The patient does have history of recurrent urinary tract infections and obstructive lower urinary tract symptoms. His urinary tract infection has been treated and his PSA has been normal. He is on tamsulosin. He will need follow-up in the office later on and may end up needing a transurethral resection of the prostate. The prostate is very large and measured about 6 cm and the anterior- posterior measurement and 6 cm and a transverse measurement as well. Since he still has dysuria we'll repeat the urine culture Problems: DUC SMITH MD Jan 22, 2017 13:33
[2017-01-22] MEDS: ERTAPENEM SODIUM 1 GM in SOD CHLORIDE 0.9% 100 ML IVPB SCH ×2 (14:30→16:04)
--- NOTE | 2017-01-22 15:21 | PN ---
Date/Time of Note Date/Time of Note DATE: 01/22/17 TIME: 15:16 Assessment/Plan VTE Prophylaxis VTE Prophylaxis Intervention: heparin Lines/Catheters IV C[facility]ter Type (from [facility] Peripheral IV Urinary Cath still in place: No Assessment/Plan Chief Complaint/Hosp Course 1. Systemic inflammatory response syndrome with febrile illness, leukocytosis, and tachycardia. Urine culture inconclusive. Blood cultures showing Propionibacterium acnes. On antibiotics as per infectious diseases. 2. Nonspecific left chest wall pain with associated left arm pain. Nuclear medicine cardiac stress test negative for any perfusion defects. Left shoulder X -ray showing moderate acromioclavicular osteoarthrosis and enthesopathic changes at the greater tuberosity. 3. Acute kidney injury. Etiology unclear. Resolved. Being followed by nephrology. 4. Prostatomegaly with CT evidence of enlarged prostate measuring up to 6.2 cm in transverse diameter. The patient will be continued on tamsulosin. Urology following. 5. Abdominal pain with associated nausea and vomiting. Etiology unclear. No CT evidence of any acute intra-abdominal findings. Gastroenterology following. Continue PPI. 6. Essential hypertension. The patient will be maintained on antihypertensives. 7. Dyslipidemia. The patient will be continued on statins. The patient's fasting lipid panel is satisfactory. 8. Fluids, electrolytes, and nutrition. Low-cholesterol diet. 9. DVT prophylaxis. Subcutaneous heparin. 10. Plan. Continue antimicrobials as per infectious diseases. Await further recommendations from consultants. Can be moved out of Tele. Case discussed with Dr. Quintanilla. Problems: Subjective 24 Hr Interval Summary Free Text/Dictation Complains of left shoulder pain. Exam/Review of Systems Vital Signs Vitals Vital Signs Date Time Temp Pulse Resp B/P Pulse Ox O2 Delivery O2 Flow Rate FiO2 01/22/17 12:20 70 01/22/17 11:29 97.8 17 129/75 94 01/20/17 22:00 Room Air Intake and Output 01/21/17 01/21/17 01/22/17 14:59 22:59 06:59 Intake Total 950 ml 580 ml Balance 950 ml 580 ml Exam General: Obese 71 year-old male lying in bed in no apparent distress. HEENT: Normocephalic, atraumatic. Eyes: Anicteric sclerae, conjunctivae clear. ENT: Nasal septum midline, oral mucosa moist. Neck supple, no JVD noticed. Oropharynx clear without any exudate. Respiratory: Bilaterally diminished breath sounds. No use of accessory muscles of respiration. No adventitious breath sounds. Cardiovascular: S1, S2 heard. Regular rate and rhythm. Abdomen: Soft and nondistended. Bowel sounds positive in all 4 quadrants. Suprapubic tenderness. Genitourinary: Deferred. Extremities: No cyanosis, no clubbing, no edema. Peripheral pulses palpable. Neurologic: Cranial nerves II through XII grossly intact. The patient is awake, alert, and oriented. Skin: Normal skin turgor. No skin rashes. Results Result Diagram: 01/21/1762701/21/17627 Medications Medications Current Medications Acetaminophen (Tylenol Tab) 650 mg Q6H PRN PO PAIN LEVEL 1-3 OR FEVER Last administered on 01/22/17 11:33; Admin Dose 650 MG; Start 01/14/17 at 06:30 Atorvastatin Calcium (Lipitor) 10 mg QHS PO Last administered on 01/21/17 21: 06; Admin Dose 10 MG; Start 01/14/17 at 21:00 Lorazepam (Ativan) 1 mg BID PRN PO ANXIETY Last administered on 01/22/17 10: 15; Admin Dose 1 MG; Start 01/14/17 at 06:30 Sertraline HCl (Zoloft) 200 mg DAILY PO Last administered on 01/22/17 08:09; Admin Dose 200 MG; Start 01/14/17 at 09:00 Acetaminophen (Tylenol Tab) 650 mg Q6H PRN PO PAIN LEVEL 1-3 OR FEVER; Start 01/14/17 at 06:30 Tamsulosin HCl (Flomax) 0.4 mg BID PO Last administered on 01/22/17 08:09; Admin Dose 0.4 MG; Start 01/14/17 at 09:00 Heparin Sodium (Porcine) (Heparin (5000 Units/0.5 ml)) 5,000 unit Q8 SC Last administered on 01/22/17 13:13; Admin Dose 5,000 UNIT; Start 01/14/17 at 14:00 Docusate Sodium (Colace) 100 mg Q12H PO Last administered on 01/22/17 07:15; Admin Dose 100 MG; Start 01/14/17 at 18:30 Bisacodyl (Dulcolax) 10 mg DAILY PRN PO CONSTIPATION Last administered on 17:17; Admin Dose 10 MG; Start 01/14/17 at 17:30 Polyethylene Glycol (Miralax) 17 gm BID PO Last administered on 01/22/17 08: 10; Admin Dose 17 GM; Start 01/14/17 at 21:00 Morphine Sulfate (morphine) 2 mg Q4H PRN IV PAIN Last administered on 11:34; Admin Dose 2 MG; Start 01/14/17 at 17:30 Nitroglycerin (Nitroglycerin (Sl Tab) 0.4 Mg) 1 tab Q5M PRN SL CHEST PAIN Last administered on 01/15/17 12:40; Admin Dose 1 TAB; Start 01/15/17 at 12:30 Hydralazine HCl (Apresoline) 10 mg Q4H PRN IV sbp>160 Last administered on 07:16; Admin Dose 10 MG; Start 01/15/17 at 12:30 Mupirocin (Bactroban) 1 applic BID TOP Last administered on 01/22/17 08:10; Admin Dose 1 APPLIC; Start 01/15/17 at 21:00 Amlodipine Besylate (Norvasc) 5 mg BID PO Last administered on 01/22/17 08:09 ; Admin Dose 5 MG; Start 01/15/17 at 21:00 Isosorbide Mononitrate (Imdur) 30 mg DAILY PO Last administered on 01/22/17 08:10; Admin Dose 30 MG; Start 01/16/17 at 09:00 Ondansetron HCl (Zofran Inj) 4 mg Q4 IV Last administered on 01/22/17 13:12; Admin Dose 4 MG; Start 01/16/17 at 13:00 Pantoprazole 40 mg 40 mg DAILY@06 PO Last administered on 01/22/17 07:15; Admin Dose 40 MG; Start 01/17/17 at 06:00 Ertapenem/Sodium Chloride (Invanz/NS) 100 ml @ 200 mls/hr Q24H IVPB Last administered on 01/21/17 13:52; Admin Dose 200 MLS/HR; Start 01/18/17 at 14:30 Hydralazine HCl (Apresoline) 100 mg TID PRN PO SBP GREATER THAN 160 Last administered on 01/22/17 08:08; Admin Dose 100 MG; Start 01/19/17 at 13:30 Metoprolol Tartrate (Lopressor) 25 mg BID PO Last administered on 01/22/17 08 :09; Admin Dose 25 MG; Start 01/19/17 at 21:00 Potassium Chloride (Potassium Chloride Pwd/Soln) 40 meq DAILY PO Last administered on 01/22/17 08:08; Admin Dose 40 MEQ; Start 01/19/17 at 14:00 RICHARDSON GODOY NP Jan 22, 2017 15:21
--- NOTE | 2017-01-22 16:43 | RADRPT ---
PROCEDURE: US upper extremity Venous. CLINICAL INDICATION: Left arm edema , pain TECHNIQUE: Multiple sonographic images of the left upper extremity venous system was obtained util izing grayscale, color-flow, compressive sonography and doppler imaging with augmentation. The imag es were reviewed on a PACS workstation. COMPARISON: None. FINDINGS: There is normal compressibility and flow within the left internal jugular vein, subclavian vein, axi llary vein, brachial, basilic, cephalic, radial and ulnar veins. RPTAT: AA IMPRESSION: No sonographic evidence for venous thrombosis. .Vahid Cohen MD, MD Date Time Electronically viewed and signed by .Vahid Cohen MD, on 01/22/2017 16:43 .S/
[2017-01-22] MEDS: ATORVASTATIN 10 MG TAB PO SCH (21:12)
[2017-01-23] MEDS: ONDANSETRON 4 MG INJ IV SCH ×6 (01:00→20:29)
[2017-01-23 02:04] VITALS: BP 174/86; RESP 18
[2017-01-23] MEDS: hydrALAzine 20 MG INJ IV PRN (02:52)
[2017-01-23] MEDS: morphine 2 MG INJ IV PRN (03:44)
[2017-01-23 05:23] VITALS: BP 156/89
[2017-01-23] MEDS: PANTOPRAZOLE (EC) 40 MG TAB PO SCH (05:38)
[2017-01-23] MEDS: HEPARIN 5,000 UNIT/0.5 ML VIAL SC SCH ×3 (05:48→21:15)
[2017-01-23] MEDS: DOCUSATE SODIUM 100 MG CAP PO SCH ×2 (05:48→18:30)
[2017-01-23 06:03] LABS: BASOPHILS % 0.5 % (0.0-2.0); EOSINOPHILS # 0.3 10^3/ul (0.0-0.5); EOSINOPHILS % 4.1 % (0.0-7.0); HEMOGLOBIN 13.4 g/dl (14.0-18.0); LYMPHOCYTES # 1.9 10^3/ul (0.8-2.9); LYMPHOCYTES % 23.2 % (15.0-51.0); MEAN CORPUSCULAR HEMOGLOBIN 28.9 pg (29.0-33.0); MEAN CORPUSCULAR HGB CONC 32.7 g/dl (32.0-37.0); MEAN CORPUSCULAR VOLUME 88.4 fl (82.0-101.0); MEAN PLATELET VOLUME 10.7 fl (7.4-10.4); MONOCYTE # 0.7 10^3/ul (0.3-0.9); MONOCYTES % 8.3 % (0.0-11.0); NEUTROPHILS % 62.6 % (39.0-77.0); PLATELET COUNT 282 10^3/UL (140-415); RED BLOOD COUNT 4.64 10^6/ul (4.70-6.10); RED CELL DISTRIBUTION WIDTH 16.1 % (11.5-14.5)
[2017-01-23 06:36] LABS: CALCIUM 8.9 mg/dl (8.4-10.2); CREATININE 1.05 mg/dl (0.61-1.24); POTASSIUM 3.7 mmol/L (3.5-5.1)
[2017-01-23 06:37] LABS: MAGNESIUM 1.9 mg/dl (1.7-2.5); PHOSPHORUS 2.8 mg/dl (2.5-4.9)
--- NOTE | 2017-01-23 07:36 | PN ---
Date/Time of Note Date/Time of Note DATE: 01/23/17 TIME: 07:36 Assessment/Plan VTE Prophylaxis VTE Prophylaxis Intervention: heparin Lines/Catheters IV Catheter Type (from [facility] [place]): Saline Lock Urinary Cath still in place: No Assessment/Plan Chief Complaint/Hosp Course 1. Sepsis with underlying Propionibacterium acnes bacteremia. No evidence of any septic shock. On antibiotics as per infectious diseases. 2. Nonspecific left chest wall pain with associated left arm pain. Nuclear medicine cardiac stress test negative for any perfusion defects. Left shoulder X -ray showing moderate acromioclavicular osteoarthrosis and enthesopathic changes at the greater tuberosity. 3. Acute kidney injury. Etiology unclear. Resolved. Being followed by nephrology. 4. Prostatomegaly with CT evidence of enlarged prostate measuring up to 6.2 cm in transverse diameter. The patient will be continued on tamsulosin. Urology following. 5. Abdominal pain with associated nausea and vomiting. Etiology unclear. No CT evidence of any acute intra-abdominal findings. Gastroenterology following. Continue PPI. 6. Essential hypertension. The patient will be maintained on antihypertensives. 7. Dyslipidemia. The patient will be continued on statins. The patient's fasting lipid panel is satisfactory. 8. MDD with panic disorder. The patient follows up with outpatient psychiatry. Continue mood stabilizers. 9. Fluids, electrolytes, and nutrition. Low-cholesterol diet. 10. DVT prophylaxis. Subcutaneous heparin. 11. Plan. Continue antimicrobials as per infectious diseases. Await further recommendations from consultants. Case discussed with Dr. Quintanilla. Problems: Subjective 24 Hr Interval Summary Free Text/Dictation Left shoulder pain well controlled. Exam/Review of Systems Vital Signs Vitals Vital Signs Date Time Temp Pulse Resp B/P Pulse Ox O2 Delivery O2 Flow Rate FiO2 01/23/17 05:23 156/89 01/23/17 02:04 97.7 74 18 98 01/20/17 22:00 Room Air Intake and Output 01/22/17 01/22/17 01/23/17 15:00 23:00 07:00 Intake Total 1000 ml 150 ml Output Total 1100 ml Balance -100 ml 150 ml Exam General: Obese 71 year-old male lying in bed in no apparent distress. HEENT: Normocephalic, atraumatic. Eyes: Anicteric sclerae, conjunctivae clear. ENT: Nasal septum midline, oral mucosa moist. Neck supple, no JVD noticed. Oropharynx clear without any exudate. Respiratory: Bilaterally diminished breath sounds. No use of accessory muscles of respiration. No adventitious breath sounds. Cardiovascular: S1, S2 heard. Regular rate and rhythm. Abdomen: Soft and nondistended. Bowel sounds positive in all 4 quadrants. Suprapubic tenderness. Genitourinary: Deferred. Extremities: No cyanosis, no clubbing, no edema. Peripheral pulses palpable. Neurologic: Cranial nerves II through XII grossly intact. The patient is awake, alert, and oriented. Skin: Normal skin turgor. No skin rashes. Results Result Diagram: 01/23/17 0532 01/23/17 0532 Results 24 hrs Laboratory Tests Test 01/23/17 05:32 White Blood Count 8.0 Red Blood Count 4.64 L Hemoglobin 13.4 L Hematocrit 41.0 L Mean Corpuscular Volume 88.4 Mean Corpuscular Hemoglobin 28.9 L Mean Corpuscular Hemoglobin Concent 32.7 Red Cell Distribution Width 16.1 H Platelet Count 282 Mean Platelet Volume 10.7 H Neutrophils % 62.6 Lymphocytes % 23.2 Monocytes % 8.3 Eosinophils % 4.1 Basophils % 0.5 Nucleated Red Blood Cells % 0.0 Neutrophils # 5.0 Lymphocytes # 1.9 Monocytes # 0.7 Eosinophils # 0.3 Basophils # 0.0 Nucleated Red Blood Cells # 0.0 Sodium Level 143 Potassium Level 3.7 Chloride Level 108 Carbon Dioxide Level 28 Anion Gap 11 Blood Urea Nitrogen 13 Creatinine 1.05 Glucose Level 99 Calcium Level 8.9 Phosphorus Level 2.8 Magnesium Level 1.9 Medications Medications Current Medications Acetaminophen (Tylenol Tab) 650 mg Q6H PRN PO PAIN LEVEL 1-3 OR FEVER Last administered on 01/22/17 19:34; Admin Dose 650 MG; Start 01/14/17 at 06:30 Atorvastatin Calcium (Lipitor) 10 mg QHS PO Last administered on 01/22/17 21: 12; Admin Dose 10 MG; Start 01/14/17 at 21:00 Lorazepam (Ativan) 1 mg BID PRN PO ANXIETY Last administered on 01/22/17 21: 12; Admin Dose 1 MG; Start 01/14/17 at 06:30 Sertraline HCl (Zoloft) 200 mg DAILY PO Last administered on 01/22/17 08:09; Admin Dose 200 MG; Start 01/14/17 at 09:00 Acetaminophen (Tylenol Tab) 650 mg Q6H PRN PO PAIN LEVEL 1-3 OR FEVER; Start 01/14/17 at 06:30 Tamsulosin HCl (Flomax) 0.4 mg BID PO Last administered on 01/22/17 21:12; Admin Dose 0.4 MG; Start 01/14/17 at 09:00 Heparin Sodium (Porcine) (Heparin (5000 Units/0.5 ml)) 5,000 unit Q8 SC Last administered on 01/23/17 05:48; Admin Dose 5,000 UNIT; Start 01/14/17 at 14:00 Docusate Sodium (Colace) 100 mg Q12H PO Last administered on 01/22/17 07:15; Admin Dose 100 MG; Start 01/14/17 at 18:30 Bisacodyl (Dulcolax) 10 mg DAILY PRN PO CONSTIPATION Last administered on 17:17; Admin Dose 10 MG; Start 01/14/17 at 17:30 Polyethylene Glycol (Miralax) 17 gm BID PO Last administered on 01/22/17 08: 10; Admin Dose 17 GM; Start 01/14/17 at 21:00 Morphine Sulfate (morphine) 2 mg Q4H PRN IV PAIN Last administered on 03:44; Admin Dose 2 MG; Start 01/14/17 at 17:30 Nitroglycerin (Nitroglycerin (Sl Tab) 0.4 Mg) 1 tab Q5M PRN SL CHEST PAIN Last administered on 01/15/17 12:40; Admin Dose 1 TAB; Start 01/15/17 at 12:30 Hydralazine HCl (Apresoline) 10 mg Q4H PRN IV sbp>160 Last administered on 02:52; Admin Dose 10 MG; Start 01/15/17 at 12:30 Mupirocin (Bactroban) 1 applic BID TOP Last administered on 01/22/17 08:10; Admin Dose 1 APPLIC; Start 01/15/17 at 21:00 Amlodipine Besylate (Norvasc) 5 mg BID PO Last administered on 01/22/17 21:12 ; Admin Dose 5 MG; Start 01/15/17 at 21:00 Isosorbide Mononitrate (Imdur) 30 mg DAILY PO Last administered on 01/22/17 08:10; Admin Dose 30 MG; Start 01/16/17 at 09:00 Ondansetron HCl (Zofran Inj) 4 mg Q4 IV Last administered on 01/23/17 03:42; Admin Dose 4 MG; Start 01/16/17 at 13:00 Pantoprazole 40 mg 40 mg DAILY@06 PO Last administered on 01/23/17 05:38; Admin Dose 40 MG; Start 01/17/17 at 06:00 Ertapenem/Sodium Chloride (Invanz/NS) 100 ml @ 200 mls/hr Q24H IVPB Last administered on 01/22/17 16:04; Admin Dose 200 MLS/HR; Start 01/18/17 at 14:30 Hydralazine HCl (Apresoline) 100 mg TID PRN PO SBP GREATER THAN 160 Last administered on 01/22/17 08:08; Admin Dose 100 MG; Start 01/19/17 at 13:30 Metoprolol Tartrate (Lopressor) 25 mg BID PO Last administered on 01/22/17 21 :13; Admin Dose 25 MG; Start 01/19/17 at 21:00 Potassium Chloride (Potassium Chloride Pwd/Soln) 40 meq DAILY PO Last administered on 01/22/17 08:08; Admin Dose 40 MEQ; Start 01/19/17 at 14:00 RICHARDSON GODOY NP Jan 23, 2017 07:36
[2017-01-23] MEDS: ACETAMINOPHEN 325 MG TAB PO PRN ×2 (08:17→15:20)
[2017-01-23] MEDS: LORAZEPAM 1 MG TAB PO PRN (08:17)
[2017-01-23] MEDS: POLYETHYLENE GLYCOL 17 GM PACKET PO SCH ×2 (09:00→20:29)
[2017-01-23 09:31] VITALS: BP 166/96; PULSE 74; RESP 16
[2017-01-23] MEDS: TAMSULOSIN (SR) 0.4 MG CAP PO SCH ×2 (09:36→20:28)
[2017-01-23] MEDS: ISOSORBIDE MONONITRATE(SR)30 MG TAB PO SCH (09:37)
[2017-01-23] MEDS: AMLODIPINE 5 MG TAB PO SCH ×2 (09:37→20:29)
[2017-01-23] MEDS: SERTRALINE 100 MG TAB PO SCH (09:38)
[2017-01-23] MEDS: METOPROLOL 25 MG TAB PO SCH ×2 (09:38→20:28)
[2017-01-23] MEDS: POTASSIUM CHLORIDE 20 MEQ POWDER FOR ORAL SOLN PO SCH (09:39)
[2017-01-23] MEDS: MUPIROCIN 2% 22 GM OINT TOP SCH ×2 (09:46→20:29)
--- NOTE | 2017-01-23 11:01 | CONS ---
Date/Time of Note Date/Time of Note DATE: 01/23/17 TIME: 10:59 Assessment/Plan Assessment/Plan Additional Assessment/Plan 1. Chest pain-negative trop x 3/NL EF by echo. No ischemia by lexiscan with NL EF - no CP now - better now. Rate better controlled. OFF TELE NOW. 2. Hypertension-uncontrolled - on hgh side, add Rx now - BETTER WITH THERAPY CHANGE DAY PRIOR. WELL RX. STILL HIGH, con't to adjust Rx. 3. Dyslipidemia- Rx as needed 4. Obesity. weight loss advised. 5. Anxiety. 6. Depression. 7. UTI/prostatitis - on anto-bx- BPH per urology team 8, Deejay - HR better with reduced BB dose now. Consultation Date/Type/Reason Admit Date/Time Jan 14, 2017 at 09:38 Initial Consult Date 01/14/17 Type of Consultation: Urology Referring Provider: MARTHA SOLIS 24 HR Interval Summary Free Text/Dictation NO acute events - BP better now - will adjust Rx as needed. ROS: No fever, no chills, no nausea, no vomiting, no diarrhea/constipation No recent weight changes No chest pain, no PND, no orthopnea No dizziness, blurred vision No thirst, no heat or cold intolerance Exam/Review of Systems Vital Signs Vitals Vital Signs Date Time Temp Pulse Resp B/P Pulse Ox O2 Delivery O2 Flow Rate FiO2 01/23/17 09:31 97.7 74 16 166/96 94 Room Air Intake and Output 01/22/17 01/22/17 01/23/17 15:00 23:00 07:00 Intake Total 1000 ml 150 ml Output Total 1100 ml Balance -100 ml 150 ml Exam General: WN/WD/NAD, AOx 2-3 HEENT: Unicetric/atraumatic/EOMI (follow commands) NECK: JVD elevated, no thyromegaly Lymph: no lymphadenopathy HEART: regular with no S3, II/ systolic murmur at apex LUNGS: Coarse sounds ABD: soft, NT, ND, +BS : Intact Neuro: non focal SKIN: chronic changes EXT: trace edema Results Result Diagram: 01/23/17 0532 01/23/17 0532 Results 24 hrs Laboratory Tests Test 01/23/17 05:32 White Blood Count 8.0 Red Blood Count 4.64 L Hemoglobin 13.4 L Hematocrit 41.0 L Mean Corpuscular Volume 88.4 Mean Corpuscular Hemoglobin 28.9 L Mean Corpuscular Hemoglobin Concent 32.7 Red Cell Distribution Width 16.1 H Platelet Count 282 Mean Platelet Volume 10.7 H Neutrophils % 62.6 Lymphocytes % 23.2 Monocytes % 8.3 Eosinophils % 4.1 Basophils % 0.5 Nucleated Red Blood Cells % 0.0 Neutrophils # 5.0 Lymphocytes # 1.9 Monocytes # 0.7 Eosinophils # 0.3 Basophils # 0.0 Nucleated Red Blood Cells # 0.0 Sodium Level 143 Potassium Level 3.7 Chloride Level 108 Carbon Dioxide Level 28 Anion Gap 11 Blood Urea Nitrogen 13 Creatinine 1.05 Glucose Level 99 Calcium Level 8.9 Phosphorus Level 2.8 Magnesium Level 1.9 Medications Medications Current Medications Acetaminophen (Tylenol Tab) 650 mg Q6H PRN PO PAIN LEVEL 1-3 OR FEVER Last administered on 01/23/17 08:17; Admin Dose 650 MG; Start 01/14/17 at 06:30 Atorvastatin Calcium (Lipitor) 10 mg QHS PO Last administered on 01/22/17 21: 12; Admin Dose 10 MG; Start 01/14/17 at 21:00 Lorazepam (Ativan) 1 mg BID PRN PO ANXIETY Last administered on 01/23/17 08: 17; Admin Dose 1 MG; Start 01/14/17 at 06:30 Sertraline HCl (Zoloft) 200 mg DAILY PO Last administered on 01/23/17 09:38; Admin Dose 200 MG; Start 01/14/17 at 09:00 Acetaminophen (Tylenol Tab) 650 mg Q6H PRN PO PAIN LEVEL 1-3 OR FEVER; Start 01/14/17 at 06:30 Tamsulosin HCl (Flomax) 0.4 mg BID PO Last administered on 01/23/17 09:36; Admin Dose 0.4 MG; Start 01/14/17 at 09:00 Heparin Sodium (Porcine) (Heparin (5000 Units/0.5 ml)) 5,000 unit Q8 SC Last administered on 01/23/17 05:48; Admin Dose 5,000 UNIT; Start 01/14/17 at 14:00 Docusate Sodium (Colace) 100 mg Q12H PO Last administered on 01/22/17 07:15; Admin Dose 100 MG; Start 01/14/17 at 18:30 Bisacodyl (Dulcolax) 10 mg DAILY PRN PO CONSTIPATION Last administered on 17:17; Admin Dose 10 MG; Start 01/14/17 at 17:30 Polyethylene Glycol (Miralax) 17 gm BID PO Last administered on 01/22/17 08: 10; Admin Dose 17 GM; Start 01/14/17 at 21:00 Morphine Sulfate (morphine) 2 mg Q4H PRN IV PAIN Last administered on 03:44; Admin Dose 2 MG; Start 01/14/17 at 17:30 Nitroglycerin (Nitroglycerin (Sl Tab) 0.4 Mg) 1 tab Q5M PRN SL CHEST PAIN Last administered on 01/15/17 12:40; Admin Dose 1 TAB; Start 01/15/17 at 12:30 Hydralazine HCl (Apresoline) 10 mg Q4H PRN IV sbp>160 Last administered on 02:52; Admin Dose 10 MG; Start 01/15/17 at 12:30 Mupirocin (Bactroban) 1 applic BID TOP Last administered on 01/23/17 09:46; Admin Dose 1 APPLIC; Start 01/15/17 at 21:00 Amlodipine Besylate (Norvasc) 5 mg BID PO Last administered on 01/23/17 09:37 ; Admin Dose 5 MG; Start 01/15/17 at 21:00 Isosorbide Mononitrate (Imdur) 30 mg DAILY PO Last administered on 01/23/17 09:37; Admin Dose 30 MG; Start 01/16/17 at 09:00 Ondansetron HCl (Zofran Inj) 4 mg Q4 IV Last administered on 01/23/17 09:17; Admin Dose 4 MG; Start 01/16/17 at 13:00 Pantoprazole 40 mg 40 mg DAILY@06 PO Last administered on 01/23/17 05:38; Admin Dose 40 MG; Start 01/17/17 at 06:00 Ertapenem/Sodium Chloride (Invanz/NS) 100 ml @ 200 mls/hr Q24H IVPB Last administered on 01/22/17 16:04; Admin Dose 200 MLS/HR; Start 01/18/17 at 14:30 Hydralazine HCl (Apresoline) 100 mg TID PRN PO SBP GREATER THAN 160 Last administered on 01/22/17 08:08; Admin Dose 100 MG; Start 01/19/17 at 13:30 Metoprolol Tartrate (Lopressor) 25 mg BID PO Last administered on 01/23/17 09 :38; Admin Dose 25 MG; Start 01/19/17 at 21:00 Potassium Chloride (Potassium Chloride Pwd/Soln) 40 meq DAILY PO Last administered on 01/23/17 09:39; Admin Dose 40 MEQ; Start 01/19/17 at 14:00 Lidocaine (Lidoderm) 1 patch DAILY TD ; Start 01/23/17 at 10:00 LISA RAMÍREZ MD Jan 23, 2017 11:01
--- NOTE | 2017-01-23 11:18 | PN ---
Date/Time of Note Date/Time of Note DATE: 01/23/17 TIME: 11:15 Assessment/Plan VTE Prophylaxis VTE Prophylaxis Intervention: SCD's Lines/Catheters IV Catheter Type (from [facility], [place]): Saline Lock Urinary Cath still in place: No Assessment/Plan Chief Complaint/Hosp Course Summary Assessment and Plan: Assessment: CP with associated left arm pain Lower abdominal pain- unclear underlying etiology Epigastric pain with associated nausea/vomiting R/o PUD vs anxiety vs gastritis vs cardiac related HARSH-possibly related to chronic urinary outlet obstruction BPH Dyslipidemia HTN Plan: Stress test- negative Stool for OB-negative Continue PPI therapy primary to decide whether to call urology to evaluate CT showing "Enlarged prostate bulging into the bladder with circumferential wall thickening of the bladder. " supportive care Patient seen in collaboration with Subjective: Course reviewed with nursing staff Patient interviewed and examined All labs, imaging and other results reviewed Patient is feeling much better, has not had any further episodes of nausea or vomiting, H/H stable No further GI interventions warranted at this time. GI will sign off, but will be able available if needed. Patient to follow up with GI as out-patient for out-patient colonoscopy PHYSICAL EXAMINATION: GENERAL: Well developed, well nourished, alert & oriented x 3, in no acute distress SKIN: No lesions, no stigmata chronic liver disease, no evidence of bleeding diathesis LYMPHATIC: No palpable lymphadenopathy. HEAD: Normocephalic, atraumatic, no tenderness. EYES: Pupils equal reactive to light and accommodation, full extraocular movements, sclera clear, non-icteric, no discharge. EARS/NOSE AND THROAT: Ears normal, nose normal, oropharynx normal, oral membranes well hydrated without lesions. NECK: Supple, no masses, thyroid normal, JVP within normal limits, carotids normal without bruits. CHEST: Inspection within normal limits. CARDIOVASCULAR: Heart: Regular rate and rhythm, no murmurs, gallops or rubs. RESPIRATORY: Lungs clear to auscultation and percussion, no wheezing, no rubs GASTROINTESTINAL AND LIVER: Abdomen: Soft, tenderness lower abd and epigastric, non-distended, no hernias, no masses, no organomegaly, no ascites, no guarding, no rebound tenderness, normoactive bowel sounds. Rectal: Deferred. GENITOURINARY: Male genitalia within normal limits. EXTREMITIES: No cyanosis, clubbing or edema. Problems: Exam/Review of Systems Vital Signs Vitals Vital Signs Date Time Temp Pulse Resp B/P Pulse Ox O2 Delivery O2 Flow Rate FiO2 01/23/17 09:31 97.7 74 16 166/96 94 Room Air Intake and Output 01/22/17 01/22/17 01/23/17 15:00 23:00 07:00 Intake Total 1000 ml 150 ml Output Total 1100 ml Balance -100 ml 150 ml Results Result Diagram: 01/23/17 0532 01/23/17 0532 Results 24 hrs Laboratory Tests Test 01/23/17 05:32 White Blood Count 8.0 Red Blood Count 4.64 L Hemoglobin 13.4 L Hematocrit 41.0 L Mean Corpuscular Volume 88.4 Mean Corpuscular Hemoglobin 28.9 L Mean Corpuscular Hemoglobin Concent 32.7 Red Cell Distribution Width 16.1 H Platelet Count 282 Mean Platelet Volume 10.7 H Neutrophils % 62.6 Lymphocytes % 23.2 Monocytes % 8.3 Eosinophils % 4.1 Basophils % 0.5 Nucleated Red Blood Cells % 0.0 Neutrophils # 5.0 Lymphocytes # 1.9 Monocytes # 0.7 Eosinophils # 0.3 Basophils # 0.0 Nucleated Red Blood Cells # 0.0 Sodium Level 143 Potassium Level 3.7 Chloride Level 108 Carbon Dioxide Level 28 Anion Gap 11 Blood Urea Nitrogen 13 Creatinine 1.05 Glucose Level 99 Calcium Level 8.9 Phosphorus Level 2.8 Magnesium Level 1.9 Medications Medications Current Medications Acetaminophen (Tylenol Tab) 650 mg Q6H PRN PO PAIN LEVEL 1-3 OR FEVER Last administered on 01/23/17 08:17; Admin Dose 650 MG; Start 01/14/17 at 06:30 Atorvastatin Calcium (Lipitor) 10 mg QHS PO Last administered on 01/22/17 21: 12; Admin Dose 10 MG; Start 01/14/17 at 21:00 Lorazepam (Ativan) 1 mg BID PRN PO ANXIETY Last administered on 01/23/17 08: 17; Admin Dose 1 MG; Start 01/14/17 at 06:30 Sertraline HCl (Zoloft) 200 mg DAILY PO Last administered on 01/23/17 09:38; Admin Dose 200 MG; Start 01/14/17 at 09:00 Acetaminophen (Tylenol Tab) 650 mg Q6H PRN PO PAIN LEVEL 1-3 OR FEVER; Start 01/14/17 at 06:30 Tamsulosin HCl (Flomax) 0.4 mg BID PO Last administered on 01/23/17 09:36; Admin Dose 0.4 MG; Start 01/14/17 at 09:00 Heparin Sodium (Porcine) (Heparin (5000 Units/0.5 ml)) 5,000 unit Q8 SC Last administered on 01/23/17 05:48; Admin Dose 5,000 UNIT; Start 01/14/17 at 14:00 Docusate Sodium (Colace) 100 mg Q12H PO Last administered on 01/22/17 07:15; Admin Dose 100 MG; Start 01/14/17 at 18:30 Bisacodyl (Dulcolax) 10 mg DAILY PRN PO CONSTIPATION Last administered on 17:17; Admin Dose 10 MG; Start 01/14/17 at 17:30 Polyethylene Glycol (Miralax) 17 gm BID PO Last administered on 01/22/17 08: 10; Admin Dose 17 GM; Start 01/14/17 at 21:00 Morphine Sulfate (morphine) 2 mg Q4H PRN IV PAIN Last administered on 03:44; Admin Dose 2 MG; Start 01/14/17 at 17:30 Nitroglycerin (Nitroglycerin (Sl Tab) 0.4 Mg) 1 tab Q5M PRN SL CHEST PAIN Last administered on 01/15/17 12:40; Admin Dose 1 TAB; Start 01/15/17 at 12:30 Hydralazine HCl (Apresoline) 10 mg Q4H PRN IV sbp>160 Last administered on 02:52; Admin Dose 10 MG; Start 01/15/17 at 12:30 Mupirocin (Bactroban) 1 applic BID TOP Last administered on 01/23/17 09:46; Admin Dose 1 APPLIC; Start 01/15/17 at 21:00 Amlodipine Besylate (Norvasc) 5 mg BID PO Last administered on 01/23/17 09:37 ; Admin Dose 5 MG; Start 01/15/17 at 21:00 Isosorbide Mononitrate (Imdur) 30 mg DAILY PO Last administered on 01/23/17 09:37; Admin Dose 30 MG; Start 01/16/17 at 09:00 Ondansetron HCl (Zofran Inj) 4 mg Q4 IV Last administered on 01/23/17 09:17; Admin Dose 4 MG; Start 01/16/17 at 13:00 Pantoprazole 40 mg 40 mg DAILY@06 PO Last administered on 01/23/17 05:38; Admin Dose 40 MG; Start 01/17/17 at 06:00 Ertapenem/Sodium Chloride (Invanz/NS) 100 ml @ 200 mls/hr Q24H IVPB Last administered on 01/22/17 16:04; Admin Dose 200 MLS/HR; Start 01/18/17 at 14:30 Hydralazine HCl (Apresoline) 100 mg TID PRN PO SBP GREATER THAN 160 Last administered on 01/22/17 08:08; Admin Dose 100 MG; Start 01/19/17 at 13:30 Metoprolol Tartrate (Lopressor) 25 mg BID PO Last administered on 01/23/17 09 :38; Admin Dose 25 MG; Start 01/19/17 at 21:00 Potassium Chloride (Potassium Chloride Pwd/Soln) 40 meq DAILY PO Last administered on 01/23/17 09:39; Admin Dose 40 MEQ; Start 01/19/17 at 14:00 Lidocaine (Lidoderm) 1 patch DAILY TD ; Start 01/23/17 at 10:00 PACO LIA Jan 23, 2017 11:18
--- NOTE | 2017-01-23 11:35 | PN ---
Date/Time of Note Date/Time of Note DATE: 01/23/17 TIME: 11:35 Assessment/Plan VTE Prophylaxis VTE Prophylaxis Intervention: SCD's Lines/Catheters IV Catheter Type (from Nrs): Saline Lock Urinary Cath still in place: No Assessment/Plan Chief Complaint/Hosp Course Duplicate Note Problems: Exam/Review of Systems Vital Signs Vitals Vital Signs Date Time Temp Pulse Resp B/P Pulse Ox O2 Delivery O2 Flow Rate FiO2 01/23/17 09:31 97.7 74 16 166/96 94 Room Air Intake and Output 01/22/17 01/22/17 01/23/17 15:00 23:00 07:00 Intake Total 1000 ml 150 ml Output Total 1100 ml Balance -100 ml 150 ml Results Result Diagram: 01/23/17 0532 01/23/17 0532 Results 24 hrs Laboratory Tests Test 01/23/17 05:32 White Blood Count 8.0 Red Blood Count 4.64 L Hemoglobin 13.4 L Hematocrit 41.0 L Mean Corpuscular Volume 88.4 Mean Corpuscular Hemoglobin 28.9 L Mean Corpuscular Hemoglobin Concent 32.7 Red Cell Distribution Width 16.1 H Platelet Count 282 Mean Platelet Volume 10.7 H Neutrophils % 62.6 Lymphocytes % 23.2 Monocytes % 8.3 Eosinophils % 4.1 Basophils % 0.5 Nucleated Red Blood Cells % 0.0 Neutrophils # 5.0 Lymphocytes # 1.9 Monocytes # 0.7 Eosinophils # 0.3 Basophils # 0.0 Nucleated Red Blood Cells # 0.0 Sodium Level 143 Potassium Level 3.7 Chloride Level 108 Carbon Dioxide Level 28 Anion Gap 11 Blood Urea Nitrogen 13 Creatinine 1.05 Glucose Level 99 Calcium Level 8.9 Phosphorus Level 2.8 Magnesium Level 1.9 Medications Medications Current Medications Acetaminophen (Tylenol Tab) 650 mg Q6H PRN PO PAIN LEVEL 1-3 OR FEVER Last administered on 01/23/17 08:17; Admin Dose 650 MG; Start 01/14/17 at 06:30 Atorvastatin Calcium (Lipitor) 10 mg QHS PO Last administered on 01/22/17 21: 12; Admin Dose 10 MG; Start 01/14/17 at 21:00 Lorazepam (Ativan) 1 mg BID PRN PO ANXIETY Last administered on 01/23/17 08: 17; Admin Dose 1 MG; Start 01/14/17 at 06:30 Sertraline HCl (Zoloft) 200 mg DAILY PO Last administered on 01/23/17 09:38; Admin Dose 200 MG; Start 01/14/17 at 09:00 Acetaminophen (Tylenol Tab) 650 mg Q6H PRN PO PAIN LEVEL 1-3 OR FEVER; Start 01/14/17 at 06:30 Tamsulosin HCl (Flomax) 0.4 mg BID PO Last administered on 01/23/17 09:36; Admin Dose 0.4 MG; Start 01/14/17 at 09:00 Heparin Sodium (Porcine) (Heparin (5000 Units/0.5 ml)) 5,000 unit Q8 SC Last administered on 01/23/17 05:48; Admin Dose 5,000 UNIT; Start 01/14/17 at 14:00 Docusate Sodium (Colace) 100 mg Q12H PO Last administered on 01/22/17 07:15; Admin Dose 100 MG; Start 01/14/17 at 18:30 Bisacodyl (Dulcolax) 10 mg DAILY PRN PO CONSTIPATION Last administered on 17:17; Admin Dose 10 MG; Start 01/14/17 at 17:30 Polyethylene Glycol (Miralax) 17 gm BID PO Last administered on 01/22/17 08: 10; Admin Dose 17 GM; Start 01/14/17 at 21:00 Morphine Sulfate (morphine) 2 mg Q4H PRN IV PAIN Last administered on 03:44; Admin Dose 2 MG; Start 01/14/17 at 17:30 Nitroglycerin (Nitroglycerin (Sl Tab) 0.4 Mg) 1 tab Q5M PRN SL CHEST PAIN Last administered on 01/15/17 12:40; Admin Dose 1 TAB; Start 01/15/17 at 12:30 Hydralazine HCl (Apresoline) 10 mg Q4H PRN IV sbp>160 Last administered on 02:52; Admin Dose 10 MG; Start 01/15/17 at 12:30 Mupirocin (Bactroban) 1 applic BID TOP Last administered on 01/23/17 09:46; Admin Dose 1 APPLIC; Start 01/15/17 at 21:00 Amlodipine Besylate (Norvasc) 5 mg BID PO Last administered on 01/23/17 09:37 ; Admin Dose 5 MG; Start 01/15/17 at 21:00 Isosorbide Mononitrate (Imdur) 30 mg DAILY PO Last administered on 01/23/17 09:37; Admin Dose 30 MG; Start 01/16/17 at 09:00 Ondansetron HCl (Zofran Inj) 4 mg Q4 IV Last administered on 01/23/17 09:17; Admin Dose 4 MG; Start 01/16/17 at 13:00 Pantoprazole 40 mg 40 mg DAILY@06 PO Last administered on 01/23/17 05:38; Admin Dose 40 MG; Start 01/17/17 at 06:00 Ertapenem/Sodium Chloride (Invanz/NS) 100 ml @ 200 mls/hr Q24H IVPB Last administered on 01/22/17 16:04; Admin Dose 200 MLS/HR; Start 01/18/17 at 14:30 Hydralazine HCl (Apresoline) 100 mg TID PRN PO SBP GREATER THAN 160 Last administered on 01/22/17 08:08; Admin Dose 100 MG; Start 01/19/17 at 13:30 Metoprolol Tartrate (Lopressor) 25 mg BID PO Last administered on 01/23/17 09 :38; Admin Dose 25 MG; Start 01/19/17 at 21:00 Potassium Chloride (Potassium Chloride Pwd/Soln) 40 meq DAILY PO Last administered on 01/23/17 09:39; Admin Dose 40 MEQ; Start 01/19/17 at 14:00 Lidocaine (Lidoderm) 1 patch DAILY TD ; Start 01/23/17 at 10:00 Quetiapine Fumarate (Seroquel) 200 mg QHS PO ; Start 01/23/17 at 21:00; Status UNV Lorazepam (Ativan) 1 mg Q12 PO ; Start 01/23/17 at 21:00 PACO LAI Jan 23, 2017 11:35 administered on 01/23/17 08:17; Admin Dose 650 MG; Start 01/14/17 at 06:30 Atorvastatin Calcium (Lipitor) 10 mg QHS PO Last administered on 01/22/17 21: 12; Admin Dose 10 MG; Start 01/14/17 at 21:00 Lorazepam (Ativan) 1 mg BID PRN PO ANXIETY Last administered on 01/23/17 08: 17; Admin Dose 1 MG; Start 01/14/17 at 06:30 Sertraline HCl (Zoloft) 200 mg DAILY PO Last administered on 01/23/17 09:38; Admin Dose 200 MG; Start 01/14/17 at 09:00 Acetaminophen (Tylenol Tab) 650 mg Q6H PRN PO PAIN LEVEL 1-3 OR FEVER; Start 01/14/17 at 06:30 Tamsulosin HCl (Flomax) 0.4 mg BID PO Last administered on 01/23/17 09:36; Admin Dose 0.4 MG; Start 01/14/17 at 09:00 Heparin Sodium (Porcine) (Heparin (5000 Units/0.5 ml)) 5,000 unit Q8 SC Last administered on 01/23/17 05:48; Admin Dose 5,000 UNIT; Start 01/14/17 at 14:00 Docusate Sodium (Colace) 100 mg Q12H PO Last administered on 01/22/17 07:15; Admin Dose 100 MG; Start 01/14/17 at 18:30 Bisacodyl (Dulcolax) 10 mg DAILY PRN PO CONSTIPATION Last administered on 17:17; Admin Dose 10 MG; Start 01/14/17 at 17:30 Polyethylene Glycol (Miralax) 17 gm BID PO Last administered on 01/22/17 08: 10; Admin Dose 17 GM; Start 01/14/17 at 21:00 Morphine Sulfate (morphine) 2 mg Q4H PRN IV PAIN Last administered on 03:44; Admin Dose 2 MG; Start 01/14/17 at 17:30 Nitroglycerin (Nitroglycerin (Sl Tab) 0.4 Mg) 1 tab Q5M PRN SL CHEST PAIN Last administered on 01/15/17 12:40; Admin Dose 1 TAB; Start 01/15/17 at 12:30 Hydralazine HCl (Apresoline) 10 mg Q4H PRN IV sbp>160 Last administered on 02:52; Admin Dose 10 MG; Start 01/15/17 at 12:30 Mupirocin (Bactroban) 1 applic BID TOP Last administered on 01/23/17 09:46; Admin Dose 1 APPLIC; Start 01/15/17 at 21:00 Amlodipine Besylate (Norvasc) 5 mg BID PO Last administered on 01/23/17 09:37 ; Admin Dose 5 MG; Start 01/15/17 at 21:00 Isosorbide Mononitrate (Imdur) 30 mg DAILY PO Last administered on 01/23/17 09:37; Admin Dose 30 MG; Start 01/16/17 at 09:00 Ondansetron HCl (Zofran Inj) 4 mg Q4 IV Last administered on 01/23/17 09:17; Admin Dose 4 MG; Start 01/16/17 at 13:00 Pantoprazole 40 mg 40 mg DAILY@06 PO Last administered on 01/23/17 05:38; Admin Dose 40 MG; Start 01/17/17 at 06:00 Ertapenem/Sodium Chloride (Invanz/NS) 100 ml @ 200 mls/hr Q24H IVPB Last administered on 01/22/17 16:04; Admin Dose 200 MLS/HR; Start 01/18/17 at 14:30 Hydralazine HCl (Apresoline) 100 mg TID PRN PO SBP GREATER THAN 160 Last administered on 01/22/17 08:08; Admin Dose 100 MG; Start 01/19/17 at 13:30 Metoprolol Tartrate (Lopressor) 25 mg BID PO Last administered on 01/23/17 09 :38; Admin Dose 25 MG; Start 01/19/17 at 21:00 Potassium Chloride (Potassium Chloride Pwd/Soln) 40 meq DAILY PO Last administered on 01/23/17 09:39; Admin Dose 40 MEQ; Start 01/19/17 at 14:00 Lidocaine (Lidoderm) 1 patch DAILY TD ; Start 01/23/17 at 10:00 Quetiapine Fumarate (Seroquel) 200 mg QHS PO ; Start 01/23/17 at 21:00; Status UNV Lorazepam (Ativan) 1 mg Q12 PO ; Start 01/23/17 at 21:00 PACO LAI Jan 23, 2017 11:35
[2017-01-23] MEDS: LIDOCAINE 5% PATCH TD SCH ×2 (12:29→20:28)
--- NOTE | 2017-01-23 13:48 | CONS ---
Date/Time of Note Date/Time of Note DATE: 01/23/17 TIME: 13:47 Consult Date/Type/Reason Admit Date/Time Jan 14, 2017 at 09:38 Initial Consult Date 01/16/17 Type of Consultation: ID Ordering Provider: MARTHA SOLIS Objective Vital Signs Date Time Temp Pulse Resp B/P Pulse Ox O2 Delivery O2 Flow Rate FiO2 01/23/17 09:31 97.7 74 16 166/96 94 Room Air Intake and Output 01/22/17 01/22/17 01/23/17 15:00 23:00 07:00 Intake Total 1000 ml 150 ml Output Total 1100 ml Balance -100 ml 150 ml Results/Medications Result Diagram: 01/23/17 0532 01/23/17 0532 Results 24 hrs Laboratory Tests Test 01/23/17 05:32 White Blood Count 8.0 Red Blood Count 4.64 L Hemoglobin 13.4 L Hematocrit 41.0 L Mean Corpuscular Volume 88.4 Mean Corpuscular Hemoglobin 28.9 L Mean Corpuscular Hemoglobin Concent 32.7 Red Cell Distribution Width 16.1 H Platelet Count 282 Mean Platelet Volume 10.7 H Neutrophils % 62.6 Lymphocytes % 23.2 Monocytes % 8.3 Eosinophils % 4.1 Basophils % 0.5 Nucleated Red Blood Cells % 0.0 Neutrophils # 5.0 Lymphocytes # 1.9 Monocytes # 0.7 Eosinophils # 0.3 Basophils # 0.0 Nucleated Red Blood Cells # 0.0 Sodium Level 143 Potassium Level 3.7 Chloride Level 108 Carbon Dioxide Level 28 Anion Gap 11 Blood Urea Nitrogen 13 Creatinine 1.05 Glucose Level 99 Calcium Level 8.9 Phosphorus Level 2.8 Magnesium Level 1.9 Medications Current Medications Acetaminophen (Tylenol Tab) 650 mg Q6H PRN PO PAIN LEVEL 1-3 OR FEVER Last administered on 01/23/17 08:17; Admin Dose 650 MG; Start 01/14/17 at 06:30 Atorvastatin Calcium (Lipitor) 10 mg QHS PO Last administered on 01/22/17 21: 12; Admin Dose 10 MG; Start 01/14/17 at 21:00 Lorazepam (Ativan) 1 mg BID PRN PO ANXIETY Last administered on 01/23/17 08: 17; Admin Dose 1 MG; Start 01/14/17 at 06:30 Sertraline HCl (Zoloft) 200 mg DAILY PO Last administered on 01/23/17 09:38; Admin Dose 200 MG; Start 01/14/17 at 09:00 Acetaminophen (Tylenol Tab) 650 mg Q6H PRN PO PAIN LEVEL 1-3 OR FEVER; Start 01/14/17 at 06:30 Tamsulosin HCl (Flomax) 0.4 mg BID PO Last administered on 01/23/17 09:36; Admin Dose 0.4 MG; Start 01/14/17 at 09:00 Heparin Sodium (Porcine) (Heparin (5000 Units/0.5 ml)) 5,000 unit Q8 SC Last administered on 01/23/17 05:48; Admin Dose 5,000 UNIT; Start 01/14/17 at 14:00 Docusate Sodium (Colace) 100 mg Q12H PO Last administered on 01/22/17 07:15; Admin Dose 100 MG; Start 01/14/17 at 18:30 Bisacodyl (Dulcolax) 10 mg DAILY PRN PO CONSTIPATION Last administered on 17:17; Admin Dose 10 MG; Start 01/14/17 at 17:30 Polyethylene Glycol (Miralax) 17 gm BID PO Last administered on 01/22/17 08: 10; Admin Dose 17 GM; Start 01/14/17 at 21:00 Morphine Sulfate (morphine) 2 mg Q4H PRN IV PAIN Last administered on 03:44; Admin Dose 2 MG; Start 01/14/17 at 17:30 Nitroglycerin (Nitroglycerin (Sl Tab) 0.4 Mg) 1 tab Q5M PRN SL CHEST PAIN Last administered on 01/15/17 12:40; Admin Dose 1 TAB; Start 01/15/17 at 12:30 Hydralazine HCl (Apresoline) 10 mg Q4H PRN IV sbp>160 Last administered on 02:52; Admin Dose 10 MG; Start 01/15/17 at 12:30 Mupirocin (Bactroban) 1 applic BID TOP Last administered on 01/23/17 09:46; Admin Dose 1 APPLIC; Start 01/15/17 at 21:00 Amlodipine Besylate (Norvasc) 5 mg BID PO Last administered on 01/23/17 09:37 ; Admin Dose 5 MG; Start 01/15/17 at 21:00 Isosorbide Mononitrate (Imdur) 30 mg DAILY PO Last administered on 01/23/17 09:37; Admin Dose 30 MG; Start 01/16/17 at 09:00 Ondansetron HCl (Zofran Inj) 4 mg Q4 IV Last administered on 01/23/17 09:17; Admin Dose 4 MG; Start 01/16/17 at 13:00 Pantoprazole 40 mg 40 mg DAILY@06 PO Last administered on 01/23/17 05:38; Admin Dose 40 MG; Start 01/17/17 at 06:00 Ertapenem/Sodium Chloride (Invanz/NS) 100 ml @ 200 mls/hr Q24H IVPB Last administered on 01/22/17 16:04; Admin Dose 200 MLS/HR; Start 01/18/17 at 14:30 Hydralazine HCl (Apresoline) 100 mg TID PRN PO SBP GREATER THAN 160 Last administered on 01/22/17 08:08; Admin Dose 100 MG; Start 01/19/17 at 13:30 Metoprolol Tartrate (Lopressor) 25 mg BID PO Last administered on 01/23/17 09 :38; Admin Dose 25 MG; Start 01/19/17 at 21:00 Potassium Chloride (Potassium Chloride Pwd/Soln) 40 meq DAILY PO Last administered on 01/23/17 09:39; Admin Dose 40 MEQ; Start 01/19/17 at 14:00 Lidocaine (Lidoderm) 1 patch DAILY TD Last administered on 01/23/17 12:29; Admin Dose 1 PATCH; Start 01/23/17 at 10:00 Quetiapine Fumarate (Seroquel) 200 mg QHS PO ; Start 01/23/17 at 21:00 Lorazepam (Ativan) 1 mg Q12 PO ; Start 01/23/17 at 21:00 Assessment/Plan Chief Complaint/Hosp Course SUBJECTIVE: No acute changes. Alert, feels good, no fevers MICROBIOLOGY: Blood cultures since admission grew Propionibacterium acnes. Nares swab came back positive for MRSA. ANTIMICROBIALS: Invanz DIAGNOSTICS: 2D echo on admission revealed no vegetation, ejection fraction of 55%, normal right ventricular systolic function. PHYSICAL EXAMINATION: GENERAL: Obese, well-developed elderly man who is awake, in no distress. HEENT: Head atraumatic, normocephalic. Sclerae anicteric. Buccal mucosa pink. NECK: Supple. CHEST: Rise symmetrical. Breath sounds diminished to bases. HEART: S1, S2. ABDOMEN: Soft, bowel tones present. EXTREMITIES: Without cyanosis. ASSESSMENT: 1. Systemic inflammatory response syndrome on admission with fevers, chills and leukocytosis. 2. Propionibacterium acnes bacteremia. 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 4. Prostatomegaly. 5. Hypertension. 6. Chest pain==> troponin have been negative ==> card on case, s/p Lexiscan. PLAN: Remains stable, continue abx for 4 more days for bacteremia DW staff Problems: DIANA FUNK NP Jan 23, 2017 13:48
[2017-01-23] MEDS: ERTAPENEM SODIUM 1 GM in SOD CHLORIDE 0.9% 100 ML IVPB SCH (15:10)
[2017-01-23 15:22] VITALS: BP 155/79; RESP 16
[2017-01-23 19:23] VITALS: BP 166/87; RESP 18
[2017-01-23] MEDS: QUETIAPINE 100 MG TAB PO SCH (20:28)
[2017-01-23] MEDS: ATORVASTATIN 10 MG TAB PO SCH (20:28)
[2017-01-23] MEDS: LORAZEPAM 1 MG TAB PO SCH (20:28)
[2017-01-23] MEDS: HYDROCODONE/APAP (5/325) TAB PO PRN (20:34)
[2017-01-24] MEDS: ONDANSETRON 4 MG INJ IV SCH ×6 (00:38→20:42)
[2017-01-24 01:24] VITALS: BP 148/80; RESP 18
[2017-01-24] MEDS: PANTOPRAZOLE (EC) 40 MG TAB PO SCH (05:25)
[2017-01-24] MEDS: HEPARIN 5,000 UNIT/0.5 ML VIAL SC SCH ×3 (05:29→21:26)
[2017-01-24] MEDS: DOCUSATE SODIUM 100 MG CAP PO SCH ×2 (05:30→18:05)
[2017-01-24 06:22] LABS: BASOPHIL # 0.1 10^3/ul (0.0-0.1); BASOPHILS % 0.8 % (0.0-2.0); EOSINOPHILS # 0.4 10^3/ul (0.0-0.5); EOSINOPHILS % 4.9 % (0.0-7.0); HEMATOCRIT 40.4 % (42.0-52.0); HEMOGLOBIN 13.4 g/dl (14.0-18.0); LYMPHOCYTES # 2.1 10^3/ul (0.8-2.9); LYMPHOCYTES % 28.8 % (15.0-51.0); MEAN CORPUSCULAR HEMOGLOBIN 29.2 pg (29.0-33.0); MEAN CORPUSCULAR HGB CONC 33.2 g/dl (32.0-37.0); MEAN PLATELET VOLUME 10.6 fl (7.4-10.4); MONOCYTE # 0.7 10^3/ul (0.3-0.9); MONOCYTES % 9.3 % (0.0-11.0); PLATELET COUNT 276 10^3/UL (140-415); RED BLOOD COUNT 4.59 10^6/ul (4.70-6.10); RED CELL DISTRIBUTION WIDTH 16.2 % (11.5-14.5); WHITE BLOOD COUNT 7.3 10^3/ul (4.8-10.8)
[2017-01-24 06:31] LABS: PHOSPHORUS 3.4 mg/dl (2.5-4.9)
[2017-01-24 06:33] LABS: CALCIUM 8.9 mg/dl (8.4-10.2); CREATININE 1.12 mg/dl (0.61-1.24); POTASSIUM 3.3 mmol/L (3.5-5.1)
[2017-01-24 07:43] VITALS: BP 147/78; RESP 18
[2017-01-24] MEDS: POLYETHYLENE GLYCOL 17 GM PACKET PO SCH ×2 (09:05→20:42)
[2017-01-24] MEDS: POTASSIUM CHLORIDE 20 MEQ POWDER FOR ORAL SOLN PO SCH (09:07)
[2017-01-24] MEDS: LORAZEPAM 1 MG TAB PO SCH ×2 (09:08→20:40)
[2017-01-24] MEDS: ISOSORBIDE MONONITRATE(SR)30 MG TAB PO SCH (09:08)
[2017-01-24] MEDS: AMLODIPINE 5 MG TAB PO SCH ×2 (09:08→20:41)
[2017-01-24] MEDS: SERTRALINE 100 MG TAB PO SCH (09:08)
[2017-01-24] MEDS: METOPROLOL 25 MG TAB PO SCH ×2 (09:09→20:41)
[2017-01-24] MEDS: TAMSULOSIN (SR) 0.4 MG CAP PO SCH ×2 (09:09→20:40)
[2017-01-24] MEDS: MUPIROCIN 2% 22 GM OINT TOP SCH ×2 (09:10→20:42)
[2017-01-24] MEDS: LIDOCAINE 5% PATCH TD SCH ×2 (09:11→09:12)
[2017-01-24 10:43] VITALS: BP 155/95; PULSE 70
[2017-01-24] MEDS: NITROGLYCERIN (SL) 0.4 MG TAB SL PRN (10:43)
[2017-01-24 10:50] VITALS: BP 141/89; PULSE 80
--- NOTE | 2017-01-24 12:25 | CONS ---
Date/Time of Note Date/Time of Note DATE: 01/24/17 TIME: 12:25 Consult Date/Type/Reason Admit Date/Time Jan 14, 2017 at 09:38 Initial Consult Date 01/16/17 Type of Consultation: ID Ordering Provider: MARTHA SOLIS Objective Vital Signs Date Time Temp Pulse Resp B/P Pulse Ox O2 Delivery O2 Flow Rate FiO2 01/24/17 10:50 80 141/89 01/24/17 10:43 95 01/24/17 07:43 98.2 18 01/23/17 09:31 Room Air Intake and Output 01/23/17 01/23/17 01/24/17 15:00 23:00 07:00 Intake Total 1340 ml 400 ml Output Total 100 ml Balance 1240 ml 400 ml Results/Medications Result Diagram: 01/24/17 0552 01/24/17 0552 Results 24 hrs Laboratory Tests Test 01/24/17 05:52 White Blood Count 7.3 Red Blood Count 4.59 L Hemoglobin 13.4 L Hematocrit 40.4 L Mean Corpuscular Volume 88.0 Mean Corpuscular Hemoglobin 29.2 Mean Corpuscular Hemoglobin Concent 33.2 Red Cell Distribution Width 16.2 H Platelet Count 276 Mean Platelet Volume 10.6 H Neutrophils % 55.0 Lymphocytes % 28.8 Monocytes % 9.3 Eosinophils % 4.9 Basophils % 0.8 Nucleated Red Blood Cells % 0.0 Neutrophils # 4.0 Lymphocytes # 2.1 Monocytes # 0.7 Eosinophils # 0.4 Basophils # 0.1 Nucleated Red Blood Cells # 0.0 Sodium Level 143 Potassium Level 3.3 L Chloride Level 109 Carbon Dioxide Level 26 Anion Gap 11 Blood Urea Nitrogen 15 Creatinine 1.12 Glucose Level 92 Calcium Level 8.9 Phosphorus Level 3.4 Magnesium Level 2.0 Medications Current Medications Acetaminophen (Tylenol Tab) 650 mg Q6H PRN PO PAIN LEVEL 1-3 OR FEVER Last administered on 01/23/17 15:20; Admin Dose 650 MG; Start 01/14/17 at 06:30 Atorvastatin Calcium (Lipitor) 10 mg QHS PO Last administered on 01/23/17 20: 28; Admin Dose 10 MG; Start 01/14/17 at 21:00 Lorazepam (Ativan) 1 mg BID PRN PO ANXIETY Last administered on 01/23/17 08: 17; Admin Dose 1 MG; Start 01/14/17 at 06:30 Sertraline HCl (Zoloft) 200 mg DAILY PO Last administered on 01/24/17 09:08; Admin Dose 200 MG; Start 01/14/17 at 09:00 Acetaminophen (Tylenol Tab) 650 mg Q6H PRN PO PAIN LEVEL 1-3 OR FEVER; Start 01/14/17 at 06:30 Tamsulosin HCl (Flomax) 0.4 mg BID PO Last administered on 01/24/17 09:09; Admin Dose 0.4 MG; Start 01/14/17 at 09:00 Heparin Sodium (Porcine) (Heparin (5000 Units/0.5 ml)) 5,000 unit Q8 SC Last administered on 01/24/17 05:29; Admin Dose 5,000 UNIT; Start 01/14/17 at 14:00 Docusate Sodium (Colace) 100 mg Q12H PO Last administered on 01/22/17 07:15; Admin Dose 100 MG; Start 01/14/17 at 18:30 Bisacodyl (Dulcolax) 10 mg DAILY PRN PO CONSTIPATION Last administered on 17:17; Admin Dose 10 MG; Start 01/14/17 at 17:30 Polyethylene Glycol (Miralax) 17 gm BID PO Last administered on 01/24/17 09: 05; Admin Dose 17 GM; Start 01/14/17 at 21:00 Nitroglycerin (Nitroglycerin (Sl Tab) 0.4 Mg) 1 tab Q5M PRN SL CHEST PAIN Last administered on 01/24/17 10:43; Admin Dose 1 TAB; Start 01/15/17 at 12:30 Hydralazine HCl (Apresoline) 10 mg Q4H PRN IV sbp>160 Last administered on 02:52; Admin Dose 10 MG; Start 01/15/17 at 12:30 Mupirocin (Bactroban) 1 applic BID TOP Last administered on 01/24/17 09:10; Admin Dose 1 APPLIC; Start 01/15/17 at 21:00 Amlodipine Besylate (Norvasc) 5 mg BID PO Last administered on 01/24/17 09:08 ; Admin Dose 5 MG; Start 01/15/17 at 21:00 Isosorbide Mononitrate (Imdur) 30 mg DAILY PO Last administered on 01/24/17 09:08; Admin Dose 30 MG; Start 01/16/17 at 09:00 Ondansetron HCl (Zofran Inj) 4 mg Q4 IV Last administered on 01/24/17 09:02; Admin Dose 4 MG; Start 01/16/17 at 13:00 Pantoprazole 40 mg 40 mg DAILY@06 PO Last administered on 01/24/17 05:25; Admin Dose 40 MG; Start 01/17/17 at 06:00 Ertapenem/Sodium Chloride (Invanz/NS) 100 ml @ 200 mls/hr Q24H IVPB Last administered on 01/23/17 15:10; Admin Dose 200 MLS/HR; Start 01/18/17 at 14:30 Hydralazine HCl (Apresoline) 100 mg TID PRN PO SBP GREATER THAN 160 Last administered on 01/22/17 08:08; Admin Dose 100 MG; Start 01/19/17 at 13:30 Metoprolol Tartrate (Lopressor) 25 mg BID PO Last administered on 01/24/17 09 :09; Admin Dose 25 MG; Start 01/19/17 at 21:00 Potassium Chloride (Potassium Chloride Pwd/Soln) 40 meq DAILY PO Last administered on 01/24/17 09:07; Admin Dose 40 MEQ; Start 01/19/17 at 14:00 Lidocaine (Lidoderm) 1 patch DAILY TD Last administered on 01/24/17 09:11; Admin Dose 1 PATCH; Start 01/23/17 at 10:00 Quetiapine Fumarate (Seroquel) 200 mg QHS PO Last administered on 01/23/17 20 :28; Admin Dose 200 MG; Start 01/23/17 at 21:00 Lorazepam (Ativan) 1 mg Q12 PO Last administered on 01/24/17 09:08; Admin Dose 1 MG; Start 01/23/17 at 21:00 Acetaminophen/ Hydrocodone Bitart ([place] (5/325)) 1 tab Q6H PRN PO MODERATE PAIN LEVEL 4-6 Last administered on 01/23/17 20:34; Admin Dose 1 TAB; Start 01/23/17 at 18:30 Lidocaine (Lidoderm) 1 patch DAILY TD Last administered on 11/15/17at 09:12; Admin Dose 1 PATCH; Start 01/23/17 at 18:30 Assessment/Plan Chief Complaint/Hosp Course SUBJECTIVE: No acute changes. Alert, feels good, no fevers MICROBIOLOGY: Blood cultures since admission grew Propionibacterium acnes. Nares swab came back positive for MRSA. ANTIMICROBIALS: Invanz DIAGNOSTICS: 2D echo on admission revealed no vegetation, ejection fraction of 55%, normal right ventricular systolic function. PHYSICAL EXAMINATION: GENERAL: Obese, well-developed elderly man who is awake, in no distress. HEENT: Head atraumatic, normocephalic. Sclerae anicteric. Buccal mucosa pink. NECK: Supple. CHEST: Rise symmetrical. Breath sounds diminished to bases. HEART: S1, S2. ABDOMEN: Soft, bowel tones present. EXTREMITIES: Without cyanosis. ASSESSMENT: 1. Systemic inflammatory response syndrome on admission with fevers, chills and leukocytosis. 2. Propionibacterium acnes bacteremia. 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 4. Prostatomegaly. 5. Hypertension. 6. Chest pain==> troponin have been negative ==> card on case, s/p Lexiscan. PLAN: Remains stable, completing abx for 3 more days for bacteremia DW staff Problems: DIANA FUNK NP Jan 24, 2017 12:25
--- NOTE | 2017-01-24 13:33 | CONS ---
Date/Time of Note Date/Time of Note DATE: 01/24/17 TIME: 13:30 Assessment/Plan Assessment/Plan Chief Complaint/Hosp Course ASSESSMENT AND PLAN: A 71-year-old gentleman with: 1. Chest pain-negative trop x 3/NL EF by echo. No ischemia by lexiscan with NL EF 2. Hypertension-uncontrolled still somewhat 3. Dyslipidemia. 4. Obesity. 5. Anxiety. 6. Depression. 7. UTI/prostatitis Recc: -Continue norvasc/oral nitrates/BB and will add ACEI to improve BP control overall -Continue statin -Continue abx's and f/u cx data Problems: Consultation Date/Type/Reason Admit Date/Time Jan 14, 2017 at 09:38 Initial Consult Date 01/14/17 Type of Consultation: cardiology Reason for Consultation chest pain Referring Provider: MARTHA SOLIS Exam/Review of Systems Vital Signs Vitals Vital Signs Date Time Temp Pulse Resp B/P Pulse Ox O2 Delivery O2 Flow Rate FiO2 01/24/17 10:50 80 141/89 01/24/17 10:43 95 01/24/17 07:43 98.2 18 01/23/17 09:31 Room Air Intake and Output 01/23/17 01/23/17 01/24/17 15:00 23:00 07:00 Intake Total 1340 ml 400 ml Output Total 100 ml Balance 1240 ml 400 ml Exam Review of Systems: CONSTITUTIONAL: No fevers, chills. PULMONARY: No sob CARDIOVASCULAR: No chest pain/palpitations GASTROINTESTINAL: No nausea/vomiting. GENITOURINARY: No hematuria/dysuria. MUSCULOSKELETAL: No myagias/arthalgias. PSYCHIATRIC: The patient denies depression. NEUROLOGIC: No weakness Constitutional: alert, oriented Psych: no complaints ENMT: mucosa pink and moist Neck: jvd (8 cm water), supple Respiratory: clear to auscultation Cardiovascular: regular rate and rhythm Gastrointestinal: non-tender, soft Musculoskeletal: muscle tone (normal), other (l neck covered by dressing) Extremities: edema (none) Neurological: other (No focal deficits) Results Result Diagram: 01/24/17 0552 01/24/17 0552 Results 24 hrs Laboratory Tests Test 01/24/17 05:52 White Blood Count 7.3 Red Blood Count 4.59 L Hemoglobin 13.4 L Hematocrit 40.4 L Mean Corpuscular Volume 88.0 Mean Corpuscular Hemoglobin 29.2 Mean Corpuscular Hemoglobin Concent 33.2 Red Cell Distribution Width 16.2 H Platelet Count 276 Mean Platelet Volume 10.6 H Neutrophils % 55.0 Lymphocytes % 28.8 Monocytes % 9.3 Eosinophils % 4.9 Basophils % 0.8 Nucleated Red Blood Cells % 0.0 Neutrophils # 4.0 Lymphocytes # 2.1 Monocytes # 0.7 Eosinophils # 0.4 Basophils # 0.1 Nucleated Red Blood Cells # 0.0 Sodium Level 143 Potassium Level 3.3 L Chloride Level 109 Carbon Dioxide Level 26 Anion Gap 11 Blood Urea Nitrogen 15 Creatinine 1.12 Glucose Level 92 Calcium Level 8.9 Phosphorus Level 3.4 Magnesium Level 2.0 Medications Medications Current Medications Acetaminophen (Tylenol Tab) 650 mg Q6H PRN PO PAIN LEVEL 1-3 OR FEVER Last administered on 01/23/17 15:20; Admin Dose 650 MG; Start 01/14/17 at 06:30 Atorvastatin Calcium (Lipitor) 10 mg QHS PO Last administered on 01/23/17 20: 28; Admin Dose 10 MG; Start 01/14/17 at 21:00 Lorazepam (Ativan) 1 mg BID PRN PO ANXIETY Last administered on 01/23/17 08: 17; Admin Dose 1 MG; Start 01/14/17 at 06:30 Sertraline HCl (Zoloft) 200 mg DAILY PO Last administered on 01/24/17 09:08; Admin Dose 200 MG; Start 01/14/17 at 09:00 Acetaminophen (Tylenol Tab) 650 mg Q6H PRN PO PAIN LEVEL 1-3 OR FEVER; Start 01/14/17 at 06:30 Tamsulosin HCl (Flomax) 0.4 mg BID PO Last administered on 01/24/17 09:09; Admin Dose 0.4 MG; Start 01/14/17 at 09:00 Heparin Sodium (Porcine) (Heparin (5000 Units/0.5 ml)) 5,000 unit Q8 SC Last administered on 01/24/17 05:29; Admin Dose 5,000 UNIT; Start 01/14/17 at 14:00 Docusate Sodium (Colace) 100 mg Q12H PO Last administered on 01/22/17 07:15; Admin Dose 100 MG; Start 01/14/17 at 18:30 Bisacodyl (Dulcolax) 10 mg DAILY PRN PO CONSTIPATION Last administered on 17:17; Admin Dose 10 MG; Start 01/14/17 at 17:30 Polyethylene Glycol (Miralax) 17 gm BID PO Last administered on 01/24/17 09: 05; Admin Dose 17 GM; Start 01/14/17 at 21:00 Nitroglycerin (Nitroglycerin (Sl Tab) 0.4 Mg) 1 tab Q5M PRN SL CHEST PAIN Last administered on 01/24/17 10:43; Admin Dose 1 TAB; Start 01/15/17 at 12:30 Hydralazine HCl (Apresoline) 10 mg Q4H PRN IV sbp>160 Last administered on 02:52; Admin Dose 10 MG; Start 01/15/17 at 12:30 Mupirocin (Bactroban) 1 applic BID TOP Last administered on 01/24/17 09:10; Admin Dose 1 APPLIC; Start 01/15/17 at 21:00 Amlodipine Besylate (Norvasc) 5 mg BID PO Last administered on 01/24/17 09:08 ; Admin Dose 5 MG; Start 01/15/17 at 21:00 Isosorbide Mononitrate (Imdur) 30 mg DAILY PO Last administered on 01/24/17 09:08; Admin Dose 30 MG; Start 01/16/17 at 09:00 Ondansetron HCl (Zofran Inj) 4 mg Q4 IV Last administered on 01/24/17 09:02; Admin Dose 4 MG; Start 01/16/17 at 13:00 Pantoprazole 40 mg 40 mg DAILY@06 PO Last administered on 01/24/17 05:25; Admin Dose 40 MG; Start 01/17/17 at 06:00 Ertapenem/Sodium Chloride (Invanz/NS) 100 ml @ 200 mls/hr Q24H IVPB Last administered on 01/23/17 15:10; Admin Dose 200 MLS/HR; Start 01/18/17 at 14:30 Hydralazine HCl (Apresoline) 100 mg TID PRN PO SBP GREATER THAN 160 Last administered on 01/22/17 08:08; Admin Dose 100 MG; Start 01/19/17 at 13:30 Metoprolol Tartrate (Lopressor) 25 mg BID PO Last administered on 01/24/17 09 :09; Admin Dose 25 MG; Start 01/19/17 at 21:00 Potassium Chloride (Potassium Chloride Pwd/Soln) 40 meq DAILY PO Last administered on 01/24/17 09:07; Admin Dose 40 MEQ; Start 01/19/17 at 14:00 Lidocaine (Lidoderm) 1 patch DAILY TD Last administered on 01/24/17 09:11; Admin Dose 1 PATCH; Start 01/23/17 at 10:00 Quetiapine Fumarate (Seroquel) 200 mg QHS PO Last administered on 01/23/17 20 :28; Admin Dose 200 MG; Start 01/23/17 at 21:00 Lorazepam (Ativan) 1 mg Q12 PO Last administered on 01/24/17 09:08; Admin Dose 1 MG; Start 01/23/17 at 21:00 Acetaminophen/ Hydrocodone Bitart ([place] (5/325)) 1 tab Q6H PRN PO MODERATE PAIN LEVEL 4-6 Last administered on 01/23/17 20:34; Admin Dose 1 TAB; Start 01/23/17 at 18:30 Lidocaine (Lidoderm) 1 patch DAILY TD Last administered on 01/24/17 09:12; Admin Dose 1 PATCH; Start 01/23/17 at 18:30 YESSY CANALES Jan 24, 2017 13:33
--- NOTE | 2017-01-24 13:39 | PN ---
Date/Time of Note Date/Time of Note DATE: 01/24/17 TIME: 13:28 Assessment/Plan VTE Prophylaxis VTE Prophylaxis Intervention: heparin Lines/Catheters IV [facility]from [facility] [facility] Urinary Cath still in place: No Assessment/Plan Assessment/Plan 1. Sepsis with underlying Propionibacterium acnes bacteremia. improved, continue iv antibiotics for 4 more days. 2. Chest pain, atypical, likely musculoskeletal, negative stress thallium test 3. Acute kidney injury, resolved 4. Prostatomegaly with CT evidence of enlarged prostate measuring up to 6.2 cm in transverse diameter. The patient will be continued on tamsulosin. Urology follow up outpatient 5. Abdominal pain with associated nausea and vomiting. Etiology unclear. No CT evidence of any acute intra-abdominal findings. Gastroenterology following. Continue PPI. 6. Essential hypertension, stable 7. Dyslipidemia. on statins. 8. MDD with panic disorder. The patient follows up with outpatient psychiatry. 9. DVT prophylaxis. Subcutaneous heparin. Subjective 24 Hr Interval Summary Free Text/Dictation left shoulder and abdominal pain Exam/Review of Systems Vital Signs Vitals Vital Signs Date Time Temp Pulse Resp B/P Pulse Ox O2 Delivery O2 Flow Rate FiO2 01/24/17 10:50 80 141/89 01/24/17 10:43 95 01/24/17 07:43 98.2 18 01/23/17 09:31 Room Air Intake and Output 01/23/17 01/23/17 01/24/17 15:00 23:00 07:00 Intake Total 1340 ml 400 ml Output Total 100 ml Balance 1240 ml 400 ml Exam Constitutional: alert, oriented, well developed Head: atraumatic, normocephalic Eyes: EOMI, PERRL, nl conjunctiva, nl lids, nl sclera ENMT: nl external ears & nose, nl lips & teeth, nl nasal mucosa & septum Neck: non-tender, supple Respiratory: clear to auscultation, normal air movement, No congested cough, No crackles/rales, No diminished breath sounds, No intercostal retraction, No labored breathing, No other, No respirations, No tactile fremitus, No wheezing Cardiovascular: nl pulses, regular rate and rhythm, No S3, No S4, No bruits, No diastolic murmur, No edema, No gallop, No irregular rhythm, No jugular venous distention (JVD), No murmurs/extra sounds, No other, No rub, No systolic murmur Gastrointestinal: nl liver, spleen, non-tender, soft Musculoskeletal: nl extremities to inspection Extremities: normal pulses, No calf tenderness, No clubbing, No cyanosis, No edema, No other, No palpable cord, No pitting pedal edema, No tenderness Neurological: [employer] II-XII intact, nl mental status, nl speech, nl strength Skin: nl turgor Lymph: nl lymph nodes Results Result Diagram: 01/24/1752 01/24/1752 Results 24 hrs Laboratory Tests Test 01/24/17 05:52 White Blood Count 7.3 Red Blood Count 4.59 L Hemoglobin 13.4 L Hematocrit 40.4 L Mean Corpuscular Volume 88.0 Mean Corpuscular Hemoglobin 29.2 Mean Corpuscular Hemoglobin Concent 33.2 Red Cell Distribution Width 16.2 H Platelet Count 276 Mean Platelet Volume 10.6 H Neutrophils % 55.0 Lymphocytes % 28.8 Monocytes % 9.3 Eosinophils % 4.9 Basophils % 0.8 Nucleated Red Blood Cells % 0.0 Neutrophils # 4.0 Lymphocytes # 2.1 Monocytes # 0.7 Eosinophils # 0.4 Basophils # 0.1 Nucleated Red Blood Cells # 0.0 Sodium Level 143 Potassium Level 3.3 L Chloride Level 109 Carbon Dioxide Level 26 Anion Gap 11 Blood Urea Nitrogen 15 Creatinine 1.12 Glucose Level 92 Calcium Level 8.9 Phosphorus Level 3.4 Magnesium Level 2.0 Medications Medications Current Medications Acetaminophen (Tylenol Tab) 650 mg Q6H PRN PO PAIN LEVEL 1-3 OR FEVER Last administered on 01/23/17 15:20; Admin Dose 650 MG; Start 01/14/17 at 06:30 Atorvastatin Calcium (Lipitor) 10 mg QHS PO Last administered on 01/23/17 20: 28; Admin Dose 10 MG; Start 01/14/17 at 21:00 Lorazepam (Ativan) 1 mg BID PRN PO ANXIETY Last administered on 01/23/17 08: 17; Admin Dose 1 MG; Start 01/14/17 at 06:30 Sertraline HCl (Zoloft) 200 mg DAILY PO Last administered on 01/24/17 09:08; Admin Dose 200 MG; Start 01/14/17 at 09:00 Acetaminophen (Tylenol Tab) 650 mg Q6H PRN PO PAIN LEVEL 1-3 OR FEVER; Start 01/14/17 at 06:30 Tamsulosin HCl (Flomax) 0.4 mg BID PO Last administered on 01/24/17 09:09; Admin Dose 0.4 MG; Start 01/14/17 at 09:00 Heparin Sodium (Porcine) (Heparin (5000 Units/0.5 ml)) 5,000 unit Q8 SC Last administered on 01/24/17 05:29; Admin Dose 5,000 UNIT; Start 01/14/17 at 14:00 Docusate Sodium (Colace) 100 mg Q12H PO Last administered on 01/22/17 07:15; Admin Dose 100 MG; Start 01/14/17 at 18:30 Bisacodyl (Dulcolax) 10 mg DAILY PRN PO CONSTIPATION Last administered on 17:17; Admin Dose 10 MG; Start 01/14/17 at 17:30 Polyethylene Glycol (Miralax) 17 gm BID PO Last administered on 01/24/17 09: 05; Admin Dose 17 GM; Start 01/14/17 at 21:00 Nitroglycerin (Nitroglycerin (Sl Tab) 0.4 Mg) 1 tab Q5M PRN SL CHEST PAIN Last administered on 01/24/17 10:43; Admin Dose 1 TAB; Start 01/15/17 at 12:30 Hydralazine HCl (Apresoline) 10 mg Q4H PRN IV sbp>160 Last administered on 02:52; Admin Dose 10 MG; Start 01/15/17 at 12:30 Mupirocin (Bactroban) 1 applic BID TOP Last administered on 01/24/17 09:10; Admin Dose 1 APPLIC; Start 01/15/17 at 21:00 Amlodipine Besylate (Norvasc) 5 mg BID PO Last administered on 01/24/17 09:08 ; Admin Dose 5 MG; Start 01/15/17 at 21:00 Isosorbide Mononitrate (Imdur) 30 mg DAILY PO Last administered on 01/24/17 09:08; Admin Dose 30 MG; Start 01/16/17 at 09:00 Ondansetron HCl (Zofran Inj) 4 mg Q4 IV Last administered on 01/24/17 09:02; Admin Dose 4 MG; Start 01/16/17 at 13:00 Pantoprazole 40 mg 40 mg DAILY@06 PO Last administered on 01/24/17 05:25; Admin Dose 40 MG; Start 01/17/17 at 06:00 Ertapenem/Sodium Chloride (Invanz/NS) 100 ml @ 200 mls/hr Q24H IVPB Last administered on 01/23/17 15:10; Admin Dose 200 MLS/HR; Start 01/18/17 at 14:30 Hydralazine HCl (Apresoline) 100 mg TID PRN PO SBP GREATER THAN 160 Last administered on 01/22/17 08:08; Admin Dose 100 MG; Start 01/19/17 at 13:30 Metoprolol Tartrate (Lopressor) 25 mg BID PO Last administered on 01/24/17 09 :09; Admin Dose 25 MG; Start 01/19/17 at 21:00 Potassium Chloride (Potassium Chloride Pwd/Soln) 40 meq DAILY PO Last administered on 01/24/17 09:07; Admin Dose 40 MEQ; Start 01/19/17 at 14:00 Lidocaine (Lidoderm) 1 patch DAILY TD Last administered on 01/24/17 09:11; Admin Dose 1 PATCH; Start 01/23/17 at 10:00 Quetiapine Fumarate (Seroquel) 200 mg QHS PO Last administered on 01/23/17 20 :28; Admin Dose 200 MG; Start 01/23/17 at 21:00 Lorazepam (Ativan) 1 mg Q12 PO Last administered on 01/24/17 09:08; Admin Dose 1 MG; Start 01/23/17 at 21:00 Acetaminophen/ Hydrocodone Bitart ([place] (5/325)) 1 tab Q6H PRN PO MODERATE PAIN LEVEL 4-6 Last administered on 01/23/17 20:34; Admin Dose 1 TAB; Start 01/23/17 at 18:30 Lidocaine (Lidoderm) 1 patch DAILY TD Last administered on 01/24/17 09:12; Admin Dose 1 PATCH; Start 01/23/17 at 18:30 GREGORIA PÉREZ MD Jan 24, 2017 13:38
[2017-01-24 13:54] VITALS: BP 137/83; RESP 18
[2017-01-24] MEDS: ERTAPENEM SODIUM 1 GM in SOD CHLORIDE 0.9% 100 ML IVPB SCH (17:27)
[2017-01-24 20:12] VITALS: BP 164/82; RESP 14
[2017-01-24] MEDS: ATORVASTATIN 10 MG TAB PO SCH (20:40)
[2017-01-24] MEDS: QUETIAPINE 100 MG TAB PO SCH (20:40)
[2017-01-24] MEDS: BENAZEPRIL 10 MG TAB PO SCH (20:41)
[2017-01-24] MEDS: HYDROCODONE/APAP (5/325) TAB PO PRN (20:41)
[2017-01-25] MEDS: ONDANSETRON 4 MG INJ IV SCH ×5 (01:00→17:17)
[2017-01-25 02:00] VITALS: BP 129/65; RESP 14
[2017-01-25] MEDS: PANTOPRAZOLE (EC) 40 MG TAB PO SCH (05:37)
[2017-01-25] MEDS: HEPARIN 5,000 UNIT/0.5 ML VIAL SC SCH ×2 (05:41→13:45)
[2017-01-25] MEDS: DOCUSATE SODIUM 100 MG CAP PO SCH ×2 (05:41→18:10)
[2017-01-25 08:08] VITALS: BP 172/88; RESP 16
[2017-01-25] MEDS: SERTRALINE 100 MG TAB PO SCH (08:35)
[2017-01-25] MEDS: ISOSORBIDE MONONITRATE(SR)30 MG TAB PO SCH (08:36)
[2017-01-25] MEDS: BENAZEPRIL 10 MG TAB PO SCH (08:36)
[2017-01-25] MEDS: AMLODIPINE 5 MG TAB PO SCH (08:38)
[2017-01-25] MEDS: TAMSULOSIN (SR) 0.4 MG CAP PO SCH (08:39)
[2017-01-25] MEDS: LORAZEPAM 1 MG TAB PO SCH (08:39)
[2017-01-25] MEDS: POTASSIUM CHLORIDE 20 MEQ POWDER FOR ORAL SOLN PO SCH (08:40)
[2017-01-25] MEDS: LIDOCAINE 5% PATCH TD SCH ×2 (08:46→08:48)
[2017-01-25] MEDS: POLYETHYLENE GLYCOL 17 GM PACKET PO SCH (08:48)
[2017-01-25] MEDS: METOPROLOL 25 MG TAB PO SCH (08:55)
[2017-01-25] MEDS: MUPIROCIN 2% 22 GM OINT TOP SCH (09:05)
--- NOTE | 2017-01-25 13:25 | CONS ---
Date/Time of Note Date/Time of Note DATE: 01/25/17 TIME: 13:23 Assessment/Plan Assessment/Plan Chief Complaint/Hosp Course ASSESSMENT AND PLAN: A 71-year-old gentleman with: 1. Chest pain-negative trop x 3/NL EF by echo. No ischemia by lexiscan with NL EF 2. Hypertension-labile 3. Dyslipidemia. 4. Obesity. 5. Anxiety. 6. Depression. 7. UTI/prostatitis Recc: -Continue norvasc/oral nitrates/BB/ACEI and follow labile BP -Continue statin -Continue abx's and f/u cx data Problems: Consultation Date/Type/Reason Admit Date/Time Jan 14, 2017 at 09:38 Initial Consult Date 01/14/17 Type of Consultation: cardiology Reason for Consultation chest pain Referring Provider: MARTHA SOLIS Exam/Review of Systems Vital Signs Vitals Vital Signs Date Time Temp Pulse Resp B/P Pulse Ox O2 Delivery O2 Flow Rate FiO2 01/25/17 08:08 97.6 67 16 172/88 94 01/23/17 09:31 Room Air Intake and Output 01/24/17 01/24/17 01/25/17 14:59 22:59 06:59 Intake Total 1340 ml 360 ml Output Total 1350 ml 100 ml Balance -10 ml 260 ml Exam Review of Systems: CONSTITUTIONAL: No fevers, chills. PULMONARY: No sob CARDIOVASCULAR: No chest pain/palpitations GASTROINTESTINAL: No nausea/vomiting. GENITOURINARY: No hematuria/dysuria. MUSCULOSKELETAL: No myagias/arthalgias. PSYCHIATRIC: The patient denies depression. NEUROLOGIC: No weakness Constitutional: alert Psych: no complaints Head: normocephalic ENMT: mucosa pink and moist Neck: jvd (9 cm water), supple Respiratory: diminished breath sounds Cardiovascular: regular rate and rhythm Gastrointestinal: non-tender, soft Musculoskeletal: muscle tone (normal) Extremities: edema (nonoe) Neurological: other (No focal deficits) Results Result Diagram: 01/24/17 0552 01/24/17 0552 Medications Medications Current Medications Acetaminophen (Tylenol Tab) 650 mg Q6H PRN PO PAIN LEVEL 1-3 OR FEVER Last administered on 01/23/17t 15:20; Admin Dose 650 MG; Start 01/14/17 at 06:30 Atorvastatin Calcium (Lipitor) 10 mg QHS PO Last administered on 01/24/17 20: 40; Admin Dose 10 MG; Start 01/14/17 at 21:00 Lorazepam (Ativan) 1 mg BID PRN PO ANXIETY Last administered on 01/23/17 08: 17; Admin Dose 1 MG; Start 01/14/17 at 06:30 Sertraline HCl (Zoloft) 200 mg DAILY PO Last administered on 01/25/17 08:35; Admin Dose 200 MG; Start 01/14/17 at 09:00 Acetaminophen (Tylenol Tab) 650 mg Q6H PRN PO PAIN LEVEL 1-3 OR FEVER; Start 01/14/17 at 06:30 Tamsulosin HCl (Flomax) 0.4 mg BID PO Last administered on 01/25/17 08:39; Admin Dose 0.4 MG; Start 01/14/17 at 09:00 Heparin Sodium (Porcine) (Heparin (5000 Units/0.5 ml)) 5,000 unit Q8 SC Last administered on 01/25/17 05:41; Admin Dose 5,000 UNIT; Start 01/14/17 at 14:00 Docusate Sodium (Colace) 100 mg Q12H PO Last administered on 01/22/17 07:15; Admin Dose 100 MG; Start 01/14/17 at 18:30 Bisacodyl (Dulcolax) 10 mg DAILY PRN PO CONSTIPATION Last administered on 17:17; Admin Dose 10 MG; Start 01/14/17 at 17:30 Polyethylene Glycol (Miralax) 17 gm BID PO Last administered on 01/24/17 09: 05; Admin Dose 17 GM; Start 01/14/17 at 21:00 Nitroglycerin (Nitroglycerin (Sl Tab) 0.4 Mg) 1 tab Q5M PRN SL CHEST PAIN Last administered on 01/24/17 10:43; Admin Dose 1 TAB; Start 01/15/17 at 12:30 Hydralazine HCl (Apresoline) 10 mg Q4H PRN IV sbp>160 Last administered on 02:52; Admin Dose 10 MG; Start 01/15/17 at 12:30 Mupirocin (Bactroban) 1 applic BID TOP Last administered on 01/25/17 09:05; Admin Dose 1 APPLIC; Start 01/15/17 at 21:00 Amlodipine Besylate (Norvasc) 5 mg BID PO Last administered on 01/25/17 08:38 ; Admin Dose 5 MG; Start 01/15/17 at 21:00 Isosorbide Mononitrate (Imdur) 30 mg DAILY PO Last administered on 01/25/17 08:36; Admin Dose 30 MG; Start 01/16/17 at 09:00 Ondansetron HCl (Zofran Inj) 4 mg Q4 IV Last administered on 01/25/17 08:55; Admin Dose 4 MG; Start 01/16/17 at 13:00 Pantoprazole 40 mg 40 mg DAILY@06 PO Last administered on 01/25/17 05:37; Admin Dose 40 MG; Start 01/17/17 at 06:00 Ertapenem/Sodium Chloride (Invanz/NS) 100 ml @ 200 mls/hr Q24H IVPB Last administered on 01/24/17 17:27; Admin Dose 200 MLS/HR; Start 01/18/17 at 14:30 Hydralazine HCl (Apresoline) 100 mg TID PRN PO SBP GREATER THAN 160 Last administered on 01/22/17 08:08; Admin Dose 100 MG; Start 01/19/17 at 13:30 Metoprolol Tartrate (Lopressor) 25 mg BID PO Last administered on 01/25/17 08 :55; Admin Dose 25 MG; Start 01/19/17 at 21:00 Potassium Chloride (Potassium Chloride Pwd/Soln) 40 meq DAILY PO Last administered on 01/25/17 08:40; Admin Dose 40 MEQ; Start 01/19/17 at 14:00 Lidocaine (Lidoderm) 1 patch DAILY TD Last administered on 01/25/17 08:46; Admin Dose 1 PATCH; Start 01/23/17 at 10:00 Quetiapine Fumarate (Seroquel) 200 mg QHS PO Last administered on 01/24/17 20 :40; Admin Dose 200 MG; Start 01/23/17 at 21:00 Lorazepam (Ativan) 1 mg Q12 PO Last administered on 01/25/17 08:39; Admin Dose 1 MG; Start 01/23/17 at 21:00 Acetaminophen/ Hydrocodone Bitart ([place] (5/325)) 1 tab Q6H PRN PO MODERATE PAIN LEVEL 4-6 Last administered on 01/24/17 20:41; Admin Dose 1 TAB; Start 01/23/17 at 18:30 Lidocaine (Lidoderm) 1 patch DAILY TD Last administered on 01/25/17 08:48; Admin Dose 1 PATCH; Start 01/23/17 at 18:30 Benazepril HCl (Lotensin) 10 mg BID PO Last administered on 01/25/17 08:36; Admin Dose 10 MG; Start 01/24/17 at 21:00 YESSY CANALES 16, 2017 13:25
[2017-01-25] MEDS: ERTAPENEM SODIUM 1 GM in SOD CHLORIDE 0.9% 100 ML IVPB SCH (13:47)
[2017-01-25 13:55] VITALS: BP 141/78; RESP 16
--- NOTE | 2017-01-25 14:04 | PN ---
Date/Time of Note Date/Time of Note DATE: 01/25/17 TIME: 14:03 Assessment/Plan VTE Prophylaxis VTE Prophylaxis Intervention: heparin Lines/Catheters IV [facility] Urinary Cath still in place: No Assessment/Plan Assessment/Plan 1. Sepsis with underlying Propionibacterium acnes bacteremia. improved, continue iv antibiotics for 3 more days. 2. Chest pain, atypical, likely musculoskeletal, negative stress thallium test 3. Acute kidney injury, resolved 4. Prostatomegaly with CT evidence of enlarged prostate measuring up to 6.2 cm in transverse diameter. The patient will be continued on tamsulosin. Urology follow up outpatient 5. Abdominal pain with associated nausea and vomiting. Etiology unclear. No CT evidence of any acute intra-abdominal findings. Gastroenterology following. Continue PPI. 6. Essential hypertension, stable 7. Dyslipidemia. on statins. 8. MDD with panic disorder. The patient follows up with outpatient psychiatry. 9. DVT prophylaxis. Subcutaneous heparin. Subjective 24 Hr Interval Summary Free Text/Dictation afebrile Exam/Review of Systems Vital Signs Vitals Vital Signs Date Time Temp Pulse Resp B/P Pulse Ox O2 Delivery O2 Flow Rate FiO2 01/25/17 13:55 97.8 62 16 141/78 92 01/23/17 09:31 Room Air Intake and Output 01/24/17 01/24/17 01/25/17 15:00 23:00 07:00 Intake Total 1340 ml 360 ml Output Total 1350 ml 100 ml Balance -10 ml 260 ml Exam Constitutional: alert, oriented, well developed Head: atraumatic, normocephalic Eyes: EOMI, PERRL, nl conjunctiva, nl lids, nl sclera ENMT: mucosa pink and moist, nl external ears & nose, nl lips & teeth, nl nasal mucosa & septum Neck: non-tender, supple Respiratory: clear to auscultation, normal air movement, No congested cough, No crackles/rales, No diminished breath sounds, No intercostal retraction, No labored breathing, No other, No respirations, No tactile fremitus, No wheezing Cardiovascular: nl pulses, regular rate and rhythm, No S3, No S4, No bruits, No diastolic murmur, No edema, No gallop, No irregular rhythm, No jugular venous distention (JVD), No murmurs/extra sounds, No other, No rub, No systolic murmur Gastrointestinal: nl liver, spleen, soft Musculoskeletal: nl extremities to inspection Extremities: normal pulses, No calf tenderness, No clubbing, No cyanosis, No edema, No other, No palpable cord, No pitting pedal edema, No tenderness Neurological: 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 MACHINE OPERATOR II-XII intact, nl mental status, nl speech, nl strength Skin: nl turgor Lymph: nl lymph nodes Results Result Diagram: 01/24/1755101/24/17551 Medications Medications Current Medications Acetaminophen (Tylenol Tab) 650 mg Q6H PRN PO PAIN LEVEL 1-3 OR FEVER Last administered on 01/23/17 15:20; Admin Dose 650 MG; Start 01/14/17 at 06:30 Atorvastatin Calcium (Lipitor) 10 mg QHS PO Last administered on 01/24/17 20: 40; Admin Dose 10 MG; Start 01/14/17 at 21:00 Lorazepam (Ativan) 1 mg BID PRN PO ANXIETY Last administered on 01/23/17 08: 17; Admin Dose 1 MG; Start 01/14/17 at 06:30 Sertraline HCl (Zoloft) 200 mg DAILY PO Last administered on 01/25/17 08:35; Admin Dose 200 MG; Start 01/14/17 at 09:00 Acetaminophen (Tylenol Tab) 650 mg Q6H PRN PO PAIN LEVEL 1-3 OR FEVER; Start 01/14/17 at 06:30 Tamsulosin HCl (Flomax) 0.4 mg BID PO Last administered on 01/25/17 08:39; Admin Dose 0.4 MG; Start 01/14/17 at 09:00 Heparin Sodium (Porcine) (Heparin (5000 Units/0.5 ml)) 5,000 unit Q8 SC Last administered on 01/25/17 13:45; Admin Dose 5,000 UNIT; Start 01/14/17 at 14:00 Docusate Sodium (Colace) 100 mg Q12H PO Last administered on 01/22/17 07:15; Admin Dose 100 MG; Start 01/14/17 at 18:30 Bisacodyl (Dulcolax) 10 mg DAILY PRN PO CONSTIPATION Last administered on 17:17; Admin Dose 10 MG; Start 01/14/17 at 17:30 Polyethylene Glycol (Miralax) 17 gm BID PO Last administered on 01/24/17 09: 05; Admin Dose 17 GM; Start 01/14/17 at 21:00 Nitroglycerin (Nitroglycerin (Sl Tab) 0.4 Mg) 1 tab Q5M PRN SL CHEST PAIN Last administered on 01/24/17 10:43; Admin Dose 1 TAB; Start 01/15/17 at 12:30 Hydralazine HCl (Apresoline) 10 mg Q4H PRN IV sbp>160 Last administered on 02:52; Admin Dose 10 MG; Start 01/15/17 at 12:30 Mupirocin (Bactroban) 1 applic BID TOP Last administered on 01/25/17 09:05; Admin Dose 1 APPLIC; Start 01/15/17 at 21:00 Amlodipine Besylate (Norvasc) 5 mg BID PO Last administered on 01/25/17 08:38 ; Admin Dose 5 MG; Start 01/15/17 at 21:00 Isosorbide Mononitrate (Imdur) 30 mg DAILY PO Last administered on 01/25/17 08:36; Admin Dose 30 MG; Start 01/16/17 at 09:00 Ondansetron HCl (Zofran Inj) 4 mg Q4 IV Last administered on 01/25/17 13:43; Admin Dose 4 MG; Start 01/16/17 at 13:00 Pantoprazole 40 mg 40 mg DAILY@06 PO Last administered on 01/25/17 05:37; Admin Dose 40 MG; Start 01/17/17 at 06:00 Ertapenem/Sodium Chloride (Invanz/NS) 100 ml @ 200 mls/hr Q24H IVPB Last administered on 01/25/17 13:47; Admin Dose 200 MLS/HR; Start 01/18/17 at 14:30 Hydralazine HCl (Apresoline) 100 mg TID PRN PO SBP GREATER THAN 160 Last administered on 01/22/17 08:08; Admin Dose 100 MG; Start 01/19/17 at 13:30 Metoprolol Tartrate (Lopressor) 25 mg BID PO Last administered on 01/25/17 08 :55; Admin Dose 25 MG; Start 01/19/17 at 21:00 Potassium Chloride (Potassium Chloride Pwd/Soln) 40 meq DAILY PO Last administered on 01/25/17 08:40; Admin Dose 40 MEQ; Start 01/19/17 at 14:00 Lidocaine (Lidoderm) 1 patch DAILY TD Last administered on 01/25/17 08:46; Admin Dose 1 PATCH; Start 01/23/17 at 10:00 Quetiapine Fumarate (Seroquel) 200 mg QHS PO Last administered on 01/24/17 20 :40; Admin Dose 200 MG; Start 01/23/17 at 21:00 Lorazepam (Ativan) 1 mg Q12 PO Last administered on 01/25/17 08:39; Admin Dose 1 MG; Start 01/23/17 at 21:00 Acetaminophen/ Hydrocodone Bitart ([place] (5/325)) 1 tab Q6H PRN PO MODERATE PAIN LEVEL 4-6 Last administered on 01/24/17 20:41; Admin Dose 1 TAB; Start 01/23/17 at 18:30 Lidocaine (Lidoderm) 1 patch DAILY TD Last administered on 01/25/17 08:48; Admin Dose 1 PATCH; Start 01/23/17 at 18:30 Benazepril HCl (Lotensin) 10 mg BID PO Last administered on 01/25/17 08:36; Admin Dose 10 MG; Start 01/24/17 at 21:00 GREGORIA PÉREZ MD Jan 25, 2017 14:04
[2017-01-25] MEDS ORDERED: ISOS30TA5 PO (15:28)
[2017-01-25] MEDS ORDERED: AMLO-145 PO (15:28)
[2017-01-25] MEDS ORDERED: BENA10TA48 PO (15:28)
[2017-01-25] MEDS ORDERED: METO-448 PO (15:28)
[2017-01-25] MEDS ORDERED: HYDR-3498 PO (15:37)
[2017-01-25] MEDS ORDERED: TAMS-14 PO (15:37)
--- NOTE | 2017-01-25 15:46 | DS ---
Date/Time of Note Date/Time of Note DATE: 01/25/17 TIME: 15:38 Discharge Summary Admission/Discharge Info Admit Date/Time Jan 14, 2017 at 09:38 Discharge Date/Time Discharge Diagnosis 1. Sepsis with underlying Propionibacterium acnes bacteremia. improved, continue iv invanz for 2 more days. 2. Chest pain, most left shoulder pain, musculoskeletal, negative stress thallium test, norco prn 3. Acute kidney injury, resolved 4. Prostatomegaly with CT evidence of enlarged prostate measuring up to 6.2 cm in transverse diameter. The patient will be continued on tamsulosin. Urology follow up outpatient 5. Abdominal pain with associated nausea and vomiting. Etiology unclear. No CT evidence of any acute intra-abdominal findings. Gastroenterology following. Continue PPI. 6. Essential hypertension, stable 7. Dyslipidemia. on statins. 8. MDD with panic disorder. The patient follows up with outpatient psychiatry. Patient Condition: Stable Hospital Course This is a 71-year-old male with past medical history essential hypertension, dyslipidemia, and benign prostatic hypertrophy who came to the emergency room with chief complaint of abdominal pain with episodes of nausea and vomiting that has been going on for the past 5 days. The patient also verbalized fevers and chills. He has been complaining of some throat pain. He has been complaining of constipation for the past few days. The patient denied any dysuria or hematuria, but did complain of urinary frequency. The patient was complaining of headache as well as left arm pain with left chest wall pain. The patient's complaints were very nonspecific. The patient denied any recent travels. Of note, the patient has history of E. coli ESBL bacteremia and E. coli ESBL urinary tract infection in November 2015. In the emergency room, the patient was noticed to have acute kidney injury along with the hypokalemia. Although the patient's initial WBC was within normal limits, the patient's repeat WBC was 22.6. The patient's urinalysis was negative. The patient was also febrile. The patient's CT scan of the abdomen and pelvis showed enlarged nodular prostate with thickened bladder nava presumably due to chronic urinary outlet obstruction. The CT also revealed small bilateral fat-containing inguinal hernias. The patient was treated with IV Levaquin and IV Flagyl in the emergency room along with potassium supplements and IV analgesics. Blood culture back positive with PROPIONIBACTERIUM ACNES, antibiotics is changed to invanz. Patient will follow up with home health to finish two more days of invanz. No fever or chills clinically. Patient has left shoulder and left upper chest pain, that he has negative stress thallium test. Left shoulder x-ray showing moderate acromioclavicular osteoarthrosis and enthesopathic changes at the greater tuberosity. He will take norco prn and follow up with PCP outpatient. Prostatomegaly with CT evidence of enlarged prostate measuring up to 6.2 cm in transverse diameter. The patient will be continued on tamsulosin. Urology follow up outpatient. Home Meds Active Scripts Tamsulosin Hcl* (Flomax*) 0.4 Mg Cap.er.24h, 0.4 MG PO BID for 30 Days, CAP Prov:GREGORIA PÉREZ MD 01/25/17 Hydrocodone Bit-Acetaminophen (Hydrocodone Bit-APAP) 5-325MG Tablet, 1 TAB PO Q6H Y for MODERATE PAIN LEVEL 4-6, #20 TAB Prov:GREGORIA PÉREZ MD 01/25/17 Metoprolol Tartrate* (Lopressor*) 25 Mg Tab, 25 MG PO BID for 30 Days, TAB Prov:GREGORIA PÉREZ MD 01/25/17 Isosorbide Mononitrate* (Isosorbide Mononitrate*) 30 Mg Tab.er.24h, 30 MG PO DAILY for 30 Days Prov:GREGORIA PÉREZ MD 01/25/17 Benazepril Hcl* (Benazepril Hcl*) 10 Mg Tablet, 10 MG PO BID for 30 Days, TAB Prov:GREGORIA PÉREZ MD 01/25/17 Amlodipine Besylate* (Amlodipine Besylate*) 5 Mg Tablet, 5 MG PO BID for 30 Days , TAB Prov:GREGORIA PÉREZ MD 01/25/17 Magnesium Hydroxide* (Rojo' MOM*) 30 Ml Susp, 30 ML PO DAILY Y for CONSTIPATION for 30 Days Prov:JARROD CHUNG 12/04/15 Docusate Sodium* (Colace*) 100 Mg Capsule, 100 MG PO Q12H Y for CONSTIPATION for 30 Days, CAP Prov:JARROD CHUNG 12/04/15 Acetaminophen* (Tylenol*) 325 Mg Tablet, 650 MG PO Q6H Y for PAIN LEVEL 1-3 OR FEVER for 30 Days, TAB Prov:Farida CHUNGMIREILLEJOSSELIN F 12/04/15 Reported Medications Tamsulosin Hcl* (Tamsulosin Hcl*) 0.4 Mg Cap.er.24h, 0.4 MG PO BID, CAP 11/30/15 Trazodone Hcl* (Trazodone Hcl*) 100 Mg Tablet, 100 MG PO BID, #60 TAB 11/30/15 Sertraline Hcl* (Zoloft*) 100 Mg Tablet, 200 MG PO DAILY, #60 TAB 11/30/15 Zolpidem Tartrate* (Zolpidem Tartrate*) 10 Mg Tablet, 10 MG PO QHS Y for INSOMNIA, #30 TAB 11/30/15 Lorazepam* (Lorazepam*) 1 Mg Tablet, 1 MG PO BID Y for ANXIETY, #30 TAB 11/30/15 Atorvastatin Calcium (Atorvastatin Calcium) 10 Mg Tablet, 10 MG PO QHS, #30 TAB 11/30/15 Discontinued Reported Medications Hydralazine Hcl* (Hydralazine Hcl*) 25 Mg Tab, 25 MG PO TID Y for ANXIETY, #60 TAB 11/30/15 Metoprolol Tartrate* (Lopressor*) 50 Mg Tab, 50 MG PO BID, #60 TAB 11/30/15 Discontinued Scripts Ertapenem Sodium (Invanz) 1 Gm Vial.port, 1 GM IV DAILY for 14 Days Prov:JULIETShoshanaPascaleNAOMIE Keller 12/04/15 Follow-up Plan PCP in one week urology in two weeks Primary Care Provider MD ELISA Valencia MAOGANG MD Jan 25, 2017 15:46
[2017-01-25] MEDS: ACETAMINOPHEN 325 MG TAB PO PRN (15:54)
== END 2017-01-25 19:15 | disposition home health service (06) | DRG 872 ==
LOC: E/R 21:48 → TEL 01-14 01:22 → OBSVTOIN 01-14 09:38 → TEL 01-15 10:56 → MS2 01-22 20:05
PROVIDERS: ADMIT Family Medicine; ATTEND Family Medicine
DX: A41.4 Sepsis due to anaerobes (principal); N17.9 Acute kidney failure, unspecified; D64.9 Anemia, unspecified; N39.0 Urinary tract infection, site not specified; R65.20 Severe sepsis without septic shock; E66.9 Obesity, unspecified; Z68.30 Body mass index [BMI] 30.0-30.9, adult; I10 Essential (primary) hypertension; I25.10 Atherosclerotic heart disease of native coronary artery without angina pectoris; N40.0 Benign prostatic hyperplasia without lower urinary tract symptoms; E87.6 Hypokalemia; R10.84 Generalized abdominal pain; E78.00 Pure hypercholesterolemia, unspecified; F32.9 Major depressive disorder, single episode, unspecified; K59.00 Constipation, unspecified; R11.2 Nausea with vomiting, unspecified; R07.89 Other chest pain; N32.3 Diverticulum of bladder; F41.0 Panic disorder [episodic paroxysmal anxiety]; Z22.322 Carrier or suspected carrier of Methicillin resistant Staphylococcus aureus; Z88.0 Allergy status to penicillin
CPT/HCPCS: 36415; 70450; 71010; 73030; 74176; 74177; 76775; 78452; 80048; 80053; 80061; 81001; 81003; 82043; 82270; 82550; 82553; 83036; 83605; 83690; 83735; 84100; 84153; 84154; 84155; 84300; 84443; 84484; 85025; 85610; 85730; 87040; 87081; 87086; 87400; 93005; 93017; 93306; 93971; 96374; 96375; 97163; 99217; A9500; A9505; G0378; J0360; J1170; J1335; J1644; J1956; J2185; J2270; J2405; J2765; J2785; J3475; J3480; J7030; Q9967

== ENCOUNTER 2017-07-18 10:10 | Inpatient (IN) | END 2017-07-21 13:10 | disposition home or self-care (01) | DRG 713 ==

== ENCOUNTER 2017-07-23 13:16 | Emergency (ER) | END 2017-07-23 17:45 | disposition home or self-care (01) ==

== ENCOUNTER 2017-08-09 16:54 | Inpatient (IN) | END 2017-08-10 21:43 | disposition home or self-care (01) | DRG 607 ==

== ENCOUNTER 2017-08-22 15:02 | Outpatient (CLI) | END 2017-08-22 16:10 | disposition home or self-care (01) ==

== ENCOUNTER 2017-08-22 18:53 | Inpatient (IN) | END 2017-08-24 17:28 | disposition home or self-care (01) | DRG 684 ==

== ENCOUNTER 2017-08-31 11:28 | Inpatient (IN) | END 2017-09-04 14:20 | disposition home health service (06) | DRG 690 ==

== ENCOUNTER 2017-09-04 22:34 | Emergency (ER) | END 2017-09-05 03:02 | disposition home or self-care (01) ==

== ENCOUNTER 2017-09-05 17:14 | Emergency (ER) | END 2017-09-05 20:50 | disposition home or self-care (01) ==

== ENCOUNTER 2017-10-05 22:23 | Inpatient (IN) | END 2017-10-11 13:00 | disposition home or self-care (01) | DRG 672 ==

== ENCOUNTER 2018-10-09 10:19 | Emergency (ER) | payer OTHER ==
[~2018-10-09] VITALS: Ht 165.1 cm; Wt 81.2 kg
[~2018-10-09 10:19] MED LIST changes: -ACET325T33 PO; +AMLO-147 PO; -ATOR10TA65 PO; +ATOR20TA38 PO; +BEN50 PO; +BENA20TA4 PO; +CEPH-443 PO; -DOCU-144 PO; +DOXY100T2 PO; -ERTA1VIA IV; +ERYT1OIN6 LEFT EYE; -HYDR-3671 PO; -METO-429 PO; +QUET300T18 PO; -SERT100T PO; -TAMS0.4C2 PO; +TOLT2CAP15 PO; -TRAZ100T15 PO; -UDMOM PO; -ZOLP10TA5 PO
[2018-10-09 10:33] VITALS: BP 116/79; PULSE 83; RESP 20; Ht 165.1 cm; Wt 81.2 kg
--- NOTE | 2018-10-09 15:44 | ERD ---
ER Documentation Chief Complaint Chief Complaint left eye swelling/pain HPI 72-year-old male presenting with swelling to his left eye. Patient noted this 2 days ago and is seeing some swelling in the inferior aspect of the eye. He denies any pain with ocular movement. Denies other medical problems. NKDA. Surgical history denies. Social history denies ROS All systems reviewed and are negative except as per history of present illness. Medications Home Meds Active Scripts Cephalexin* (Keflex*) 500 Mg Capsule, 500 MG PO QID for 7 Days, CAP Prov:MEGAHN OCHOA PA-C 10/09/18 Erythromycin Base (Erythromycin) 1 Gm Oint...g., 1 APPLIC LEFT EYE QID for 7 Days Prov:MEGHAN OCHOA PA-C 10/09/18 Tolterodine Tartrate* (Detrol LA*) 2 Mg Cap.sr.24h, 4 MG PO HS, #60 TAB Prov:KETTY CORONEL 10/11/17 Doxycycline* (Vibramycin*) 100 Mg Tab, 100 MG PO BID for 36 Days, #72 TAB Prov:KETTY CORONEL 10/11/17 Diphenhydramine Hcl* (Benadryl*) 50 Mg Cap, 50 MG PO Q6H PRN for ITCHING for 7 Days, #28 CAP Prov:CRISTINA AN MD 08/24/17 Reported Medications Benazepril Hcl* (Benazepril Hcl*) 20 Mg Tablet, 20 MG PO DAILY, #30 TAB Hold forSBP<110 or HR<60 08/09/17 Quetiapine Fumarate* (Quetiapine Fumarate*) 300 Mg Tablet, 300 MG PO HS, TAB 07/18/17 Amlodipine Besylate* (Amlodipine Besylate*) 10 Mg Tablet, 10 MG PO DAILY, #30 TAB 07/18/17 Atorvastatin Calcium* (Atorvastatin Calcium*) 20 Mg Tablet, 20 MG PO QHS, #30 TAB 07/18/17 Lorazepam* (Lorazepam*) 1 Mg Tablet, 1 MG PO BID PRN for ANXIETY, #30 TAB 07/18/17 Allergies Allergies: Coded Allergies: sulfamethoxazole (Verified Allergy, Severe, rash, 09/05/17) trimethoprim (Verified Allergy, Severe, rash, 09/05/17) Penicillins (Verified Allergy, Unknown, rash, 09/05/17) PMhx/Soc History of Surgery: Yes (TURP) Anesthesia Reaction: No Hx Neurological Disorder: Yes (BACK:TINGLING,NUMBNESS;LEFT LEG PAIN) Hx Respiratory Disorders: No Hx Cardiac Disorders: Yes (HTN) Hx Psychiatric Problems: Yes (SCHIZOPHRENIA, PANIC ATTACKS, ANXIETY) Hx Miscellaneous Medical Probl: Yes (HIGH CHOLESTEROL) Hx Alcohol Use: No Hx Substance Use: No Hx Tobacco Use: Yes (1-2 CIGARETTES PER DAY) Smoking Status: Current every day smoker FmHx Family History: No diabetes, No coronary disease, No other Physical Exam Vitals Vital Signs Date Temp Pulse Resp B/P (MAP) Pulse Ox O2 O2 Flow FiO2 Time Delivery Rate 10/09/18 97.3 83 20 116/79 96 10:33 (91) Physical Exam GENERAL: The patient is well-appearing, well-nourished, in no acute distress HEENT: Atraumatic. Conjunctivae are pink. Pupils equal, round, and reactive to light. There is no scleral icterus. Tympanic membranes clear bilaterally. Oropharynx clear. Erythematous papule noted to the internal aspect of the left lower eyelid. NECK: C-spine is soft and supple. There is no meningismus. There is no cervical lymphadenopathy. CHEST: Clear to auscultation bilaterally. There are no rales, wheezes or rhonchi. HEART: Regular rate and rhythm. No murmurs, clicks, rubs or gallops. No S3 or S4. Procedures/MDM MDM: 72-year-old male presenting with findings consistent with stye. Patient's erythema is expanding over the whole lower lid so I will treat with oral antibiotics. Patient is discharged this strict ER precautions and given topical and oral antibiotics. Patient is told symptoms change or worsen to return immediately to the ER. All questions answered at discharge Departure Diagnosis: Primary Impression: Stye Condition: Stable Patient Instructions: Sty Additional Instructions: FOLLOW UP WITH YOUR PRIMARY CARE PHYSICIAN TOMORROW.Return to this facility if you are not improving as expected. MEGHAN OCHOA PA-C Oct 09, 2018 15:44
== END 2018-10-09 11:09 | disposition home or self-care (01) ==
LOC: FTE 10:19
DX: H00.015 Hordeolum externum left lower eyelid (principal); I10 Essential (primary) hypertension; F17.210 Nicotine dependence, cigarettes, uncomplicated
CPT/HCPCS: 99283